=== PATIENT | male | born 1965 | race Caucasian/White ===

== ENCOUNTER 2016-10-11 21:07 | Inpatient (IN) | payer BC ==
[2016-10-11] MEDS ORDERED: NITROGLYCERIN OINT 1 INCH/GM PACKET TOPICAL STA (21:23)
[2016-10-11] MEDS ORDERED: ASPIRIN 81 MG CHEW PO STA (21:23)
[2016-10-11] MEDS ORDERED: LABETALOL 5 MG/ML VIAL MDV IVP STA (21:24)
--- NOTE | 2016-10-11 21:28 | ED ---
Chest Pain HPI - General Chief Complaint: Chest Pain Stated Complaint: chest & left arm pain Time Seen by Provider: 10/11/16 21:17 Source: patient Mode of arrival: wheelchair Limitations: no limitations - History of Present Illness Initial Comments: This 50-year-old white male presents with with a complaint of some left arm and left jaw pain. He states that this is been occurring daily for the last 2 weeks. It is intermittent in nature. It comes on sporadically at rest and does not seem to be associated with exertion. He denies any shortness of breath or palpitations. He had some diaphoresis a couple days ago. He denies any actual chest pain. He denies any leg pain or swelling. He denies any history of DVT or PE. He states that the pain is described more as a pressure or hurting type of sensation. No other complaints or modifying factors. His last stress test was approximately 10 years ago and was negative. He denies any known cardiac disease. All of his symptoms have resolved at this time. - Related Data Home Medications Medication Instructions Recorded Confirmed Ibuprofen [Motrin] 800 mg PO Q8H PRN 12/25/15 10/11/16 Allergies Allergy/AdvReac Type Severity Reaction Status Date / Time Penicillins Allergy Unknown Verified 10/11/16 21:40 Childhood Review of Systems ROS Statement: Those systems with pertinent positive or pertinent negative responses have been documented in the HPI. ROS Other: All systems not noted in ROS Statement are negative. Past Medical History Past Medical History: No Reported History History of Any Multi-Drug Resistant Organisms: None Reported Past Surgical History: Appendectomy Additional Past Surgical History / Comment(s): patient states he had his stomach flipped, because of acid reflux Past Psychological History: No Psychological Hx Reported Smoking Status: Current every day smoker Past Alcohol Use History: Occasional Past Drug Use History: None Reported General Exam - General Exam Comments Initial Comments: GENERAL: The patient is well nourished and well hydrated. VITAL SIGNS: Heart rate, blood pressure, respiratory rate reviewed as recorded in nurse's notes. EYES: Pupils are round and reactive. Extraocular movements are intact. No conjunctival / lid redness or swelling. ENT: No external evidence of injury, swelling, or ecchymosis. Airway is patent. Throat is clear. NECK: Nontender. No swelling or evidence of injury. No subcutaneous emphysema. Trachea is midline. No thyroid mass. HEART: Regular rate and rhythm. Good peripheral pulses. LUNGS/CHEST: Breath sounds clear and equal bilaterally. No rales, rhonchi, or wheezes. No ecchymosis, subcutaneous emphysema, or tenderness. ABDOMEN: Abdomen soft without tenderness. No palpable masses or organomegaly. No peritoneal signs. No abdominal wall swelling or ecchymosis. EXTREMITIES: No extremity tenderness. Normal muscle tone and function. No thoracolumbar tenderness. NEUROLOGIC: Sensation is grossly intact. Cranial nerve exam reveals face is symmetrical, tongue is midline, speech is clear. SKIN: No abrasions or ecchymosis is noted. No induration or masses noted. PSYCHIATRIC: Alert and oriented. Appropriate behavior and judgment. Limitations: no limitations Course Vital Signs 10/11/16 10/11/16 21:13 21:45 Temperature 98 F Pulse Rate 80 70 Respiratory 24 16 Rate Blood Pressure 172/102 127/71 O2 Sat by Pulse 97 100 Oximetry Chest Pain MDM - MDM The patient was seen and examined. All diagnostics were reviewed. The EKG shows a normal sinus rhythm at a rate of 80. There is some ST depression in V4- V6. There is no ST elevation. The [place] interval is 152, QRS duration is 108, and the QTc interval is 477. This ST depression appears to be a new changes compared to EKG done 12/25/2015. He is given an aspirin as well as some Nitropaste. The repeat EKG shows a normal sinus rhythm at a rate of 76. No acute ST-T wave changes are identified. It appears that the previous EKG changes have resolved at this time. The [place] interval is 150, QRS duration is 102 , and the QTC intervals 470. The patient has a chest x-ray completed which does not show any acute process. The laboratories essentially within normal limits with a slight decrease in the CO2. Some fluid hydration is given. He is asymptomatic on recheck. Due to his symptomatology and EKG changes, it is felt that he likely does have acute coronary syndrome and would require admission to the hospital. He is agreeable. Case is discussed with ETHAN Palumbo from internal medicine and she is agreeable to admission. Heparin will be started shortly and he will be admitted to telemetry for further treatment. Disposition Clinical Impression: Acute electrocardiogram changes, Left arm pain, Acute coronary syndrome Disposition: ADMITTED IP TO THIS HOSP Condition: Fair Time of Disposition: 22:55 Decision Date: 10/11/16 Decision Time: 22:55
[2016-10-11 21:57] LABS: Basophils # (A) 0.1 k/uL (0-0.2); Basophils % (A) 1 %; CH 33.3; CHCM 34.1; Eosinophils # (A) 0.2 k/uL (0-0.7); Eosinophils % (A) 2 %; HCT 45.6 % (39.0-53.0); HDW 2.35; HGB 14.7 gm/dL (13.0-17.5); Luc # (Auto) 0.28; Luc % (Auto) 3; Lymphocytes # (A) 2.8 k/uL (1.0-4.8); Lymphocytes % (A) 29 %; MCH 31.7 pg (25.0-35.0); MCHC 32.4 g/dL (31.0-37.0); MCV 98.1 fL (80.0-100.0); Mean Platelet Volume 7.4; Monocytes # (A) 0.7 k/uL (0-1.0); Monocytes % (A) 7 %; Neutrophils # (A) 5.5 k/uL (1.3-7.7); Neutrophils % (A) 58 %; RBC 4.64 m/uL (4.30-5.90); RDW 13.8 % (11.5-15.5); WBC 9.5 k/uL (3.8-10.6); WBC (Perox) 9.48
--- NOTE | 2016-10-11 22:07 | XR ---
EXAMINATION TYPE: XR chest 2V DATE OF EXAM: 10/11/2016 COMPARISON: 12/25/2015 HISTORY: Chest pain TECHNIQUE: Frontal and lateral views of the chest are obtained. FINDINGS: Heart and mediastinum are normal. There is a large hiatal hernia. Lungs are clear. There i s no pleural effusion. Bony thorax is intact. There is old minimal wedging of a midthoracic vertebra. IMPRESSION: No active cardiopulmonary disease. Hiatal hernia. No change.
[2016-10-11 22:09] LABS: ALT 27 U/L (21-72); AST 17 U/L (17-59); Alkaline Phosphatase 84 U/L (38-126); Anion Gap 11 mmol/L; Blood Urea Nitrogen 11 mg/dL (9-20); Calcium 8.8 mg/dL (8.4-10.2); Carbon Dioxide 20 mmol/L (22-30); Chloride 107 mmol/L (98-107); Glucose 99 mg/dL (74-99); Non-African American GFR(MDRD) >60 (>60 ml/min/1.73 sqM); Potassium 3.9 mmol/L (3.5-5.1); Sodium 138 mmol/L (137-145); Total Bilirubin 0.1 mg/dL (0.2-1.3); Total Protein 6.8 g/dL (6.3-8.2)
[2016-10-11 22:17] LABS: Partial Thromboplastin Time 22.7 sec (22.0-30.0); Prothrombin Time 10.2 sec (9.0-12.0)
[2016-10-11 22:22] LABS: Creatine Kinase 127 U/L (55-170)
[2016-10-11 22:35] LABS: Creatine Kinase MB 1.9 ng/mL (0.0-2.4); Troponin I <0.012 ng/mL (0.000-0.034)
[2016-10-11] MEDS ORDERED: SODIUM CHLORIDE 0.9% 1,000 ML IV STA (22:38)
[2016-10-11] MEDS ORDERED: NITROGLYCERIN SL TABS 0.4 MG TAB SUBLINGUAL PRN (22:56)
[2016-10-11] MEDS ORDERED: HEPARIN SODIUM,PORCINE 5,000 UNIT/ML 1 ML VIAL IV PRN (22:56)
[2016-10-11] MEDS ORDERED: HEPARIN SODIUM,PORCINE 5,000 UNIT/ML 1 ML VIAL IV ONE (22:56)
[2016-10-11] MEDS ORDERED: HEPARIN SODIUM,PORCINE/D5W PMX 25,000 UNIT in DEXTROSE/WATER 1 500ML.BAG IV SCH (23:00)
[2016-10-11] MEDS ORDERED: ACETAMINOPHEN TAB 325 MG TAB PO PRN (23:00)
[2016-10-12] MEDS: PANTOPRAZOLE 40 MG/10 ML VIAL IVP SCH ×2 (00:21→09:07)
[2016-10-12] MEDS: NITROGLYCERIN OINT 1 INCH/GM PACKET TOPICAL SCH ×4 (00:26→18:06)
[2016-10-12 04:41] LABS: Mean Platelet Volume 7.3
[2016-10-12 04:54] LABS: Cholesterol 167 mg/dL (<200); HDL Cholesterol 49 mg/dL (40-60)
[2016-10-12 05:23] LABS: Creatine Kinase MB 2.2 ng/mL (0.0-2.4)
[2016-10-12 05:26] LABS: Troponin I 0.126 ng/mL (0.000-0.034)
[2016-10-12] MEDS ORDERED: ALPRAZolam 0.25 MG TAB PO PRN (07:26)
[2016-10-12] MEDS ORDERED: ATORVASTATIN 80 MG TAB PO STA (07:26)
[2016-10-12] MEDS ORDERED: ALPRAZolam 0.5 MG TAB PO PRN (07:26)
[2016-10-12] MEDS ORDERED: SODIUM CHLORIDE 0.9% 1,000 ML in EMPTY BAG 1 BAG IV ONE (07:26)
[2016-10-12] MEDS ORDERED: NITROGLYCERIN SL TABS 0.4 MG TAB SUBLINGUAL PRN ×2 (07:26→13:35)
--- NOTE | 2016-10-12 07:50 | P.CRDCN ---
History of Present Illness Consult date: 10/12/16 History of present illness: This is a 50-year-old gentleman with history of smoking and family history of ischemic heart disease has been experiencing intermittent chest pain him a left arm pain and also Pain for the last one week. The pains were intermittent, not clearly related to exertion, lasting about 5-10 minutes at this time. This is associated with some nausea and mild sweating and shortness of breath. In view of the symptoms patient was admitted to the hospital through emergency room. His EKGs on admission showed ST-T changes in the lateral leads which are consistent with ischemia. His troponin values showed elevation of the second set consistent with acute coronary syndrome. Patient is advised to have a cardiac catheterization for definitive diagnosis. Further recommendations depend upon the findings on the cath. Patient doesn't have any history of previous myocardial infarction, stroke or hypercholesterolemia Review of Systems REVIEW OF SYSTEMS: CONSTITUTIONAL:. Patient is doing well. No complaints of fever or chills EYES: Denies diplopia, blurring of vision EARS, NOSE, MOUTH, THROAT: Denies headaches, denies sore throat. CARDIOVASCULAR: As per HPI RESPIRATORY: Denies shortness of breath, denies cough. GASTROINTESTINAL: Denies change in appetite, denies abdominal pain, denies diarrhea GENITOURINARY: Denies hematuria, denies infections. MUSKULOSKELETAL: Denies pain, denies swelling. Denies any cramps or claudication INTEGUMENTARY: Denies rash, denies eczema. NEUROLOGICAL: Denies focal weakness, or visual disturbance. Denies any dizziness or syncope PSYCHIATRIC: Denies anxiety, denies depression. HEMATOLOGIC/LYMPHATIC: Denies any bleeding, denies enlarged lymph nodes. Past Medical History Past Medical History: No Reported History History of Any Multi-Drug Resistant Organisms: None Reported Past Surgical History: Appendectomy Additional Past Surgical History / Comment(s): patient states he had his stomach flipped, because of acid reflux Past Anesthesia/Blood Transfusion Reactions: No Reported Reaction Past Psychological History: No Psychological Hx Reported Smoking Status: Current every day smoker Past Alcohol Use History: Occasional Past Drug Use History: None Reported - Past Family History Father Family Medical History: Cancer, COPD Additional Family Medical History / Comment(s): prostate cancer Mother Family Medical History: Chest Pain / Angina, Coronary Artery Disease (CAD), Myocardial Infarction ([place]) Additional Family Medical History / Comment(s): "Mother had multiple heart attacks and open heart surgery" Medications and Allergies Home Medications Medication Instructions Recorded Confirmed Type Ibuprofen [Motrin] 800 mg PO Q8H PRN 12/25/15 10/11/16 History Allergies Allergy/AdvReac Type Severity Reaction Status Date / Time Penicillins Allergy Unknown Verified 10/11/16 21:40 Childhood Physical Exam Vitals: Vital Signs Temp Pulse Pulse Resp BP BP Pulse Ox 10/12/16 04:00 59 L 16 10/12/16 03:53 98.1 F 59 L 16 119/69 95 10/12/16 00:00 61 16 10/11/16 23:52 97.9 F 61 16 126/77 96 10/11/16 23:32 73 20 130/74 96 10/11/16 21:45 70 16 127/71 100 10/11/16 21:13 98 F 80 24 172/102 97 Intake and Output 10/11/16 10/12/16 10/12/16 22:59 06:59 14:59 Intake Total 127.588 Balance 127.588 Intake: Intake, IV Titration 127.588 Amount Heparin Sodium,Porcine/ 127.588 D5w Pmx 25,000 unit In Dextrose/Water 1 500ml. bag @ 11.75 UNITS/KG/HR 20.02 mls/hr IV .Q24H [facility] Rx#:[id number] Other: Voiding Method Toilet # Voids 1 Weight 85.23 kg 88.8 kg GENERAL EXAM: Patient is alert and oriented and doesn't appear to be in any acute distress HEENT: Normocephalic. Normal reaction of pupils, equal size, normal range of extraocular motion. No erythema or exudates in the throat. NECK: No masses, no nuchal rigidity. CHEST: No chest wall deformity. LUNGS: Equal air entry with no crackles or wheeze. HEART: S1 and S2 normal with no audible mumurs or gallops. Regular rhythm, femorals equal on both sides.. ABDOMEN: No hepatosplenomegaly, normal bowel sounds, no guarding or rigidity. SKIN: No rashes CENTRAL NERVOUS SYSTEM: No focal deficits. EXTREMITIES: No cyanosis, clubbing or edema. Patient has diffuse vitiligo Results 10/12/16 04:14 10/11/16 21:40 Cardiac Enzymes 10/11/16 10/11/1610/12/17 Range/Units 21:40 21:40 04:14 AST 17 (17-59) U/L CK-MB (CK-2) 1.9 2.2 (0.0-2.4) ng/mL Troponin I <0.012 0.126 H* (0.000-0.034) ng/mL Coagulation 10/11/16 10/12/16 Range/Units 21:40 04:14 PT 10.2 (9.0-12.0) sec APTT 22.7 30.3 H (22.0-30.0) sec Lipids 10/12/16 Range/Units 04:14 Triglycerides 101 (<150) mg/dL Cholesterol 167 (<200) mg/dL HDL Cholesterol 49 (40-60) mg/dL CBC 10/11/16 10/12/16 Range/Units 21:40 04:14 WBC 9.5 (3.8-10.6) k/uL RBC 4.64 (4.30-5.90) m/uL Hgb 14.7 (13.0-17.5) gm/dL Hct 45.6 (39.0-53.0) % Plt Count 284 293 (150-450) k/uL Comprehensive Metabolic Panel 10/11/16 Range/Units 21:40 Sodium 138 (137-145) mmol/L Potassium 3.9 (3.5-5.1) mmol/L Chloride 107 (98-107) mmol/L Carbon Dioxide 20 L (22-30) mmol/L BUN 11 (9-20) mg/dL Creatinine 0.81 (0.66-1.25) mg/dL Glucose 99 (74-99) mg/dL Calcium 8.8 (8.4-10.2) mg/dL AST 17 (17-59) U/L ALT 27 (21-72) U/L Alkaline Phosphatase 84 (38-126) U/L Total Protein 6.8 (6.3-8.2) g/dL Albumin 3.9 (3.5-5.0) g/dL Current Medications Generic Name Dose Route Start Last Admin Trade Name Freq PRN Reason Stop Dose Admin Acetaminophen 650 mg 10/11/16 23:00 Tylenol Tab PO Q6H PRN Pain Alprazolam 0.25 mg 10/12/16 07:26 Xanax PO Q6HR PRN Mild Anxiety Alprazolam 0.5 mg 10/12/16 07:26 Xanax PO Q6HR PRN Moderate Anxiety Aspirin 325 mg 10/12/16 09:00 Aspirin PO DAILY [facility] Heparin Sodium (Porcine) 0 unit 10/11/16 22:56 10/12/16 05:48 Heparin IV 4,000 unit Q6HR PRN Administration Low PTT Protocol Sodium Chloride 1,000 mls @ 100 mls/hr 10/11/16 22:38 10/11/16 23:25 Saline 0.9% IV 10/12/16 08:37 100 mls/hr .Q10H [facility]A Administration Heparin Sodium/Dextrose 25,000 500 mls @ 20.02 mls/hr 10/11/16 23:00 05:50 unit/ IV Solution IV 15 units/kg/hr .Q24H [facility] 25.56 mls/hr Protocol Titration 11.75 UNITS/KG/HR Nitroglycerin 1 inch 10/12/16 00:00 10/12/16 05:44 Nitro-Bid Oint TOPICAL 1 inch Q6HR [facility] Administration Nitroglycerin 0.4 mg 10/11/16 22:56 Nitrostat SUBLINGUAL Q5M PRN Chest Pain Nitroglycerin 0.4 mg 10/12/16 07:26 Nitrostat SUBLINGUAL Q5M PRN Chest Pain Pantoprazole Sodium 40 mg 10/11/16 23:15 10/12/16 00:21 Protonix IVP 40 mg DAILY [facility]RO Administration Intake and Output 10/11/16 10/12/16 10/12/16 22:59 06:59 14:59 Intake Total 127.588 Balance 127.588 Intake: Intake, IV Titration 127.588 Amount Heparin Sodium,Porcine/ 127.588 D5w Pmx 25,000 unit In Dextrose/Water 1 500ml. bag @ 11.75 UNITS/KG/HR 20.02 mls/hr IV .Q24H [facility] Rx#:[id number] Other: Voiding Method Toilet # Voids 1 Weight 85.23 kg 88.8 kg 10/12/16 04:14 10/11/16 21:40 EKG Interpretations (text) Sinus rhythm with ST-T changes in the lateral leads size to of ischemia Assessment and Plan (1) Smoking Status: Acute (2) Acute coronary syndrome Status: Acute (3) Family history of ischemic heart disease Status: Acute Plan: Patient will continue with heparin, nitrates, beta blockers and aspirin. We will get an echocardiogram. Patient will have a cardiac catheterization for definitive diagnosis.
[2016-10-12] MEDS: ASPIRIN 325 MG TAB PO SCH (08:03)
[2016-10-12] MEDS ORDERED: METOPROLOL TARTRATE 12.5 MG TAB PO SCH (09:00)
--- NOTE | 2016-10-12 10:05 | ECHOF ---
Referral Reason:left arm pain MEASUREMENTS -------- HEIGHT: 180.3 cm WEIGHT: 88.5 kg BP: 119/69 IVSd: 0.7 cm (0.6 - 1.1) LVIDd: 5.2 cm (3.9 - 5.3) LVPWd: 0.9 cm (0.6 - 1.1) IVSs: 1.8 cm LVIDs: 2.8 cm LVPWs: 1.7 cm Ao Diam: 3.4 cm (2.0 - 3.7) AV Cusp: 2.1 cm (1.5 - 2.6) LA Diam: 3.0 cm (2.7 - 3.8) MV EXCURSION: 14.577 mm (> 18.000) MV EF SLOPE: 110 mm/s (70 - 150) EPSS: 0.4 cm MV E Bossman: 0.95 m/s MV DecT: 229 ms MV A Bossman: 0.70 m/s MV E/A Ratio: 1.35 RAP: 5.00 mmHg RVSP: 12.99 mmHg FINDINGS -------- Sinus rhythm. This was a technically good study. Left ventricular wall thickness is normal. Overall left ventricular systolic function is normal with, an EF between 55 - 60 %. The right ventricle is normal in size and function. The left atrium is normal in size. The right atrium is normal in size. The aortic valve is trileaflet, and appears structurally normal. No aortic stenosis or regurgitation. The mitral valve leaflets are mildly thickened. There is trace mitral regurgitation. Mild tricuspid regurgitation present. The right ventricular systolic pressure, as measured by Doppler, is 12.99mmHg. Pulmonic valve appears structurally normal. The aortic root size is normal. Normal inferior vena cava with normal inspiratory collapse consistent with estimated right atrial pressure of 5 mmHg. The pericardium is normal. CONCLUSIONS -------- 1. Sinus rhythm. 2. There is trace mitral regurgitation. 3. Mild tricuspid regurgitation present. 4. The right ventricular systolic pressure, as measured by Doppler, is 12.99mmHg. 5. Pulmonic valve appears structurally normal. 6. The aortic root size is normal. 7. Normal inferior vena cava with normal inspiratory collapse consistent with estimated right atrial pressure of 5 mmHg. 8. The pericardium is normal. 9. This was a technically good study. 10. Left ventricular wall thickness is normal. 11. Overall left ventricular systolic function is normal with, an EF between 55 - 60 %. 12. The right ventricle is normal in size and function. 13. The left atrium is normal in size. 14. The right atrium is normal in size. 15. The aortic valve is trileaflet, and appears structurally normal. No aortic stenosis or regurgitation. 16. The mitral valve leaflets are mildly thickened. TRANSMISSION TECHNICIAN: Erlinda Whalen RDCS
[2016-10-12] MEDS ORDERED: SODIUM CHLORIDE 0.9% 1,000 ML IV ONE ×2 (11:35→16:00)
[2016-10-12] MEDS ORDERED: diphenhydrAMINE 50 MG/ML 1 ML VIAL ONE (11:40)
[2016-10-12] MEDS ORDERED: LIDOCAINE 2% INJ 20 MG/ML (20 ML MDV) ONE ×2 (11:40→13:27)
[2016-10-12] MEDS ORDERED: MIDAZOLAM 2 MG/2 ML VIAL ONE (11:41)
[2016-10-12] MEDS ORDERED: fentaNYL (PF) 50 MCG/ML 2 ML AMP ONE (11:41)
[2016-10-12] MEDS ORDERED: fentaNYL (PF) 50 MCG/ML 2 ML AMP IV ONE (11:44)
[2016-10-12] MEDS ORDERED: diphenhydrAMINE 50 MG/ML 1 ML VIAL IVP ONE (11:44)
[2016-10-12] MEDS ORDERED: MIDAZOLAM 2 MG/2 ML VIAL IV ONE (11:44)
[2016-10-12] MEDS ORDERED: LIDOCAINE 2% INJ 20 MG/ML SQ ONE (11:45)
[2016-10-12 12:15] LABS: Creatine Kinase MB 1.4 ng/mL (0.0-2.4)
[2016-10-12 12:16] LABS: Troponin I 0.07 ng/mL (0.000-0.034)
[2016-10-12] MEDS ORDERED: BIVALIRUDIN BOLUS 250 MG/50 ML IV ONE (12:45)
[2016-10-12] MEDS ORDERED: HYDROmorphone 2 MG/ML 1 ML SYRINGE ONE (12:46)
[2016-10-12] MEDS ORDERED: CLOPIDOGREL 75 MG TAB ONE (12:46)
[2016-10-12] MEDS ORDERED: BIVALIRUDIN 250 MG in SODIUM CHLORIDE 0.9% 50 ML IV ONE (12:47)
[2016-10-12] MEDS ORDERED: HYDROmorphone 2 MG/ML 1 ML SYRINGE IV ONE (12:48)
[2016-10-12] MEDS: NITROGLYCERIN 1000MCG/10ML SYRINGE INTRACORON ONE ×3 (12:52→13:24)
[2016-10-12] MEDS ORDERED: CLOPIDOGREL 75 MG TAB PO ONE (12:57)
[2016-10-12] MEDS ORDERED: MAG HYDROX/AL HYDROX/SIMETH 30 ML CUP PO PRN (13:35)
[2016-10-12] MEDS ORDERED: ZOLPIDEM 5 MG TAB PO PRN (13:35)
[2016-10-12] MEDS ORDERED: RX INFO: IV CONTRAST WAS GIVEN 1 EACH MISC MISCELLANE PRN (13:35)
[2016-10-12] MEDS ORDERED: ATROPINE SULFATE 0.1 MG/ML 10ML SYRINGE IV PRN (13:35)
[2016-10-12] MEDS ORDERED: IOHEXOL 350 MG/ML 125ML BOTTLE INJ ONE (13:44)
[2016-10-12] MEDS ORDERED: SODIUM CHLORIDE 0.9% 1,000 ML IV SCH (13:45)
[2016-10-12] MEDS: METOPROLOL TARTRATE 25 MG TAB PO SCH (20:40)
--- NOTE | 2016-10-12 22:08 | P.HPIM ---
History of Present Illness H&P Date: 10/12/16 Chief Complaint: Left arm pain and numbness This is a 50-year-old gentleman with history of smoking and family history of ischemic heart disease came to ER with complaints of intermittent left arm pain for the last one week. The pains were intermittent, not clearly related to exertion, lasting about 5-10 minutes at this time. This is associated with some nausea and mild sweating and shortness of breath. His EKGs on admission showed ST-T changes in the lateral leads which are consistent with ischemia. His troponin values showed elevation of the second set consistent with acute coronary syndrome. Patient was seen by cardiology and patient underwent cardiac catheterization and stent placement today. Patient currently denied any, soft chest pain or trouble breath. No nausea vomiting abdominal pain. No recent illnesses. No sick contacts. No recent travel. Review of Systems CONSTITUTIONAL: No fever, no malaise, no fatigue. HEENT: No recent visual problems or hearing problems. Denied any sore throat. CARDIOVASCULAR: No chest pain, orthopnea, PND, no palpitations, no syncope. PULMONARY: , no hemoptysis. GASTROINTESTINAL: No diarrhea, no nausea, no vomiting, no abdominal pain. Normoactive bowel sounds. NEUROLOGICAL: No headaches, no weakness, no numbness. HEMATOLOGICAL: Denies any bleeding or petechiae. GENITOURINARY: Denies any burning micturition, frequency, or urgency. MUSCULOSKELETAL/RHEUMATOLOGICAL: Denies any joint pain, swelling, or any muscle pain. ENDOCRINE: Denies any polyuria or polydipsia. The rest of the 14-point review of systems is negative. Past Medical History Past Medical History: No Reported History History of Any Multi-Drug Resistant Organisms: None Reported Past Surgical History: Appendectomy Additional Past Surgical History / Comment(s): patient states he had his stomach flipped, because of acid reflux Past Anesthesia/Blood Transfusion Reactions: No Reported Reaction Past Psychological History: No Psychological Hx Reported Smoking Status: Current every day smoker Past Alcohol Use History: Occasional Past Drug Use History: None Reported - Past Family History Father Family Medical History: Cancer, COPD Additional Family Medical History / Comment(s): prostate cancer Mother Family Medical History: Chest Pain / Angina, Coronary Artery Disease (CAD), Myocardial Infarction ([place]) Additional Family Medical History / Comment(s): "Mother had multiple heart attacks and open heart surgery" Medications and Allergies Home Medications Medication Instructions Recorded Confirmed Type Ibuprofen [Motrin] 800 mg PO Q8H PRN 12/25/15 10/11/16 History Allergies Allergy/AdvReac Type Severity Reaction Status Date / Time Penicillins Allergy Unknown Verified 10/11/16 21:40 Childhood Physical Exam Vitals: Vital Signs Temp Pulse Pulse Pulse Resp BP BP 10/12/16 16:35 56 L 16 145/80 10/12/16 15:26 64 16 132/78 10/12/16 14:57 74 74 16 133/81 10/12/16 14:36 68 68 16 136/89 10/12/16 14:26 59 L 16 146/92 10/12/16 14:05 62 16 147/95 10/12/16 13:50 54 L 16 142/88 10/12/16 08:00 97.7 F 60 16 10/12/16 04:00 59 L 16 10/12/16 03:53 98.1 F 59 L 16 119/69 10/12/16 00:00 61 16 10/11/16 23:52 97.9 F 61 16 126/77 10/11/16 23:32 73 20 130/74 10/11/16 21:45 70 16 127/71 10/11/16 21:13 98 F 80 24 172/102 BP Pulse Ox 10/12/16 16:35 92 L 10/12/16 15:26 92 L 10/12/16 14:57 98 10/12/16 14:36 96 10/12/16 14:26 95 10/12/16 14:05 96 10/12/16 13:50 96 10/12/16 08:00 141/85 95 10/12/16 04:00 10/12/16 03:53 95 10/12/16 00:00 10/11/16 23:52 96 10/11/16 23:32 96 10/11/16 21:45 100 10/11/16 21:13 97 Intake and Output 10/12/16 10/12/16 10/12/16 06:59 14:59 22:59 Intake Total 127.588 245 Output Total 450 600 Balance 127.588 -205 -600 Intake: IV 245 Sodium Chloride 0.9% 1, 0 000 ml @ 100 mls/hr IV . Q10H [facility] Rx#:[id number] Intake, IV Titration 127.588 Amount Heparin Sodium,Porcine/ 127.588 D5w Pmx 25,000 unit In Dextrose/Water 1 500ml. bag @ 11.75 UNITS/KG/HR 20.02 mls/hr IV .Q24H [facility] Rx#:[id number] Output: Urine 450 600 Other: Voiding Method Toilet Toilet # Voids 1 Weight 88.8 kg PHYSICAL EXAMINATION: Patient is lying in the bed comfortably, no acute distress, awake alert and oriented.. HEENT: Normocephalic. Neck is supple. Pupils reactive. Nostrils clear. Oral cavity is moist. Ears reveal no drainage. Neck reveals no JVD, carotid bruits, or thyromegaly. CHEST EXAMINATION: Trachea is central. Symmetrical expansion. Lung valencia clear to auscultation and percussion. CARDIAC: Normal S1, S2 with no gallops. No murmurs ABDOMEN: Soft. Bowel sounds normal. No organomegaly. No abdominal bruits. Extremities reveal no edema. No clubbing or cyanosis Neurologically awake, alert, oriented x3 with well-coordinated movements. Skin: no rash or skin lesions Musculoskeletal: no joint swelling or deformity. Results CBC & Chem 7: 10/12/16 04:14 10/11/16 21:40 Labs: Abnormal Lab Results - Last 24 Hours (Table) 10/11/16 10/12/16 10/12/16 Range/Units 21:40 04:14 04:14 APTT 30.3 H (22.0-30.0) sec Carbon Dioxide 20 L (22-30) mmol/L Total Bilirubin 0.1 L (0.2-1.3) mg/dL Troponin I 0.126 H* (0.000-0.034) ng/mL 10/12/16 Range/Units 10:44 APTT (22.0-30.0) sec Carbon Dioxide (22-30) mmol/L Total Bilirubin (0.2-1.3) mg/dL Troponin I 0.070 H* (0.000-0.034) ng/mL Thrombosis Risk Factor Assmnt - DVT/VTE Prophylaxis DVT/VTE Prophylaxis: Pharmacologic Prophylaxis ordered - Choose All That Apply Any of the Below Risk Factors Present?: Yes Each Factor Represents 1 point: Age 41-60 years Thrombosis Risk Factor Assessment Total Risk Factor Score: 1 Thrombosis Risk Factor Assessment Level: Low Risk Assessment and Plan Plan: #1 acute non-ST elevated [place] status post cardiac catheterization and stent placement #2 left arm pain on admission #3 nicotine addiction #4 family history of coronary artery disease. #5 DVT prophylaxis Plan: Patient will be continued on aspirin, Plavix, statin and beta blockers. Cardiology is on the board. Continue with telemetry monitoring. 2-D echo showed normal ejection fraction. Further recommendations based on the clinical course. Time with Patient: Greater than 30
[2016-10-13] MEDS: NITROGLYCERIN OINT 1 INCH/GM PACKET TOPICAL SCH ×2 (01:20→06:17)
[2016-10-13 06:17] LABS: Basophils # (A) 0.1 k/uL (0-0.2); Basophils % (A) 1 %; CH 32.5; CHCM 34.1; Eosinophils # (A) 0.2 k/uL (0-0.7); Eosinophils % (A) 1 %; HCT 47.5 % (39.0-53.0); HDW 2.35; HGB 16.1 gm/dL (13.0-17.5); Luc % (Auto) 2; Lymphocytes # (A) 1.9 k/uL (1.0-4.8); Lymphocytes % (A) 14 %; MCH 32.4 pg (25.0-35.0); MCHC 33.8 g/dL (31.0-37.0); MCV 95.7 fL (80.0-100.0); Mean Platelet Volume 6.9; Monocytes % (A) 7 %; Neutrophils # (A) 10.3 k/uL (1.3-7.7); Neutrophils % (A) 75 %; RBC 4.96 m/uL (4.30-5.90); RDW 13.2 % (11.5-15.5); WBC 13.7 k/uL (3.8-10.6); WBC (Perox) 13.21
[2016-10-13 06:32] LABS: Anion Gap 9 mmol/L; Blood Urea Nitrogen 11 mg/dL (9-20); Calcium 9.1 mg/dL (8.4-10.2); Carbon Dioxide 25 mmol/L (22-30); Chloride 105 mmol/L (98-107); Glucose 104 mg/dL (74-99); Non-African American GFR(MDRD) >60 (>60 ml/min/1.73 sqM); Potassium 4.4 mmol/L (3.5-5.1); Sodium 139 mmol/L (137-145)
--- NOTE | 2016-10-13 08:16 | P.DS ---
Providers Date of admission: 10/12/16 15:29 Expected date of discharge: 10/13/16 Attending physician: Amanda Garcia Consults: 10/11/16 22:56 Consult Physician Urgent Consulting Provider: Zachary Meier Consult Reason/Comments: cp Do you want consulting provider notified?: Yes 10/12/16 13:35 Consult Physician Routine Consulting Provider: [facility] Consult Reason/Comments: Post Interventional patient Do you want consulting provider notified?: Already Contacted Primary care physician: Stated None - Discharge Diagnosis(es) (1) Smoking Current Visit: Yes Status: Acute (2) Acute coronary syndrome Current Visit: Yes Status: Acute (3) Family history of ischemic heart disease Current Visit: Yes Status: Acute Hospital Course: This 50-year-old gentleman is admitted to the hospital with a recurrence chest pain and left arm pain suggestive of unstable angina. Troponins were abnormal consistent with acute coronary syndrome. Patient had a cardiac catheterization and was found to have critical lesion involving the left circumflex and severe disease involving the right coronary artery. There is mild to moderate disease in the diagonal branch. Patient had stent placement of both circumflex and right coronary artery. Patient has been stable since the procedure. Hasn't had any chest pain, shortness of breath, dizziness or syncope. His groin is soft. His blood pressure has been running high. Patient is on metoprolol 12.5 mg by mouth twice a day and lisinopril 10 mg daily. I'm going to add Norvasc 5 mg today and if the blood pressure stable, patient will be discharged later today. He did his groin is soft without any hematoma. Patient will continue aspirin, Lasix 75 mg, metoprolol 12.5 mg by mouth twice a day, Norvasc 5 mg, and lisinopril 10 mg. Patient is advised not to do any heavy lifting, pushing or pulling. Follow-up in the office in one week time Patient Condition at Discharge: Fair Plan - Discharge Summary New Discharge Prescriptions: New amLODIPine [Norvasc] 5 mg PO DAILY #90 tab Aspirin 325 mg PO DAILY #90 tab Atorvastatin [Lipitor] 80 mg PO HS #90 tab Clopidogrel [Plavix] 75 mg PO DAILY #90 tab Lisinopril [Zestril] 10 mg PO DAILY #90 tab Metoprolol Tartrate [Lopressor] 25 mg PO BID #180 tab Nitroglycerin Sl Tabs [Nitrostat] 0.4 mg SUBLINGUAL Q5M PRN #25 tab PRN Reason: Chest Pain Discontinued Ibuprofen [Motrin] 800 mg PO Q8H PRN PRN Reason: Pain Discharge Medication List Aspirin 325 mg PO DAILY #90 tab 10/13/16 [Rx] Atorvastatin [Lipitor] 80 mg PO HS #90 tab 10/13/16 [Rx] Clopidogrel [Plavix] 75 mg PO DAILY #90 tab 10/13/16 [Rx] Lisinopril [Zestril] 10 mg PO DAILY #90 tab 10/13/16 [Rx] Metoprolol Tartrate [Lopressor] 25 mg PO BID #180 tab 10/13/16 [Rx] Nitroglycerin Sl Tabs [Nitrostat] 0.4 mg SUBLINGUAL Q5M PRN #25 tab 10/13/16 [Rx ] amLODIPine [Norvasc] 5 mg PO DAILY #90 tab 10/13/16 [Rx] Follow up Appointment(s)/Referral(s): Zachary Meier MD [STAFF PHYSICIAN] - 1 Week Discharge Disposition: HOME SELF-CARE
--- NOTE | 2016-10-13 08:20 | P.PCN ---
Date of Procedure: 10/13/16 Preoperative Diagnosis: Unstable angina Postoperative Diagnosis: Triple-vessel coronary artery disease Procedure(s) Performed: Left heart catheterization with left ventriculography Implants: Indications for Procedure: Operative Findings: Description of Procedure: HISTORY: This is a 50-year-old gentleman who was admitted to the hospital with complaints of recurrent left arm and jaw pain with positive troponin and EKG changes suggestive of unstable angina. Patient is advised to have cardiac catheterization for definitive diagnosis and further intervention as needed. CONSENT:I have discussed the risks, benefits and alternative therapies for the above-mentioned procedure and for both sedation/analgesia as well as necessary blood product administration, if indicated, as they pertain to this patient. The patient has indicated understanding and acceptance of the risks and procedures discussed. PROCEDURE: Patient was brought to the lab in a fasting state. Patient was given some IV sedation. The right groin is infiltrated with lidocaine and right femoral artery was entered using Seldinger technique. A 6-Georgian catheter was left in place and selective coronary arteriography and left ventriculography was performed. Patient tolerated the procedure well. Femoral angiogram was performed and Angio-Seal was applied for hemostasis. No immediate complications were noted and patient was transferred to [facility] in a stable condition Conscious Sedation: Versed : 1 mg Fentanyl [: 50] g Duration 18 minutes HEMODYNAMICS: The aortic pressure was about 160/90. Left ankle end-diastolic pressure was about 12. There was no gradient across the aortic valve SELECTIVE CORONARY ARTERIOGRAPHY: LEFT MAIN: Normal length and patent THE LEFT ANTERIOR DESCENDING CORONARY ARTERY: . This is a good caliber vessel giving rise to moderate caliber diagonal branch. Diagonal branch has about 40-50% stenosis in the proximal portion. The LAD itself is free of significant occlusive disease. THE LEFT CIRCUMFLEX AND IS CORONARY ARTERY: This is a good caliber vessel with about 95% stenosis in the proximal portion THE RIGHT CORONARY ARTERY: . This is a good caliber vessel with about 70% stenosis in the distal portion LEFT VENTRICULOGRAPHY: . This revealed normal-sized cardiac silhouette with good systolic function FINAL IMPRESSION: . Significant 2 vessel disease with intermediate disease in the first diagonal PLAN: And placement of the circumflex and the right coronary artery to be done by Dr. Hernandes PROGNOSIS: . Fair
[2016-10-13] MEDS: METOPROLOL TARTRATE 25 MG TAB PO SCH (08:57)
[2016-10-13] MEDS: ASPIRIN 325 MG TAB PO SCH (08:57)
[2016-10-13] MEDS: PANTOPRAZOLE 40 MG/10 ML VIAL IVP SCH (08:58)
[2016-10-13 09:00] VITALS: RESP 16
[2016-10-13] MEDS ORDERED: ASPIRIN 325 MG TAB PO SCH (09:00)
[2016-10-13] MEDS ORDERED: LISINOPRIL 10 MG TAB PO SCH (09:00)
[2016-10-13] MEDS ORDERED: amLODIPine 5 MG TAB PO SCH (09:00)
[2016-10-13 10:49] VITALS: BP 118/61; PULSE 63; TEMP 98.6
[2016-10-13] MEDS ORDERED: CLOPIDOGREL 75 MG TAB PO SCH (12:00)
--- NOTE | 2016-10-13 13:50 | PCN ---
PERFORMING PHYSICIAN: Yony Go MD, Community Service Officer PROCEDURE PERFORMED: 1. Successful stenting of the mid left circumflex using 3.25 x 26 mm Xience OUSMANE with good angiographic results. 2. Successful stenting of the mid-right coronary artery using 3.0 x 15 mm Promise Premier drug eluting stent with good angiographic result. INDICATIONS: This is a pleasant 50-year-old gentleman who was experiencing chest discomfort and underwent heart catheterization by Dr. Meier and was found to have severe two vessel CAD involving the mid left circumflex and mid right coronary artery. The decision was made towards percutaneous coronary intervention. APPROACH: Right common femoral artery. COMPLICATIONS: None. LEVEL OF SEDATION: Moderate with sedation length of 45 minutes. PROCEDURE DESCRIPTION: After diagnostic heart catheterization was performed by Dr. Meier and after reviving the angiogram, we decided to pursue with intervene on the RCA and anticoagulation was initiated using Angiomax. Subsequently, I took JL4 guiding catheter and the left main was engaged. Whisper wire was used to wire the left circumflex. I did PTCA ballooning initially using 2.5 x 12 mm and subsequently 3.0 x 15 mm balloon. I attempted advancing 3.25 x 26 mm stent to the left circumflex but the stent would not cross the lesion so I had to double wire the left circumflex using run through wire as a sandi wire. After that I was able to advance the stent to the mid left circumflex where the stent was positioned under fluoroscopy guidance and deployed under its nominal pressure. The following angiogram showed good angiographic results with no perforation or dissection and TIMI3 flow in the mid -left circumflex. Subsequently I took JR4 guiding catheter and left main was engaged. I sued the same Whisper wire and the same 2.5 x 12 mm balloon to balloon the mid-RCA. Subsequently, I deployed 3.0 x 15 mm Promise Premier drug-eluting stent where the stent was positioned under fluoroscopic guidance and deployed under its nominal pressure. I postdilated that stent using 3.0 NC balloon. The following angiogram showed excellent angiographic results. The procedure was completed without any complications. POSTPROCEDURE MANAGEMENT: 1. Dual antiplatelet therapy. 2. Risk factor modifications. 3. Follow up with the patient. GARCIA
[2016-10-13] MEDS ORDERED: ATORVASTATIN 80 MG TAB PO SCH (21:00)
[2016-10-14] MEDS ORDERED: PANTOPRAZOLE 40 MG TABLET PO SCH (07:30)
--- NOTE | 2016-10-16 01:14 | P.DS ---
Providers Date of admission: 10/12/16 15:29 Expected date of discharge: 10/13/16 Attending physician: Amanda Garcia Consults: 10/11/16 22:56 Consult Physician Urgent Consulting Provider: Zachary Meier Consult Reason/Comments: cp Do you want consulting provider notified?: Yes 10/12/16 13:35 Consult Physician Routine Consulting Provider: [facility] Consult Reason/Comments: Post Interventional patient Do you want consulting provider notified?: Already Contacted Primary care physician: Stated None Hospital Course: Discharge diagnosis #1 acute non-ST elevated MD status post cardiac catheterization and stent placement #2 left arm pain on admission #3 nicotine addiction #4 family history of coronary artery disease. #5 DVT prophylaxis Hospital course This is a 50-year-old gentleman with history of smoking and family history of ischemic heart disease came to ER with complaints of intermittent left arm pain for the last one week. The pains were intermittent, not clearly related to exertion, lasting about 5-10 minutes at this time. This is associated with some nausea and mild sweating and shortness of breath. His EKGs on admission showed ST-T changes in the lateral leads which are consistent with ischemia. His troponin values showed elevation of the second set consistent with acute coronary syndrome. Patient was seen by cardiology and patient underwent cardiac catheterization and stent placement today. Patient currently denied any, soft chest pain or trouble breath. No nausea vomiting abdominal pain. No recent illnesses. No sick contacts. No recent travel. On 10/13/2016 patient denied any new complaints. Patient underwent cardiac catheterization and stent placement to both circumflex and right coronary artery. No hematoma noted at the entry site. Continue with the telemetry monitoring. Patient will be continued on aspirin, Plavix, statin and beta blockers and lisinopril. Norvasc was added. 2-D echo showed normal ejection fraction. Advised to follow with primary care physician cardiology. Patient Condition at Discharge: Stable Plan - Discharge Summary New Discharge Prescriptions: New amLODIPine [Norvasc] 5 mg PO DAILY #90 tab Aspirin 325 mg PO DAILY #90 tab Atorvastatin [Lipitor] 80 mg PO HS #90 tab Clopidogrel [Plavix] 75 mg PO DAILY #90 tab Lisinopril [Zestril] 10 mg PO DAILY #90 tab Metoprolol Tartrate [Lopressor] 25 mg PO BID #180 tab Nitroglycerin Sl Tabs [Nitrostat] 0.4 mg SUBLINGUAL Q5M PRN #25 tab PRN Reason: Chest Pain Discontinued Ibuprofen [Motrin] 800 mg PO Q8H PRN PRN Reason: Pain Discharge Medication List Aspirin 325 mg PO DAILY #90 tab 10/13/16 [Rx] Atorvastatin [Lipitor] 80 mg PO HS #90 tab 10/13/16 [Rx] Clopidogrel [Plavix] 75 mg PO DAILY #90 tab 10/13/16 [Rx] Lisinopril [Zestril] 10 mg PO DAILY #90 tab 10/13/16 [Rx] Metoprolol Tartrate [Lopressor] 25 mg PO BID #180 tab 10/13/16 [Rx] Nitroglycerin Sl Tabs [Nitrostat] 0.4 mg SUBLINGUAL Q5M PRN #25 tab 10/13/16 [Rx ] amLODIPine [Norvasc] 5 mg PO DAILY #90 tab 10/13/16 [Rx] Follow up Appointment(s)/Referral(s): Zachary Meier MD [STAFF PHYSICIAN] - 1 Week (office will call with appointment date and time) Patient Instructions/Handouts: *Surgery [facility] - After Heart Catheterization - Log Marker Instructions, Chest Pain (DC), Left Heart Catheterization (DC) Activity/Diet/Wound Care/Special Instructions: Follow post cath instruction sheet Smoking Cessation Discharge Disposition: HOME SELF-CARE
== END 2016-10-13 12:43 | disposition home or self-care (01) | DRG 247 ==
LOC: EC 21:07 → 3OBS 22:55 → 6SEL 10-12 13:35 → OBSVTOIN 10-12 15:29 → 6SEL 10-12 16:07
PROVIDERS: ADMIT Internal Medicine; ATTEND Internal Medicine
PROC: 027135Z Dilation of Coronary Artery, Two Arteries with Two Drug-eluting Intraluminal Devices, Percutaneous Approach (ICD-10-PCS; principal; 2016-10-13)
PROC: 4A023N7 Measurement of Cardiac Sampling and Pressure, Left Heart, Percutaneous Approach (ICD-10-PCS; 2016-10-13)
PROC: B2151ZZ Fluoroscopy of Left Heart using Low Osmolar Contrast (ICD-10-PCS; 2016-10-13)
PROC: B2111ZZ Fluoroscopy of Multiple Coronary Arteries using Low Osmolar Contrast (ICD-10-PCS; 2016-10-13)
DX: I24.9 Acute ischemic heart disease, unspecified (principal); F17.200 Nicotine dependence, unspecified, uncomplicated; I25.110 Atherosclerotic heart disease of native coronary artery with unstable angina pectoris; K21.9 Gastro-esophageal reflux disease without esophagitis; Z88.0 Allergy status to penicillin; Z82.49 Family history of ischemic heart disease and other diseases of the circulatory system
CPT/HCPCS: 36415; 71020; 80048; 80053; 80061; 82550; 82553; 83735; 84484; 85025; 85049; 85610; 85730; 93005; 93306; 93458; 96374; 96375; 99285

== ENCOUNTER 2017-12-07 11:21 | Emergency (ER) | payer BC ==
[2017-12-07] MEDS ORDERED: ACETAMINOPHEN TAB 500 MG TAB PO STA (12:01)
[2017-12-07] MEDS ORDERED: SODIUM CHLORIDE 0.9% 1,000 ML IV STA (12:09)
--- NOTE | 2017-12-07 12:54 | ED ---
Fever HPI - General Chief Complaint: Fever Stated Complaint: facial swelling Time Seen by Provider: 12/07/17 11:34 Source: patient, RN notes reviewed, old records reviewed Mode of arrival: ambulatory Limitations: no limitations - History of Present Illness Initial Comments: 52-year-old male presents results from today with chief complaint of swelling over the right side of his jaw complains of fevers and chills. Also complains of blistering over the lip. Patient states that he has had no chest interest breath, nausea or vomiting. He states that he's been feeling very fatigued and had high fevers of 101 earlier today. He is taking Motrin Tylenol. Patient reports that he has been fatigued, and has had significant weight loss over the past few months. Reports poor appetitie. - Related Data Home Medications Medication Instructions Recorded Confirmed Aspirin EC [Ecotrin Low Dose] 81 mg PO DAILY 12/07/17 12/07/17 Cpm/PE/Dm/Acetaminophen/Guaifn 2 tab PO Q6H PRN 12/07/17 12/07/17 [Tylenol Cold-Flu Day-Nt Caplet] amLODIPine [Norvasc] 2.5 mg PO DAILY 12/07/17 12/07/17 Previous Rx's Medication Instructions Recorded Atorvastatin [Lipitor] 80 mg PO HS #90 tab 10/13/16 Clopidogrel [Plavix] 75 mg PO DAILY #90 tab 10/13/16 Lisinopril [Zestril] 10 mg PO DAILY #90 tab 10/13/16 Metoprolol Tartrate [Lopressor] 25 mg PO BID #180 tab 10/13/16 Nitroglycerin Sl Tabs [Nitrostat] 0.4 mg SUBLINGUAL Q5M PRN #25 tab 10/13/16 Cephalexin [Keflex] 500 mg PO Q8HR #21 cap 12/07/17 Allergies Allergy/AdvReac Type Severity Reaction Status Date / Time Penicillins Allergy Unknown Verified 12/07/17 12:09 Childhood Review of Systems ROS Statement: Those systems with pertinent positive or pertinent negative responses have been documented in the HPI. ROS Other: All systems not noted in ROS Statement are negative. Constitutional: Reports: fever, chills Eyes: Denies: eye pain ENT: Denies: ear pain, throat pain Respiratory: Denies: cough, dyspnea Cardiovascular: Denies: chest pain Endocrine: Reports: fatigue (d) Gastrointestinal: Denies: abdominal pain, nausea Genitourinary: Denies: urgency Musculoskeletal: Denies: back pain Skin: Denies: rash Past Medical History Past Medical History: No Reported History History of Any Multi-Drug Resistant Organisms: None Reported Past Surgical History: Appendectomy Additional Past Surgical History / Comment(s): patient states he had his stomach flipped, because of acid reflux Past Anesthesia/Blood Transfusion Reactions: No Reported Reaction Past Psychological History: No Psychological Hx Reported Smoking Status: Current every day smoker Past Alcohol Use History: Occasional Past Drug Use History: None Reported - Past Family History Father Family Medical History: Cancer, COPD Additional Family Medical History / Comment(s): prostate cancer Mother Family Medical History: Chest Pain / Angina, Coronary Artery Disease (CAD), Myocardial Infarction ([place]) Additional Family Medical History / Comment(s): "Mother had multiple heart attacks and open heart surgery" General Exam - General Exam Comments Initial Comments: Well appearing 52 year old male, no acute distress. Limitations: no limitations General appearance: alert, in no apparent distress Head exam: Present: atraumatic, normocephalic, normal inspection Eye exam: Present: normal appearance, PERRL, EOMI. Absent: scleral icterus, conjunctival injection, periorbital swelling ENT exam: Present: normal exam, mucous membranes moist, other (Bilatering over top lip. ) Neck exam: Present: normal inspection, other (Swelling and lymphadenopathy over R lower mandible. No abscess noted into oral cavity. ). Absent: tenderness, meningismus, lymphadenopathy Respiratory exam: Present: normal lung sounds bilaterally. Absent: respiratory distress, wheezes, rales, rhonchi, stridor Cardiovascular Exam: Present: regular rate, normal rhythm, normal heart sounds. Absent: systolic murmur, diastolic murmur, rubs, gallop, clicks GI/Abdominal exam: Present: soft, normal bowel sounds. Absent: distended, tenderness, guarding, rebound, rigid Neurological exam: Present: alert, oriented X3, CN II-XII intact Psychiatric exam: Present: normal affect, normal mood Skin exam: Present: warm, dry, intact, normal color. Absent: rash Course Vital Signs 12/07/17 12/07/17 11:25 14:42 Temperature 98.3 F 98.5 F Pulse Rate 82 81 Respiratory 20 16 Rate Blood Pressure 101/70 100/58 O2 Sat by Pulse 97 97 Oximetry Medical Decision Making - Medical Decision Making Patient is a 52 year old male with left facial swelling, fatigue for one week. Patient is a heavy smoker, and complains of unintentional weight loss. Patient has area of lymphadenopathy and swelling over left face and mandible. No evidence of dental abscess. Patient lab work shows normal WBC, BMP, and heterophile. Patient CT facial bones shows no focal abscess for drainage. Patient CXR shows evidence of single pulmonary nodule, recommended CT chest. Patient at this time cannot have another CT today due to receiving contrast earlier. Patient will be written for outpatient CT, and advised to follow up with PCP and pulmonology. Patient will be started on short course of antibiotics to cover for possible early dental abscess. he is allergic to Penicillin. Return parameters discussed. - Lab Data Result diagrams: 12/07/17 12:37 12/07/17 12:37 Lab Results 12/07/17 12/07/17 12/07/17 Range/Units 12:37 12:37 12:37 WBC 10.3 (3.8-10.6) k/uL RBC 4.32 (4.30-5.90) m/uL Hgb 12.7 L (13.0-17.5) gm/dL Hct 39.7 (39.0-53.0) % MCV 91.7 (80.0-100.0) fL MCH 29.4 (25.0-35.0) pg MCHC 32.1 (31.0-37.0) g/dL RDW 12.2 (11.5-15.5) % Plt Count 523 H (150-450) k/uL Neutrophils % 64 % Lymphocytes % 20 % Monocytes % 11 % Eosinophils % 1 % Basophils % 1 % Neutrophils # 6.6 (1.3-7.7) k/uL Lymphocytes # 2.1 (1.0-4.8) k/uL Monocytes # 1.2 H (0-1.0) k/uL Eosinophils # 0.1 (0-0.7) k/uL Basophils # 0.1 (0-0.2) k/uL Sodium 139 (137-145) mmol/L Potassium 4.9 (3.5-5.1) mmol/L Chloride 105 (98-107) mmol/L Carbon Dioxide 25 (22-30) mmol/L Anion Gap 9 mmol/L BUN 17 (9-20) mg/dL Creatinine 0.71 (0.66-1.25) mg/dL Est GFR (CKD-EPI)AfAm >90 (>60 ml/min/1.73 sqM) Est GFR (CKD-EPI)NonAf >90 (>60 ml/min/1.73 sqM) Glucose 119 H (74-99) mg/dL Calcium 9.0 (8.4-10.2) mg/dL Total Bilirubin 0.4 (0.2-1.3) mg/dL AST 19 (17-59) U/L ALT 16 L (21-72) U/L Alkaline Phosphatase 72 (38-126) U/L Total Protein 7.2 (6.3-8.2) g/dL Albumin 3.3 L (3.5-5.0) g/dL Heterophile Antibody Negative (Negative) - Radiology Data Radiology results: report reviewed Diffuse swelling over left facial structures, correlate for cellulitis. CXR shows evidence of solitary pulmonary nodule in right middle lung, reccomended CT chest. Stable emphysema and cardiomegaly changes. 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 Return to the emergency department if any alarming signs or symptoms occur. Take medication as prescribed. Prescriptions: Cephalexin [Keflex] 500 mg PO Q8HR #21 cap Is patient prescribed a controlled substance at d/c from ED?: No Referrals: None,Stated [Primary Care Provider] - 1-2 days Jess Barclay MD [STAFF PHYSICIAN] - 1-2 days Time of Disposition: 14:29
[2017-12-07 13:11] LABS: Basophils # (A) 0.1 k/uL (0-0.2); Basophils % (A) 1 %; Eosinophils # (A) 0.1 k/uL (0-0.7); Eosinophils % (A) 1 %; HCT 39.7 % (39.0-53.0); HGB 12.7 gm/dL (13.0-17.5); Lymphocytes # (A) 2.1 k/uL (1.0-4.8); Lymphocytes % (A) 20 %; MCH 29.4 pg (25.0-35.0); MCHC 32.1 g/dL (31.0-37.0); MCV 91.7 fL (80.0-100.0); Mean Platelet Volume 6.8; Monocytes # (A) 1.2 k/uL (0-1.0); Monocytes % (A) 11 %; Neutrophils # (A) 6.6 k/uL (1.3-7.7); Neutrophils % (A) 64 %; Platelet Count 523 k/uL (150-450); RBC 4.32 m/uL (4.30-5.90); RDW 12.2 % (11.5-15.5); WBC 10.3 k/uL (3.8-10.6)
[2017-12-07 13:26] LABS: ALT 16 U/L (21-72); AST 19 U/L (17-59); Albumin 3.3 g/dL (3.5-5.0); Alkaline Phosphatase 72 U/L (38-126); Anion Gap 9 mmol/L; Blood Urea Nitrogen 17 mg/dL (9-20); Carbon Dioxide 25 mmol/L (22-30); Chloride 105 mmol/L (98-107); Glucose 119 mg/dL (74-99); Potassium 4.9 mmol/L (3.5-5.1); Sodium 139 mmol/L (137-145); Total Bilirubin 0.4 mg/dL (0.2-1.3); Total Protein 7.2 g/dL (6.3-8.2)
--- NOTE | 2017-12-07 14:00 | XR ---
EXAMINATION TYPE: XR chest 2V DATE OF EXAM: 12/07/2017 COMPARISON: 10/11/2016 HISTORY: Fever TECHNIQUE: Frontal and lateral views of the chest are obtained. FINDINGS: Ill-defined rounded lesion is seen within the right midlung inferior to the seventh right p osterior rib. There is no focal air space opacity, pleural effusion, or pneumothorax seen. The cardi ac silhouette size is mildly enlarged as seen on the prior. The osseous structures are intact. Ther e is a small hiatal hernia with surgical clips in the retrocardiac airspace. Mild multilevel degenera tive changes of the thoracic spine are seen. Flattening of the diaphragms on the lateral image relate s underlying COPD. IMPRESSION: Nodular density within the right midlung suspicious for pulmonary nodule. CT thorax is r ecommended. Stable pulmonary emphysema, hiatal hernia, and borderline cardiomegaly prior. No focal co nsolidation to suggest pneumonia.
--- NOTE | 2017-12-07 14:02 | CT ---
EXAMINATION TYPE: CT facial bones w con DATE OF EXAM: 12/07/2017 COMPARISON: None HISTORY: Lt Mandible swelling CT DLP: 625 mGycm Automated exposure control for dose reduction was used. CONTRAST: CT scan of the facial bones is performed with IV Contrast, patient injected with 100 mL of Isovue 300 . TECHNIQUE: CT scan of the sinuses is performed without contrast, axial images are obtained, coronal r eformatted images are also reviewed. FINDINGS: There are changes of moderate chronic appearing sinusitis involving the ethmoid and maxilla ry sinuses and severe frontal sinusitis. Nasopharynx and oropharynx symmetric. Areas of shotty adenopathy are seen throughout the soft tissues of the neck. Parotid glands and submandibular glands have a normal appearance. Cavernous sinus and vasculature enhances normally. Atherosclerotic change involving the carotid bifur cation bilaterally. There is skin thickening and soft tissue edema overlying the left facial structures. No definite unde rlying abscess is seen. Dental artifact obscures portions of the soft tissues. Osseous structures intact. No acute fracture or destructive changes. Defect in the alveolar ridge of the left maxilla may be related to periodontal disease or previous tooth removal correlate clinically . IMPRESSION: 1. Diffuse soft tissue edema overlying the left facial structures correlate for cellulitis. No defini te abscess. 2. Defect in the alveolar ridge of the left maxilla may be related to periodontal disease or previous tooth removal correlate clinically. 3. Moderate to severe chronic sinusitis.
[2017-12-07 14:42] VITALS: BP 100/58; PULSE 81; RESP 16; TEMP 98.5
== END 2017-12-07 14:42 | disposition home or self-care (01) ==
LOC: EC 11:21
DX: R91.1 Solitary pulmonary nodule (principal); R50.9 Fever, unspecified; R22.0 Localized swelling, mass and lump, head; J43.9 Emphysema, unspecified; I51.7 Cardiomegaly; R23.8 Other skin changes; R59.0 Localized enlarged lymph nodes; R53.83 Other fatigue; R63.4 Abnormal weight loss; R63.8 Other symptoms and signs concerning food and fluid intake; F17.200 Nicotine dependence, unspecified, uncomplicated; Z79.82 Long term (current) use of aspirin; Z79.899 Other long term (current) drug therapy; Z88.0 Allergy status to penicillin; Z82.5 Family history of asthma and other chronic lower respiratory diseases; Z82.49 Family history of ischemic heart disease and other diseases of the circulatory system
CPT/HCPCS: 99284; 96360; 96361; 36415; 80053; 85025; 86308; 71046; 70487; Q9967

== ENCOUNTER 2017-12-08 09:53 | Inpatient (IN) | payer BC ==
--- NOTE | 2017-12-08 11:18 | ED ---
General Adult HPI - General Chief complaint: Recheck/Abnormal Lab/Rx Stated complaint: Fatigue Source: patient Mode of arrival: ambulatory Limitations: no limitations - History of Present Illness Initial comments: Dictation was produced using [employer] dictation software. please excuse any grammatical, word or spelling errors. Chief Complaint: An is a 52-year-old male who was seen in emergency department for left facial swelling, constitutional symptoms, lip rash and generalized weakness presents today for worsening weakness. History of Present Illness: Patient is 52-year-old male with no known medical history presents with worsening symptoms of weakness. Patient was seen in emergency department where she was evaluated for facial rash, B type symptoms. Patient expresses significant weight loss and worsening fatigue over the past few months. Patient is a heavy smoker. Patient has any changes since last night. History patient is reevaluated. CT face was obtained showing soft tissue swelling over the left mandibular area. X-ray showed pulmonary nodule of uncertain significance. Given recent symptoms there is strong clinical suspicion that patient's symptoms represent cancerous process versus infectious nodule. The ROS documented in this emergency department record has been reviewed and confirmed by me. Those systems with pertinent positive or negative responses have been documented in the HPI. All other systems are other negative and/or noncontributory. - Related Data Home Medications Medication Instructions Recorded Confirmed Aspirin EC [Ecotrin Low Dose] 81 mg PO DAILY 12/07/17 12/08/17 Cpm/PE/Dm/Acetaminophen/Guaifn 2 tab PO Q6H PRN 12/07/17 12/08/17 [Tylenol Cold-Flu Day-Nt Caplet] amLODIPine [Norvasc] 2.5 mg PO DAILY 12/07/17 12/08/17 Acetaminophen Tab [Tylenol Tab] 650 mg PO Q4H PRN 12/08/17 12/08/17 Previous Rx's Medication Instructions Recorded Atorvastatin [Lipitor] 80 mg PO HS #90 tab 10/13/16 Clopidogrel [Plavix] 75 mg PO DAILY #90 tab 10/13/16 Lisinopril [Zestril] 10 mg PO DAILY #90 tab 10/13/16 Metoprolol Tartrate [Lopressor] 25 mg PO BID #180 tab 10/13/16 Nitroglycerin Sl Tabs [Nitrostat] 0.4 mg SUBLINGUAL Q5M PRN #25 tab 10/13/16 Cephalexin [Keflex] 500 mg PO Q8HR #21 cap 12/07/17 Allergies Allergy/AdvReac Type Severity Reaction Status Date / Time Penicillins Allergy Unknown Verified 12/08/17 11:18 Childhood Review of Systems ROS Statement: Those systems with pertinent positive or pertinent negative responses have been documented in the HPI. ROS Other: All systems not noted in ROS Statement are negative. Past Medical History Past Medical History: No Reported History History of Any Multi-Drug Resistant Organisms: None Reported Past Surgical History: Appendectomy, Heart Catheterization With Stent Additional Past Surgical History / Comment(s): patient states he had his stomach flipped, because of acid reflux Past Anesthesia/Blood Transfusion Reactions: No Reported Reaction Past Psychological History: No Psychological Hx Reported Smoking Status: Former smoker Past Alcohol Use History: Occasional Past Drug Use History: None Reported - Past Family History Father Family Medical History: Cancer, COPD Additional Family Medical History / Comment(s): prostate cancer Mother Family Medical History: Chest Pain / Angina, Coronary Artery Disease (CAD), Myocardial Infarction ([place]) Additional Family Medical History / Comment(s): "Mother had multiple heart attacks and open heart surgery" General Exam - General Exam Comments Initial Comments: PHYSICAL EXAM: General Impression: Alert and oriented x3, not in acute distress HEENT: Normocephalic atraumatic, extra-ocular movements intact, pupils equal and reactive to light bilaterally, mucous membranes moist. Cardiovascular: Heart regular rate and rhythm, S1&S2 audible, no murmurs, rubs or gallops Chest: Lungs clear to auscultation bilaterally, no rhonchi, no wheeze, no rales Abdomen: Bowel sounds present, abdomen soft, non-tender, non-distended, no organomegaly Musculoskeletal: Pulses present and equal in all extremities, no peripheral edema Motor: Power 5/5 bilaterally, no focal deficits noted Neurological: CN II-XII grossly intact, no focal motor or sensory deficits noted Skin: Facial rash. There is a small punctate vesicular lesions to the left upper lip with erythematous base Psych: Normal affect and mood Limitations: no limitations Course Vital Signs 12/08/17 12/08/17 09:59 13:58 Temperature 98.1 F 97.8 F Pulse Rate 72 72 Respiratory 108 H 19 Rate Blood Pressure 99/64 129/79 O2 Sat by Pulse 97 98 Oximetry Medical Decision Making - Medical Decision Making ED course: Patient is a 52-year-old male presents with chief complaint of worsening weakness and fatigue. Patient was seen yesterday where he was found to have a pulmonary nodule on x-ray. Patient also has a rash. Labs are performed yesterday showing no leukocytosis. Patient of troponin of 0.070. Patient denied any chest pain at that time.. Vital signs upon arrival are within acceptable limits.Labs were obtained for this repeat imaging per request by CT. Computed tomography scan of the chest was obtained showing multifocal pulmonary and hepatic metastatic disease with mediastinal paraesophageal supraclavicular adenopathy. There is strong suspicion of GI source. There is left basilar peribronchial cuffing which is likely secondary to reactive airway disease. Discussed these findings with patient. Patient is not have PCP. Patient be admitted for further diagnostic testing and consultation specialist. EKG interpretation: Ventricular rate 67, normal sinus rhythm,. Interval 1:30, care is 90, QTc 450. No MT prolongation, no QTC prolongation, no ST or T-wave changes noted. Overall, this EKG is unremarkable - Lab Data Result diagrams: 12/08/17 12:20 Lab Results 12/08/17 12/08/17 Range/Units 12:20 12:20 Sodium 139 (137-145) mmol/L Potassium 4.6 (3.5-5.1) mmol/L Chloride 103 (98-107) mmol/L Carbon Dioxide 28 (22-30) mmol/L Anion Gap 8 mmol/L BUN 19 (9-20) mg/dL Creatinine 0.70 (0.66-1.25) mg/dL Est GFR (CKD-EPI)AfAm >90 (>60 ml/min/1.73 sqM) Est GFR (CKD-EPI)NonAf >90 (>60 ml/min/1.73 sqM) Glucose 84 (74-99) mg/dL Calcium 9.5 (8.4-10.2) mg/dL Troponin I <0.012 (0.000-0.034) ng/mL Disposition Clinical Impression: Metastatic carcinoma to lung Disposition: ADMITTED IP TO THIS HOSP Condition: Fair Is patient prescribed a controlled substance at d/c from ED?: No Referrals: None,Stated [Primary Care Provider] - 1-2 days Decision Time: 14:41
[2017-12-08 12:50] LABS: Anion Gap 8 mmol/L; Blood Urea Nitrogen 19 mg/dL (9-20); Calcium 9.5 mg/dL (8.4-10.2); Carbon Dioxide 28 mmol/L (22-30); Chloride 103 mmol/L (98-107); Glucose 84 mg/dL (74-99); Potassium 4.6 mmol/L (3.5-5.1); Sodium 139 mmol/L (137-145)
--- NOTE | 2017-12-08 14:32 | CT ---
EXAMINATION TYPE: CT chest w con DATE OF EXAM: 12/08/2017 COMPARISON: NONE HISTORY: Fatigue CT DLP: 338.6 mGycm. Automated Exposure Control for Dose Reduction was Utilized. TECHNIQUE: CT scan of the thorax is performed following with IV Contrast, patient injected with 100 mL of Isovue 300. FINDINGS: LUNGS: Paraseptal emphysematous changes are moderate. There are multiple bilateral pulmonary nodules highly suspicious for metastatic disease. There are at least 10 on the right, the largest measuring 1 .3 cm on series 4 image 28 and there are at least 7 on the left measuring up to 9 mm on series 4 imag e 30. Additionally there is left basilar compressive atelectasis from a partial intrathoracic stomach and left basilar peribronchial cuffing with groundglass opacity also likely related to atelectasis a lthough pneumonitis is a possibility. MEDIASTINUM: Mediastinal adenopathy is seen with the largest lymph nodes in the right hilum measuring 1.2 cm in short axis and inferior hilum on image 37 measuring 1.8 cm in short axis. Enlarged paraeso phageal lymph node on image 33 measures 1.6 cm in short axis with other enlarged paraesophageal lymph nodes about the posterior mediastinum. Left paratracheal lymph node at the level of the sternal manu brium and thoracic inlet measures 1 cm in short axis. Prominent left supraclavicular lymph node on im age 2 measures 8 mm in short axis. Other smaller left supraclavicular lymph nodes are seen as well as an additional 9 mm left supraclavicular lymph node on image 6. There is a trace pericardial effusion. OTHER: Surgical clips are seen at the gastroesophageal junction with partial intrathoracic stomach an d abnormal contour of the gastroesophageal junction with diffuse gastric and distal esophageal wall t hickening. Numerous hepatic lesions are seen (greater than 15 in number) with one of the largest ill-defined in segment 8 of the liver measuring at least 4.4 x 4.7 cm. Another large lesion in segment IVb measures up to 6.7 cm on image 69. These are heterogenous with central necrosis and peripheral hyperemia/arter ial enhancement. Confluent left hepatic lobe metastasis are seen. Cholelithiasis is present. Left renal cyst upper pole measures approximately 1.4 cm. Healed well-corticated right lateral mid ri b fractures are seen. Mild multilevel degenerative changes of the thoracic spine are noted. IMPRESSION: 1. Findings most compatible with multifocal pulmonary and hepatic metastatic disease with mediastinal , paraesophageal and supraclavicular adenopathy. Gastrointestinal source is suspected. 2. Moderate paraseptal emphysematous changes and trace pericardial effusion. 3. Left basilar peribronchial cuffing that could relate to reactive or infectious source such as bron chitis or reactive airway disease.
[2017-12-08] MEDS ORDERED: NALOXONE 0.4 MG/ML 1 ML VIAL IV PRN (14:35)
[2017-12-08] MEDS ORDERED: ACETAMINOPHEN TAB 325 MG TAB PO PRN (16:11)
[2017-12-08] MEDS ORDERED: NITROGLYCERIN SL TABS 0.4 MG TAB SUBLINGUAL PRN (16:11)
--- NOTE | 2017-12-08 16:18 | P.HPIM ---
History of Present Illness 60-year-old gentleman came in with complaints of generalized weakness and tiredness I am I'm obtaining TSH at this point of time patient yesterday came in with the swelling in the left cheek area prior appears to have left lower tooth abscess. Patient was sent home on Keflex and patient will need that 2 to be removed. Patient has multiple large use in the chest x-ray that was done yesterday patient was referred to nuclear medicine pet ct technologist and a CAT scan as an outpatient but since he came back again with generalized weakness patient is being admitted for further workup. CAT scan was opted which showed multiple nodules all over the chest including clavicle or supraclavicular lymphadenopathy. Patient is a smoker continues to smoke does have history of coronary artery disease. Patient does have significant unintentional weight loss Review of Systems REVIEW OF SYSTEMS: CONSTITUTIONAL: As mentioned in HPI HEENT: No recent visual problems or hearing problems. Denied any sore throat. CARDIOVASCULAR: No chest pain, orthopnea, PND, no palpitations, no syncope. PULMONARY: No shortness of breath, no cough, no hemoptysis. GASTROINTESTINAL: No diarrhea, no nausea, no vomiting, no abdominal pain. Normoactive bowel sounds. NEUROLOGICAL: No headaches, no weakness, no numbness. HEMATOLOGICAL: Denies any bleeding or petechiae. GENITOURINARY: Denies any burning micturition, frequency, or urgency. MUSCULOSKELETAL/RHEUMATOLOGICAL: Denies any joint pain, swelling, or any muscle pain. ENDOCRINE: Denies any polyuria or polydipsia. The rest of the 14-point review of systems is negative. Past Medical History Past Medical History: No Reported History History of Any Multi-Drug Resistant Organisms: None Reported Past Surgical History: Appendectomy, Heart Catheterization With Stent Additional Past Surgical History / Comment(s): patient states he had his stomach flipped, because of acid reflux Past Anesthesia/Blood Transfusion Reactions: No Reported Reaction Past Psychological History: No Psychological Hx Reported Smoking Status: Former smoker Past Alcohol Use History: Occasional Past Drug Use History: None Reported - Past Family History Father Family Medical History: Cancer, COPD Additional Family Medical History / Comment(s): prostate cancer Mother Family Medical History: Chest Pain / Angina, Coronary Artery Disease (CAD), Myocardial Infarction ([place]) Additional Family Medical History / Comment(s): "Mother had multiple heart attacks and open heart surgery" Medications and Allergies Home Medications Medication Instructions Recorded Confirmed Type Atorvastatin [Lipitor] 80 mg PO HS #90 tab 10/13/16 12/08/17 Rx Clopidogrel [Plavix] 75 mg PO DAILY #90 tab 10/13/16 12/08/17 Rx Lisinopril [Zestril] 10 mg PO DAILY #90 tab 10/13/16 12/08/17 Rx Metoprolol Tartrate [Lopressor] 25 mg PO BID #180 tab 10/13/16 12/08/17 Rx Nitroglycerin Sl Tabs [Nitrostat] 0.4 mg SUBLINGUAL Q5M PRN #25 tab 10/13/1601/15 Rx Aspirin EC [Ecotrin Low Dose] 81 mg PO DAILY 12/07/17 12/08/17 History Cephalexin [Keflex] 500 mg PO Q8HR #21 cap 12/07/17 12/08/17 Rx Cpm/PE/Dm/Acetaminophen/Guaifn 2 tab PO Q6H PRN 12/07/17 12/08/17 History [Tylenol Cold-Flu Day-Nt Caplet] amLODIPine [Norvasc] 2.5 mg PO DAILY 12/07/17 12/08/17 History Acetaminophen Tab [Tylenol Tab] 650 mg PO Q4H PRN 12/08/17 12/08/17 History Allergies Allergy/AdvReac Type Severity Reaction Status Date / Time Penicillins Allergy Unknown Verified 12/08/17 11:18 Childhood Physical Exam Vitals: Vital Signs Temp Pulse Resp BP Pulse Ox 12/08/17 15:25 72 16 129/76 97 12/08/17 13:58 97.8 F 72 19 129/79 98 12/08/17 09:59 98.1 F 72 18 99/64 97 Intake and Output 12/08/17 12/08/17 12/08/17 06:59 14:59 22:59 Other: Weight 83.915 kg PHYSICAL EXAMINATION: GENERAL: The patient is alert and oriented x3, not in any acute distress. Well developed, well nourished. HEENT: Pupils are round and equally reacting to light. EOMI. No scleral icterus. No conjunctival pallor. Normocephalic, atraumatic. No pharyngeal erythema. No thyromegaly. As have a tooth abscess in the left the lower tooth. CARDIOVASCULAR: S1 and S2 present. No murmurs, rubs, or gallops. PULMONARY: Chest is clear to auscultation, no wheezing or crackles. ABDOMEN: Soft, nontender, nondistended, normoactive bowel sounds. No palpable organomegaly. MUSCULOSKELETAL: No joint swelling or deformity. EXTREMITIES: No cyanosis, clubbing, or pedal edema. NEUROLOGICAL: Gross neurological examination did not reveal any focal deficits. SKIN: No rashes. Results CBC & Chem 7: 12/08/17 12:20 Labs: Abnormal Lab Results - Last 24 Hours (Table) 12/08/17 Range/Units 12:20 TSH 6.290 H (0.465-4.680) mIU/L Assessment and Plan Plan: -Pulmonary nodules patient appears to have malignancy unless otherwise proven primary unknown patient does have pulmonary nodules and nodules in the liver, pulmonology will be consulted. Patient does have supraclavicular lymphadenopathy, will obtain surgical consult for possible biopsy of the lymph node. -Tooth abscess: Keflex will be continued -Nicotine abuse: Counseling was provided -Coronary artery disease with a cardiac catheterization and stenting in the past.
[2017-12-08 17:23] LABS: T4, Free (Free Thyroxine) 1.05 ng/dL (0.78-2.19)
[2017-12-08] MEDS ORDERED: ATORVASTATIN 80 MG TAB PO SCH (21:00)
[2017-12-08] MEDS: METOPROLOL TARTRATE 25 MG TAB PO SCH (21:30)
[2017-12-09] MEDS: CEPHALEXIN 500 MG CAP PO SCH ×2 (00:18→11:32)
[2017-12-09] MEDS ORDERED: amLODIPine 2.5 MG TAB PO SCH (09:00)
[2017-12-09] MEDS ORDERED: ASPIRIN 81 MG PO SCH (09:00)
[2017-12-09] MEDS ORDERED: LISINOPRIL 10 MG TAB PO SCH (09:00)
[2017-12-09] MEDS ORDERED: LACTATED RINGERS 1,000 ML IV ONE (09:25)
[2017-12-09] MEDS ORDERED: DEXAMETHASONE SOD PHOS (MDV) 100 MG/10 ML VIAL IV ONE (09:58)
[2017-12-09] MEDS ORDERED: ONDANSETRON 4 MG/2 ML VIAL IVP ONE (09:58)
[2017-12-09] MEDS ORDERED: HEPARIN SODIUM,PORCINE 5,000 UNIT/ML 1 ML VIAL SQ ONE (10:09)
[2017-12-09] MEDS ORDERED: ceFAZolin 2,000 MG in DEXTROSE/WATER 1 50ML.BAG IVPB STA (10:10)
[2017-12-09] MEDS ORDERED: ceFAZolin IN SWFI 2 GM/20 ML SYRINGE IVP STA (10:30)
[2017-12-09] MEDS: METOPROLOL TARTRATE 25 MG TAB PO SCH (11:32)
[2017-12-09 12:31] VITALS: BP 100/64; PULSE 54; RESP 20; TEMP 98.6
--- NOTE | 2017-12-09 12:42 | P.GSCN ---
History of Present Illness Consult date: 12/08/17 Reason for Consult: Lymphadenopathy History of present illness: This a 52-year-old male who was admitted through the emergency room. Patient had some constitutional symptoms of weight loss and fatigue. He had a CAT scan performed which showed evidence of possible hepatic and pulmonary metastatic disease. Patient has multiple enlarged lymph nodes in the mediastinum. He also has a large left supra clavicular lymph nodes. The patient states she's had a recent tooth infection. Past Medical History Past Medical History: Coronary Artery Disease (CAD), Chest Pain / Angina, Hyperlipidemia, Hypertension Additional Past Medical History / Comment(s): vitiglio, arthritis mariella hips History of Any Multi-Drug Resistant Organisms: None Reported Past Surgical History: Appendectomy, Heart Catheterization With Stent Additional Past Surgical History / Comment(s): patient states he had his stomach flipped 180 degrees because of acid reflux", 2 cardiac stents Past Anesthesia/Blood Transfusion Reactions: No Reported Reaction Date of Last Stent Placement:: 2016 Smoking Status: Former smoker - Past Family History Father Family Medical History: Cancer, COPD Additional Family Medical History / Comment(s): prostate cancer Mother Family Medical History: Chest Pain / Angina, Coronary Artery Disease (CAD), Myocardial Infarction ([place]) Additional Family Medical History / Comment(s): "Mother had multiple heart attacks and open heart surgery" Medications and Allergies Home Medications Medication Instructions Recorded Confirmed Type Atorvastatin [Lipitor] 80 mg PO HS #90 tab 10/13/16 12/08/17 Rx Lisinopril [Zestril] 10 mg PO DAILY #90 tab 10/13/16 12/08/17 Rx Metoprolol Tartrate [Lopressor] 25 mg PO BID #180 tab 10/13/16 12/08/17 Rx Nitroglycerin Sl Tabs [Nitrostat] 0.4 mg SUBLINGUAL Q5M PRN #25 tab 10/13/1601/15 Rx Aspirin EC [Ecotrin Low Dose] 81 mg PO DAILY 12/07/17 12/08/17 History Cephalexin [Keflex] 500 mg PO Q8HR #21 cap 12/07/17 12/08/17 Rx Cpm/PE/Dm/Acetaminophen/Guaifn 2 tab PO Q6H PRN 12/07/17 12/08/17 History [Tylenol Cold-Flu Day-Nt Caplet] Acetaminophen Tab [Tylenol] 650 mg PO Q4H PRN 12/08/17 12/08/17 History Allergies Allergy/AdvReac Type Severity Reaction Status Date / Time Penicillins Allergy Unknown Verified 12/08/17 11:18 Childhood Surgical - Exam Vital Signs Temp Pulse Resp BP Pulse Ox 98.1 F 72 18 99/64 97 12/08/17 09:59 12/08/17 09:59 12/08/17 09:59 12/08/17 09:59 12/08/17 09:59 - General well developed, no distress - Eyes PERRL - ENT No significant left supraclavicular lymph nodes. There is a solitary posterior triangle lymph node on then left neck which is mildly inflamed. normal pinna - Neck no masses - Respiratory normal expansion - Cardiovascular Rhythm: regular - Abdomen Abdomen: soft, non tender Results - Labs 12/08/17 12:20 Abnormal Lab Results - Last 24 Hours (Table) 12/08/17 Range/Units 12:20 TSH 6.290 H (0.465-4.680) mIU/L Diabetes panel 12/08/17 Range/Units 12:20 Sodium 139 (137-145) mmol/L Potassium 4.6 (3.5-5.1) mmol/L Chloride 103 (98-107) mmol/L Carbon Dioxide 28 (22-30) mmol/L BUN 19 (9-20) mg/dL Creatinine 0.70 (0.66-1.25) mg/dL Glucose 84 (74-99) mg/dL Calcium 9.5 (8.4-10.2) mg/dL Thyroid panel 12/08/17 Range/Units 12:20 TSH 6.290 H (0.465-4.680) mIU/L Calcium panel 12/08/17 Range/Units 12:20 Calcium 9.5 (8.4-10.2) mg/dL Pituitary panel 12/08/17 12/08/17 Range/Units 12:20 12:20 Sodium 139 (137-145) mmol/L Potassium 4.6 (3.5-5.1) mmol/L Chloride 103 (98-107) mmol/L Carbon Dioxide 28 (22-30) mmol/L BUN 19 (9-20) mg/dL Creatinine 0.70 (0.66-1.25) mg/dL Glucose 84 (74-99) mg/dL Calcium 9.5 (8.4-10.2) mg/dL TSH 6.290 H (0.465-4.680) mIU/L Adrenal panel 12/08/17 Range/Units 12:20 Sodium 139 (137-145) mmol/L Potassium 4.6 (3.5-5.1) mmol/L Chloride 103 (98-107) mmol/L Carbon Dioxide 28 (22-30) mmol/L BUN 19 (9-20) mg/dL Creatinine 0.70 (0.66-1.25) mg/dL Glucose 84 (74-99) mg/dL Calcium 9.5 (8.4-10.2) mg/dL Assessment and Plan Assessment: Computed tomography scan of the chest which is highly suspicious for metastatic disease. The patient's supraclavicular and cervical lymph nodes are really not significantly enlarged. I reviewed the CAT scan and discussed this case with Dr. Price. Patient has a enlarged metastatic lesion on the right lobe liver which would be amenable to CT-guided biopsy. We will plan for CT abdomen biopsy liver lesion. Patient has been on Plavix. This will be done on Tuesday. He will need upper and lower endoscopy.
--- NOTE | 2017-12-09 13:14 | P.CONS ---
History of Present Illness - Reason for Consult Consult date: 12/09/17 Concern for malignancy Requesting physician: Regino Campbell - Chief Complaint Liver and pulmonary nodules - History of Present Illness 52-year-old gentleman who presented to [facility] Emergency department with complaints of persistent weakness and fatigue. Apon initial evaluation he expresses lesion on upper lip, night sweats, unintentional weight loss of 15lbs over past month, and overall "not feeling myself" He does not have an established relationship with a primary care provider. He has not seen an biological scientist in over 10 years after his retired, no annual preventative care has been completed since this time. 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 He admits to alcohol daily use 3-10 beers per night, especially in summer, in which he is active on many golfing leagues. He has a known history of coronary artery disease requiring cardiac catherization and percutaneous cardiac stenting in September of 2016, he has been on plavix and aspirin since this time. CT scan of the face on 12/07/17 - reveal diffuse soft tissue edema over left facial soft tissues. CT Chest on 12/08/17 - Revealed multifocal pulmonary and hepatic lesions concerning for metastatic malignant picture. Mediastinal, paraesophageal, and supraclavicular adenopathy was also noted. Review of Systems A 14 point review of systems assessed and completed and all negative except HPI Past Medical History Past Medical History: Coronary Artery Disease (CAD), Chest Pain / Angina, Hyperlipidemia, Hypertension Additional Past Medical History / Comment(s): vitiglio, arthritis mariella hips History of Any Multi-Drug Resistant Organisms: None Reported Past Surgical History: Appendectomy, Heart Catheterization With Stent Additional Past Surgical History / Comment(s): patient states he had his stomach flipped 180 degrees because of acid reflux", 2 cardiac stents Past Anesthesia/Blood Transfusion Reactions: No Reported Reaction Date of Last Stent Placement:: 2016 Smoking Status: Former smoker - Past Family History Father Family Medical History: Cancer, COPD Additional Family Medical History / Comment(s): prostate cancer Mother Family Medical History: Chest Pain / Angina, Coronary Artery Disease (CAD), Myocardial Infarction ([place]) Additional Family Medical History / Comment(s): "Mother had multiple heart attacks and open heart surgery" Medications and Allergies Home Medications Medication Instructions Recorded Confirmed Type Atorvastatin [Lipitor] 80 mg PO HS #90 tab 10/13/16 12/08/17 Rx Lisinopril [Zestril] 10 mg PO DAILY #90 tab 10/13/16 12/08/17 Rx Metoprolol Tartrate [Lopressor] 25 mg PO BID #180 tab 10/13/16 12/08/17 Rx Nitroglycerin Sl Tabs [Nitrostat] 0.4 mg SUBLINGUAL Q5M PRN #25 tab 10/13/1601/15 Rx Aspirin EC [Ecotrin Low Dose] 81 mg PO DAILY 12/07/17 12/08/17 History Cephalexin [Keflex] 500 mg PO Q8HR #21 cap 12/07/17 12/08/17 Rx Cpm/PE/Dm/Acetaminophen/Guaifn 2 tab PO Q6H PRN 12/07/17 12/08/17 History [Tylenol Cold-Flu Day-Nt Caplet] Acetaminophen Tab [Tylenol] 650 mg PO Q4H PRN 12/08/17 12/08/17 History Peg 3350-Na Sulf,Bicarb,Cl/KCl 4,000 ml PO DIRECTED #1 bottle 12/09/17 Rx [Golytely Lavage] Allergies Allergy/AdvReac Type Severity Reaction Status Date / Time Penicillins Allergy Unknown Verified 12/08/17 11:18 Childhood Physical Exam Vitals: Vital Signs Temp Pulse Pulse Resp BP BP Pulse Ox 12/09/17 12:30 98.6 F 54 L 20 100/64 93 L 12/09/17 09:20 99.8 F H 66 16 111/68 93 L 12/09/17 07:49 99.8 F H 66 16 111/68 93 L 12/09/17 05:36 99.4 F 69 16 102/66 92 L 12/09/17 00:15 16 12/08/17 21:00 99.1 F 86 16 123/79 93 L 12/08/17 15:25 72 16 129/76 97 12/08/17 13:58 97.8 F 72 19 129/79 98 Intake and Output 12/08/17 12/09/17 12/09/17 22:59 06:59 14:59 Intake Total 590 Balance 590 Intake: Oral 590 Other: # Voids 2 1 - Constitutional General appearance: average body habitus, cooperative, no acute distress - EENT Eyes: EOMI, PERRLA, poor dentition ENT: NA/AT, normal oropharynx - Neck Shotty lymph nodes pn palpation cervical and supraclavicular, left greater then right Neck: lymphadenopathy - Respiratory Respiratory: bilateral: CTA (no increased respiratory distress. ) - Cardiovascular Rhythm: regular Heart sounds: normal: S1, S2 - Gastrointestinal General gastrointestinal: normal bowel sounds, soft - Integumentary Herpetic lesion to upper lip. Integumentary: pale - Neurologic no focal defects Neurologic: CNII-XII intact - Musculoskeletal Musculoskeletal: gait normal, strength equal bilaterally - Psychiatric Psychiatric: A&O x's 3, appropriate affect, intact judgment & insight Results CBC & Chem 7: 12/08/17 12:20 Labs: Abnormal Lab Results - Last 24 Hours (Table) 12/08/17 Range/Units 12:20 TSH 6.290 H (0.465-4.680) mIU/L Assessment and Plan Plan: Assessment and Recommendations: 1. Pulmonary Nodules: - Differentials include metastatic malignant process versus infectious 2. Hepatic Nodules: - Concerning for underlying malignancy 3. Diffuse Adenopathy: - Secondary to number one and two 4. Tobacco Abuse: - Smoking cessation greater than 8 minutes 5. Daily Alcohol use: - Alcohol Cessation, he has been advised to abstain from alcohol use 6. 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 Coronary Artery Disease: - On Plavix and Aspirin - Currently on hold for further diagnostic work-up Plan: - Greater than 30 minutes spent face to face with patient, and daughter today discussing diagnstic imaging and further diagnostic work-up - Plan will include EGD and Colonscopy as outpatient on Tuesday12/13/79 - Interventional Radiology to perform liver biopsy on Tuesday12/16/17 - Full staging imaging best performed as outpatient with PET scan, will set up for patient as outpatient through medical oncology - Continue to hold plavix and asa until after invasive procedures - Follow-up after pathology is resulted in [address] Price Physician Attestation: I have completed the full history and physical of this patient and agree with above dictation by Nupur Rivera NP. Dictated as a scribe.
--- NOTE | 2017-12-09 15:12 | P.DS ---
Providers Date of admission: 12/08/17 14:39 Attending physician: Regino Campbell Consults: 12/08/17 14:46 Consult Physician Routine Consulting Provider: Harshal Price Consult Reason/Comments: cancer, new dx Do you want consulting provider notified?: Yes 12/08/17 16:09 Consult Physician Routine Consulting Provider: Jabari Gaona Consult Reason/Comments: Biopsy supraclavicular node Do you want consulting provider notified?: Already Contacted Primary care physician: Stated None Hospital Course: 60-year-old gentleman came in with complaints of generalized weakness and tiredness I am I'm obtaining TSH at this point of time patient yesterday came in with the swelling in the left cheek area prior appears to have left lower tooth abscess. Patient was sent home on Keflex and patient will need that 2 to be removed. Patient has multiple large use in the chest x-ray that was done yesterday patient was referred to [facility] and a CAT scan as an outpatient but since he came back again with generalized weakness patient is being admitted for further workup. CAT scan was opted which showed multiple nodules all over the chest including clavicle or supraclavicular lymphadenopathy. Patient is a smoker continues to smoke does have history of coronary artery disease. Patient does have significant unintentional weight loss 12/09/2017 Patient is unable to get the biopsy of the lymph node patient will undergo liver biopsy but patient is on aspirin and Plavix Plavix will be held patient had stents that were placed more than any year ago. Plavix will be discontinued and patient will be scheduled for outpatient biopsy patient also be schedule. For upper and lower GI endoscopy because looking for any GI malignancy contributing to the metastatic disease. PHYSICAL EXAMINATION: GENERAL: The patient is alert and oriented x3, not in any acute distress. Well developed, well nourished. HEENT: Pupils are round and equally reacting to light. EOMI. No scleral icterus. No conjunctival pallor. Normocephalic, atraumatic. No pharyngeal erythema. No thyromegaly. As have a tooth abscess in the left the lower tooth. CARDIOVASCULAR: S1 and S2 present. No murmurs, rubs, or gallops. PULMONARY: Chest is clear to auscultation, no wheezing or crackles. ABDOMEN: Soft, nontender, nondistended, normoactive bowel sounds. No palpable organomegaly. MUSCULOSKELETAL: No joint swelling or deformity. EXTREMITIES: No cyanosis, clubbing, or pedal edema. NEUROLOGICAL: Gross neurological examination did not reveal any focal deficits. SKIN: No rashes. Assessment and Plan Plan: -Pulmonary nodules patient appears to have malignancy unless otherwise proven primary unknown primary further workup as mentioned above patient will undergo biopsy as an outpatient. -Tooth abscess: Keflex will be continued -Nicotine abuse: Counseling was provided -Coronary artery disease with a cardiac catheterization and stenting in the past. Patient Condition at Discharge: Fair Plan - Discharge Summary Discharge Rx Participant: No New Discharge Prescriptions: New Peg 3350-Na Sulf,Bicarb,Cl/KCl [Golytely Lavage] 4,000 ml PO DIRECTED #1 bottle Continue Atorvastatin [Lipitor] 80 mg PO HS #90 tab Lisinopril [Zestril] 10 mg PO DAILY #90 tab Metoprolol Tartrate [Lopressor] 25 mg PO BID #180 tab Nitroglycerin Sl Tabs [Nitrostat] 0.4 mg SUBLINGUAL Q5M PRN #25 tab PRN Reason: Chest Pain Aspirin EC [Ecotrin Low Dose] 81 mg PO DAILY Cpm/PE/Dm/Acetaminophen/Guaifn [Tylenol Cold-Flu Day-Nt Caplet] 2 tab PO Q6H PRN PRN Reason: Cold Symptoms Cephalexin [Keflex] 500 mg PO Q8HR #21 cap Acetaminophen Tab [Tylenol] 650 mg PO Q4H PRN PRN Reason: Pain Or Fever > 100.5 Discontinued Clopidogrel [Plavix] 75 mg PO DAILY #90 tab amLODIPine [Norvasc] 2.5 mg PO DAILY Discharge Medication List Atorvastatin [Lipitor] 80 mg PO HS #90 tab 10/13/16 [Rx] Lisinopril [Zestril] 10 mg PO DAILY #90 tab 10/13/16 [Rx] Metoprolol Tartrate [Lopressor] 25 mg PO BID #180 tab 10/13/16 [Rx] Nitroglycerin Sl Tabs [Nitrostat] 0.4 mg SUBLINGUAL Q5M PRN #25 tab 10/13/16 [Rx ] Aspirin EC [Ecotrin Low Dose] 81 mg PO DAILY 12/07/17 [History] Cephalexin [Keflex] 500 mg PO Q8HR #21 cap 12/07/17 [Rx] Cpm/PE/Dm/Acetaminophen/Guaifn [Tylenol Cold-Flu Day-Nt Caplet] 2 tab PO Q6H PRN 12/07/17 [History] Acetaminophen Tab [Tylenol] 650 mg PO Q4H PRN 12/08/17 [History] Peg 3350-Na Sulf,Bicarb,Cl/KCl [Golytely Lavage] 4,000 ml PO DIRECTED #1 bottle 12/09/17 [Rx] Follow up Appointment(s)/Referral(s): Jess Barclay MD [STAFF PHYSICIAN] - 1 Week Harshal Price MD [STAFF PHYSICIAN] - 2 Weeks None,Stated [Primary Care Provider] - 3 Days Jabari Gaona MD [STAFF PHYSICIAN] - 1 Week Activity/Diet/Wound Care/Special Instructions: Clear liquids on Tuesday, drink bowel prep on Tuesday Nothing by mouth Tuesday Discharge Disposition: HOME SELF-CARE
== END 2017-12-09 16:45 | disposition home or self-care (01) | DRG 181 ==
LOC: EC 09:53 → 5ONC 14:39
PROVIDERS: ADMIT Internal Medicine; ATTEND Internal Medicine
DX: C78.00 Secondary malignant neoplasm of unspecified lung (principal); C78.7 Secondary malignant neoplasm of liver and intrahepatic bile duct; E78.5 Hyperlipidemia, unspecified; F17.210 Nicotine dependence, cigarettes, uncomplicated; I10 Essential (primary) hypertension; I25.10 Atherosclerotic heart disease of native coronary artery without angina pectoris; J45.909 Unspecified asthma, uncomplicated; K04.7 Periapical abscess without sinus; R59.9 Enlarged lymph nodes, unspecified; B00.1 Herpesviral vesicular dermatitis; Z79.02 Long term (current) use of antithrombotics/antiplatelets; Z79.82 Long term (current) use of aspirin; Z79.899 Other long term (current) drug therapy; Z95.5 Presence of coronary angioplasty implant and graft; Z88.0 Allergy status to penicillin; Z71.6 Tobacco abuse counseling; Z80.42 Family history of malignant neoplasm of prostate; Z82.49 Family history of ischemic heart disease and other diseases of the circulatory system; Z82.5 Family history of asthma and other chronic lower respiratory diseases
CPT/HCPCS: 36415; 71260; 80048; 84439; 84443; 84484; 93005; 99285

== ENCOUNTER → 2017-12-12 | Day surgery (SDC) | payer BC ==
[~2017-12-12] MED LIST: LACTATED RINGERS 1,000 ML IV ONE; LIDOCAINE 1% 20 ML VIAL (10MG/ML) FOR IV START INTRADERMA ONE; LIDOCAINE 1% INJ 10MG/ML (20 ML MDV) ONE; PROPOFOL 10 MG/ML 20 ML VIAL IV ONE; fentaNYL (PF) 50 MCG/ML 2 ML AMP ONE
[2017-12-12 11:58] VITALS: TEMP 98.2
--- NOTE | 2017-12-12 12:54 | P.GSHP ---
History of Present Illness H&P Date: 12/12/17 Chief Complaint: History of metastatic disease, liver mass, lymphadenopathy This is a 52-year-old male is receiving diagnosed with extensive thoracic lymphadenopathy and a right liver mass. Patient rents today for EGD colonoscopy for metastatic workup. Past Medical History Past Medical History: Coronary Artery Disease (CAD), Chest Pain / Angina, Hyperlipidemia, Hypertension Additional Past Medical History / Comment(s): vitiglio, arthritis mariella hips History of Any Multi-Drug Resistant Organisms: None Reported Past Surgical History: Appendectomy, Heart Catheterization With Stent Additional Past Surgical History / Comment(s): patient states he had his stomach flipped 180 degrees because of acid reflux", 2 cardiac stents Past Anesthesia/Blood Transfusion Reactions: No Reported Reaction Date of Last Stent Placement:: 2016 Smoking Status: Former smoker - Past Family History Father Family Medical History: Cancer, COPD Additional Family Medical History / Comment(s): prostate cancer Mother Family Medical History: Chest Pain / Angina, Coronary Artery Disease (CAD), Myocardial Infarction ([place]) Additional Family Medical History / Comment(s): "Mother had multiple heart attacks and open heart surgery" Medications and Allergies Home Medications Medication Instructions Recorded Confirmed Type Atorvastatin [Lipitor] 80 mg PO HS #90 tab 10/13/16 12/12/17 Rx Lisinopril [Zestril] 10 mg PO DAILY #90 tab 10/13/16 12/12/17 Rx Metoprolol Tartrate [Lopressor] 25 mg PO BID #180 tab 10/13/16 12/12/17 Rx Nitroglycerin Sl Tabs [Nitrostat] 0.4 mg SUBLINGUAL Q5M PRN #25 tab 10/13/16 Rx Aspirin EC [Ecotrin Low Dose] 81 mg PO DAILY 12/07/17 12/12/17 History Cephalexin [Keflex] 500 mg PO Q8HR #21 cap 12/07/17 12/12/17 Rx Cpm/PE/Dm/Acetaminophen/Guaifn 2 tab PO Q6H PRN 12/07/17 12/12/17 History [Tylenol Cold-Flu Day-Nt Caplet] Acetaminophen Tab [Tylenol] 650 mg PO Q4H PRN 12/08/17 12/12/17 History Peg 3350-Na Sulf,Bicarb,Cl/KCl 4,000 ml PO DIRECTED #1 bottle 12/09/17 Rx [Golytely Lavage] Allergies Allergy/AdvReac Type Severity Reaction Status Date / Time Penicillins Allergy Unknown Verified 12/08/17 11:18 Childhood Surgical - Exam Vital Signs Temp Pulse Resp BP Pulse Ox 98.2 F 78 16 142/63 96 12/12/17 11:48 12/12/17 11:48 12/12/17 11:48 12/12/17 11:48 12/12/17 11:48 - General well developed, no distress - Eyes PERRL - ENT normal pinna - Neck no masses - Respiratory normal expansion - Cardiovascular Rhythm: regular - Abdomen Abdomen: soft Assessment and Plan Assessment: History of metastatic disease. We'll perform EGD colonoscopy.
--- NOTE | 2017-12-12 13:15 | P.OP ---
Date of Procedure: 12/12/17 Preoperative Diagnosis: Liver mass, lymphadenopathy Postoperative Diagnosis: Esophageal tumor biopsy pending Hiatal hernia Normal colonoscopy Procedure(s) Performed: EGD Colonoscopy Anesthesia: MAC Surgeon: Jabari Gaona Pathology: other (Esophagus) Condition: stable Disposition: PACU Description of Procedure: PROCEDURE: The patient was placed on the endoscopy table in the lateral position. Digital rectal examination was performed which revealed no abnormalities. The prostate was symmetrical without nodules. Flexible colonoscope was then placed in the patient's anus and passed throughout the entire colon. The ileocecal valve was visualized. The cecum, ascending, transverse, descending and sigmoid colon were normal. The rectum was normal as well. There were no masses, polyps or diverticula noted in the entire colon. Next, the gastro-placed oropharynx passed in the esophagus. At the lower third of the esophagus there was a friable mass seen the scope was easily passed into the stomach into the pylorus into the first and second portion of duodenum. The first second portion duodenum appeared normal. The scope summer back the antrum this appeared normal. Scope was then retroflexed and there was a moderate size hiatal hernia. The GE junction was at 37 cm. The distal esophagus had a friable mass. This was biopsied. The proximal esophagus appeared normal. Scope was withdrawn for patient.
[2017-12-12 13:53] VITALS: BP 110/70; PULSE 63; RESP 16
== END ==
LOC: ORWHC2ENDO 11:27
PROVIDERS: ATTEND Surgery
DX: C15.9 Malignant neoplasm of esophagus, unspecified (principal); K29.50 Unspecified chronic gastritis without bleeding; K44.9 Diaphragmatic hernia without obstruction or gangrene; R16.0 Hepatomegaly, not elsewhere classified; R59.0 Localized enlarged lymph nodes; Z85.9 Personal history of malignant neoplasm, unspecified; I25.10 Atherosclerotic heart disease of native coronary artery without angina pectoris; E78.5 Hyperlipidemia, unspecified; I10 Essential (primary) hypertension; L80 Vitiligo; M16.0 Bilateral primary osteoarthritis of hip; Z87.891 Personal history of nicotine dependence; Z95.5 Presence of coronary angioplasty implant and graft; Z79.2 Long term (current) use of antibiotics; Z79.82 Long term (current) use of aspirin; Z79.899 Other long term (current) drug therapy; Z88.0 Allergy status to penicillin; K21.9 Gastro-esophageal reflux disease without esophagitis
CPT/HCPCS: 88305; 45378; 43239; J2001; J3010; J2704

== ENCOUNTER 2017-12-16 08:50 | Day surgery (SDC) | payer BC ==
[2017-12-16 09:13] VITALS: TEMP 98.1
[2017-12-16 09:29] LABS: Mean Platelet Volume 6.6; Platelet Count 547 k/uL (150-450)
[2017-12-16 09:36] LABS: INR 1.2 (<1.2); Prothrombin Time 11.8 sec (9.0-12.0)
[2017-12-16] MEDS ORDERED: HYDROmorphone 1 MG/ML 1 ML SYRINGE IVP STA (10:38)
--- NOTE | 2017-12-16 11:58 | US ---
EXAMINATION TYPE: US biopsy liver DATE OF EXAM: 12/16/2017 HISTORY: Liver masses. FINDINGS: Maximal barrier technique was utilized. The skin overlying a suitable path to the patient' s right lobe liver mass was localized with ultrasound and the overlying skin prepped and draped. Ult rasound was utilized with sterile technique. Lidocaine was used for local anesthesia. A skin saba w as made with a scalpel. An 18-gauge needle was advanced under direct ultrasound guidance and core sp ecimen obtained of the mass. Specimen submitted in formalin to Pathology. Following the procedure, hemostasis achieved and the patient is discharged in stable condition without complication. IMPRESSION:STATUS POST ULTRASOUND GUIDED CORE BIOPSY OF liver MASS, PATHOLOGY IS PENDING. THIS PROCE DURE IS PERFORMED BY THE UNDERSIGNED.
[2017-12-16 14:06] VITALS: BP 107/70; PULSE 75; RESP 16
== END 2017-12-16 14:30 | disposition home or self-care (01) ==
LOC: RADPROMAIN 08:50
PROVIDERS: ATTEND Surgery
DX: C78.7 Secondary malignant neoplasm of liver and intrahepatic bile duct (principal)
CPT/HCPCS: 85049; 85610; 88342; 88307; 88341; 36415; 47000; 76942; J1170

== ENCOUNTER 2017-12-21 08:51 | Day surgery (SDC) | payer BC ==
[2017-12-20 08:42] VITALS: BMI 24.4
[~2017-12-21 08:51] MED LIST changes: +DEXAMETHASONE SOD PHOSPHATE 10 MG/ML 1 ML VIAL IV ONE; +HEPARIN SODIUM,PORCINE 5,000 UNIT/ML 1 ML VIAL SQ ONE; +HYDROmorphone 0.5 MG/0.5 ML SYRINGE IVP PRN; -LACTATED RINGERS 1,000 ML IV ONE; +LACTATED RINGERS 1,000 ML IV SCH; -LIDOCAINE 1% 20 ML VIAL (10MG/ML) FOR IV START INTRADERMA ONE; +LIDOCAINE 1% 20 ML VIAL (10MG/ML) FOR IV START INTRADERMA PRN; -LIDOCAINE 1% INJ 10MG/ML (20 ML MDV) ONE; +MIDAZOLAM 2 MG/2 ML VIAL IV PRN; +ONDANSETRON 4 MG/2 ML VIAL IVP ONE; -PROPOFOL 10 MG/ML 20 ML VIAL IV ONE; +Pre Op ABX Message 1 EACH MISC MISCELLANE ONE; +SCOPOLAMINE 1.5MG/72HR PATCH TRANSDERM ONE; -fentaNYL (PF) 50 MCG/ML 2 ML AMP ONE
[2017-12-21 09:58] VITALS: RESP 16; TEMP 99
--- NOTE | 2017-12-21 09:59 | P.GSHP ---
History of Present Illness H&P Date: 12/21/17 Chief Complaint: metastatic esophageal cancer this a 52-year-old male who presents today for Port-A-Cath placement. Patient has history of metastatic esophageal cancer. Past Medical History Past Medical History: Coronary Artery Disease (CAD), Cancer, Chest Pain / Angina , Hyperlipidemia, Hypertension, Osteoarthritis ([place]) Additional Past Medical History / Comment(s): Esophageal CA; vitiglio, History of Any Multi-Drug Resistant Organisms: None Reported Past Surgical History: Appendectomy, Heart Catheterization With Stent Additional Past Surgical History / Comment(s): patient states he had his stomach flipped 180 degrees because of acid reflux", 2 cardiac stents Past Anesthesia/Blood Transfusion Reactions: No Reported Reaction Date of Last Stent Placement:: 2016 Smoking Status: Former smoker - Past Family History Father Family Medical History: Cancer, COPD Additional Family Medical History / Comment(s): prostate cancer Mother Family Medical History: Chest Pain / Angina, Coronary Artery Disease (CAD), Myocardial Infarction ([place]) Additional Family Medical History / Comment(s): "Mother had multiple heart attacks and open heart surgery" Medications and Allergies Home Medications Medication Instructions Recorded Confirmed Type Atorvastatin [Lipitor] 80 mg PO HS #90 tab 10/13/16 12/20/17 Rx Lisinopril [Zestril] 10 mg PO DAILY #90 tab 10/13/16 12/20/17 Rx Metoprolol Tartrate [Lopressor] 25 mg PO BID #180 tab 10/13/16 12/21/17 Rx Nitroglycerin Sl Tabs [Nitrostat] 0.4 mg SUBLINGUAL Q5M PRN #25 tab 10/13/16 Rx Aspirin EC [Ecotrin Low Dose] 81 mg PO DAILY 12/07/17 12/20/17 History Acetaminophen Tab [Tylenol] 650 mg PO Q4H PRN 12/08/17 12/20/17 History Clopidogrel [Plavix] 75 mg PO DAILY 12/20/17 12/20/17 History amLODIPine [Norvasc] 2.5 mg PO DAILY 12/20/17 12/20/17 History Allergies Allergy/AdvReac Type Severity Reaction Status Date / Time Penicillins Allergy Unknown Verified 12/21/17 09:33 Childhood Surgical - Exam Vital Signs Temp Pulse Resp BP Pulse Ox 99.0 F 68 16 92/62 100 12/21/17 09:56 12/21/17 09:56 12/21/17 09:56 12/21/17 09:56 12/21/17 09:56 - General well developed, no distress - Eyes PERRL - ENT normal pinna - Neck no masses - Respiratory normal expansion - Cardiovascular Rhythm: regular - Abdomen Abdomen: soft, non tender Assessment and Plan Assessment: metastatic esophageal cancer. We'll perform Port-A-Cath placement.
[2017-12-21] MEDS ORDERED: LIDOCAINE 1% INJ 10MG/ML (20 ML MDV) ONE (10:25)
[2017-12-21] MEDS ORDERED: PROPOFOL 10 MG/ML 20 ML VIAL IV ONE (10:25)
[2017-12-21] MEDS ORDERED: KETAMINE 10 MG/ML 20 ML VIAL ONE (10:25)
[2017-12-21] MEDS ORDERED: fentaNYL (PF) 50 MCG/ML 2 ML AMP ONE (10:25)
[2017-12-21] MEDS ORDERED: MIDAZOLAM 2 MG/2 ML VIAL ONE (10:25)
[2017-12-21] MEDS ORDERED: BUPIVACAIN-EPI 0.25%-1:200,000 30 ML VIAL SQ ONE (10:54)
[2017-12-21] MEDS ORDERED: HEPARIN SODIUM,PORCINE 100 UNIT/ML 5 ML VIAL IV ONE (10:55)
[2017-12-21] MEDS ORDERED: IOPAMIDOL-370 50ML BTL MISCELLANE ONE (10:55)
[2017-12-21 12:19] VITALS: BP 100/64; PULSE 63
--- NOTE | 2017-12-21 12:21 | XR ---
EXAMINATION TYPE: XR chest 1V DATE OF EXAM: 12/21/2017 COMPARISON: NONE HISTORY: Right-sided Port-A-Cath insertion. TECHNIQUE: Single frontal view of the chest is obtained. FINDINGS: There is no focal air space opacity, pleural effusion, or pneumothorax seen. Right-sided P ort-A-Cath terminates in the distal superior vena cava. No postprocedural pneumothorax is seen. Heale d rib deformity is seen of the posterior lateral right mid ribs. The cardiac silhouette size is withi n normal limits. Retrocardiac opacity likely relates to a small hiatal hernia. IMPRESSION: Right-sided Port-A-Cath insertion terminating appropriately in the distal superior vena cava with no postprocedural pneumothorax.
--- NOTE | 2017-12-21 14:38 | FL ---
Fluoroscopy HISTORY: Port-A-Cath placement 3 seconds fluoroscopy time supplied to the referring clinician. 1 intraoperative C-arm images docume nt the procedure. See dictated report from general surgery.
== END 2017-12-21 13:09 | disposition home or self-care (01) ==
LOC: OR 08:51
PROVIDERS: ATTEND Surgery
DX: C78.89 Secondary malignant neoplasm of other digestive organs (principal); I25.10 Atherosclerotic heart disease of native coronary artery without angina pectoris; E78.5 Hyperlipidemia, unspecified; I10 Essential (primary) hypertension; K21.9 Gastro-esophageal reflux disease without esophagitis; I25.2 Old myocardial infarction; M19.90 Unspecified osteoarthritis, unspecified site; Z79.82 Long term (current) use of aspirin; Z82.49 Family history of ischemic heart disease and other diseases of the circulatory system; Z87.891 Personal history of nicotine dependence; Z88.0 Allergy status to penicillin; Z85.01 Personal history of malignant neoplasm of esophagus; Z79.02 Long term (current) use of antithrombotics/antiplatelets; Z79.899 Other long term (current) drug therapy
CPT/HCPCS: 77001; 71045; 36561; C1788; J2250; J1644; J1642; J1100; J2405; J2001; J3010; J2704; Q9967

== ENCOUNTER → 2018-02-02 | Outpatient (CLI) | payer BC ==
[2018-02-02 08:43] LABS: Blood Urea Nitrogen 16 mg/dL (9-20)
--- NOTE | 2018-02-02 11:25 | CT ---
EXAMINATION TYPE: CT ChestAbdPelvis w con DATE OF EXAM: 02/02/2018 COMPARISON: 12/08/2017 CT chest HISTORY: Malignant neoplasm of lower third esophagus CT DLP: 757.6 mGycm. Automated Exposure Control for Dose Reduction was Utilized. CONTRAST: CT scan of the thorax, abdomen and pelvis is performed with IV Contrast, patient injected with 100 mL of Isovue 300. FINDINGS: LUNGS: Again there are moderate paraseptal emphysematous changes and very minimal biapical pleural pa renchymal scarring. The previously seen right upper lobe pulmonary nodules are no longer visualized. For reference an approximately 1.0 cm pulmonary nodule previously seen on series 4 image 18 now is no longer visualized on the same location in the chest also series 4 image 18 on today's examination. A punctate 2 mm nodule remains in the right upper lobe on series 4 image 22 at the location of the pre viously seen 8 mm pulmonary nodule. 7 mm opacity is seen on series 4 image 26 and the location of the previously seen 1.2 cm pulmonary no dule. Punctate density measuring 2 mm on image 29 remains in the previously seen 9 mm pulmonary nodul e location. There remains left basilar bronchiectasis and atelectasis secondary to a partial intratho racic stomach. Inspissated debris is noted along the left lower lobe segmental and subsegmental bronc hi such as on series 3 image 38. Chronic left basilar reticular opacity is present. MEDIASTINUM: Hilar lymph nodes are also smaller than on the prior measuring approximately 1.0 cm in t he right hilum and 9 mm in the right infrahilar region as previously measured up to 1.8 cm the previo usly seen paraesophageal lymph node that measured 1.6 cm in short axis now measures 2 mm in short axi s on image 33. Nonenlarged punctate left paratracheal lymph node on image 8 is again seen. Left supra clavicular lymph nodes are also nonenlarged such as on image 1. Heart is nonenlarged. Mild coronary calcifications are noted. Trace pericardial effusion is again noted. Right-sided Mediport terminates in the distal right superior vena cava LIVER/GB: The numerous hepatic lesions have improved in the interim, for instance the largest previou sly measured approximate 3.4 x 3.5 cm and now measures approximately 1.9 x 2.7 cm on series 3 image 5 0. Some of the smaller lesions aren't no longer visualized. Cholelithiasis is present. PANCREAS: No significant abnormality is seen. SPLEEN: No significant abnormality is seen. ADRENALS: No significant abnormality is seen. KIDNEYS: There is a 1.6 cm left upper pole simple renal cyst. The remainder the kidneys enhance symme trically.. No hydronephrosis BOWEL: Again there are surgical clips at the gastroesophageal junction and a partial intrathoracic st omach is seen.. GENITAL ORGANS: Prostate gland is heterogenous and enlarged containing central zone calcifications. LYMPH NODES: No greater than 1cm abdominal or pelvic lymph nodes are appreciated. OSSEOUS STRUCTURES: Mild multilevel degenerative changes of the spine are noted. IMPRESSION: Response to treatment. Some of the previously seen multiple pulmonary nodules are no longer visualize d and others only vaguely seen. There is marked improvement in the hepatic metastatic burden with non visualization of some of the previously seen smaller lesions. There is also interval improvement in m ediastinal and paraesophageal adenopathy.
== END | disposition home or self-care (01) ==
LOC: RADCTMAIN 07:57
PROVIDERS: ATTEND Internal Medicine Hematology & Oncology
DX: Z03.89 Encounter for observation for other suspected diseases and conditions ruled out (principal); C15.5 Malignant neoplasm of lower third of esophagus; Z88.0 Allergy status to penicillin
CPT/HCPCS: 82565; 84520; 71260; 74177; 36415; Q9967

== ENCOUNTER 2018-02-22 15:07 | Emergency (ER) | payer BC ==
[2018-02-22] MEDS ORDERED: SODIUM CHLORIDE 0.9% 1,000 ML IV STA (17:17)
[2018-02-22] MEDS ORDERED: ONDANSETRON 4 MG/2 ML VIAL IVP STA (17:17)
[2018-02-22] MEDS ORDERED: MORPHINE SULFATE 4 MG/ML SYRINGE IV STA (17:17)
--- NOTE | 2018-02-22 17:20 | ED ---
General Adult HPI - General Chief complaint: Nausea/Vomiting/Diarrhea Stated complaint: Diarrhea, Abd Pain-CA Pt Source: patient Mode of arrival: ambulatory Limitations: no limitations - History of Present Illness Initial comments: Dictation was produced using emaze dictation software. please excuse any grammatical, word or spelling errors. Chief Complaint: 52-year-old male presents with dizziness 4 days. History of Present Illness: Patient is undergoing active chemotherapy. Patient states he had his fourth treatment recently. Last treatment was couple days ago. Since the chemotherapy patient has been having persistent nausea and abdominal pain. Patient's symptoms usually go away couple days after treatment. Diarrhea. He does have some crampy abdominal pain to lower bilateral abdominal quadrants. Denies any constitutional symptoms. Her case was discussed with nurse practitioner at his oncologist office who requested that patient come to the emergency department for evaluation. Patient has any emesis. He does report using Zofran DT with movement of symptoms. The ROS documented in this emergency department record has been reviewed and confirmed by me. Those systems with pertinent positive or negative responses have been documented in the HPI. All other systems are other negative and/or noncontributory. - Related Data Home Medications Medication Instructions Recorded Confirmed Aspirin EC [Ecotrin Low Dose] 81 mg PO DAILY 12/07/17 02/22/18 Acetaminophen Tab [Tylenol] 650 mg PO Q4H PRN 12/08/17 02/22/18 Clopidogrel [Plavix] 75 mg PO DAILY 12/20/17 02/22/18 Previous Rx's Medication Instructions Recorded Atorvastatin [Lipitor] 80 mg PO HS #90 tab 10/13/16 Lisinopril [Zestril] 10 mg PO DAILY #90 tab 10/13/16 Metoprolol Tartrate [Lopressor] 25 mg PO BID #180 tab 10/13/16 Nitroglycerin Sl Tabs [Nitrostat] 0.4 mg SUBLINGUAL Q5M PRN #25 tab 10/13/16 Docusate [Colace] 100 mg PO BID #20 capsule 02/22/18 Hydrocodone/Acetaminophen [[place] 1 tab PO Q4HR PRN 3 Days #18 tab 02/22/18 5-325] Allergies Allergy/AdvReac Type Severity Reaction Status Date / Time Penicillins Allergy Unknown Verified 02/22/18 18:30 Childhood Review of Systems ROS Statement: Those systems with pertinent positive or pertinent negative responses have been documented in the HPI. ROS Other: All systems not noted in ROS Statement are negative. Past Medical History Past Medical History: Coronary Artery Disease (CAD), Cancer, Chest Pain / Angina , Hyperlipidemia, Hypertension, Osteoarthritis (OA) Additional Past Medical History / Comment(s): Esophageal CA; vitiglio, History of Any Multi-Drug Resistant Organisms: None Reported Past Surgical History: Appendectomy, Heart Catheterization With Stent Additional Past Surgical History / Comment(s): patient states he had his stomach flipped 180 degrees because of acid reflux", 2 cardiac stents Past Anesthesia/Blood Transfusion Reactions: No Reported Reaction Date of Last Stent Placement:: 2016 Past Psychological History: No Psychological Hx Reported Smoking Status: Current every day smoker Past Alcohol Use History: Rare Past Drug Use History: None Reported - Past Family History Father Family Medical History: Cancer, COPD Additional Family Medical History / Comment(s): prostate cancer Mother Family Medical History: Chest Pain / Angina, Coronary Artery Disease (CAD), Myocardial Infarction ([place]) Additional Family Medical History / Comment(s): "Mother had multiple heart attacks and open heart surgery" General Exam - General Exam Comments Initial Comments: PHYSICAL EXAM: General Impression: Alert and oriented x3, not in acute distress HEENT: Normocephalic atraumatic, extra-ocular movements intact, pupils equal and reactive to light bilaterally, mucous membranes moist. Cardiovascular: Heart regular rate and rhythm, S1&S2 audible, no murmurs, rubs or gallops Chest: Lungs clear to auscultation bilaterally, no rhonchi, no wheeze, no rales Abdomen: Mild tympany to the entire abdomen, mild tenderness to the suprapubic area Musculoskeletal: Pulses present and equal in all extremities, no peripheral edema Motor: Power 5/5 bilaterally, no focal deficits noted Neurological: CN II-XII grossly intact, no focal motor or sensory deficits noted Skin: Intact with no visualized rashes Psych: Normal affect and mood Limitations: no limitations Course Vital Signs 02/22/18 02/22/18 02/22/18 16:19 17:45 19:05 Temperature 98.1 F 98.7 F Pulse Rate 76 61 Respiratory 18 78 H 18 Rate Blood Pressure 95/71 106/59 103/66 O2 Sat by Pulse 95 96 98 Oximetry Medical Decision Making - Medical Decision Making ED course: 52-year-old male presents with abdominal cramping and nausea vital signs upon arrival are within acceptable limits.Laboratory evaluation obtained. CBC, metabolic panel, urinalysis unremarkable. X-ray obtained of the abdomen and chest. There is intestinal fluid levels consistent with diarrhea and ileus. No findings to suggest mechanical obstruction. Chest x-ray obtained showing no acute processes. Even IV analgesics with improvement of symptoms. Vision observed in emergency department for several hours. Patient feels well. Patient is clear for discharge. Ileus was discussed in detail with patient. Salter return with any worsening abdominal pain, worsening nausea vomiting or constitutional symptoms. Patient given prescription for Colace and by mouth analgesics. Patient told to follow-up with his oncologist sent him agreeable to disposition. - Lab Data Result diagrams: 02/22/18 17:49 02/22/18 17:49 Lab Results 02/22/18 02/22/18 02/22/18 Range/Units 17:49 17:49 19:36 WBC 8.1 (3.8-10.6) k/uL RBC 4.90 (4.30-5.90) m/uL Hgb 14.5 (13.0-17.5) gm/dL Hct 45.2 (39.0-53.0) % MCV 92.3 (80.0-100.0) fL MCH 29.5 (25.0-35.0) pg MCHC 32.0 (31.0-37.0) g/dL RDW 18.7 H (11.5-15.5) % Plt Count 293 (150-450) k/uL Neutrophils % 54 % Lymphocytes % 31 % Monocytes % 6 % Eosinophils % 4 % Basophils % 1 % Neutrophils # 4.4 (1.3-7.7) k/uL Lymphocytes # 2.5 (1.0-4.8) k/uL Monocytes # 0.5 (0-1.0) k/uL Eosinophils # 0.3 (0-0.7) k/uL Basophils # 0.1 (0-0.2) k/uL Anisocytosis Slight Sodium 141 (137-145) mmol/L Potassium 4.2 (3.5-5.1) mmol/L Chloride 105 (98-107) mmol/L Carbon Dioxide 26 (22-30) mmol/L Anion Gap 10 mmol/L BUN 18 (9-20) mg/dL Creatinine 0.76 (0.66-1.25) mg/dL Est GFR (CKD-EPI)AfAm >90 (>60 ml/min/1.73 sqM) Est GFR (CKD-EPI)NonAf >90 (>60 ml/min/1.73 sqM) Glucose 112 H (74-99) mg/dL Calcium 9.6 (8.4-10.2) mg/dL Total Bilirubin 0.4 (0.2-1.3) mg/dL AST 35 (17-59) U/L ALT 62 (21-72) U/L Alkaline Phosphatase 71 (38-126) U/L Total Protein 7.3 (6.3-8.2) g/dL Albumin 4.2 (3.5-5.0) g/dL Lipase 71 (23-300) U/L Urine Color Yellow Urine Appearance Cloudy (Clear) Urine pH 5.5 (5.0-8.0) Ur Specific [place] 1.032 (1.001-1.035) Urine Protein Trace H (Negative) Urine Glucose (UA) Trace H (Negative) Urine Ketones Negative (Negative) Urine Blood Negative (Negative) Urine Nitrite Negative (Negative) Urine Bilirubin Negative (Negative) Urine Urobilinogen <2.0 (<2.0) mg/dL Ur Leukocyte Esterase Negative (Negative) Urine RBC 1 (0-5) /hpf Urine WBC 6 H (0-5) /hpf Ur Squamous Epith Cells 2 (0-4) /hpf Urine Mucus Many H (None) /hpf Disposition Clinical Impression: Ileus Disposition: HOME SELF-CARE Condition: Good Instructions: Acute Nausea and Vomiting (ED) Prescriptions: Docusate [Colace] 100 mg PO BID #20 capsule Hydrocodone/Acetaminophen [[place] 5-325] 1 tab PO Q4HR PRN 3 Days #18 tab PRN Reason: Pain Is patient prescribed a controlled substance at d/c from ED?: Yes If prescribed controlled substance>3 days was MAPS reviewed?: Prescribed <3 Days Referrals: None,Stated [Primary Care Provider] - 1-2 days Harshal Price MD [STAFF PHYSICIAN] - 1-2 days Time of Disposition: 20:39
[2018-02-22 18:15] LABS: Anisocytosis Slight; Basophils # (A) 0.1 k/uL (0-0.2); Basophils % (A) 1 %; Eosinophils # (A) 0.3 k/uL (0-0.7); Eosinophils % (A) 4 %; HCT 45.2 % (39.0-53.0); HGB 14.5 gm/dL (13.0-17.5); Lymphocytes # (A) 2.5 k/uL (1.0-4.8); Lymphocytes % (A) 31 %; MCH 29.5 pg (25.0-35.0); MCV 92.3 fL (80.0-100.0); Mean Platelet Volume 6.9; Monocytes # (A) 0.5 k/uL (0-1.0); Monocytes % (A) 6 %; Neutrophils # (A) 4.4 k/uL (1.3-7.7); Neutrophils % (A) 54 %; Platelet Count 293 k/uL (150-450); RDW 18.7 % (11.5-15.5); WBC 8.1 k/uL (3.8-10.6)
--- NOTE | 2018-02-22 18:29 | XR ---
EXAMINATION TYPE: XR KUB DATE OF EXAM: 02/22/2018 COMPARISON: NONE HISTORY: Diarrhea and stomach cramps TECHNIQUE: 2 views upright FINDINGS: There are multiple intestinal fluid levels. There is also fluid level in the sigmoid colon consistent with diarrhea. I see no sign of free air. There is hiatal hernia. Lung bases are clear of consolidation. There are no pathologic ossification over the kidneys. IMPRESSION: Intestinal fluid levels consistent with diarrhea and ileus. No free air. I do not suspect a mechanical obstruction.
--- NOTE | 2018-02-22 18:33 | XR ---
EXAMINATION TYPE: XR chest 2V DATE OF EXAM: 02/22/2018 COMPARISON: 12/21/2017 HISTORY: Diarrhea and stomach cramps TECHNIQUE: Frontal and lateral views of the chest are obtained. FINDINGS: There is hiatal hernia. There is right central venous catheter with tip in the superior ve na cava. There is some coarsening of interstitial markings in the lower lung valencia. There is old rig ht-sided healed rib fracture. IMPRESSION: Hiatal hernia. Mild pulmonary interstitial density is new compared to last exam
[2018-02-22 18:38] LABS: ALT 62 U/L (21-72); AST 35 U/L (17-59); Albumin 4.2 g/dL (3.5-5.0); Alkaline Phosphatase 71 U/L (38-126); Anion Gap 10 mmol/L; Blood Urea Nitrogen 18 mg/dL (9-20); Calcium 9.6 mg/dL (8.4-10.2); Carbon Dioxide 26 mmol/L (22-30); Chloride 105 mmol/L (98-107); Glucose 112 mg/dL (74-99); Lipase 71 U/L (23-300); Potassium 4.2 mmol/L (3.5-5.1); Sodium 141 mmol/L (137-145); Total Bilirubin 0.4 mg/dL (0.2-1.3); Total Protein 7.3 g/dL (6.3-8.2)
[2018-02-22 19:33] VITALS: RESP 18; TEMP 98.7
[2018-02-22 19:57] LABS: Appearance,Urine Cloudy (Clear); Bilirubin,Urine Negative (Negative); Blood,Urine Negative (Negative); Color,Urine Yellow; Glucose,Urine (UA) Trace (Negative); Ketones,Urine Negative (Negative); Leukocyte Esterase,Urine Negative (Negative); Mucus,Urine Many /hpf; Nitrite,Urine Negative (Negative); PH, Urine 5.5 (5.0-8.0); Protein,Urine Trace (Negative); RBC,Urine 1 /hpf (0-5); Specific Gravity,Urine 1.032 (1.001-1.035); Squamous Epithelial Cell,Urine 2 /hpf (0-4); Urobilinogen,Urine <2.0 mg/dL (<2.0); WBC,Urine 6 /hpf (0-5)
[2018-02-22 21:22] VITALS: BP 107/86; PULSE 64
== END 2018-02-22 21:23 | disposition home or self-care (01) ==
LOC: EC 15:07
DX: K56.7 Ileus, unspecified (principal); I25.119 Atherosclerotic heart disease of native coronary artery with unspecified angina pectoris; I10 Essential (primary) hypertension; F17.200 Nicotine dependence, unspecified, uncomplicated; Z79.02 Long term (current) use of antithrombotics/antiplatelets; Z79.82 Long term (current) use of aspirin; Z88.0 Allergy status to penicillin; Z95.5 Presence of coronary angioplasty implant and graft; Z85.01 Personal history of malignant neoplasm of esophagus
CPT/HCPCS: 36415; 80053; 83690; 85025; 81001; 71046; 74018; 99284; 96374; 96375; 96361; J2270; J2405

== ENCOUNTER 2018-03-31 09:43 | Inpatient (IN) | payer BC ==
--- NOTE | 2018-03-31 10:11 | ED ---
Extremity Problem HPI - General Chief complaint: Extremity Problem,Nontraumatic Stated complaint: rt arm swelling Time Seen by Provider: 03/31/18 09:53 Source: patient, RN notes reviewed Limitations: no limitations - History of Present Illness Initial comments: 52-year-old male presents emergency Department chief complaint of right arm swelling. Patient states he woke up with this this morning. He is painful. He 's never had any like this in the past. Patient states that he just had his chemo pump removed yesterday. Patient is being treated for esophageal cancer. Patient's oncologist is Dr. Price. Patient denies any history of blood clot. Denies chest pain or shortness of breath. No fever no chills. - Related Data Home Medications Medication Instructions Recorded Confirmed Aspirin EC [Ecotrin Low Dose] 81 mg PO DAILY 12/07/17 03/31/18 Acetaminophen Tab [Tylenol] 650 mg PO Q4H PRN 12/08/17 03/31/18 Clopidogrel [Plavix] 75 mg PO DAILY 12/20/17 03/31/18 Docusate [Colace] 100 mg PO BID 03/31/18 03/31/18 Previous Rx's Medication Instructions Recorded Atorvastatin [Lipitor] 80 mg PO HS #90 tab 10/13/16 Lisinopril [Zestril] 10 mg PO DAILY #90 tab 10/13/16 Metoprolol Tartrate [Lopressor] 25 mg PO BID #180 tab 10/13/16 Nitroglycerin Sl Tabs [Nitrostat] 0.4 mg SUBLINGUAL Q5M PRN #25 tab 10/13/16 Hydrocodone/Acetaminophen [[place] 1 tab PO Q4HR PRN 3 Days #18 tab 02/22/18 5-325] Allergies Allergy/AdvReac Type Severity Reaction Status Date / Time Penicillins Allergy Unknown Verified 03/31/18 10:01 Childhood Review of Systems ROS Statement: Those systems with pertinent positive or pertinent negative responses have been documented in the HPI. ROS Other: All systems not noted in ROS Statement are negative. Past Medical History Past Medical History: Coronary Artery Disease (CAD), Cancer, Chest Pain / Angina , Hyperlipidemia, Hypertension, Osteoarthritis (OA) Additional Past Medical History / Comment(s): Esophageal CA; vitiglio, History of Any Multi-Drug Resistant Organisms: None Reported Past Surgical History: Appendectomy, Heart Catheterization With Stent Additional Past Surgical History / Comment(s): patient states he had his stomach flipped 180 degrees because of acid reflux", 2 cardiac stents Past Anesthesia/Blood Transfusion Reactions: No Reported Reaction Date of Last Stent Placement:: 2016 Past Psychological History: No Psychological Hx Reported Smoking Status: Current every day smoker Past Alcohol Use History: Occasional Past Drug Use History: None Reported - Past Family History Father Family Medical History: Cancer, COPD Additional Family Medical History / Comment(s): prostate cancer Mother Family Medical History: Chest Pain / Angina, Coronary Artery Disease (CAD), Myocardial Infarction ([place]) Additional Family Medical History / Comment(s): "Mother had multiple heart attacks and open heart surgery" General Exam Limitations: no limitations General appearance: alert, in no apparent distress Head exam: Present: atraumatic, normocephalic, normal inspection Neck exam: Present: normal inspection. Absent: tenderness, meningismus, lymphadenopathy Respiratory exam: Present: normal lung sounds bilaterally. Absent: respiratory distress, wheezes, rales, rhonchi, stridor Cardiovascular Exam: Present: regular rate, normal rhythm, normal heart sounds. Absent: systolic murmur, diastolic murmur, rubs, gallop, clicks Extremities exam: Present: other (Right arm there is notable diffuse swelling, bony color, pulses are equal bilaterally with cap refill less than 2 seconds tenderness diffusely to the axilla) Neurological exam: Present: alert, oriented X3, CN II-XII intact, reflexes normal. Absent: motor sensory deficit Skin exam: Present: warm, dry, intact, normal color. Absent: rash Course Vital Signs 03/31/18 09:47 Temperature 97.8 F Pulse Rate 59 L Respiratory 18 Rate Blood Pressure 136/89 O2 Sat by Pulse 100 Oximetry Medical Decision Making - Medical Decision Making 52-year-old male presented for right arm swelling. Patient did have lab work, ultrasound. Patient's positive for acute DVT in the right subclavian. Patient be heparinized with consult to Dr. Price. This concerned has he has a port on the right side. Patient is stable for admission - Lab Data Result diagrams: 03/31/18 10:05 03/31/18 10:05 Lab Results 03/31/18 03/31/18 03/31/18 Range/Units 10:05 10:05 10:05 WBC 5.6 (3.8-10.6) k/uL RBC 4.71 (4.30-5.90) m/uL Hgb 14.3 (13.0-17.5) gm/dL Hct 44.4 (39.0-53.0) % MCV 94.3 (80.0-100.0) fL MCH 30.3 (25.0-35.0) pg MCHC 32.1 (31.0-37.0) g/dL RDW 18.4 H (11.5-15.5) % Plt Count 177 (150-450) k/uL Neutrophils % 69 % Lymphocytes % 22 % Monocytes % 3 % Eosinophils % 3 % Basophils % 1 % Neutrophils # 3.9 (1.3-7.7) k/uL Lymphocytes # 1.2 (1.0-4.8) k/uL Monocytes # 0.2 (0-1.0) k/uL Eosinophils # 0.1 (0-0.7) k/uL Basophils # 0.1 (0-0.2) k/uL Anisocytosis Slight PT 10.4 (9.0-12.0) sec INR 1.0 (<1.2) APTT 21.6 L (22.0-30.0) sec Sodium 138 (137-145) mmol/L Potassium 4.1 (3.5-5.1) mmol/L Chloride 106 (98-107) mmol/L Carbon Dioxide 26 (22-30) mmol/L Anion Gap 6 mmol/L BUN 16 (9-20) mg/dL Creatinine 0.68 (0.66-1.25) mg/dL Est GFR (CKD-EPI)AfAm >90 (>60 ml/min/1.73 sqM) Est GFR (CKD-EPI)NonAf >90 (>60 ml/min/1.73 sqM) Glucose 176 H (74-99) mg/dL Calcium 9.2 (8.4-10.2) mg/dL Total Bilirubin 0.7 (0.2-1.3) mg/dL AST 26 (17-59) U/L ALT 61 (21-72) U/L Alkaline Phosphatase 90 (38-126) U/L Total Protein 7.4 (6.3-8.2) g/dL Albumin 4.3 (3.5-5.0) g/dL Disposition Clinical Impression: Right subclavian vein thrombosis Disposition: ADMITTED IP TO THIS HOSP Condition: Fair Referrals: None,Stated [Primary Care Provider] - 1-2 days
[2018-03-31 10:18] LABS: Anisocytosis Slight; Basophils # (A) 0.1 k/uL (0-0.2); Basophils % (A) 1 %; Eosinophils # (A) 0.1 k/uL (0-0.7); Eosinophils % (A) 3 %; HCT 44.4 % (39.0-53.0); HGB 14.3 gm/dL (13.0-17.5); Lymphocytes # (A) 1.2 k/uL (1.0-4.8); Lymphocytes % (A) 22 %; MCH 30.3 pg (25.0-35.0); MCHC 32.1 g/dL (31.0-37.0); MCV 94.3 fL (80.0-100.0); Mean Platelet Volume 6.8; Monocytes # (A) 0.2 k/uL (0-1.0); Monocytes % (A) 3 %; Neutrophils # (A) 3.9 k/uL (1.3-7.7); Neutrophils % (A) 69 %; Platelet Count 177 k/uL (150-450); RBC 4.71 m/uL (4.30-5.90); RDW 18.4 % (11.5-15.5); WBC 5.6 k/uL (3.8-10.6)
[2018-03-31 10:28] LABS: ALT 61 U/L (21-72); AST 26 U/L (17-59); Albumin 4.3 g/dL (3.5-5.0); Alkaline Phosphatase 90 U/L (38-126); Anion Gap 6 mmol/L; Blood Urea Nitrogen 16 mg/dL (9-20); Calcium 9.2 mg/dL (8.4-10.2); Carbon Dioxide 26 mmol/L (22-30); Chloride 106 mmol/L (98-107); Glucose 176 mg/dL (74-99); Potassium 4.1 mmol/L (3.5-5.1); Sodium 138 mmol/L (137-145); Total Bilirubin 0.7 mg/dL (0.2-1.3); Total Protein 7.4 g/dL (6.3-8.2)
[2018-03-31 10:36] LABS: Prothrombin Time 10.4 sec (9.0-12.0)
[2018-03-31 10:39] LABS: Partial Thromboplastin Time 21.6 sec (22.0-30.0)
--- NOTE | 2018-03-31 11:18 | US ---
EXAMINATION TYPE: US venous doppler duplex UE RT DATE OF EXAM: 03/31/2018 COMPARISON: NONE CLINICAL HISTORY: Pain. SIDE PERFORMED: Right Left Arm: Positive for DVT in right subclavian vein. IJV and brachial veins appear patient. Hx of esophageal cancer. IMPRESSION: Positive DVT right subclavian vein as discussed.
[2018-03-31] MEDS ORDERED: HEPARIN SODIUM,PORCINE 10,000 UNIT/ML 1 ML VIAL IV ONE (11:24)
[2018-03-31] MEDS ORDERED: NALOXONE 0.4 MG/ML 1 ML VIAL IV PRN (11:34)
[2018-03-31] MEDS ORDERED: HYDROcodone/APAP 5-325MG 1 EACH TAB PO PRN ×2 (11:34→18:29)
[2018-03-31] MEDS ORDERED: ACETAMINOPHEN TAB 325 MG TAB PO PRN (11:34)
[2018-03-31] MEDS: HEPARIN SOD,PORK IN 0.45% NACL 25,000 UNIT in 0.45% NACL 1 250ML.BAG IV SCH (11:46)
[2018-03-31 15:32] VITALS: RESP 16
--- NOTE | 2018-03-31 16:49 | P.CONS ---
History of Present Illness - Reason for Consult Consult date: 03/31/18 New Acute DVT Requesting physician: Sy Loredo - Chief Complaint Arm Swelling - History of Present Illness 52 year old pleasant patient well known to us for treatment of metastatic Esophageal cancer. Currently on chemotherapy. He has been admitted for new increased right upper extremity pain and swelling Review of Systems A 14 point review of systems assessed and completed and all negative except HPI Past Medical History Past Medical History: Coronary Artery Disease (CAD), Cancer, Chest Pain / Angina , GERD/Reflux, Hyperlipidemia, Hypertension, Osteoarthritis (OA) Additional Past Medical History / Comment(s): Esophageal CA undergoing chemotherapy, arthritis R hip, vitiglio, History of Any Multi-Drug Resistant Organisms: None Reported Past Surgical History: Appendectomy, Heart Catheterization With Stent Additional Past Surgical History / Comment(s): [place] fundaplasty, infusaport, PCI/stents, colonoscopy Past Anesthesia/Blood Transfusion Reactions: No Reported Reaction Date of Last Stent Placement:: 2016 Smoking Status: Current every day smoker - Past Family History Father Family Medical History: Cancer, COPD Additional Family Medical History / Comment(s): Prostate cancer. Father is . Mother Family Medical History: Chest Pain / Angina, Coronary Artery Disease (CAD), Myocardial Infarction ([place]) Additional Family Medical History / Comment(s): "Mother had multiple heart attacks and open heart surgery". She of a DE at the age of 59yrs. Medications and Allergies Home Medications Medication Instructions Recorded Confirmed Type Atorvastatin [Lipitor] 80 mg PO HS #90 tab 10/13/16 03/31/18 Rx Lisinopril [Zestril] 10 mg PO DAILY #90 tab 10/13/16 03/31/18 Rx Metoprolol Tartrate [Lopressor] 25 mg PO BID #180 tab 10/13/16 03/31/18 Rx Nitroglycerin Sl Tabs [Nitrostat] 0.4 mg SUBLINGUAL Q5M PRN #25 tab 10/13/1603/18 Rx Aspirin EC [Ecotrin Low Dose] 81 mg PO DAILY 12/07/17 03/31/18 History Acetaminophen Tab [Tylenol] 650 mg PO Q4H PRN 12/08/17 03/31/18 History Clopidogrel [Plavix] 75 mg PO DAILY 12/20/17 03/31/18 History Hydrocodone/Acetaminophen [[place] 1 tab PO Q4HR PRN 3 Days #18 tab 02/22/1803/31 Rx 5-325] Docusate [Colace] 100 mg PO BID 03/31/18 03/31/18 History Allergies Allergy/AdvReac Type Severity Reaction Status Date / Time Penicillins Allergy Unknown Verified 03/31/18 10:01 Childhood Physical Exam Vitals: Vital Signs Temp Pulse Pulse Resp BP BP Pulse Ox 03/31/18 15:31 97.6 F 62 16 143/66 94 L 03/31/18 15:08 63 17 106/74 94 L 03/31/18 09:47 97.8 F 59 L 18 136/89 100 Intake and Output 03/31/18 03/31/18 03/31/18 06:59 14:59 22:59 Other: Voiding Method Toilet Weight 83.915 kg Gen: No Acute Distress, Alert and Oriented Heac NC, NT Lungs CTA Bilateral, No increased effort Heart - Reg, Reg, no murmur Abd: Soft, Nondistended non tender Ext: RUE Edema Results CBC & Chem 7: 03/31/18 10:05 03/31/18 10:05 Labs: Abnormal Lab Results - Last 24 Hours (Table) 03/31/18 03/31/18 03/31/18 Range/Units 10:05 10:05 10:05 RDW 18.4 H (11.5-15.5) % APTT 21.6 L (22.0-30.0) sec Glucose 176 H (74-99) mg/dL Venous US: report reviewed Assessment and Plan Plan: Assessment and Recommendations: 1. New Acute DVT RUE - Same Side as Mediport - Heparin Drip to continue until evaluated by General Surgery regarding need for removal of Mediport and placement of new mediport for chemotherapy access - Plan to Discharge after recommendations from Surgery with DOAC (Eliquis 10mg po [id number], then 5mg PO Daily) - PREFER IF MEDIPORT CAN BE RETAINED. In that case will need anticoagulate as long as MP is inside. - Provoked clot with line placement, hypercoaguable with underlying malignancy will discuss length of therapy with Dr. Price, minimum 3 months of anticoagulation likely. 2. Metastatic Esophageal cancer - Currently on treatment with chemotherapy Thank you for allowing us to participate in the care of your patient will follow along with you. Nupur Rivera NP Physician Attestation: I have completed the full history and physical of this patient and agree with above dictation by Nupur Rivera NP. Dictated as a scribe.
--- NOTE | 2018-03-31 18:29 | P.HPIM ---
History of Present Illness H&P Date: 03/31/18 The patient is a 52-year-old male with a PMH of hyperlipidemia, hypertension, CAD, and recent diagnosis of esophageal cancer currently undergoing chemotherapy with Dr. Price (oncologist) with a right-sided Chemo-Port presented to the ED for sudden onset of right arm swelling and pain since waking up this morning. The patient received his last dose of the current cycle of chemo yesterday. The patient denies any trauma to the area and denied any prior history of blood clots. The patient also denied chest pain, short of breath, fever, chills, dizziness, headache, visual disturbances, abdominal pain, nausea , vomiting, diarrhea, or recent travel. In the ED, the patient had a comprehensive workup with WBC count 5.6, hemoglobin 14.3, creatinine 0.68, and an upper extremity duplex positive for a right subclavian DVT. The patient was started on a heparin infusion and admitted to the medicine service for further workup. Review of Systems Pertinent positives and negatives as discussed in HPI, a complete review of systems was performed and all other systems are negative. Past Medical History Past Medical History: Coronary Artery Disease (CAD), Cancer, Chest Pain / Angina , GERD/Reflux, Hyperlipidemia, Hypertension, Osteoarthritis (OA) Additional Past Medical History / Comment(s): Esophageal CA undergoing chemotherapy, arthritis R hip, vitiglio, History of Any Multi-Drug Resistant Organisms: None Reported Past Surgical History: Appendectomy, Heart Catheterization With Stent Additional Past Surgical History / Comment(s): Blair fundaplasty, infusaport, PCI/stents, colonoscopy Past Anesthesia/Blood Transfusion Reactions: No Reported Reaction Date of Last Stent Placement:: 2016 Smoking Status: Current every day smoker - Past Family History Father Family Medical History: Cancer, COPD Additional Family Medical History / Comment(s): Prostate cancer. Father is . Mother Family Medical History: Chest Pain / Angina, Coronary Artery Disease (CAD), Myocardial Infarction ([place]) Additional Family Medical History / Comment(s): "Mother had multiple heart attacks and open heart surgery". She of a NC at the age of 59yrs. Medications and Allergies Home Medications Medication Instructions Recorded Confirmed Type Atorvastatin [Lipitor] 80 mg PO HS #90 tab 10/13/16 03/31/18 Rx Lisinopril [Zestril] 10 mg PO DAILY #90 tab 10/13/16 03/31/18 Rx Metoprolol Tartrate [Lopressor] 25 mg PO BID #180 tab 10/13/16 03/31/18 Rx Nitroglycerin Sl Tabs [Nitrostat] 0.4 mg SUBLINGUAL Q5M PRN #25 tab 10/13/1603/18 Rx Aspirin EC [Ecotrin Low Dose] 81 mg PO DAILY 12/07/17 03/31/18 History Acetaminophen Tab [Tylenol] 650 mg PO Q4H PRN 12/08/17 03/31/18 History Clopidogrel [Plavix] 75 mg PO DAILY 12/20/17 03/31/18 History Hydrocodone/Acetaminophen [[place] 1 tab PO Q4HR PRN 3 Days #18 tab 02/22/1803/31 Rx 5-325] Docusate [Colace] 100 mg PO BID 03/31/18 03/31/18 History Allergies Allergy/AdvReac Type Severity Reaction Status Date / Time Penicillins Allergy Unknown Verified 03/31/18 10:01 Childhood Physical Exam Vitals: Vital Signs Temp Pulse Pulse Resp BP BP Pulse Ox 03/31/18 15:31 97.6 F 62 16 143/66 94 L 03/31/18 15:08 63 17 106/74 94 L 03/31/18 09:47 97.8 F 59 L 18 136/89 100 Intake and Output 03/31/18 03/31/18 03/31/18 06:59 14:59 22:59 Other: Voiding Method Toilet Weight 83.915 kg General: [non toxic], [no distress], [appears at stated age], [normal weight] Derm: [no unusual rashes/lesions] [no unusual ecchymoses], [warm], [dry] Head: [atraumatic], [normocephalic], [symmetric] Eyes: [EOMI], [no lid lag], [anicteric sclera], [pupils equal round reactive to light] ENT: [Nose and ears atraumatic], [no thrush], [no pharyngeal erythema] Neck: [No thyromegaly], [no cervical lymphadenopathy], [trachea midline], [ supple] Mouth: [no lip lesion], [mucus membranes moist] Cardiovascular: [S1S2 reg], [no murmur], [positive posterior tibial pulse bilateral], [no edema], [capillary refill less than 2 seconds], right upper chest Chemo-Port, nontender, no erythema noted Lungs: [CTA bilateral], [no rhonchi, no rales] , [no accessory muscle use] Abdominal: [soft], [ nontender to palpation], [no guarding], [no appreciable organomegaly], [normal bowel sounds] Ext: Right upper extremity mildly swollen, larger than the left upper extremity , mild erythema [no gross muscle atrophy], [muscle strength 5 out of 5 in all 4 extremities grossly], [no contractures] Neuro: [ CN II-XI grossly intact], [light touch intact all 4 extremities], [ finger to nose within normal limits], Psych: [Alert], [oriented], [appropriate affect] Results CBC & Chem 7: 03/31/18 10:05 03/31/18 10:05 Labs: Abnormal Lab Results - Last 24 Hours (Table) 03/31/18 03/31/18 03/31/18 Range/Units 10:05 10:05 10:05 RDW 18.4 H (11.5-15.5) % APTT 21.6 L (22.0-30.0) sec Glucose 176 H (74-99) mg/dL 03/31/18 Range/Units 17:27 RDW (11.5-15.5) % APTT 130.1 H* (22.0-30.0) sec Glucose (74-99) mg/dL Thrombosis Risk Factor Assmnt - Choose All That Apply Any of the Below Risk Factors Present?: Yes Each Factor Represents 1 point: Age 41-60 years Other Risk Factors: Yes Each Risk Factor Represents 3 Points: History of DVT/PE Other congenital or acquired thrombophilia - If yes, enter type in comment: No Thrombosis Risk Factor Assessment Total Risk Factor Score: 4 Thrombosis Risk Factor Assessment Level: Moderate Risk Assessment and Plan Plan: Acute right upper extremity subclavian DVT, provoked in the setting of right subclavian Chemo-Port -Hematology consulted -Continue with heparin infusion -Surgery consult for possible removal of Chemo-Port Hypertension -Continue with home meds: Lisinopril 10, Lopressor 25 Hyperlipidemia -Continue with home meds: Lipitor 80 Coronary artery disease -Continue with home meds: Aspirin, Lipitor DVT//GI prophylaxis -Heparin infusion -No indication for GI prophylaxis The patient is admitted with an anticipated greater than than 2 midnight stay for evaluation of right upper extremity DVT. CODE STATUS: Full code Discussed with: Patient, Anticipated discharge date: 04/02/[address]: Home A total of 60 minutes was spent on the care of this complex patient more than 50 % of the time was spent in counseling and care coordination.
[2018-03-31] MEDS: METOPROLOL TARTRATE 25 MG TAB PO SCH (20:33)
[2018-03-31] MEDS: DOCUSATE 100 MG CAP PO SCH (20:34)
[2018-03-31] MEDS ORDERED: ATORVASTATIN 80 MG TAB PO SCH (21:00)
[2018-04-01] MEDS: HEPARIN SODIUM,PORCINE 5,000 UNIT/ML 1 ML VIAL IV PRN ×2 (01:55→08:49)
[2018-04-01] MEDS: HEPARIN SOD,PORK IN 0.45% NACL 25,000 UNIT in 0.45% NACL 1 250ML.BAG IV SCH (06:52)
[2018-04-01] MEDS: DOCUSATE 100 MG CAP PO SCH (07:45)
[2018-04-01 07:46] LABS: Anisocytosis Slight; Basophils % (A) 1 %; Eosinophils # (A) 0.2 k/uL (0-0.7); Eosinophils % (A) 5 %; HCT 41.3 % (39.0-53.0); HGB 13.6 gm/dL (13.0-17.5); Lymphocytes # (A) 1.5 k/uL (1.0-4.8); Lymphocytes % (A) 36 %; MCH 31.6 pg (25.0-35.0); MCHC 32.9 g/dL (31.0-37.0); Macrocytosis Slight; Mean Platelet Volume 6.7; Monocytes # (A) 0.2 k/uL (0-1.0); Monocytes % (A) 4 %; Neutrophils # (A) 2.1 k/uL (1.3-7.7); Neutrophils % (A) 52 %; Platelet Count 158 k/uL (150-450); RDW 18.8 % (11.5-15.5); WBC 4.1 k/uL (3.8-10.6)
[2018-04-01] MEDS: METOPROLOL TARTRATE 25 MG TAB PO SCH (07:48)
[2018-04-01 07:55] LABS: Prothrombin Time 11.1 sec (9.0-12.0)
[2018-04-01] MEDS ORDERED: LISINOPRIL 10 MG TAB PO SCH (09:00)
[2018-04-01] MEDS ORDERED: ASPIRIN 81 MG PO SCH (09:00)
[2018-04-01 13:51] VITALS: BP 99/60; PULSE 61; TEMP 98.4
--- NOTE | 2018-04-01 13:58 | P.PN ---
Subjective Progress Note Date: 04/01/18 Patient was seen and examined at the bedside. Patient notes that his right arm swelling is improved since yesterday and now has minimal pain there. He otherwise denied fever, chills, chest pain, shortness of breath, nausea, vomiting, diaphoresis. Objective - Vital Signs Vital signs: Vital Signs Temp 98.4 F 04/01/18 12:50 Pulse 61 04/01/18 12:50 Resp 16 04/01/18 12:50 BP 99/60 04/01/18 12:50 Pulse Ox 93 L 04/01/18 12:50 Intake & Output 03/31/18 04/01/18 04/01/18 18:59 06:59 18:59 Intake Total 98.15 442.250 30.552 Balance 98.15 442.250 30.552 Weight 83.915 kg Intake: IV 290.4 Heparin Sod,Pork in 0.45% 50.4 NaCl 25,000 unit In 0.45 % NaCl 1 250ml.bag @ 18 UNITS/KG/HR 15.1 mls/hr IV .[id number] [facility] Rx#: [id number] ns@20 240 Intake, IV Titration 98.15 151.850 30.552 Amount Heparin Sod,Pork in 0.45% 98.15 151.850 30.552 NaCl 25,000 unit In 0.45 % NaCl 1 250ml.bag @ 18 UNITS/KG/HR 15.1 mls/hr IV .[id number] [facility] Rx#: [id number] Other: Voiding Method Toilet Toilet Toilet - Exam General: Non-toxic, in no acute distress, appears stated age, normal weight HEENT: [place]/AT, anicteric sclerae, moist conjunctiva, no lid-lag, PERRLA Cardiovascular: S1/S2 wnl, no murmurs, rubs, or gallops, right Chemo-Port nontender, no erythema Lungs: Clear to auscultation, normal respiratory effort, no accessory muscle use Abdominal: Soft, non-tender, non-distended, no guarding, rebound, or rigidity Skin: Warm, dry Extremities: Mild right arm edema and warmth, radial pulses intact Psychiatric: Alert and oriented to person, place and time, appropriate affect Neuro: CN II-XII grossly intact, Strength 5/5 in all 4 extremities, Speech intact, Sensation to light touch grossly intact throughout - Labs CBC & Chem 7: 04/01/18 07:06 03/31/18 10:05 Labs: Abnormal Lab Results - Last 24 Hours (Table) 03/31/18 04/01/18 04/01/18 Range/Units 17:27 01:10 07:06 RDW 18.8 H (11.5-15.5) % APTT 130.1 H* 36.6 H (22.0-30.0) sec 04/01/18 Range/Units 07:11 RDW (11.5-15.5) % APTT 36.0 H (22.0-30.0) sec Assessment and Plan Plan: Acute right upper extremity subclavian DVT, provoked in the setting of right subclavian Chemo-Port -Hematology recommendations appreciated -Continue with heparin infusion -Surgery consult pending Hypertension -Continue with home meds: Lisinopril 10, Lopressor 25 Hyperlipidemia -Continue with home meds: Lipitor 80 Coronary artery disease -Continue with home meds: Aspirin, Lipitor DVT//GI prophylaxis -Heparin infusion -No indication for GI prophylaxis The patient is admitted with an anticipated greater than than 2 midnight stay for evaluation of right upper extremity DVT. CODE STATUS: Full code Discussed with: Patient, Anticipated discharge date: 04/02/[address]: Home A total of 60 minutes was spent on the care of this complex patient more than 50 % of the time was spent in counseling and care coordination.
--- NOTE | 2018-04-01 16:30 | P.GSCN ---
History of Present Illness Consult date: 04/01/18 History of present illness: CHIEF COMPLAINT: DVT of the right arm. HISTORY OF PRESENT ILLNESS: The patient is a 52 year old male with history of esophageal cancer who has history of a mediport placement now with a DVT of the right arm. No report of pain. His nurse recently accessed his port with blood return and flush. His port is working. I spoke to Dr. Price regarding the plan where he may have anticoagulation with his maintained port. PAST MEDICAL HISTORY: See list. PAST SURGICAL HISTORY: See list. MEDICATIONS: See list. ALLERGIES: See list. SOCIAL HISTORY: No illicit drug use. Has tobacco use. FAMILY HISTORY: No reports of Crohn's disease or inflammatory bowel disease REVIEW OF ORGAN SYSTEMS: CONSTITUTIONAL: No fevers or chills HEENT: No troubles with vision or hearing. No reports of dysphagia. ENDOCRINE: No reports of thyroid disorders. No diabetes. CARDIOVASCULAR: No heart attack. No chest pain. RESPIRATORY: No shortness of breath or pneumonia. GASTROINTESTINAL: No reports of recent blood in stools. Has esophageal cancer. Has gastroesophageal reflux disease. NEURO: No reports of stroke or seizure disorders. PSYCH: No depression or suicidal ideation HEMATOLOGIC: No easy bruising or bleeding. Has new DVT of the right arm. LYMPHATIC: The patient denies any lumps and bumps around the neck. GENITOURINARY: Denies any blood in urine or increased urinary frequency. MUSCULOSKELETAL: Denies back pain, stiffness or joint arthritis. SKIN: No skin cancer or rash. PHYSICAL EXAM: VITAL SIGNS: Currently stable. GENERAL: Well-developed in no acute distress. HEENT: No sclera icterus. Extraocular movements grossly intact. Moist buccal mucosa. Head is atraumatic, normocephalic. Hears conversational speech. No nasal drainage. NECK: Supple without lymphadenopathy. CHEST: Non-labored respirations and equal bilateral excursions. No cellulitis of the port site. CARDIOVASCULAR: Regular rate with regular rhythm. Palpable 2+ radial pulses. ABDOMEN: Soft. Nondistended. No peritonitis. Minimal diffuse tenderness MUSCULOSKELETAL: No clubbing, cyanosis. Has edema of right arm NEUROLOGIC: No focal or lateralizing signs. Cranial nerves II through XII grossly intact. PSYCH: Appropriate affect. Alert and oriented to person, place and time. SKIN: Well perfused. Good skin turgor. LABS: Reviewed STUDIES: Reviewed ASSESSMENT: 1. Right arm DVT 2. Esophageal cancer PLAN: 1. No need for removal of the port as it still works. 2. No surgical intervention needed. 3. OK from a surgical standpoint for discharge when medically stable Thank you for this kind consultation. Past Medical History Past Medical History: Coronary Artery Disease (CAD), Cancer, Chest Pain / Angina , GERD/Reflux, Hyperlipidemia, Hypertension, Osteoarthritis (OA) Additional Past Medical History / Comment(s): Esophageal CA undergoing chemotherapy, arthritis R hip, vitiglio, History of Any Multi-Drug Resistant Organisms: None Reported Past Surgical History: Appendectomy, Heart Catheterization With Stent Additional Past Surgical History / Comment(s): Blair fundaplasty, infusaport, PCI/stents, colonoscopy Past Anesthesia/Blood Transfusion Reactions: No Reported Reaction Date of Last Stent Placement:: 2016 Smoking Status: Current every day smoker - Past Family History Father Family Medical History: Cancer, COPD Additional Family Medical History / Comment(s): Prostate cancer. Father is . Mother Family Medical History: Chest Pain / Angina, Coronary Artery Disease (CAD), Myocardial Infarction ([place]) Additional Family Medical History / Comment(s): "Mother had multiple heart attacks and open heart surgery". She of a [place] at the age of 59yrs. Medications and Allergies Home Medications Medication Instructions Recorded Confirmed Type Atorvastatin [Lipitor] 80 mg PO HS #90 tab 10/13/16 03/31/18 Rx Lisinopril [Zestril] 10 mg PO DAILY #90 tab 10/13/16 03/31/18 Rx Metoprolol Tartrate [Lopressor] 25 mg PO BID #180 tab 10/13/16 03/31/18 Rx Nitroglycerin Sl Tabs [Nitrostat] 0.4 mg SUBLINGUAL Q5M PRN #25 tab 10/13/1603/18 Rx Aspirin EC [Ecotrin Low Dose] 81 mg PO DAILY 12/07/17 03/31/18 History Acetaminophen Tab [Tylenol] 650 mg PO Q4H PRN 12/08/17 03/31/18 History Clopidogrel [Plavix] 75 mg PO DAILY 12/20/17 03/31/18 History Hydrocodone/Acetaminophen [[place] 1 tab PO Q4HR PRN 3 Days #18 tab 02/22/1803/31 Rx 5-325] Docusate [Colace] 100 mg PO BID 03/31/18 03/31/18 History Apixaban [Eliquis] 5 mg PO BID #60 tab 04/01/18 Rx Apixaban [Eliquis] 10 mg PO BID #14 tab 04/01/18 Rx Allergies Allergy/AdvReac Type Severity Reaction Status Date / Time Penicillins Allergy Unknown Verified 03/31/18 10:01 Childhood Surgical - Exam Vital Signs Temp Pulse Resp BP Pulse Ox 97.8 F 59 L 18 136/89 100 03/31/18 09:47 03/31/18 09:47 03/31/18 09:47 03/31/18 09:47 03/31/18 09:47 Results - Labs 04/01/18 07:06 03/31/18 10:05 Abnormal Lab Results - Last 24 Hours (Table) 03/31/18 04/01/18 04/01/18 Range/Units 17:27 01:10 07:06 RDW 18.8 H (11.5-15.5) % APTT 130.1 H* 36.6 H (22.0-30.0) sec 04/01/18 04/01/18 Range/Units 07:11 14:18 RDW (11.5-15.5) % APTT 36.0 H 117.4 H* (22.0-30.0) sec - Imaging Additional studies: Ultrasound of arm reviewed consistent with right subclavian DVT Assessment and Plan (1) Esophageal cancer Status: Acute Code(s): C15.9 - MALIGNANT NEOPLASM OF ESOPHAGUS, UNSPECIFIED SNOMED Code(s): 870315321 (2) Right subclavian vein thrombosis Status: Acute Code(s): I82.B11 - ACUTE EMBOLISM AND THROMBOSIS OF RIGHT SUBCLAVIAN VEIN SNOMED Code(s): 843814969 (3) Central venous catheter in place Status: Acute Code(s): Z78.9 - OTHER SPECIFIED HEALTH STATUS SNOMED Code(s) : 324054088
[2018-04-01] MEDS ORDERED: APIXABAN 5 MG TAB PO SCH (18:00)
--- NOTE | 2018-04-02 20:06 | P.DS ---
Providers Date of admission: 03/31/18 11:33 Expected date of discharge: 04/01/18 Attending physician: Anahi Platt MD Consults: 03/31/18 11:34 Consult Physician Stat Consulting Provider: Harshal Price Consult Reason/Comments: Esophageal cancer, right subclavian DVT Do you want consulting provider notified?: Yes 03/31/18 16:41 Consult Physician Routine Consulting Provider: Jabari Gaona Consult Reason/Comments: DVT associated Mediport? Do you want consulting provider notified?: Yes Primary care physician: Stated None Hospital Course: The patient with a PMH of esophageal CA, undergoing chemotherapy via right Chemo -Port was admitted for sudden onset of right arm pain and swelling. He was found to have acute right upper extremity DVT in the ED and was admitted under the medicine service for further management. Hematology was consulted and recommended a novel anticoagulant along with a surgery consult. Surgery recommended at the Chemo-Port may remain. The patient's right arm pain and swelling gradually improved and he was subsequently discharged home. Physical Examination General: Non-toxic, in no acute distress, appears stated age, normal weight HEENT: [place]/AT, anicteric sclerae, moist conjunctiva, no lid-lag, PERRLA Cardiovascular: S1/S2 wnl, no murmurs, rubs, or gallops, right Chemo-Port in place, nontender Lungs: Clear to auscultation, normal respiratory effort, no accessory muscle use Abdominal: Soft, non-tender, non-distended, no guarding, rebound, or rigidity Skin: Warm, dry Extremities: Right arm are mild erythema and swelling Psychiatric: Alert and oriented to person, place and time, appropriate affect Neuro: CN II-XII grossly intact, Strength 5/5 in all 4 extremities, Speech intact, Sensation to light touch grossly intact throughout Discharge diagnosis: Acute right upper extremity DVT; metastatic esophageal CA; hyperlipidemia; coronary artery disease; hypertension A total of 45 minutes of time were spent preparing this complex discharge summary. Patient Condition at Discharge: Stable Plan - Discharge Summary Discharge Rx Participant: No New Discharge Prescriptions: New Apixaban [Eliquis] 10 mg PO BID #14 tab Apixaban [Eliquis] 5 mg PO BID #60 tab Continue Atorvastatin [Lipitor] 80 mg PO HS #90 tab Lisinopril [Zestril] 10 mg PO DAILY #90 tab Metoprolol Tartrate [Lopressor] 25 mg PO BID #180 tab Nitroglycerin Sl Tabs [Nitrostat] 0.4 mg SUBLINGUAL Q5M PRN #25 tab PRN Reason: Chest Pain Aspirin EC [Ecotrin Low Dose] 81 mg PO DAILY Acetaminophen Tab [Tylenol] 650 mg PO Q4H PRN PRN Reason: Pain Or Fever > 100.5 Clopidogrel [Plavix] 75 mg PO DAILY Hydrocodone/Acetaminophen [[place] 5-325] 1 tab PO Q4HR PRN 3 Days #18 tab PRN Reason: Pain Docusate [Colace] 100 mg PO BID Discharge Medication List Atorvastatin [Lipitor] 80 mg PO HS #90 tab 10/13/16 [Rx] Lisinopril [Zestril] 10 mg PO DAILY #90 tab 10/13/16 [Rx] Metoprolol Tartrate [Lopressor] 25 mg PO BID #180 tab 10/13/16 [Rx] Nitroglycerin Sl Tabs [Nitrostat] 0.4 mg SUBLINGUAL Q5M PRN #25 tab 10/13/16 [Rx ] Aspirin EC [Ecotrin Low Dose] 81 mg PO DAILY 12/07/17 [History] Acetaminophen Tab [Tylenol] 650 mg PO Q4H PRN 12/08/17 [History] Clopidogrel [Plavix] 75 mg PO DAILY 12/20/17 [History] Hydrocodone/Acetaminophen [[place] 5-325] 1 tab PO Q4HR PRN 3 Days #18 tab [Rx] Docusate [Colace] 100 mg PO BID 03/31/18 [History] Apixaban [Eliquis] 5 mg PO BID #60 tab 04/01/18 [Rx] Apixaban [Eliquis] 10 mg PO BID #14 tab 04/01/18 [Rx] Follow up Appointment(s)/Referral(s): Nuupr Rivera ANPBC [Nurse Practitioner] - 04/04/18 (FOLLOW UP PREVIOUSLY SCHEDULED) None,Stated [Primary Care Provider] - 1-2 days (PLEASE MAKE AN APPOINTMENT TO FOLLOW UP WITH YOUR PRIMARY CARE DOCTOR) Patient Instructions/Handouts: Apixaban (By mouth), Heart Healthy Diet (DC), Deep Vein Thrombosis (DC) Activity/Diet/Wound Care/Special Instructions: Diet: Low salt HEART HEALTHY diet please follow-up with your primary care provider within 1-2 days of discharge. please follow-up with hematology with the appointment given to you. Please take all medications as advised. He will need to take Eliquis 10 mg by mouth twice a day for the first 7 days followed by Eliquis 5 mg by mouth twice a day thereafter. Do not miss any doses. Discharge Disposition: HOME SELF-CARE
== END 2018-04-01 17:30 | disposition home or self-care (01) | DRG 315 ==
LOC: EC 09:43 → 3NMEDONC 11:33
PROVIDERS: ADMIT Family Medicine; ATTEND Family Medicine
DX: T82.868A Thrombosis due to vascular prosthetic devices, implants and grafts, initial encounter (principal); C15.9 Malignant neoplasm of esophagus, unspecified; E78.5 Hyperlipidemia, unspecified; F17.210 Nicotine dependence, cigarettes, uncomplicated; I10 Essential (primary) hypertension; I25.10 Atherosclerotic heart disease of native coronary artery without angina pectoris; K21.9 Gastro-esophageal reflux disease without esophagitis; M16.11 Unilateral primary osteoarthritis, right hip; M19.90 Unspecified osteoarthritis, unspecified site; Z79.01 Long term (current) use of anticoagulants; Z79.02 Long term (current) use of antithrombotics/antiplatelets; Z79.82 Long term (current) use of aspirin; Z79.899 Other long term (current) drug therapy; Z95.5 Presence of coronary angioplasty implant and graft; Z88.0 Allergy status to penicillin; Z80.42 Family history of malignant neoplasm of prostate; Z82.49 Family history of ischemic heart disease and other diseases of the circulatory system; Z82.5 Family history of asthma and other chronic lower respiratory diseases; Y84.8 Other medical procedures as the cause of abnormal reaction of the patient, or of later complication, without mention of misadventure at the time of the procedure
CPT/HCPCS: 36415; 80053; 85025; 85610; 85730; 96365; 96366; 96376; 99284

== ENCOUNTER 2018-04-11 13:20 | Day surgery (SDC) | payer BC ==
[2018-04-11 12:52] VITALS: BP 108/62; PULSE 75; RESP 16; TEMP 97.8
[2018-04-11] MEDS ORDERED: IOPAMIDOL-250 50ML BTL IV ONE (14:26)
--- NOTE | 2018-04-12 07:30 | IR ---
Port-A-Cath check HISTORY: Malfunctioning Port-A-Cath Correlation to prior chest x-ray 02/22/2018 Initial fluoroscopic evaluation shows the catheter tip to be coursing cephalad, the catheter is coile d over the junction of the medial first rib and clavicle. The port was accessed by the radiology nurs e using sterile technique. Gentle hand injection of contrast material shows the contrast to course into the superior vena cava, distal right internal jugular vein. Suspect a small fibrin sheath at the tip of the catheter. There i s no extravasation, no leak from the catheter. IMPRESSION: Catheter tip as described, fibrin sheath, catheter tip is intravenous. Case discussed wit h referring clinician. 0.3 minutes fluoroscopy time. 223 intraoperative images document the procedure.
== END 2018-04-11 15:20 | disposition home or self-care (01) ==
LOC: CATHCVL 13:20
PROVIDERS: ATTEND Radiology Diagnostic Radiology
DX: T82.514A Breakdown (mechanical) of infusion catheter, initial encounter (principal); C15.5 Malignant neoplasm of lower third of esophagus; C78.7 Secondary malignant neoplasm of liver and intrahepatic bile duct; G89.3 Neoplasm related pain (acute) (chronic); R04.0 Epistaxis; K56.7 Ileus, unspecified; I10 Essential (primary) hypertension; Z95.5 Presence of coronary angioplasty implant and graft; Z79.82 Long term (current) use of aspirin; Z79.899 Other long term (current) drug therapy; Z88.0 Allergy status to penicillin; Z87.891 Personal history of nicotine dependence; Z80.42 Family history of malignant neoplasm of prostate
CPT/HCPCS: 36598; J1642; Q9966

== ENCOUNTER → 2018-04-18 | Outpatient (CLI) | payer BC ==
[2018-04-18 08:41] LABS: Blood Urea Nitrogen 19 mg/dL (9-20)
--- NOTE | 2018-04-18 10:13 | CT ---
EXAMINATION TYPE: CT ChestAbdPelvis w con DATE OF EXAM: 04/18/2018 COMPARISON: 02/02/2018 HISTORY: 52-year-old male follow-up Carcinoma of Esophagus TECHNIQUE: Contiguous axial scanning of the chest, abdomen, and pelvis performed with IV Contrast, pa tient injected with 100 ml mL of Isovue 300. Delayed images through the kidneys were obtained. Sherwood l/sagittal reconstructions performed. CT DLP: 948.80 mGycm Automated exposure control for dose reduction was used. FINDINGS: Chest: Heart normal size without pericardial effusion. Coronary vessel calcifications are present. Aorta normal caliber with conventional branching anatomy. Right hilar lymph node minimally larger at 1 cm versus 8 mm, previously, nonspecific, possibly reacti ve. Otherwise, no thoracic lymphadenopathy by CT size criteria. Mild centrilobular emphysema, more mild to moderate in the apices. 5 mm right lower lobe pulmonary no dule, axial image 42 unchanged. Some strandy atelectasis or scarring at the medial right middle lobe unchanged. Some minimal residual reticulonodular opacities in the basilar left lower lobe, improved from prior. Similar changes in the inferior lingula also show some improvement from prior. No new pulmonary nodule or consolidation. ABDOMEN: Post surgical changes of Franki fundoplication. There are approximately 5 liver lesions visualized. A couple that were seen previously, are no longer appreciable. These lesions have decreased in size, for example, dominant right hepatic dome lesion m easures 2.3 cm versus 2.9 cm, previously. Left dome lesion measures 1.2 cm versus 2.0 cm, previously. Peripheral right liver lobe lesion measures 1.1 cm versus 2.0 cm, previously. No new hepatic lesion seen. 1.2 cm gallstone. Portal venous system is patent. Adrenal glands, right kidney, spleen, and pancreas appear within normal limits. Redemonstrated 2.1 cm cyst upper pole left kidney. No dilated small bowel, free fluid, or free air. No mesenteric or retroperitoneal lymphadenopathy. Tiny fatty umbilical hernia. Redundant sigmoid colon. No pericolonic inflammatory change. Pelvis: Bladder partially distended. Prostate gland mildly enlarged at 4.9 cm. Some central prostatic calcifi cations are noted. No abnormal fluid collection in the pelvis or pelvic lymphadenopathy seen. Bones: Mild degenerative changes of the hips and SI joints. Degenerative disc disease and endplate spondylos is mid to lower thoracic spine and upper lumbar spine. No osseous destructive process seen. IMPRESSION: 1. IN THE CHEST, SOLITARY RIGHT HILAR LYMPH NODE IS MINIMALLY LARGER AT 1.0 CM VERSUS 0.8 CM, PREVIOU SLY. THIS IS NONSPECIFIC AND PROBABLY REACTIVE. FOLLOW-UP INDICATED. 2. ALSO, A 5 MM RIGHT LOWER LOBE PULMONARY NODULE REMAINS UNCHANGED . 3. STATUS POST FRANKI FUNDOPLICATION. 4. MULTIPLE HEPATIC LESIONS ARE SMALLER AND ALSO LESS NUMEROUS (FOR EXAMPLE, DOMINANT RIGHT DOME LESI ON MEASURES 2.3 CM VERSUS 2.9 CM, PREVIOUSLY). ADDITIONAL LESIONS OUTLINED ABOVE. FINDINGS COMPATIBLE WITH TREATMENT RESPONSE. 5. CHOLELITHIASIS, COPD WITH MILD EMPHYSEMA, TINY FATTY UMBILICAL HERNIA, AND MILD PROSTATOMEGALY (4. 9 CM WIDE).
== END | disposition home or self-care (01) ==
LOC: RADPROMAIN 07:50
PROVIDERS: ATTEND Internal Medicine Hematology & Oncology
DX: C15.5 Malignant neoplasm of lower third of esophagus (principal); R91.1 Solitary pulmonary nodule; K80.20 Calculus of gallbladder without cholecystitis without obstruction; J43.9 Emphysema, unspecified; N40.0 Benign prostatic hyperplasia without lower urinary tract symptoms; K76.9 Liver disease, unspecified; Z88.0 Allergy status to penicillin; Z98.890 Other specified postprocedural states
CPT/HCPCS: 82565; 84520; 71260; 74177; 36415; Q9967

== ENCOUNTER → 2018-07-06 | Outpatient (CLI) | payer BC ==
[2018-07-06 11:13] LABS: Blood Urea Nitrogen 14 mg/dL (9-20)
--- NOTE | 2018-07-06 13:46 | CT ---
EXAMINATION TYPE: CT ChestAbdPelvis w con DATE OF EXAM: 07/06/2018 COMPARISON: 04/18/2018 and 02/02/2018 HISTORY: 52-year-old male Malignant neoplasm of lower third of esophagus. TECHNIQUE: Contiguous axial scanning of the chest, abdomen, and pelvis performed with IV Contrast, pa tient injected with 100 mL of Isovue 300. Delayed images through the kidneys were obtained. Coronal/s agittal reconstructions performed. CT DLP: 932 mGycm Automated exposure control for dose reduction was used. FINDINGS: CHEST: Heart normal size without pericardial effusion. Aorta normal caliber with conventional branching anatomy. Stable prominent but nonenlarged mediastinal lymph nodes measuring up to 8 mm around the level of the jeanette. 9 mm right hilar lymph node is stable to smaller areas no new thoracic lymphadenopathy. Some mild upper lung bullous emphysema. Stable 5 mm peripheral right lower lobe pulmonary nodule axial image 45. No new pulmonary nodules are seen. No consolidation or pleural effusion. Stable volume loss and interstitial changes at the left base, possible sequela of chronic aspiration. No pleural effusion. ABDOMEN: Status post Franki fundoplication with recurrent hiatal hernia, unchanged from prior. 4 hepatic hypovascular lesions are redemonstrated. The one in the left hepatic dome measures 1.2 cm a nd is unchanged. The dominant right hepatic dome lesion measures 1.8 cm versus 2.3 cm, previously. An terior right hepatic dome lesion measures 7 mm versus 1.0 cm, previously. The anterior inferior righ t liver lobe lesion measures 9 mm versus 1.1 cm, previously. No new liver lesion identified. 1.2 cm gallstone. Adrenal glands, right kidney, spleen, pancreas appear within normal limits. 1.8 cm cyst upper pole left kidney redemonstrated. No dilated small bowel, free fluid, or free air. No mesenteric or retroperitoneal lymphadenopathy. No pericolonic inflammatory change. PELVIS: Bladder is urine distended. Prostate gland measures 5.0 cm wide. No abnormal fluid collection pelvis or pelvic adenopathy. BONES: Degenerative changes of the hips. Moderate degenerative disc disease throughout the thoracic spine. IMPRESSION: 1. STABLE 5 MM RIGHT LOWER LOBE PULMONARY NODULE. NO NEW PULMONARY NODULES SEEN. 2. MEDIASTINAL AND RIGHT HILAR LYMPH NODES ARE UNCHANGED, NONENLARGED OR BORDERLINE IN SIZE MEASURING UP TO 9 MM. THIS RIGHT HILAR LYMPH NODE MAY BE MINIMALLY SMALLER FROM 1 CM, PREVIOUSLY. 3. FOUR HYPOVASCULAR LIVER LESIONS. ONE IS STABLE AT 1.2 CM. THE OTHER LESIONS ARE SMALLER, FOR EXAMP LE, DOMINANT RIGHT HEPATIC DOME LESION NOW MEASURES 1.8 CM VERSUS 2.3 CM, PREVIOUSLY). 4. REDEMONSTRATED SLIPPED FRANKI FUNDOPLICATION WITH RECURRENT MODERATE-SIZED HERNIA. 5. CHOLELITHIASIS, COPD, AND PROSTATOMEGALY (5.0 CM WIDE).
== END | disposition home or self-care (01) ==
LOC: RADPROMAIN 10:29
PROVIDERS: ATTEND Internal Medicine Hematology & Oncology
DX: J44.9 Chronic obstructive pulmonary disease, unspecified (principal); K76.9 Liver disease, unspecified; K80.20 Calculus of gallbladder without cholecystitis without obstruction; N40.0 Benign prostatic hyperplasia without lower urinary tract symptoms; C15.5 Malignant neoplasm of lower third of esophagus
CPT/HCPCS: 82565; 84520; 71260; 74177; 36415; Q9967 ×2

== ENCOUNTER → 2018-10-20 | Outpatient (CLI) | payer BC ==
[2018-10-20 11:08] LABS: African American GFR (CKD) >90 (>60 ml/min/1.73 sqM); Blood Urea Nitrogen 12 mg/dL (9-20); Non-African American GFR(CKD) >90 (>60 ml/min/1.73 sqM)
--- NOTE | 2018-10-20 13:23 | CT ---
EXAMINATION TYPE: CT ChestAbdPelvis w con DATE OF EXAM: 10/20/2018 COMPARISON: 07/06/2018 HISTORY: Esophageal cancer, observation for mets CT DLP: 1184.50 mGycm CONTRAST: CT scan of the chest, abdomen and pelvis is performed with Oral Contrast and with IV Contrast, patien t injected with 100 ml mL of Isovue 300. CT Chest: LUNGS: Moderate upper lobe emphysematous changes. The lungs are clear and free of infiltrate or atele ctasis. Stable pulmonary nodularity with pulmonary nodule right middle lobe measuring 4.3 mm, right l ower lobe nodule measuring 5 mm versus 5 mm as well as left lower lobe pulmonary nodule measuring 7 m m versus 7 mm. No additional nodules are seen. No pleural effusion or CT evidence of interstitial anastacia g disease. MEDIASTINUM: Thoracic aorta is of normal caliber. The heart is not enlarged. No evidence for media stinal mass or adenopathy. Large fixed hiatal hernia. HILAR STRUCTURES: No evidence for mass. No hilar adenopathy is appreciated. OTHER: No significant abnormality. CONTRAST CT ABDOMEN AND PELVIS FINDINGS: LIVER/GB: There is evidence of cholelithiasis. Mild fatty liver. Stable hypoattenuating hepatic lesio ns totaling approximately 4 number. The largest within the dome of the liver is felt to measure nearl y 2 cm. No new lesions seen. Biliary tree is of normal caliber. PANCREAS: No inflammation. No distinct mass. SPLEEN: No splenic enlargement. No lesion seen. ADRENALS: No nodule. No thickening. KIDNEYS/BLADDER: No hydronephrosis. No nephrolithiasis. Simple cyst upper pole left kidney measurin g 2.2 cm. No solid renal lesions seen. BOWEL: Normal appendix. Normal bowel caliber. No inflammation. GENITAL ORGANS: No gross abnormality. LYMPH NODES: No greater than 1cm abdominal or pelvic lymph nodes are appreciated. AORTA: No significant abnormality. OSSEOUS STRUCTURES: No significant abnormality is seen. OTHER: No significant additional abnormality is seen. IMPRESSION: 1. Stable pulmonary nodules. No new nodules are seen. 2. Stable hepatic lesions. 3. COPD. 4. Recurrent hiatal hernia.
== END | disposition home or self-care (01) ==
LOC: RADPROMAIN 10:23
PROVIDERS: ATTEND Internal Medicine Hematology & Oncology
DX: J44.9 Chronic obstructive pulmonary disease, unspecified (principal); R91.8 Other nonspecific abnormal finding of lung field; K76.9 Liver disease, unspecified; K44.9 Diaphragmatic hernia without obstruction or gangrene; C15.5 Malignant neoplasm of lower third of esophagus; Z88.0 Allergy status to penicillin
CPT/HCPCS: 82565; 84520; 71260; 74177; 36415; Q9967

== ENCOUNTER → 2019-01-05 | Outpatient (CLI) | payer BC ==
[2019-01-05 13:18] LABS: African American GFR (CKD) >90 (>60 ml/min/1.73 sqM); Blood Urea Nitrogen 14 mg/dL (9-20)
--- NOTE | 2019-01-08 06:43 | CT ---
EXAMINATION TYPE: CT ChestAbdPelvis w con DATE OF EXAM: 01/05/2019 COMPARISON: 10/20/2018, 07/06/2018, 04/18/2018 HISTORY: 53-year-old male follow-up esophageal cancer TECHNIQUE: Contiguous axial scanning of the chest, abdomen, and pelvis performed with IV Contrast, pa tient injected with 100mL mL of Isovue 300. Delayed images through the kidneys were obtained. Coronal /sagittal reconstructions performed. CT DLP: 2002 mGycm Automated exposure control for dose reduction was used. FINDINGS: CHEST: Heart normal size without pericardial effusion. Three-vessel coronary artery calcifications are prese nt. Aorta normal caliber with mild atherosclerotic arch calcifications and conventional arch vessel branc portia anatomy. Right anterior chest wall injection port. Catheter tip appears malpositioned. It is not seen within t he SVC, similar from prior. Prominent but nonenlarged 8 mm right hilar lymph node is unchanged. No thoracic lymphadenopathy by CT size criteria. Moderate centrilobular and paraseptal emphysema with biapical pleural-parenchymal scarring. Mild diff use bronchial wall thickening. A 5 mm peripheral right lower lobe pulmonary nodule is stable. Stable 4 mm right middle lobe pulmonary nodule. Previously described 7 mm left lower lobe pulmonary nodule not well seen on the present exam possibly due to breathing motion artifact. Volume loss with strandy atelectasis at the left base. No consolidation or pleural effusion. ABDOMEN: Moderate to large hiatal hernia with what appears to be a slipped Blair fundoplication across a patu lous diaphragmatic hiatus. 1.5 cm right hepatic dome lesion, unchanged from 10/20/2018, possibly slightly smaller from 07/06/2018 w here it measured 1.8 cm. 8 mm anterior right hepatic dome hypodensity stable. 1.2 cm left hepatic dome lesion. Prominent diaph ragmatic slip is better seen now, but unchanged from 07/06/2018. No new liver lesions seen. 1.4 cm gallstone. No biliary ductal dilatation. Portal venous system is patent. Adrenal glands, right kidney, spleen, and pancreas appear within normal limits. 2.2 cm left upper pole renal cyst. A prominent gastrohepatic ligament lymph node at 1.3 cm remains unchanged dating back to at least 03/31. No new mesenteric or retroperitoneal lymphadenopathy. Small fatty umbilical hernia. Mild to moderate prostatic calcifications within the infrarenal abdominal aorta and common iliac eugene xuan. Stable ovoid density posterior right lower quadrant with central fat density measuring 1.1 cm, possib le sequela of prior epiploic appendagitis. Mild overall stool burden. No pericolonic inflammatory change. Redundant sigmoid colon. Pelvis: Bladder urine distended. Prostate gland is enlarged at 4.8 cm wide with central calcifications. No ab normal fluid collection in the pelvis or pelvic lymphadenopathy. Bones: Degenerative changes of the hips and SI joints. Mild multilevel degenerative disc disease mid to lowe r thoracic spine. No osseous destructive process. IMPRESSION: 1. 4 SUBTLE HYPODENSE HEPATIC LESIONS MEASURING UP TO 1.5 CM. 2 OF THE SMALLER LESIONS WERE NOT WE LL SEEN ON THE 10/20/2018 EXAM. HOWEVER, THEY ARE UNCHANGED FROM 07/06/2018. 2. A COUPLE PULMONARY NODULES MEASURING UP TO 5 MM ARE UNCHANGED BACK TO AT LEAST 04/18/2018. 3. REDEMONSTRATED SLIPPED BLAIR FUNDOPLICATION WITH RECURRENT MODERATE-SIZED HIATAL HERNIA. VERTEBRAE CHOLELITHIASIS AND SMALL FATTY UMBILICAL HERNIA.
== END | disposition home or self-care (01) ==
LOC: RADPROMAIN 12:42
PROVIDERS: ATTEND Internal Medicine Hematology & Oncology
DX: R91.1 Solitary pulmonary nodule (principal); K44.9 Diaphragmatic hernia without obstruction or gangrene; K42.9 Umbilical hernia without obstruction or gangrene; K80.20 Calculus of gallbladder without cholecystitis without obstruction; K76.9 Liver disease, unspecified; K91.89 Other postprocedural complications and disorders of digestive system; C15.5 Malignant neoplasm of lower third of esophagus; Z88.0 Allergy status to penicillin
CPT/HCPCS: 82565; 84520; 71260; 74177; 36415; Q9967

== ENCOUNTER → 2019-03-29 | Outpatient (CLI) | payer BC ==
--- NOTE | 2019-03-29 11:21 | CT ---
EXAMINATION TYPE: CT ChestAbdPelvis w con DATE OF EXAM: 03/29/2019 COMPARISON: CT January 05, 2019 and older CTs. HISTORY: Follow up to esophagus CA CT DLP: 1441.7 mGycm. Automated Exposure Control for Dose Reduction was Utilized. CONTRAST: CT scan of the thorax, abdomen and pelvis is performed with oral and with IV Contrast, patient inject ed with 100 mL of Isovue 300. FINDINGS: LUNGS: Mild to moderate underlying emphysematous changes redemonstrated with scattered peripheral bul la and blebs scattered mild to moderate parenchymal fibrotic changes. Stable 5 x 4 mm right lower lob e nodule image 40 from February 02, 2018 study. Some parenchymal scarring and atelectasis medially lef t lower lobe remains present adjacent to the area of peribronchial consolidation left infrahilar leve l. No new nodules or masses. No pleural effusion or pneumothorax. MEDIASTINUM: There are no new greater than 1 cm hilar or mediastinal lymph nodes. No cardiomegaly o r pericardial effusion is seen. Coronary artery calcification is present which is noted marker for u nderlying coronary artery disease. OTHER: Persistent right subclavian Mediport catheter. LIVER/GB: The pattern of 1.2 cm calcified gallstone in somewhat contracted gallbladder redemonstrated . Liver remains low dense consistent with diffuse fatty infiltration. No hepatic disease on original CT February 02, 2018 shows no significant interval change or progression from more recent CT with a fe w subcentimeter hypodense areas in the hepatic dome noted. Lesions are stable or less well-seen on cu rrent study versus most recent prior. PANCREAS: No significant abnormality is seen. SPLEEN: No significant abnormality is seen. ADRENALS: No significant abnormality is seen. KIDNEYS: Simple appearing thin-walled 2.1 cm cyst upper pole left kidney image 18 series 6 redemonstr ated. BOWEL: Oral contrast reaches level of terminal ileum coronal image 47. There is no suspicious smaller large bowel dilatation. Moderate wall thickening in the right colon is present near cecum on current study. Appendix not seen and presumed surgically absent. Small focus of nodular loss of fat below ce paige maximum at 100 not changed from prior study presumed benign. Surgical changes are noted in the lo wer thorax and prior surgery with persistent moderate-sized fixed hiatal hernia. GENITAL ORGANS: Prostate gland upper limits of normal in size. LYMPH NODES: No greater than 1cm abdominal or pelvic lymph nodes are appreciated. OSSEOUS STRUCTURES: Mild multilevel spurring in the spine. Mild areas spurring of both hip joints. OTHER: Mild calcified plaque of the aorta extends into branch vessels.. IMPRESSION: Overall stable findings. Subtle hepatic metastatic disease not progressed from most recen t CT. No new suspicious mass or adenopathy identified.
== END | disposition home or self-care (01) ==
LOC: RADCTMAIN 08:53
PROVIDERS: ATTEND Internal Medicine Hematology & Oncology
DX: C78.7 Secondary malignant neoplasm of liver and intrahepatic bile duct (principal); C15.5 Malignant neoplasm of lower third of esophagus; Z88.0 Allergy status to penicillin
CPT/HCPCS: 71260; 74177; Q9967

== ENCOUNTER → 2019-07-12 | Outpatient (CLI) | payer BC ==
[2019-07-12 11:31] LABS: African American GFR (CKD) >90 (>60 ml/min/1.73 sqM); Blood Urea Nitrogen 13 mg/dL (9-20); Non-African American GFR(CKD) >90 (>60 ml/min/1.73 sqM)
--- NOTE | 2019-07-12 12:50 | CT ---
EXAMINATION TYPE: CT ChestAbdPelvis w con DATE OF EXAM: 07/12/2019 COMPARISON: CT March 29, 2019 and older studies HISTORY: Malignant neoplasm of lower third of esophagus, follow up CT DLP: 1030.5 mGycm. Automated Exposure Control for Dose Reduction was Utilized. CONTRAST: CT scan of the thorax, abdomen and pelvis is performed with oral and with IV Contrast, patient inject ed with 100 mL of Isovue 300. FINDINGS: LUNGS: There are scattered peripheral bulla and blebs in the bilateral upper lobes redemonstrated. St able 5 x 4 mm peripheral right lower lobe nodule axial image 46. No new greater than 4 mm nodules or masses. Mild to moderate bibasilar linear scarring and/or atelectasis greatest near peribronchial con solidation left infrahilar level. No pleural effusion or pneumothorax seen. MEDIASTINUM: There are no new greater than 1 cm hilar or mediastinal lymph nodes. No cardiomegaly o r pericardial effusion is seen. Coronary artery calcification and/or stents again seen. OTHER: Stable right subclavian Mediport catheter. LIVER/GB: Depending 1.5 cm calcified gallstone in gallbladder redemonstrated. Liver remains low dense suggesting diffuse fatty infiltration. Subcentimeter hypodense lesions difficult to visualize for re ference right hepatic dome image 58 are presumed stable. PANCREAS: No significant abnormality is seen. SPLEEN: No significant abnormality is seen. ADRENALS: No significant abnormality is seen. KIDNEYS: Persistent simple-appearing thin-walled 2.4 cm cyst upper pole left kidney. Symmetric cortic al medullary uptake and excretion without hydronephrosis bilaterally. BOWEL: Oral contrast reaches level of the mid transverse colon. No suspicious small or large bowel di latation. Persistent moderate size fixed hiatal hernia with adjacent surgical clips. Stable tiny nodu larity inferior to the cecum axial image 104 for reference. GENITAL ORGANS: Upper limits of normal in size prostate redemonstrated. LYMPH NODES: No greater than 1cm abdominal or pelvic lymph nodes are appreciated. OSSEOUS STRUCTURES: Mild 2 moderate multilevel spurring in the visualized spine. Facet arthropathy lo wer lumbar levels. OTHER: Mild calcified plaque of aorta extends into branch vessels. IMPRESSION: Overall stable findings. Subtle hepatic metastatic disease not progressed from most rece nt prior CT. No new suspicious masses or adenopathy identified.
== END | disposition home or self-care (01) ==
LOC: RADPROMAIN 10:19
PROVIDERS: ATTEND Internal Medicine Hematology & Oncology
DX: C78.7 Secondary malignant neoplasm of liver and intrahepatic bile duct (principal); C15.5 Malignant neoplasm of lower third of esophagus; Z88.0 Allergy status to penicillin
CPT/HCPCS: 82565; 84520; 71260; 74177; 36415; Q9967

== ENCOUNTER → 2019-10-02 | Outpatient (CLI) | payer BC ==
[2019-10-02 10:19] LABS: African American GFR (CKD) >90 (>60 ml/min/1.73 sqM); Blood Urea Nitrogen 12 mg/dL (9-20); Non-African American GFR(CKD) >90 (>60 ml/min/1.73 sqM)
--- NOTE | 2019-10-02 15:51 | CT ---
EXAMINATION TYPE: CT ChestAbdPelvis w con DATE OF EXAM: 10/02/2019 INDICATION: Follow up esophageal cancer with liver metastasis COMPARISON: 07/12/2019 CT DLP: 1782 mGycm CONTRAST: Performed with Oral Contrast and with IV Contrast, patient injected with 100 mL of Isovue 300. TECHNIQUE: Axial images at 5 mm thick sections. Reconstructed images in the coronal plane. Delayed images through the kidneys. FINDINGS: CT CHEST: Portion of the thyroid visualized is normal. Emphysematous changes are present. Scattered blebs and bulla are in the upper lung valencia. There is a 0.6 cm density within the right middle lobe. Series 4 image 43. A peripheral nodules in the posterior lateral right lung measuring 0.5 cm. Series 4 image 45. This is stable from comparison. No enlarged mediastinal or hilar adenopathy is evident. The ascending aorta diameter at the level of the main pulmonary artery is 3.3 cm. The main pulmonary artery diameter at the bifurcation is 2.4 cm. There is a moderate size hiatal hernia. There is diffuse thickening of the distal esophagus. This can be related to the patient's reported esophageal cancer. This is thickened from the comparison study. There appears to be a Aramis plication present as well. CT ABDOMEN: Liver: Couple of tiny hypodensities at the dome of the liver could be small hepatic cysts. These are too small to classify as simple but were present previously and appears stable. Spleen: Normal Pancreas: Normal Adrenal glands: The adrenal glands are normal. Gallbladder: Cholelithiasis. Kidneys: No masses are evident. No hydronephrosis is present. There is a 2.6 cm cyst at superior po le left kidney measuring 5 Hounsfield units. Delayed images were obtained through the kidneys, which remain unremarkable. Aorta: Vascular calcification is within the aorta. Inferior vena cava: Normal. CT PELVIS: There may be incomplete distention of the proximal jejunum. Some diffuse wall thickening of the jejun um is not excluded. Consider jejunitis. Distal small bowel loops are unremarkable. The colon appears unremarkable without contrast. There are loops of bowel which are incompletely distended or lack oral contrast limiting their evaluation. Appendix: What appears to be a small appendix is unremarkable. No suspicious inflammatory changes or dilated tubular structures are evident. Urinary bladder: Normal. Genitourinary structures: Prostate is prominent. Calcifications within the prostate. Osseous structures: No suspicious lytic or sclerotic lesions. IMPRESSIONS: 1. Clinical correlation recommended for possible jejunitis. This may be related to incomplete distent ion. 2. Thickening of the distal esophagus. This is above the Aramis fundoplication. This can be compatibl e with the patient's reported esophageal cancer. 3. Cholelithiasis
== END | disposition home or self-care (01) ==
LOC: RADCTMAIN 09:35
PROVIDERS: ATTEND Internal Medicine Hematology & Oncology
DX: K22.8 Other specified diseases of esophagus (principal); K80.20 Calculus of gallbladder without cholecystitis without obstruction; C15.5 Malignant neoplasm of lower third of esophagus; C78.7 Secondary malignant neoplasm of liver and intrahepatic bile duct; Z88.0 Allergy status to penicillin
CPT/HCPCS: 82565; 84520; 71260; 74177; 36415; Q9967

== ENCOUNTER → 2019-10-19 | Outpatient (CLI) | payer BC ==
--- NOTE | 2019-10-21 11:31 | NM ---
EXAMINATION TYPE: NM bone scan whole body DATE OF EXAM: 10/19/2019 COMPARISON: CT October 02, 2023 body. HISTORY: Esophageal cancer. Delayed whole-body scanning was performed following the injection of 23.8 mCi Tc 99m MDP. Images acq uired 5 hours post injection. Whole body images in anterior and posterior projection along with addit ional oblique images of the thorax abdomen and upper pelvis are acquired. FINDINGS: No suspicious increased radiotracer uptake to suggest metastatic disease to the bone or other suspici ous abnormality. Normal excretion in the bladder is seen. IMPRESSION: As above.
== END | disposition home or self-care (01) ==
LOC: RADNMMAIN 10:26
PROVIDERS: ATTEND Internal Medicine Hematology & Oncology
DX: Z03.89 Encounter for observation for other suspected diseases and conditions ruled out (principal); C15.5 Malignant neoplasm of lower third of esophagus; Z88.0 Allergy status to penicillin
CPT/HCPCS: 78306; A9503

== ENCOUNTER 2019-10-25 09:01 | Day surgery (SDC) | payer BC ==
[~2019-10-25 09:01] MED LIST changes: -DEXAMETHASONE SOD PHOSPHATE 10 MG/ML 1 ML VIAL IV ONE; -HEPARIN SODIUM,PORCINE 5,000 UNIT/ML 1 ML VIAL SQ ONE; -HYDROmorphone 0.5 MG/0.5 ML SYRINGE IVP PRN; -LIDOCAINE 1% 20 ML VIAL (10MG/ML) FOR IV START INTRADERMA PRN; +LIDOCAINE 1% INJ 10MG/ML (20 ML MDV) ONE; -MIDAZOLAM 2 MG/2 ML VIAL IV PRN; -ONDANSETRON 4 MG/2 ML VIAL IVP ONE; +PROPOFOL 10 MG/ML 20 ML VIAL IV ONE; -Pre Op ABX Message 1 EACH MISC MISCELLANE ONE; -SCOPOLAMINE 1.5MG/72HR PATCH TRANSDERM ONE
[2019-10-25 09:37] VITALS: TEMP 97.5
--- NOTE | 2019-10-25 09:51 | P.GSHP ---
History of Present Illness H&P Date: 10/25/19 Chief Complaint: Esophageal cancer 53-year-old male presents today for EGD. He's had issues with soft cancer. Had some trouble with dysphagia. Past Medical History Past Medical History: Coronary Artery Disease (CAD), Cancer, Chest Pain / Angina, Hyperlipidemia, Hypertension, Osteoarthritis (OA) Additional Past Medical History / Comment(s): Esophageal CA; vitiglio, RT SUBCLAVIAN BLOOD CLOT -ADMITTED 2018 History of Any Multi-Drug Resistant Organisms: None Reported Past Surgical History: Appendectomy, Heart Catheterization With Stent Additional Past Surgical History / Comment(s): patient states he had his stomach flipped 180 degrees because of acid reflux", 2 cardiac stents Past Anesthesia/Blood Transfusion Reactions: No Reported Reaction Date of Last Stent Placement:: 2016 Past Psychological History: No Psychological Hx Reported Additional Psychological History / Comment(s): l Smoking Status: Former smoker Past Alcohol Use History: Occasional Additional Past Alcohol Use History / Comment(s): started smoking age 21(1986) and quit tuesday(12/05/17) was smoking 1ppd Past Drug Use History: None Reported - Past Family History Father Family Medical History: Cancer, COPD Additional Family Medical History / Comment(s): prostate cancer Mother Family Medical History: Chest Pain / Angina, Coronary Artery Disease (CAD), Myocardial Infarction ([place]) Additional Family Medical History / Comment(s): "Mother had multiple heart attacks and open heart surgery" Medications and Allergies Home Medications Medication Instructions Recorded Confirmed Type Atorvastatin [Lipitor] 80 mg PO HS #90 tab 10/13/16 10/25/19 Rx Metoprolol Tartrate [Lopressor] 25 mg PO BID #180 tab 10/13/16 10/23/19 Rx Nitroglycerin Sl Tabs [Nitrostat] 0.4 mg SUBLINGUAL Q5M PRN #25 tab 10/13/16 10/25/19 Rx Aspirin EC [Ecotrin Low Dose] 81 mg PO DAILY 12/07/17 10/25/19 History Acetaminophen Tab [Tylenol] 650 mg PO Q4H PRN 12/08/17 10/25/19 History Apixaban [Eliquis] 5 mg PO BID #60 tab 04/01/18 10/25/19 Rx Montelukast [Singulair] 10 mg PO DAILY 10/23/19 10/25/19 History diphenhydrAMINE [Benadryl] 25 mg PO DAILY PRN 10/23/19 10/25/19 History lisinopriL [Zestril] 10 mg PO HS 10/23/19 10/25/19 History Allergies Allergy/AdvReac Type Severity Reaction Status Date / Time Penicillins Allergy Unknown Verified 10/25/19 09:35 Childhood Surgical - Exam Vital Signs Temp Pulse Resp BP Pulse Ox 97.5 F L 55 L 16 108/68 97 10/25/19 09:36 10/25/19 09:36 10/25/19 09:36 10/25/19 09:36 10/25/19 09:36 - General well developed, well nourished, no distress - Eyes PERRL - ENT normal pinna - Neck no masses - Respiratory normal expansion - Cardiovascular Rhythm: regular - Abdomen Abdomen: soft, non tender Assessment and Plan Assessment: Softer cancer Dysphagia We'll perform EGD.
--- NOTE | 2019-10-25 09:59 | P.OP ---
Date of Procedure: 10/25/19 Preoperative Diagnosis: Esophageal cancer Postoperative Diagnosis: Esophageal cancer Procedure(s) Performed: EGD Anesthesia: MAC Surgeon: Jabari Gaona Pathology: other (Esophagus) Condition: stable Disposition: PACU Description of Procedure: The patient's placed on the endoscopy table in the lateral position. He received IV sedation. The gastroscope placed oropharynx passed in the esophagus into the stomach. Scope was placed through the pylorus. The first second portion duodenum appeared normal. The scope was unretroflexed and remainder stomach appeared normal. GE junction was at 40 cm. At the distal esophagus just above the GE junction there was evidence of a mass. This was biopsied. The scope was then brought back and the esophageal mass extended to approximately the 36 cm trini.. The necrotic tumor at this point. The tumor was quite bulky. A biopsies performed. The scope was then withdrawn and the remainder of the proximal esophagus appeared normal. Scope was withdrawn for patient.
[2019-10-25 10:23] VITALS: BP 110/69; PULSE 68; RESP 20
== END 2019-10-25 10:37 | disposition home or self-care (01) ==
LOC: ORWHC2ENDO 09:01
PROVIDERS: ATTEND Surgery
DX: C15.9 Malignant neoplasm of esophagus, unspecified (principal); I25.10 Atherosclerotic heart disease of native coronary artery without angina pectoris; E78.5 Hyperlipidemia, unspecified; I10 Essential (primary) hypertension; M19.90 Unspecified osteoarthritis, unspecified site; Z90.49 Acquired absence of other specified parts of digestive tract; Z95.5 Presence of coronary angioplasty implant and graft; Z87.891 Personal history of nicotine dependence; Z80.42 Family history of malignant neoplasm of prostate; Z82.49 Family history of ischemic heart disease and other diseases of the circulatory system; Z82.3 Family history of stroke; Z79.899 Other long term (current) drug therapy; Z79.82 Long term (current) use of aspirin; Z79.01 Long term (current) use of anticoagulants; Z88.0 Allergy status to penicillin
CPT/HCPCS: 88305; 88342; 88341; 43239; J2001; J2704

== ENCOUNTER 2019-11-13 06:25 | Day surgery (SDC) | payer BC ==
[2019-11-08 15:45] VITALS: BMI 26.4
[~2019-11-13 06:25] MED LIST changes: +ACETAMINOPHEN TAB 500 MG TAB PO ONE; +DEXAMETHASONE SOD PHOSPHATE 10 MG/ML 1 ML VIAL IV ONE; +HEPARIN SODIUM,PORCINE 5,000 UNIT/ML 1 ML VIAL SQ ONE; +HYDROmorphone 0.5 MG/0.5 ML SYRINGE IVP PRN; -LIDOCAINE 1% INJ 10MG/ML (20 ML MDV) ONE; +MIDAZOLAM 2 MG/2 ML VIAL IV PRN; +ONDANSETRON 4 MG/2 ML VIAL IVP ONE; -PROPOFOL 10 MG/ML 20 ML VIAL IV ONE; +Pre Op ABX Message 1 EACH MISC MISCELLANE ONE; +SCOPOLAMINE 1.5MG/72HR PATCH TRANSDERM ONE
[2019-11-13] MEDS ORDERED: LIDOCAINE 1% (10MG/ML) FOR IV START INTRADERMA ONE (07:08)
[2019-11-13 07:15] VITALS: TEMP 97.8
[2019-11-13] MEDS ORDERED: LIDOCAINE 1%-EPI 1:100,000 20 ML VIAL SQ ONE ×3 (07:27→08:05)
[2019-11-13] MEDS ORDERED: KETOROLAC 15 MG/ML 1 ML VIAL ONE (07:55)
[2019-11-13] MEDS ORDERED: PROPOFOL 10 MG/ML 20 ML VIAL IV ONE (07:55)
[2019-11-13] MEDS ORDERED: MIDAZOLAM 2 MG/2 ML VIAL ONE (07:55)
[2019-11-13] MEDS ORDERED: fentaNYL (PF) 50 MCG/ML 2 ML AMP ONE (07:55)
[2019-11-13] MEDS ORDERED: HEPARIN SODIUM,PORCINE 100 UNIT/ML 5 ML VIAL IV ONE (08:16)
--- NOTE | 2019-11-13 08:37 | P.GSHP ---
History of Present Illness H&P Date: 11/13/19 Chief Complaint: Esophageal cancer Is a 54-year-old male who presents today for removal and replacement of Port-A-Cath. Patient history of esophageal cancer. His previous Port-A-Cath is occluded. He presents for removal of right subclavian Port-A-Cath insertion of left subclavian Port-A-Cath Past Medical History Past Medical History: Coronary Artery Disease (CAD), Cancer, Chest Pain / Angina, Hyperlipidemia, Hypertension, Osteoarthritis (OA) Additional Past Medical History / Comment(s): Esophageal CA; vitiglio, RT SUBCLAVIAN BLOOD CLOT -. pt states current port not functioning History of Any Multi-Drug Resistant Organisms: None Reported Past Surgical History: Appendectomy, Heart Catheterization With Stent Additional Past Surgical History / Comment(s): patient states he had his stomach flipped 180 degrees because of acid reflux", 2 cardiac stents Past Anesthesia/Blood Transfusion Reactions: No Reported Reaction Date of Last Stent Placement:: 2016 Smoking Status: Former smoker - Past Family History Father Family Medical History: Cancer, COPD Additional Family Medical History / Comment(s): prostate cancer Mother Family Medical History: Chest Pain / Angina, Coronary Artery Disease (CAD), Myocardial Infarction ([place]) Additional Family Medical History / Comment(s): "Mother had multiple heart attacks and open heart surgery" Medications and Allergies Home Medications Medication Instructions Recorded Confirmed Type Atorvastatin [Lipitor] 80 mg PO HS #90 tab 10/13/16 11/13/19 Rx Metoprolol Tartrate [Lopressor] 25 mg PO BID #180 tab 10/13/16 11/13/19 Rx Nitroglycerin Sl Tabs [Nitrostat] 0.4 mg SUBLINGUAL Q5M PRN #25 tab 10/13/16 11/13/19 Rx Aspirin EC [Ecotrin Low Dose] 81 mg PO DAILY 12/07/17 11/13/19 History Acetaminophen Tab [Tylenol] 650 mg PO Q4H PRN 12/08/17 11/13/19 History Apixaban [Eliquis] 5 mg PO BID #60 tab 04/01/18 11/13/19 Rx Montelukast [Singulair] 10 mg PO DAILY 10/23/19 11/13/19 History diphenhydrAMINE [Benadryl] 25 mg PO DAILY PRN 10/23/19 11/13/19 History lisinopriL [Zestril] 10 mg PO HS 10/23/19 11/13/19 History Albuterol Inhaler [Ventolin Hfa 2 puff IH DIRECTED PRN 11/13/19 11/13/19 History Inhaler] Allergies Allergy/AdvReac Type Severity Reaction Status Date / Time Penicillins Allergy Unknown Verified 11/13/19 06:47 Childhood Surgical - Exam Vital Signs Temp Pulse Resp BP Pulse Ox 97.8 F 83 18 118/76 96 11/13/19 07:08 11/13/19 07:08 11/13/19 07:08 11/13/19 07:08 11/13/19 07:08 - General well developed, well nourished, no distress - Eyes PERRL - ENT normal pinna - Neck no masses - Respiratory normal expansion - Cardiovascular Rhythm: regular - Abdomen Abdomen: soft, non tender Assessment and Plan Assessment: History of esophageal cancer. We'll perform Port-A-Cath removal and replacement
--- NOTE | 2019-11-13 08:39 | P.OP ---
Date of Procedure: 11/13/19 Preoperative Diagnosis: Esophageal cancer Postoperative Diagnosis: Esophageal cancer Procedure(s) Performed: Removal of right subclavian Port-A-Cath Insertion of left subclavian Port-A-Cath Anesthesia: MAC Surgeon: Jabari Gaona Estimated Blood Loss (ml): 10 Pathology: none sent Condition: stable Disposition: PACU Description of Procedure: MThe patient was placed on the operating table in the supine position. The patient received IV sedation. The patient's chest was prepped and draped in the usual sterile fashion. A roll had been placed between the shoulder blades in a longitudinal fashion. After prepping and draping the skin was anesthetized 1% local Xylocaine. And then using the Seldinger technique the left subclavian vein was cannulated. A wire was placed into the vein and fluoroscopy position the wire at the atrial caval junction. Next the dilator sheath was placed over top the wire and the wire was withdrawn. The catheter was positioned at the atriocaval position. The catheter was placed through the sheath after the dilator was withdrawn. The sheath was then withdrawn. Position of the catheter was confirmed with fluoroscopy. The Port-A-Cath was connected to the catheter. The Port-A-Cath was flushed with saline and then heparinized saline. The right subclavian Port-A-Cath was anesthetized 1% local Xylocaine. The skin was incised with a 15 blade. Then using electrocautery dissection the Port-A-Cath was removed from the chest wall. The skin was closed interrupted 3-0 Monocryl suture. Dermabond was applied. Patient tolerated procedure well and was sent to recovery room stable condition.
[2019-11-13 08:40] VITALS: RESP 16
[2019-11-13 08:58] VITALS: BP 113/74; PULSE 68
--- NOTE | 2019-11-13 09:14 | XR ---
EXAMINATION TYPE: XR chest 1V portable DATE OF EXAM: 11/13/2019 Comparison: 02/22/2018 Clinical History: 54-year-old male Mediport insertion Findings: Heart upper limits of normal in size. Retrocardiac opacity and lucency compatible with underlying her patrick. Mild interstitial prominence is unchanged. Left anterior chest wall injection port with subclavi an access and catheter tip at the mid SVC level. The previous right-sided injection port has been rem rad. Chronic fracture deformity lateral lower right-sided ribs. No consolidation or pleural effusion . Impression: Removal of right-sided chest port. Placement of a left-sided chest port with subclavian access and ca theter tip in the mid SVC level. Known moderate-sized hiatal hernia/slipped Blair fundoplication.
--- NOTE | 2019-11-13 10:03 | FL ---
EXAMINATION TYPE: FL guided central line placement DATE OF EXAM: 11/13/2019 FLUOROSCOPY Fluoroscopy time of 4 seconds was used during port insertion. 1 image/s document/s the procedure.
== END 2019-11-13 09:47 | disposition home or self-care (01) ==
LOC: OR 06:25
PROVIDERS: ATTEND Surgery
DX: Z45.2 Encounter for adjustment and management of vascular access device (principal); T82.868A Thrombosis due to vascular prosthetic devices, implants and grafts, initial encounter; C15.9 Malignant neoplasm of esophagus, unspecified; I25.10 Atherosclerotic heart disease of native coronary artery without angina pectoris; E78.5 Hyperlipidemia, unspecified; I10 Essential (primary) hypertension; M19.90 Unspecified osteoarthritis, unspecified site; L80 Vitiligo; F17.210 Nicotine dependence, cigarettes, uncomplicated; Z90.49 Acquired absence of other specified parts of digestive tract; Z95.5 Presence of coronary angioplasty implant and graft; Z98.890 Other specified postprocedural states; Z87.19 Personal history of other diseases of the digestive system; Z79.899 Other long term (current) drug therapy; Z79.82 Long term (current) use of aspirin; Z79.01 Long term (current) use of anticoagulants; Z88.0 Allergy status to penicillin; Z80.42 Family history of malignant neoplasm of prostate; Z82.5 Family history of asthma and other chronic lower respiratory diseases; Z82.49 Family history of ischemic heart disease and other diseases of the circulatory system
CPT/HCPCS: 77001; 71045; 36561; 36590; C1788; J2250; J1644; J1642; J1100; J2405; J3010; J1885; J2704

== ENCOUNTER → 2020-01-04 | Outpatient (CLI) | payer BC ==
[2020-01-04 15:14] LABS: African American GFR (CKD) >90 (>60 ml/min/1.73 sqM); Blood Urea Nitrogen 16 mg/dL (9-20); Non-African American GFR(CKD) >90 (>60 ml/min/1.73 sqM)
--- NOTE | 2020-01-07 01:16 | CT ---
EXAMINATION TYPE: CT ChestAbdPelvis w con DATE OF EXAM: 01/04/2020 COMPARISON: CT chest abdomen pelvis 10/02/2019. HISTORY: F/U for esophageal CA CT DLP: 1908 mGycm Automated exposure control for dose reduction was used. CONTRAST: CT scan of the chest, abdomen and pelvis is performed with Oral Contrast and with IV Contrast, patien t injected with 100 mL of Isovue 300. FINDINGS: LUNGS: Lungs are grossly clear. Emphysematous changes with bulla formation. 3 mm pulmonary nodule rig ht lower lobe (4:38) and is unchanged. No concerning parenchymal mass or nodule identified. No pleura l effusion. No pneumothorax. The tracheobronchial tree is patent. MEDIASTINUM/SOFT TISSUES: No axillary, hilar, or mediastinal lymphadenopathy greater than 1 cm. Cardi ac size is normal. Calcified coronary artery disease. No pericardial effusion. No thoracic aortic ane urysm. Moderate hiatal hernia with thickening of the distal esophagus redemonstrated. LIVER: Too small to characterize hypodense lesions redemonstrated. BILIARY SYSTEM: Cholelithiasis. No intrahepatic or extrahepatic biliary ductal dilatation. PANCREAS: Normal. SPLEEN: Normal. ADRENALS: Normal. KIDNEYS: Redemonstrated left renal cyst. Hydronephrosis bilaterally. BOWEL: Moderate hiatal hernia with Blair fundoplication. Thickening of the distal esophagus redemon strated. No evidence of bowel obstruction. PERITONEUM: No pneumoperitoneum. No free fluid. Small fat-containing umbilical hernia. LYMPH NODES: No lymphadenopathy. PELVIS: Normal urinary bladder. Prominent prostate with coarse calcification redemonstrated. VASCULATURE: No abdominal aortic aneurysm. MUSCULOSKELETAL: No aggressive osseous destructive lesions. IMPRESSION: 1. Redemonstrated thickening of the distal esophagus, and moderate hiatal hernia with fundoplication. 2. No evidence of metastatic esophageal cancer within the abdomen or pelvis. 3. Cholelithiasis.
== END | disposition home or self-care (01) ==
LOC: RADPROMAIN 14:36
PROVIDERS: ATTEND Internal Medicine Hematology & Oncology
DX: K44.9 Diaphragmatic hernia without obstruction or gangrene (principal); K80.20 Calculus of gallbladder without cholecystitis without obstruction; C78.7 Secondary malignant neoplasm of liver and intrahepatic bile duct
CPT/HCPCS: 82565; 84520; 71260; 74177; 36415; Q9967

== ENCOUNTER 2020-02-14 07:19 | Day surgery (SDC) | payer BC ==
[2020-02-13 08:36] VITALS: BMI 26.4
[~2020-02-14 07:19] MED LIST changes: -ACETAMINOPHEN TAB 500 MG TAB PO ONE; -DEXAMETHASONE SOD PHOSPHATE 10 MG/ML 1 ML VIAL IV ONE; -HEPARIN SODIUM,PORCINE 5,000 UNIT/ML 1 ML VIAL SQ ONE; -HYDROmorphone 0.5 MG/0.5 ML SYRINGE IVP PRN; +LIDOCAINE 1% (10MG/ML) FOR IV START INTRADERMA PRN; -MIDAZOLAM 2 MG/2 ML VIAL IV PRN; -ONDANSETRON 4 MG/2 ML VIAL IVP ONE; -Pre Op ABX Message 1 EACH MISC MISCELLANE ONE; -SCOPOLAMINE 1.5MG/72HR PATCH TRANSDERM ONE
[2020-02-14 07:33] VITALS: TEMP 98.8
[2020-02-14] MEDS ORDERED: PROPOFOL 10 MG/ML 20 ML VIAL IV ONE (08:30)
[2020-02-14] MEDS ORDERED: LIDOCAINE 1% INJ 10MG/ML (20 ML MDV) ONE (08:30)
--- NOTE | 2020-02-14 08:38 | P.GSHP ---
History of Present Illness H&P Date: 02/14/20 Chief Complaint: History of esophageal cancer Is a 54-year-old male with history of rectal cancer. Patient underwent dysphagia and trouble swallowing presents today for EGD. Past Medical History Past Medical History: Coronary Artery Disease (CAD), Cancer, Chest Pain / Angina, COPD, Hyperlipidemia, Hypertension, Osteoarthritis (OA) Additional Past Medical History / Comment(s): Esophageal CA-currently between chemo regimen, dysphagia recently to solids, vitiglio, hx. RT SUBCLAVIAN BLOOD CLOT History of Any Multi-Drug Resistant Organisms: None Reported Past Surgical History: Appendectomy, Heart Catheterization With Stent Additional Past Surgical History / Comment(s): patient states he had his stomach flipped 180 degrees because of acid reflux", 2 cardiac stents, mediport left chest Past Anesthesia/Blood Transfusion Reactions: No Reported Reaction Date of Last Stent Placement:: 2016 Smoking Status: Former smoker - Past Family History Father Family Medical History: Cancer, COPD Additional Family Medical History / Comment(s): prostate cancer Mother Family Medical History: Chest Pain / Angina, Coronary Artery Disease (CAD), Myocardial Infarction ([place]) Additional Family Medical History / Comment(s): "Mother had multiple heart attacks and open heart surgery" Medications and Allergies Home Medications Medication Instructions Recorded Confirmed Type Atorvastatin [Lipitor] 80 mg PO HS #90 tab 10/13/16 02/13/20 Rx Metoprolol Tartrate [Lopressor] 25 mg PO BID #180 tab 10/13/16 02/13/20 Rx Nitroglycerin Sl Tabs [Nitrostat] 0.4 mg SUBLINGUAL Q5M PRN #25 tab 10/13/16 02/13/20 Rx Aspirin EC [Ecotrin Low Dose] 81 mg PO DAILY 12/07/17 02/13/20 History Apixaban [Eliquis] 5 mg PO BID #60 tab 04/01/18 02/13/20 Rx Montelukast [Singulair] 10 mg PO DAILY 10/23/19 02/13/20 History diphenhydrAMINE [Benadryl] 25 mg PO DAILY PRN 10/23/19 02/13/20 History lisinopriL [Zestril] 10 mg PO HS 10/23/19 02/13/20 History Albuterol Inhaler [Ventolin Hfa 2 puff IH DIRECTED PRN 11/13/19 02/13/20 History Inhaler] Allergies Allergy/AdvReac Type Severity Reaction Status Date / Time Penicillins Allergy Unknown Verified 02/14/20 07:29 Childhood Surgical - Exam Vital Signs Temp Pulse Resp BP Pulse Ox 98.8 F 77 16 119/77 95 02/14/20 07:32 02/14/20 07:32 02/14/20 07:32 02/14/20 07:32 02/14/20 07:32 - General well developed, well nourished, no distress - Eyes PERRL - ENT normal pinna - Neck no masses - Respiratory normal expansion - Cardiovascular Rhythm: regular - Abdomen Abdomen: soft, non tender Assessment and Plan Assessment: History of esophageal cancer. We'll perform EGD.
--- NOTE | 2020-02-14 08:45 | P.OP ---
Date of Procedure: 02/14/20 Preoperative Diagnosis: Esophageal cancer Postoperative Diagnosis: Esophageal cancer Procedure(s) Performed: EGD Anesthesia: MAC Surgeon: Jabari Gaona Pathology: other (Esophageal cancer) Condition: stable Disposition: PACU Description of Procedure: Patient's placed on the endoscopy table in the lateral position. He received IV sedation. The gastroscope placed oropharynx and passed in the esophagus. At the 30 cm trini there was a large tumors seen. There is evidence of tumor necrosis. Tumor was irrigated and bleeding slightly. A biopsies performed. With the cold forcep. The scope could not be passed beyond the tumor. It was occluding esophagus. At this point the gastric scope was withdrawn. Patient top procedure well.
[2020-02-14 08:57] VITALS: RESP 16
[2020-02-14 09:07] VITALS: BP 124/85; PULSE 71
== END 2020-02-14 09:17 | disposition home or self-care (01) ==
LOC: ORWHC2ENDO 07:19
PROVIDERS: ATTEND Surgery
DX: C15.9 Malignant neoplasm of esophagus, unspecified (principal); I10 Essential (primary) hypertension; E78.5 Hyperlipidemia, unspecified; I25.10 Atherosclerotic heart disease of native coronary artery without angina pectoris; J44.9 Chronic obstructive pulmonary disease, unspecified; M19.90 Unspecified osteoarthritis, unspecified site; Z88.0 Allergy status to penicillin; Z95.5 Presence of coronary angioplasty implant and graft; Z87.891 Personal history of nicotine dependence; Z79.01 Long term (current) use of anticoagulants; Z79.899 Other long term (current) drug therapy; Z90.49 Acquired absence of other specified parts of digestive tract; Z80.42 Family history of malignant neoplasm of prostate; Z82.49 Family history of ischemic heart disease and other diseases of the circulatory system; Z82.5 Family history of asthma and other chronic lower respiratory diseases; Z79.82 Long term (current) use of aspirin
CPT/HCPCS: 43202; 88305; J2001; J2704; 43239

== ENCOUNTER 2020-04-05 12:53 | Inpatient (IN) | payer BC ==
[2020-04-05 13:20] LABS: Glucose,Whole Blood 326 mg/dL (75-99)
[2020-04-05] MEDS ORDERED: SODIUM CHLORIDE 0.9% 500 ML 500 ML IV ONE (13:28)
[2020-04-05 13:37] LABS: HCT 47.3 % (39.0-53.0); HGB 16.5 gm/dL (13.0-17.5); MCH 34.3 pg (25.0-35.0); MCHC 34.9 g/dL (31.0-37.0); MCV 98.4 fL (80.0-100.0); Mean Platelet Volume 7.5; Platelet Count 263 k/uL (150-450); RBC 4.81 m/uL (4.30-5.90); RDW 13.3 % (11.5-15.5); WBC 5.2 k/uL (3.8-10.6)
[2020-04-05 13:49] LABS: ALT 22 U/L (4-49); AST 17 U/L (17-59); African American GFR (CKD) >90 (>60 ml/min/1.73 sqM); Albumin 3.9 g/dL (3.5-5.0); Alkaline Phosphatase 101 U/L (38-126); Anion Gap 17 mmol/L; Blood Urea Nitrogen 32 mg/dL (9-20); Calcium 9.2 mg/dL (8.4-10.2); Carbon Dioxide 19 mmol/L (22-30); Chloride 92 mmol/L (98-107); Glucose 332 mg/dL (74-99); Magnesium 2.5 mg/dL (1.6-2.3); Non-African American GFR(CKD) >90 (>60 ml/min/1.73 sqM); Potassium 4.6 mmol/L (3.5-5.1); Sodium 128 mmol/L (137-145); Total Bilirubin 1.1 mg/dL (0.2-1.3); Total Protein 6.7 g/dL (6.3-8.2)
[2020-04-05 13:55] LABS: Appearance,Urine Clear (Clear); Bilirubin,Urine Negative (Negative); Blood,Urine Negative (Negative); Color,Urine Light Yellow; Glucose,Urine (UA) 4+ (Negative); Leukocyte Esterase,Urine Negative (Negative); Nitrite,Urine Negative (Negative); Protein,Urine Trace (Negative); Specific Gravity,Urine 1.044 (1.001-1.035); Urobilinogen,Urine <2.0 mg/dL (<2.0)
[2020-04-05 13:57] LABS: Ketones,Urine 3+ (Negative)
[2020-04-05 14:03] LABS: Band Neutrophils % 11 %; Lymphocytes # (M) 0.47 k/uL (1.0-4.8); Monocytes # (M) 0.47 k/uL (0-1.0); Neutrophils % (M) 71 %; Nucleated Red Blood Cells 0 /100 WBC (0-0); Total Cells Counted 100
[2020-04-05] MEDS ORDERED: INSULIN REGULAR 100 UNIT/ML VIAL IV ONE (14:05)
[2020-04-05] MEDS ORDERED: NALOXONE 0.4 MG/ML 1 ML VIAL IV PRN (14:07)
[2020-04-05] MEDS ORDERED: ACETAMINOPHEN TAB 325 MG TAB PO PRN (14:07)
[2020-04-05] MEDS ORDERED: ONDANSETRON 4 MG/2 ML VIAL IVP PRN (14:07)
--- NOTE | 2020-04-05 14:14 | ED ---
General Adult HPI - General Chief complaint: Recheck/Abnormal Lab/Rx Stated complaint: abd labs/sent by Dr Price Time Seen by Provider: 04/05/20 13:11 Source: patient, RN notes reviewed, old records reviewed Mode of arrival: ambulatory Limitations: no limitations - History of Present Illness Initial comments: 54-year-old male recently treated for esophageal cancer presents with abnormal outpatient lab. Patient was noted to have a blood glucose of greater than 600 on outpatient lab testing. He was instructed to present to the emergency department. He states he felt unwell for the past several weeks, fatigue. He's had increased thirst, increased urinary frequency. Patient denies vomiting or diarrhea. Denies abdominal pain or chest pain. Denies fever. - Related Data Home Medications Medication Instructions Recorded Confirmed Aspirin EC [Ecotrin Low Dose] 81 mg PO DAILY 12/07/17 04/05/20 Montelukast [Singulair] 10 mg PO HS 10/23/19 04/05/20 diphenhydrAMINE [Benadryl] 50 mg PO DAILY PRN 10/23/19 04/05/20 lisinopriL [Zestril] 5 mg PO DAILY 10/23/19 04/05/20 Albuterol Inhaler [Ventolin Hfa 2 puff INHALATION RT-Q4H PRN 11/13/19 04/05/20 Inhaler] [id number] 1 - 2 tab PO Q4H PRN 04/05/20 04/05/20 [Excedrin] Beclomethasone Dip 80 Mcg/Puff 2 puff INHALATION RT-BID 04/05/20 04/05/20 [Qvar 80 mcg] Calcium Carbonate [Tums] 500 mg PO TID PRN 04/05/20 04/05/20 Dexamethasone [Decadron] 8 mg PO BID 04/05/20 04/05/20 Gabapentin 300 mg PO BID 04/05/20 04/05/20 Magic Mouth Wash 5 ml PO QID 04/05/20 04/05/20 Omeprazole 40 mg PO DAILY 04/05/20 04/05/20 Prochlorperazine [Compazine] 10 mg PO Q6H PRN 04/05/20 04/05/20 Previous Rx's Medication Instructions Recorded Atorvastatin [Lipitor] 80 mg PO HS #90 tab 10/13/16 Metoprolol Tartrate [Lopressor] 25 mg PO BID #180 tab 10/13/16 Nitroglycerin Sl Tabs [Nitrostat] 0.4 mg SUBLINGUAL Q5M PRN #25 tab 10/13/16 Apixaban [Eliquis] 5 mg PO BID #60 tab 04/01/18 Allergies Allergy/AdvReac Type Severity Reaction Status Date / Time Penicillins Allergy Unknown Verified 04/05/20 13:41 Childhood Review of Systems ROS Statement: Those systems with pertinent positive or pertinent negative responses have been documented in the HPI. ROS Other: All systems not noted in ROS Statement are negative. Past Medical History Past Medical History: Coronary Artery Disease (CAD), Cancer, Chest Pain / Angina, COPD, Hyperlipidemia, Hypertension, Osteoarthritis (OA) Additional Past Medical History / Comment(s): Esophageal CA-currently between chemo regimen, dysphagia recently to solids, vitiglio, hx. RT SUBCLAVIAN BLOOD CLOT History of Any Multi-Drug Resistant Organisms: None Reported Past Surgical History: Appendectomy, Heart Catheterization With Stent Additional Past Surgical History / Comment(s): patient states he had his stomach flipped 180 degrees because of acid reflux", 2 cardiac stents, mediport left chest Past Anesthesia/Blood Transfusion Reactions: No Reported Reaction Date of Last Stent Placement:: 2016 Past Psychological History: No Psychological Hx Reported Smoking Status: Former smoker Past Alcohol Use History: None Reported Past Drug Use History: None Reported - Past Family History Father Family Medical History: Cancer, COPD Additional Family Medical History / Comment(s): prostate cancer Mother Family Medical History: Chest Pain / Angina, Coronary Artery Disease (CAD), Myocardial Infarction ([place]) Additional Family Medical History / Comment(s): "Mother had multiple heart attacks and open heart surgery" General Exam Limitations: no limitations General appearance: alert, in no apparent distress Head exam: Present: atraumatic, normocephalic Eye exam: Present: normal appearance ENT exam: Present: mucous membranes dry Respiratory exam: Present: rhonchi. Absent: respiratory distress, wheezes Cardiovascular Exam: Present: regular rate, normal rhythm GI/Abdominal exam: Present: soft. Absent: distended, tenderness, guarding, rebound Extremities exam: Present: normal inspection, normal capillary refill. Absent: pedal edema Neurological exam: Present: alert, oriented X3, CN II-XII intact. Absent: motor sensory deficit Psychiatric exam: Present: normal affect, normal mood Skin exam: Present: warm, dry, intact. Absent: cyanosis, diaphoretic Course Vital Signs 04/05/20 12:55 Temperature 97.9 F Pulse Rate 91 Respiratory 18 Rate Blood Pressure 115/79 O2 Sat by Pulse 98 Oximetry EKG Findings - EKG Comments: EKG Findings:: EKG: Normal sinus rhythm, prolonged QT, rate of 84, PA interval 132, QRS duration 96, QTC 545. No ST segment elevation. Medical Decision Making - Medical Decision Making 54-year-old male presenting with elevated blood sugar, fatigue, polydipsia and polyuria. Patient is 330. Patient has normal CBC. He has pseudohyponatremia 128. He has an anion gap metabolic acidosis with a CO2 of 19. He is acetone positive. Urinalysis positive for both glucose and ketones. He is given IV insulin, and IV fluids. He will be admitted with new onset diabetes, mild diabetic ketoacidosis and dehydration. Case discussed with Dr. Salazar who will admit. - Lab Data Result diagrams: 04/05/20 13:25 04/05/20 13:25 Lab Results 04/05/20 04/05/20 04/05/20 Range/Units 13:19 13:25 13:25 WBC 5.2 (3.8-10.6) k/uL RBC 4.81 (4.30-5.90) m/uL Hgb 16.5 (13.0-17.5) gm/dL Hct 47.3 (39.0-53.0) % MCV 98.4 (80.0-100.0) fL MCH 34.3 (25.0-35.0) pg MCHC 34.9 (31.0-37.0) g/dL RDW 13.3 (11.5-15.5) % Plt Count 263 (150-450) k/uL MPV 7.5 Neutrophils % (Manual) 71 % Band Neuts % (Manual) 11 % Lymphocytes % (Manual) 9 % Monocytes % (Manual) 9 % Neutrophils # (Manual) 4.20 (1.3-7.7) k/uL Lymphocytes # (Manual) 0.47 L (1.0-4.8) k/uL Monocytes # (Manual) 0.47 (0-1.0) k/uL Nucleated RBCs 0 (0-0) /100 WBC Manual Slide Review Performed Sodium 128 L (137-145) mmol/L Potassium 4.6 (3.5-5.1) mmol/L Chloride 92 L (98-107) mmol/L Carbon Dioxide 19 L (22-30) mmol/L Anion Gap 17 mmol/L BUN 32 H (9-20) mg/dL Creatinine 0.63 L (0.66-1.25) mg/dL Est GFR (CKD-EPI)AfAm >90 (>60 ml/min/1.73 sqM) Est GFR (CKD-EPI)NonAf >90 (>60 ml/min/1.73 sqM) Glucose 332 H (74-99) mg/dL POC Glucose (mg/dL) 326 H (75-99) mg/dL POC Glu [employer] Operator ID Alli Saldana Calcium 9.2 (8.4-10.2) mg/dL Magnesium 2.5 H (1.6-2.3) mg/dL Total Bilirubin 1.1 (0.2-1.3) mg/dL AST 17 (17-59) U/L ALT 22 (4-49) U/L Alkaline Phosphatase 101 (38-126) U/L Total Protein 6.7 (6.3-8.2) g/dL Albumin 3.9 (3.5-5.0) g/dL Urine Color Urine Appearance (Clear) Urine pH (5.0-8.0) Ur Specific Pione[place] (1.001-1.035) Urine Protein (Negative) Urine Glucose (UA) (Negative) Urine Ketones (Negative) Urine Blood (Negative) Urine Nitrite (Negative) Urine Bilirubin (Negative) Urine Urobilinogen (<2.0) mg/dL Ur Leukocyte Esterase (Negative) Acetone, Qual Positive (Negative) 04/05/20 Range/Units 13:25 WBC (3.8-10.6) k/uL RBC (4.30-5.90) m/uL Hgb (13.0-17.5) gm/dL Hct (39.0-53.0) % MCV (80.0-100.0) fL MCH (25.0-35.0) pg MCHC (31.0-37.0) g/dL RDW (11.5-15.5) % Plt Count (150-450) k/uL MPV Neutrophils % (Manual) % Band Neuts % (Manual) % Lymphocytes % (Manual) % Monocytes % (Manual) % Neutrophils # (Manual) (1.3-7.7) k/uL Lymphocytes # (Manual) (1.0-4.8) k/uL Monocytes # (Manual) (0-1.0) k/uL Nucleated RBCs (0-0) /100 WBC Manual Slide Review Sodium (137-145) mmol/L Potassium (3.5-5.1) mmol/L Chloride (98-107) mmol/L Carbon Dioxide (22-30) mmol/L Anion Gap mmol/L BUN (9-20) mg/dL Creatinine (0.66-1.25) mg/dL Est GFR (CKD-EPI)AfAm (>60 ml/min/1.73 sqM) Est GFR (CKD-EPI)NonAf (>60 ml/min/1.73 sqM) Glucose (74-99) mg/dL POC Glucose (mg/dL) (75-99) mg/dL POC Glu [employer] Operator ID Calcium (8.4-10.2) mg/dL Magnesium (1.6-2.3) mg/dL Total Bilirubin (0.2-1.3) mg/dL AST (17-59) U/L ALT (4-49) U/L Alkaline Phosphatase (38-126) U/L Total Protein (6.3-8.2) g/dL Albumin (3.5-5.0) g/dL Urine Color Light Yellow Urine Appearance Clear (Clear) Urine pH 6.0 (5.0-8.0) Ur Specific [place] 1.044 H (1.001-1.035) Urine Protein Trace H (Negative) Urine Glucose (UA) 4+ H (Negative) Urine Ketones 3+ H (Negative) Urine Blood Negative (Negative) Urine Nitrite Negative (Negative) Urine Bilirubin Negative (Negative) Urine Urobilinogen <2.0 (<2.0) mg/dL Ur Leukocyte Esterase Negative (Negative) Acetone, Qual (Negative) Disposition Clinical Impression: Newly diagnosed diabetes, Dehydration Disposition: ADMITTED IP TO THIS HOSP Condition: Stable Is patient prescribed a controlled substance at d/c from ED?: No Referrals: None,Stated [Primary Care Provider] - 1-2 days Decision to Admit Reason: Admit from EC Decision Date: 04/05/20 Decision Time: 14:14
[2020-04-05] MEDS ORDERED: SODIUM CHLORIDE 0.9% 1,000 ML IV SCH (14:15)
--- NOTE | 2020-04-05 14:52 | XR ---
EXAMINATION TYPE: XR chest 2V DATE OF EXAM: 04/05/2020 COMPARISON: 11/13/2019 HISTORY: Cough TECHNIQUE: 2 views FINDINGS: There is left-sided subclavian catheter with tip in the superior vena cava. There is some m ixed density behind the heart consistent with a hiatal hernia. There are no hilar masses. Heart size is normal. There is no pleural effusion. There is evidence of old right-sided healed rib fracture wit h minimal pleural thickening. Thoracic spine is intact. IMPRESSION: Hiatal hernia. No active cardiopulmonary disease. No change.
[2020-04-05 15:16] LABS: Glucose,Whole Blood 286 mg/dL (75-99)
[2020-04-05] MEDS ORDERED: Magnesium Replacement Protocol 1 EACH MISC MISCELLANE PRN (17:29)
[2020-04-05] MEDS ORDERED: Potassium Replacement Protocol 1 EACH MISC MISCELLANE PRN (17:29)
[2020-04-05] MEDS ORDERED: NITROGLYCERIN SL TABS 0.4 MG TAB SUBLINGUAL PRN (17:47)
[2020-04-05] MEDS ORDERED: ALBUTEROL NEBULIZED 2.5 MG/3 ML INHALATION PRN (17:47)
[2020-04-05] MEDS ORDERED: diphenhydrAMINE 50 MG CAP PO PRN (17:47)
[2020-04-05] MEDS ORDERED: PROCHLORPERAZINE 10 MG TAB PO PRN (17:47)
[2020-04-05] MEDS ORDERED: ASPIRIN-ACET-CAFF 250-250-65MG 1 EACH TAB PO PRN (17:47)
[2020-04-05] MEDS ORDERED: TEMAZEPAM 15 MG CAP PO PRN (17:51)
[2020-04-05] MEDS ORDERED: ALPRAZolam 0.25 MG TAB PO PRN (17:51)
[2020-04-05] MEDS ORDERED: NON FORMULARY DRUG (Magic Mouth Wash 5 ML) PO SCH (18:00)
[2020-04-05 18:11] LABS: Glucose,Whole Blood 284 mg/dL (75-99)
[2020-04-05] MEDS: INSULIN REGULAR 100 UNIT in SODIUM CHLORIDE 0.9% 100 ML IV SCH (18:28)
[2020-04-05 19:12] LABS: Prothrombin Time 10.3 sec (9.0-12.0)
[2020-04-05 19:15] LABS: Glucose,Whole Blood 311 mg/dL (75-99)
[2020-04-05] MEDS: PANTOPRAZOLE 40 MG TABLET PO SCH (19:30)
[2020-04-05] MEDS: MAG HYDROX/AL HYDROX/SIMETH 30 ML, diphenhydrAMINE ELIXIR 75 MG, LIDOCAINE VISCOUS 30 ML PO SCH ×6 (19:52→22:11)
[2020-04-05] MEDS: METOPROLOL TARTRATE 25 MG TAB PO SCH (19:53)
[2020-04-05] MEDS: APIXABAN 5 MG TAB PO SCH (19:53)
[2020-04-05] MEDS: MONTELUKAST 10 MG TAB PO SCH (19:53)
[2020-04-05] MEDS: GABAPENTIN 300 MG CAP PO SCH (19:53)
[2020-04-05] MEDS: dexAMETHasone 4 MG TAB PO SCH (19:53)
[2020-04-05] MEDS: ATORVASTATIN 80 MG TAB PO SCH (19:53)
[2020-04-05 19:58] LABS: Glucose,Whole Blood 291 mg/dL (75-99)
[2020-04-05] MEDS: FLUTICASONE 110 MCG INHALER INHALATION SCH (20:16)
[2020-04-05] MEDS: D5-0.45% NACL WITH KCL 20MEQ/L 1,000 ML IV SCH (20:20)
--- NOTE | 2020-04-05 20:21 | HP ---
HISTORY AND PHYSICAL DATE OF SERVICE: 04/05/2020 CHIEF COMPLAINT: Abnormal labs, weakness and tiredness. HISTORY OF PRESENT ILLNESS: This is a 54-year-old gentleman being with a past history of coronary artery disease, history of COPD, hypertension, hyperlipidemia, DJD, history of esophageal carcinoma, currently on chemo regimen and dysphagia recently to solid with right subclavian blood clot being followed by Dr. Price in the outpatient setting. He was noted to have abnormal labs. Glucose found to be over 600 and the patient was directed to [facility] at this time. The patient had episode of diabetic ketoacidosis. The patient admitted for further evaluation and DKA protocol is being followed. There is no history of fever, rigors, chills. No history of headache, loss of consciousness, seizures. COVID-19 is negative. PAST MEDICAL HISTORY: Esophageal carcinoma on chemotherapy, history of CAD, history of COPD, hypertension, hyperlipidemia, history of DJD, history of appendectomy, history of CAD with stent. MEDICATIONS: Prior to admission include Zestril, Benadryl, Compazine, omeprazole, Nitrostat, Singulair, lopressor, Magic mouthwash, gabapentin, Decadron, Tums, Qvar. Doses reviewed. ALLERGIES: PENICILLIN. FAMILY HISTORY: History of COPD, cancer, prostate cancer. SOCIAL HISTORY: History of smoking, THC, alcohol occasional. REVIEW OF SYSTEMS: ENT: No diminished vision or hearing. CARDIOVASCULAR: No angina or palpitations. RESPIRATORY: No cough or hemoptysis. GI: As mentioned earlier. : No dysuria or retention. NERVOUS SYSTEM: No numbness or weakness. ALLERGY/IMMUNOLOGY: No asthma or hayfever. MUSCULOSKELETAL: As mentioned earlier. HEMATOLOGY: As mentioned earlier. ENDOCRINE: As mentioned earlier. JOINTS: As mentioned earlier. CONSTITUTIONAL: As mentioned earlier. DERMATOLOGY: Negative. PSYCHIATRY: As mentioned earlier. PHYSICAL EXAMINATION: GENERAL: Patient is alert and oriented times three. VITAL SIGNS: Pulse 91, blood pressure 115/70, respirations 18, temperature 97.9, pulse ox 98% on room air. HEENT: Conjunctivae normal. Oral thrush present. Dehydration. NECK: No jugular venous distention. No carotid bruits. No lymph node enlargement. RESPIRATORY: Breath sounds diminished at the bases. No rhonchi, no crackles. HEART: S1 and S2, muffled. No S3 or S4. ABDOMEN: Soft, no tenderness. No masses palpable. EXTREMITIES: No edema, no swelling. NERVOUS: Higher functions as mentioned earlier. Moves all four limbs. No focal motor or sensory deficits. LYMPHATICS: No lymph nodes palpable in the neck or axillae. SKIN: No rashes. JOINTS: No active deforming arthropathy. LABS: CBC within normal limits. Sodium 132, potassium 4.6, glucose 326 and 286. CO2 is 19. ASSESSMENT: 1. New onset diabetes mellitus type 2, uncontrolled with acute diabetic ketoacidosis. 2. Hyponatremia. 3. Oral thrush and candidiasis. 4. Esophageal carcinoma on chemotherapy. 5. History of coronary artery disease. 6. History of chest pain angina. 7. Chronic obstructive pulmonary disease. 8. Hypertension. 9. Hyperlipidemia. 10.History of degenerative joint disease. 11.History of vitiligo. 12.Right subclavian blood clot. 13.History of coronary artery disease, stent. 14.History of nicotine dependence. 15.FULL CODE. RECOMMENDATIONS AND DISCUSSION: This 54-year-old gentleman who presented with multiple complex medical issues, at this time I recommend to continue current management and continue symptomatic treatment. I would recommend continue with DKA protocol. Would recommend monitor closely and resume the home medications. Guarded prognosis. Dr. Price will be consulted. Prognosis guarded. Further recommendations to follow. The patient is not following up with any primary physician. Continue to monitor. Further recommendations to follow. Recommend the patient follow up with primary physician as well. MMODL / IJN: [id number] /
[2020-04-05 20:59] LABS: Potassium 4.2 mmol/L (3.5-5.1)
[2020-04-05 21:00] LABS: African American GFR (CKD) >90 (>60 ml/min/1.73 sqM); Anion Gap 9 mmol/L; Blood Urea Nitrogen 31 mg/dL (9-20); Carbon Dioxide 20 mmol/L (22-30); Chloride 97 mmol/L (98-107); Glucose 284 mg/dL (74-99); Non-African American GFR(CKD) >90 (>60 ml/min/1.73 sqM); Phosphorus 3.2 mg/dL (2.5-4.5); Sodium 126 mmol/L (137-145)
[2020-04-05 21:16] LABS: Glucose,Whole Blood 274 mg/dL (75-99)
[2020-04-05 22:14] LABS: Glucose,Whole Blood 273 mg/dL (75-99)
[2020-04-05 23:06] LABS: Glucose,Whole Blood 227 mg/dL (75-99)
[2020-04-06 00:03] LABS: African American GFR (CKD) >90 (>60 ml/min/1.73 sqM); Anion Gap 6 mmol/L; Blood Urea Nitrogen 27 mg/dL (9-20); Carbon Dioxide 23 mmol/L (22-30); Chloride 99 mmol/L (98-107); Glucose 208 mg/dL (74-99); Non-African American GFR(CKD) >90 (>60 ml/min/1.73 sqM); Phosphorus 2.7 mg/dL (2.5-4.5); Potassium 4.4 mmol/L (3.5-5.1); Sodium 128 mmol/L (137-145)
[2020-04-06 00:11] LABS: Glucose,Whole Blood 184 mg/dL (75-99)
[2020-04-06] MEDS: D5-0.45% NACL WITH KCL 20MEQ/L 1,000 ML IV SCH ×2 (00:26→06:36)
[2020-04-06 01:05] LABS: Glucose,Whole Blood 181 mg/dL (75-99)
[2020-04-06 02:02] LABS: Glucose,Whole Blood 138 mg/dL (75-99)
[2020-04-06] MEDS: INSULIN REGULAR 100 UNIT in SODIUM CHLORIDE 0.9% 100 ML IV SCH (02:43)
[2020-04-06 03:06] LABS: Glucose,Whole Blood 120 mg/dL (75-99)
[2020-04-06 04:05] LABS: Glucose,Whole Blood 199 mg/dL (75-99)
[2020-04-06 05:04] LABS: Glucose,Whole Blood 182 mg/dL (75-99)
[2020-04-06 06:01] LABS: Glucose,Whole Blood 179 mg/dL (75-99)
[2020-04-06] MEDS: PANTOPRAZOLE 40 MG TABLET PO SCH (06:36)
[2020-04-06 06:58] LABS: Glucose,Whole Blood 183 mg/dL (75-99)
[2020-04-06 07:48] LABS: ALT 15 U/L (4-49); AST 13 U/L (17-59); African American GFR (CKD) >90 (>60 ml/min/1.73 sqM); Albumin 2.8 g/dL (3.5-5.0); Alkaline Phosphatase 58 U/L (38-126); Anion Gap 5 mmol/L; Blood Urea Nitrogen 24 mg/dL (9-20); Calcium 7.9 mg/dL (8.4-10.2); Carbon Dioxide 24 mmol/L (22-30); Chloride 97 mmol/L (98-107); Glucose 189 mg/dL (74-99); Magnesium 2.4 mg/dL (1.6-2.3); Non-African American GFR(CKD) >90 (>60 ml/min/1.73 sqM); Sodium 126 mmol/L (137-145); Total Bilirubin 0.7 mg/dL (0.2-1.3)
[2020-04-06 07:49] LABS: Potassium 4.4 mmol/L (3.5-5.1)
[2020-04-06 07:55] LABS: Basophils % (A) 1 %; Eosinophils % (A) 0 %; HCT 40.4 % (39.0-53.0); HGB 14.1 gm/dL (13.0-17.5); Lymphocytes # (A) 0.1 k/uL (1.0-4.8); Lymphocytes % (A) 3 %; MCH 34.1 pg (25.0-35.0); MCHC 34.8 g/dL (31.0-37.0); MCV 98.1 fL (80.0-100.0); Mean Platelet Volume 7.7; Monocytes # (A) 0.6 k/uL (0-1.0); Monocytes % (A) 15 %; Neutrophils # (A) 3.3 k/uL (1.3-7.7); Neutrophils % (A) 79 %; Platelet Count 242 k/uL (150-450); RBC 4.12 m/uL (4.30-5.90); RDW 13.4 % (11.5-15.5); WBC 4.2 k/uL (3.8-10.6)
[2020-04-06 07:57] LABS: Glucose,Whole Blood 208 mg/dL (75-99)
[2020-04-06] MEDS ORDERED: INSULIN DETEMIR (LEVEMIR) 100 UNIT/ML SYR SQ SCH ×2 (08:14→21:00)
[2020-04-06] MEDS: FLUTICASONE 110 MCG INHALER INHALATION SCH ×2 (08:27→20:29)
[2020-04-06] MEDS ORDERED: NON FORMULARY DRUG (Omeprazole [Omeprazole] 40 MG Capsule.Dr) PO SCH (09:00)
[2020-04-06] MEDS: GABAPENTIN 300 MG CAP PO SCH ×2 (09:06→20:50)
[2020-04-06] MEDS: ASPIRIN 81 MG PO SCH (09:06)
[2020-04-06] MEDS: lisinopriL 5 MG TAB PO SCH (09:06)
[2020-04-06] MEDS: METOPROLOL TARTRATE 25 MG TAB PO SCH ×2 (09:06→20:49)
[2020-04-06] MEDS: APIXABAN 5 MG TAB PO SCH ×2 (09:06→20:50)
[2020-04-06] MEDS: dexAMETHasone 4 MG TAB PO SCH ×2 (09:07→22:09)
[2020-04-06] MEDS: MAG HYDROX/AL HYDROX/SIMETH 30 ML, diphenhydrAMINE ELIXIR 75 MG, LIDOCAINE VISCOUS 30 ML PO SCH ×12 (09:07→22:09)
[2020-04-06 09:13] LABS: Glucose,Whole Blood 262 mg/dL (75-99)
--- NOTE | 2020-04-06 11:08 | P.CONS ---
History of Present Illness - Reason for Consult Consult date: 04/06/20 New Onset DM ,DKA, Met esoph ca - History of Present Illness The patient is a 51-year-old white male well known to our service diagnosed with metastatic adenocarcinoma of the esophagus in 12/15. The patient had metastatic disease at the time of diagnosis including liver involvement. He was treated with modified FOLFOX for 12 cycles with excellent response. He was then placed on oral Xeloda for maintenance. This ultimately had to be discontinued because of increasing skin toxicity. Around the time of stoppage of the Xeloda the patient started having some issues with difficulty in swallowing with subsequently became progressive. Repeat EGD in 10/17 showed progression at the primary site. He did not have any evidence of progression at other sites. The patient was then treated with carboplatin and Taxol but did not respond. Due to progressive difficulty in swallowing, he had repeat EGD in 02/16 which showed near complete obstruction. The patient then had PEG tube placement by interventional radiology at [facility] on 02/18/20. He was also started on concurrent chemoradiation with infusional 5-FU. His last addition treatment and chemotherapy were last week. The patient had called the office on 04/04/20, complaining of progressive weakness since completion of radiation. He received hydration in the office and felt better. Routine labs were ordered. I was called by the lab in the early a.m. of 04/05/20 with critical glucose results of greater than 600. The patient was called at home and asked going to the emergency room. He states that he checked his glucose again at home and as this was still high, came to the ER. In the ER his glucose was in the 300-400 range but labs showed evidence of DKA. He was therefore admitted for further management, and consult placed. He denied any prior history of diabetes. He has received steroids but only for 1-2 days, with chemotherapy. Review of Systems Constitutional: Reports fatigue, Reports lethargy, Reports weight gain Eyes: denies blurred vision, denies pain Ears: deny: decreased hearing, ear discharge, earache, tinnitus Ears, nose, mouth and throat: Denies headache, Denies sore throat Cardiovascular: Reports decreased exercise tolerance Respiratory: Denies cough Gastrointestinal: Reports as per HPI Genitourinary: Reports as per HPI Musculoskeletal: Reports muscle weakness Integumentary: Denies pruritus, Denies rash Neurological: Reports weakness Psychiatric: Denies anxiety, Denies depression Endocrine: Reports high blood sugars Hematologic/Lymphatic: Reports as per HPI, Reports thrombophilia Past Medical History Past Medical History: Coronary Artery Disease (CAD), Cancer, Chest Pain / Angina, COPD, Hyperlipidemia, Hypertension, Osteoarthritis (OA) Additional Past Medical History / Comment(s): Esophageal CA-currently between chemo regimen, dysphagia recently to solids, vitiglio, hx. RT SUBCLAVIAN BLOOD CLOT History of Any Multi-Drug Resistant Organisms: None Reported Past Surgical History: Appendectomy, Heart Catheterization With Stent Additional Past Surgical History / Comment(s): patient states he had his stomach flipped 180 degrees because of acid reflux", 2 cardiac stents, mediport left chest Past Anesthesia/Blood Transfusion Reactions: No Reported Reaction Date of Last Stent Placement:: 2016 Past Psychological History: No Psychological Hx Reported Additional Psychological History / Comment(s): l Smoking Status: Current every day smoker, Former smoker Past Alcohol Use History: None Reported Additional Past Alcohol Use History / Comment(s): started smoking age 21(1986) and quit (12/05/17) was smoking 1ppd Past Drug Use History: None Reported Additional Drug Use History / Comment(s): occasional use - Past Family History Father Family Medical History: Cancer, COPD Additional Family Medical History / Comment(s): prostate cancer Mother Family Medical History: Chest Pain / Angina, Coronary Artery Disease (CAD), Myocardial Infarction (MA) Additional Family Medical History / Comment(s): "Mother had multiple heart attacks and open heart surgery" Medications and Allergies Home Medications Medication Instructions Recorded Confirmed Type Atorvastatin [Lipitor] 80 mg PO HS #90 tab 10/13/16 04/05/20 Rx Metoprolol Tartrate [Lopressor] 25 mg PO BID #180 tab 10/13/16 04/05/20 Rx Nitroglycerin Sl Tabs [Nitrostat] 0.4 mg SUBLINGUAL Q5M PRN #25 tab 10/13/16 04/05/20 Rx Aspirin EC [Ecotrin Low Dose] 81 mg PO DAILY 12/07/17 04/05/20 History Apixaban [Eliquis] 5 mg PO BID #60 tab 04/01/18 04/05/20 Rx Montelukast [Singulair] 10 mg PO HS 10/23/19 04/05/20 History diphenhydrAMINE [Benadryl] 50 mg PO DAILY PRN 10/23/19 04/05/20 History lisinopriL [Zestril] 5 mg PO DAILY 10/23/19 04/05/20 History Albuterol Inhaler [Ventolin Hfa 2 puff INHALATION RT-Q4H PRN 11/13/19 04/05/20 History Inhaler] [id number] 1 - 2 tab PO Q4H PRN 04/05/20 04/05/20 History [Excedrin] Beclomethasone Dip 80 Mcg/Puff 2 puff INHALATION RT-BID 04/05/20 04/05/20 History [Qvar 80 mcg] Calcium Carbonate [Tums] 500 mg PO TID PRN 04/05/20 04/05/20 History Dexamethasone [Decadron] 8 mg PO BID 04/05/20 04/05/20 History Gabapentin 300 mg PO BID 04/05/20 04/05/20 History Magic Mouth Wash 5 ml PO QID 04/05/20 04/05/20 History Omeprazole 40 mg PO DAILY 04/05/20 04/05/20 History Prochlorperazine [Compazine] 10 mg PO Q6H PRN 04/05/20 04/05/20 History Allergies Allergy/AdvReac Type Severity Reaction Status Date / Time Penicillins Allergy Unknown Verified 04/05/20 13:41 Childhood Physical Exam Vitals: Vital Signs Temp Pulse Pulse Resp BP BP Pulse Ox 04/06/20 08:00 98.1 F 62 16 111/62 92 L 04/06/20 03:44 98.2 F 65 16 100/61 95 04/06/20 01:41 55 L 18 04/05/20 23:37 97.5 F L 55 L 18 92/58 93 L 04/05/20 20:00 97.8 F 79 16 105/70 94 L 04/05/20 17:29 98.3 F 81 16 105/73 94 L 04/05/20 12:55 97.9 F 91 18 115/79 98 Intake and Output 04/05/20 04/06/20 04/06/20 22:59 06:59 14:59 Intake Total 35.805 1116.436 249.092 Output Total 150 Balance -203.006 5949.436 249.092 Intake: Intake, IV Titration 35.805 1066.436 9.092 Amount D5-0.45% NaCl with KCl 1000 20Meq/l 1,000 ml @ 150 mls/hr IV .[id number] [facility] Rx# :[id number] Insulin Regular 100 unit 35.805 66.436 9.092 In Sodium Chloride 0.9% 100 ml @ 0.1 UNITS/KG/HR 7.926 mls/hr IV .[id number] [facility] Rx#:[id number] Oral 50 240 Output: Urine 150 Other: Voiding Method Toilet Toilet Urinal Urinal # Voids 1 2 Weight 78.471 kg 80.7 kg 80.7 kg - Constitutional General appearance: no acute distress - EENT Eyes: EOMI, PERRLA ENT: hearing grossly normal, normal oropharynx - Neck Neck: no lymphadenopathy Thyroid: bilateral: normal size - Respiratory Respiratory: bilateral: CTA - Cardiovascular Rhythm: regular Heart sounds: normal: S1, S2 - Gastrointestinal General gastrointestinal: normal bowel sounds, soft - Integumentary Integumentary: normal - Musculoskeletal Musculoskeletal: generalized weakness, strength equal bilaterally - Psychiatric Psychiatric: A&O x's 3, appropriate affect Results CBC & Chem 7: 04/06/20 06:49 04/06/20 06:49 Labs: Abnormal Lab Results - Last 24 Hours (Table) 04/05/20 04/05/20 04/05/20 Range/Units 13:19 13:25 13:25 RBC (4.30-5.90) m/uL Lymphocytes # (1.0-4.8) k/uL Lymphocytes # (Manual) 0.47 L (1.0-4.8) k/uL Sodium 128 L (137-145) mmol/L Chloride 92 L (98-107) mmol/L Carbon Dioxide 19 L (22-30) mmol/L BUN 32 H (9-20) mg/dL Creatinine 0.63 L (0.66-1.25) mg/dL Glucose 332 H (74-99) mg/dL POC Glucose (mg/dL) 326 H (75-99) mg/dL Calcium (8.4-10.2) mg/dL Magnesium 2.5 H (1.6-2.3) mg/dL AST (17-59) U/L Total Protein (6.3-8.2) g/dL Albumin (3.5-5.0) g/dL Ur Specific [place] (1.001-1.035) Urine Protein (Negative) Urine Glucose (UA) (Negative) Urine Ketones (Negative) 04/05/20 04/05/20 04/05/20 Range/Units 13:25 15:13 18:10 RBC (4.30-5.90) m/uL Lymphocytes # (1.0-4.8) k/uL Lymphocytes # (Manual) (1.0-4.8) k/uL Sodium (137-145) mmol/L Chloride (98-107) mmol/L Carbon Dioxide (22-30) mmol/L BUN (9-20) mg/dL Creatinine (0.66-1.25) mg/dL Glucose (74-99) mg/dL POC Glucose (mg/dL) 286 H 284 H (75-99) mg/dL Calcium (8.4-10.2) mg/dL Magnesium (1.6-2.3) mg/dL AST (17-59) U/L Total Protein (6.3-8.2) g/dL Albumin (3.5-5.0) g/dL Ur Specific [place] 1.044 H (1.001-1.035) Urine Protein Trace H (Negative) Urine Glucose (UA) 4+ H (Negative) Urine Ketones 3+ H (Negative) 04/05/20 04/05/20 04/05/20 Range/Units 19:12 19:56 20:30 RBC (4.30-5.90) m/uL Lymphocytes # (1.0-4.8) k/uL Lymphocytes # (Manual) (1.0-4.8) k/uL Sodium 126 L (137-145) mmol/L Chloride 97 L (98-107) mmol/L Carbon Dioxide 20 L (22-30) mmol/L BUN 31 H (9-20) mg/dL Creatinine 0.50 L (0.66-1.25) mg/dL Glucose 284 H (74-99) mg/dL POC Glucose (mg/dL) 311 H 291 H (75-99) mg/dL Calcium (8.4-10.2) mg/dL Magnesium (1.6-2.3) mg/dL AST (17-59) U/L Total Protein (6.3-8.2) g/dL Albumin (3.5-5.0) g/dL Ur Specific [place] (1.001-1.035) Urine Protein (Negative) Urine Glucose (UA) (Negative) Urine Ketones (Negative) 04/05/20 04/05/20 04/05/20 Range/Units 21:15 22:12 23:05 RBC (4.30-5.90) m/uL Lymphocytes # (1.0-4.8) k/uL Lymphocytes # (Manual) (1.0-4.8) k/uL Sodium (137-145) mmol/L Chloride (98-107) mmol/L Carbon Dioxide (22-30) mmol/L BUN (9-20) mg/dL Creatinine (0.66-1.25) mg/dL Glucose (74-99) mg/dL POC Glucose (mg/dL) 274 H 273 H 227 H (75-99) mg/dL Calcium (8.4-10.2) mg/dL Magnesium (1.6-2.3) mg/dL AST (17-59) U/L Total Protein (6.3-8.2) g/dL Albumin (3.5-5.0) g/dL Ur Specific [place] (1.001-1.035) Urine Protein (Negative) Urine Glucose (UA) (Negative) Urine Ketones (Negative) 04/05/20 04/06/20 04/06/20 Range/Units 23:43 00:09 01:03 RBC (4.30-5.90) m/uL Lymphocytes # (1.0-4.8) k/uL Lymphocytes # (Manual) (1.0-4.8) k/uL Sodium 128 L (137-145) mmol/L Chloride (98-107) mmol/L Carbon Dioxide (22-30) mmol/L BUN 27 H (9-20) mg/dL Creatinine 0.56 L (0.66-1.25) mg/dL Glucose 208 H (74-99) mg/dL POC Glucose (mg/dL) 184 H 181 H (75-99) mg/dL Calcium (8.4-10.2) mg/dL Magnesium (1.6-2.3) mg/dL AST (17-59) U/L Total Protein (6.3-8.2) g/dL Albumin (3.5-5.0) g/dL Ur Specific [place] (1.001-1.035) Urine Protein (Negative) Urine Glucose (UA) (Negative) Urine Ketones (Negative) 04/06/20 04/06/20 04/06/20 Range/Units 02:00 03:03 04:03 RBC (4.30-5.90) m/uL Lymphocytes # (1.0-4.8) k/uL Lymphocytes # (Manual) (1.0-4.8) k/uL Sodium (137-145) mmol/L Chloride (98-107) mmol/L Carbon Dioxide (22-30) mmol/L BUN (9-20) mg/dL Creatinine (0.66-1.25) mg/dL Glucose (74-99) mg/dL POC Glucose (mg/dL) 138 H 120 H 199 H (75-99) mg/dL Calcium (8.4-10.2) mg/dL Magnesium (1.6-2.3) mg/dL AST (17-59) U/L Total Protein (6.3-8.2) g/dL Albumin (3.5-5.0) g/dL Ur Specific [place] (1.001-1.035) Urine Protein (Negative) Urine Glucose (UA) (Negative) Urine Ketones (Negative) 04/06/20 04/06/20 04/06/20 Range/Units 05:03 05:59 06:49 RBC (4.30-5.90) m/uL Lymphocytes # (1.0-4.8) k/uL Lymphocytes # (Manual) (1.0-4.8) k/uL Sodium 126 L (137-145) mmol/L Chloride 97 L (98-107) mmol/L Carbon Dioxide (22-30) mmol/L BUN 24 H (9-20) mg/dL Creatinine 0.54 L (0.66-1.25) mg/dL Glucose 189 H (74-99) mg/dL POC Glucose (mg/dL) 182 H 179 H (75-99) mg/dL Calcium 7.9 L (8.4-10.2) mg/dL Magnesium 2.4 H (1.6-2.3) mg/dL AST 13 L (17-59) U/L Total Protein 5.0 L (6.3-8.2) g/dL Albumin 2.8 L (3.5-5.0) g/dL Ur Specific [place] (1.001-1.035) Urine Protein (Negative) Urine Glucose (UA) (Negative) Urine Ketones (Negative) 04/06/20 04/06/20 04/06/20 Range/Units 06:49 06:57 07:56 RBC 4.12 L (4.30-5.90) m/uL Lymphocytes # 0.1 L (1.0-4.8) k/uL Lymphocytes # (Manual) (1.0-4.8) k/uL Sodium (137-145) mmol/L Chloride (98-107) mmol/L Carbon Dioxide (22-30) mmol/L BUN (9-20) mg/dL Creatinine (0.66-1.25) mg/dL Glucose (74-99) mg/dL POC Glucose (mg/dL) 183 H 208 H (75-99) mg/dL Calcium (8.4-10.2) mg/dL Magnesium (1.6-2.3) mg/dL AST (17-59) U/L Total Protein (6.3-8.2) g/dL Albumin (3.5-5.0) g/dL Ur Specific [place] (1.001-1.035) Urine Protein (Negative) Urine Glucose (UA) (Negative) Urine Ketones (Negative) 04/06/20 Range/Units 09:11 RBC (4.30-5.90) m/uL Lymphocytes # (1.0-4.8) k/uL Lymphocytes # (Manual) (1.0-4.8) k/uL Sodium (137-145) mmol/L Chloride (98-107) mmol/L Carbon Dioxide (22-30) mmol/L BUN (9-20) mg/dL Creatinine (0.66-1.25) mg/dL Glucose (74-99) mg/dL POC Glucose (mg/dL) 262 H (75-99) mg/dL Calcium (8.4-10.2) mg/dL Magnesium (1.6-2.3) mg/dL AST (17-59) U/L Total Protein (6.3-8.2) g/dL Albumin (3.5-5.0) g/dL Ur Specific [place] (1.001-1.035) Urine Protein (Negative) Urine Glucose (UA) (Negative) Urine Ketones (Negative) Chest x-ray: report reviewed Assessment and Plan (1) Newly diagnosed diabetes Narrative/Plan: The patient was sent in to the hospital emergently, because of routine labs showing high blood sugars in the 600+ range. The patient has no prior history of diabetes. He does have steroid exposure but this is only very intermittent, at the time of chemotherapy. He has a family history of diabetes in his mother. - On dilatation the patient was actually in diabetic ketoacidosis. He is improved with treatment for the same, with hydration and insulin. Case was discussed with the internal medicine service. In addition consult has been placed for appropriate recommendations regarding his tube feeds. The patient is currently mostly dependent on tube feeds for nutrition. Defer to the admitting service for medication management for his diabetes as well as recommendations for outpatient follow-up. Current Visit: Yes Status: Acute Code(s): E11.9 - TYPE 2 DIABETES MELLITUS WITHOUT COMPLICATIONS SNOMED Code(s): 732498466 (2) Dehydration Narrative/Plan: Due to above. Patient's hydration status is improved with hydration inpatient, as well as hydration in the office. Current Visit: Yes Status: Acute Code(s): E86.0 - DEHYDRATION SNOMED Code(s): 28971516 (3) Esophageal cancer Narrative/Plan: Diagnostic and therapeutic circumstances as described. As noted, the patient most recently has had only local progression, with no evidence of progression of his metastatic disease which is continuing in good remission. He was therefore treated aggressively with concurrent chemoradiation. He reports some improvement in his swallowing but will need another few weeks to gauge response more accurately. We will also repeat imaging studies for restaging for the whole body in the next few weeks. Follow-up in the office as previously scheduled. Current Visit: No Status: Acute Code(s): C15.9 - MALIGNANT NEOPLASM OF ESOPHAGUS, UNSPECIFIED SNOMED Code(s): 693183615 Plan: Continue anticoagulation for his history of DVT. He is tolerating that well.
[2020-04-06 11:33] LABS: Glucose,Whole Blood 227 mg/dL (75-99)
[2020-04-06] MEDS: INSULIN ASPART (NovoLOG) 100 UNIT/ML VIAL SQ SCH ×4 (12:13→18:08)
[2020-04-06] MEDS ORDERED: INSULIN DETEMIR (LEVEMIR) 100 UNIT/ML SYR SQ ONE (12:25)
--- NOTE | 2020-04-06 15:03 | PN ---
PROGRESS NOTE DATE OF SERVICE: 04/06/2020 This 54-year-old gentleman admitted with uncontrolled diabetes and early diabetic ketosis is being closely monitored. Patient was given IV heparin. The patient is also getting chemotherapy for esophageal carcinoma and radiation from Dr. Price's office. The blood sugar has been controlled with insulin drip at this time. The anion gap is closed. The patient is not acidotic anymore and the patient has been receiving 2 units insulin per hour prior to stoppage. Past medical history reviewed. REVIEW OF SYSTEMS: CARDIOVASCULAR: No angina. RESPIRATORY: As mentioned earlier. GI mentioned earlier. : No dysuria. NERVOUS SYSTEM: No numbness, weakness. CURRENT MEDICATIONS: Reviewed and include: Tylenol, Excedrin, Xanax, Eliquis, aspirin, Lipitor, Tums, Hexadrol, Neurontin. Levemir. Zestril. PHYSICAL EXAMINATION: Alert and oriented times three. Pulse 52, blood pressure 95/60, respiration 18, temperature 98.4, pulse ox 98% on room air. HEENT: Conjunctivae normal. NECK: No JVD. CARDIOVASCULAR: S1, S2 muffled. RESPIRATORY SYSTEM: Breath sounds diminished at the bases. No rhonchi. No crackles. ABDOMEN: Soft. Nontender. LEGS are no edema. No swelling. NERVOUS SYSTEM: No focal deficits. LABS: Accu-Cheks 208, 262, 227. The labs are reviewed. Albumin is 2.8. ASSESSMENT: 1. New onset diabetes mellitus type 2, uncontrolled with acute diabetic ketoacidosis. 2. Hyponatremia. 3. Oral thrush and candidiasis. 4. Esophageal carcinoma, on chemotherapy. 5. History of coronary artery disease. 6. History of chest pain/angina. 7. History of chronic obstructive pulmonary disease. 8. Hypertension. 9. Hyperlipidemia. 10.History of degenerative joint disease. 11.History of vitiligo. 12.Right subclavian blood clot history. 13.History of coronary artery disease/stent. 14.History of nicotine dependence. 15.FULL CODE. RECOMMENDATIONS AND DISCUSSION: Recommend to continue current medications, symptomatic treatment. As mentioned earlier, at this time, I recommend to stop the insulin drip and then initiate Lantus at 30 units and 20 units. Continue to monitor. Insulin to scale. Prognosis guarded because of multiple complex medical issues. Teach the patient about Lantus and obtain diabetic education. Continue the rest of the recommendations per Hematology/Oncology per Dr. Price. Prognosis guarded because of multiple complex medical issues. Further recommendations to follow. MMODL / IJN: [id number] /
[2020-04-06 17:22] LABS: Glucose,Whole Blood 214 mg/dL (75-99)
[2020-04-06 20:01] LABS: Glucose,Whole Blood 362 mg/dL (75-99)
[2020-04-06] MEDS: ATORVASTATIN 80 MG TAB PO SCH (20:50)
[2020-04-06] MEDS: MONTELUKAST 10 MG TAB PO SCH (20:50)
[2020-04-06] MEDS: CALCIUM CARBONATE 500 MG CHEWABLE PO PRN (20:54)
[2020-04-07 04:00] LABS: Glucose,Whole Blood 250 mg/dL (75-99)
[2020-04-07] MEDS ORDERED: INSULIN DETEMIR (LEVEMIR) 100 UNIT/ML SYR SQ SCH ×2 (07:00)
[2020-04-07 07:05] LABS: Glucose,Whole Blood 307 mg/dL (75-99)
[2020-04-07] MEDS: APIXABAN 5 MG TAB PO SCH ×2 (08:50→20:50)
[2020-04-07] MEDS: ASPIRIN 81 MG PO SCH (08:50)
[2020-04-07] MEDS: METOPROLOL TARTRATE 25 MG TAB PO SCH ×2 (08:50→20:50)
[2020-04-07] MEDS: dexAMETHasone 4 MG TAB PO SCH ×2 (08:50→21:35)
[2020-04-07] MEDS: GABAPENTIN 300 MG CAP PO SCH ×2 (08:50→20:50)
[2020-04-07] MEDS: PANTOPRAZOLE 40 MG TABLET PO SCH (08:50)
[2020-04-07] MEDS: INSULIN ASPART (NovoLOG) 100 UNIT/ML VIAL SQ SCH ×6 (08:51→17:57)
[2020-04-07] MEDS: MAG HYDROX/AL HYDROX/SIMETH 30 ML, diphenhydrAMINE ELIXIR 75 MG, LIDOCAINE VISCOUS 30 ML PO SCH ×12 (08:51→20:51)
[2020-04-07] MEDS: FLUTICASONE 110 MCG INHALER INHALATION SCH ×2 (08:54→19:40)
[2020-04-07 09:02] LABS: Basophils # (A) 0.05 X 10*3/uL (0.00-0.10); Basophils % (A) 0.8 %; Eosinophils # (A) 0.02 X 10*3/uL (0.04-0.35); Eosinophils % (A) 0.3 %; Lymphocytes # (A) 0.17 X 10*3/uL (0.90-5.00); Lymphocytes % (A) 2.9 %; MCH 33.9 pg (27.0-32.0); MCHC 34.9 g/dL (32.0-37.0); MCV 97.1 fL (80.0-97.0); Mean Platelet Volume 10.5 fL (9.5-12.2); Monocytes # (A) 0.83 X 10*3/uL (0.20-1.00); Neutrophils # (A) 4.59 X 10*3/uL (1.80-7.70); Neutrophils % (A) 77.3 %; Platelet Count 250 X 10*3/uL (140-440); RBC 4.43 X 10*6/uL (4.40-5.60); WBC 5.94 X 10*3/uL (4.50-10.00)
[2020-04-07 09:53] LABS: Anion Gap 6.4 mmol/L (4.00-12.00); BUN/Creat Ratio 36.67 Ratio (12.00-20.00); Calcium 8.2 mg/dL (8.7-10.3); Carbon Dioxide 23.6 mmol/L (21.6-31.8); Non-African American GFR(CKD) 114.8 (60.0-200.0); Potassium 4.7 mmol/L (3.5-5.5)
[2020-04-07] MEDS: CALCIUM CARBONATE 500 MG CHEWABLE PO PRN (10:10)
[2020-04-07] MEDS ORDERED: INSULIN DETEMIR (LEVEMIR) 100 UNIT/ML SYR SQ STA (10:16)
[2020-04-07] MEDS: lisinopriL 5 MG TAB PO SCH (11:03)
[2020-04-07 11:33] LABS: Glucose,Whole Blood 324 mg/dL (75-99)
[2020-04-07 12:47] VITALS: BMI 23.0
--- NOTE | 2020-04-07 15:25 | P.PN ---
Subjective Progress Note Date: 04/07/20 Principal diagnosis: New type II DM, completed Tx for eso adenocarcinoma In f/u pt is starting to tolerate some oral intake, very small amounts. He tolerates his tube feed well, no N,V, abd pain, severe diarrhea. He is due to see special educator today. Objective - Vital Signs Vital signs: Vital Signs Temp 97.8 F 04/07/20 11:50 Pulse 71 04/07/20 11:50 Resp 16 04/07/20 11:50 BP 93/59 04/07/20 11:50 Pulse Ox 93 L 04/07/20 11:50 Intake & Output 04/06/20 04/07/20 04/07/20 18:59 06:59 18:59 Intake Total 729.092 320 Output Total 150 Balance 579.092 320 Weight 80.7 kg 79.2 kg 79.2 kg Intake: Intake, IV Titration 9.092 Amount Insulin Regular 100 unit 9.092 In Sodium Chloride 0.9% 100 ml @ 0.1 UNITS/KG/HR 7.926 mls/hr IV .[id number] [facility] Rx#:[id number] Oral 720 320 Output: Urine 150 Other: Voiding Method Toilet Urinal # Voids 2 2 - Constitutional General appearance: Present: average body habitus, cooperative, no acute distres s - EENT Eyes: Present: anicteric sclerae, EOMI ENT: Present: hearing grossly normal, thrush - Neck Details: Radiation changes to the skin, no blisters or open areas of skin Neck: Absent: lymphadenopathy - Respiratory Respiratory: bilateral: CTA - Cardiovascular Rhythm: regular Heart sounds: normal: S1, S2 Abnormal Heart Sounds: Absent: systolic murmur, diastolic murmur, rub, S3 Gallop, S4 Gallop, click, other - Peripheral edema leg Peripheral Edema: bilateral: None - Gastrointestinal Gastrointestinal Comment(s): PEG site is clean, well healed General gastrointestinal: Present: soft - Neurologic Neurologic: Present: CNII-XII intact - Musculoskeletal Musculoskeletal: Present: strength equal bilaterally - Psychiatric Psychiatric: Present: A&O x's 3, appropriate affect, intact judgment & insight - Labs CBC & Chem 7: 04/07/20 04:16 04/07/20 04:16 Labs: Abnormal Lab Results - Last 24 Hours (Table) 04/06/20 04/06/20 04/07/20 Range/Units 17:14 20:00 03:59 MCV (80.0-97.0) fL MCH (27.0-32.0) pg Immature Gran # (0.00-0.04) X 10*3/uL Lymphocytes # (0.90-5.00) X 10*3/uL Eosinophils # (0.04-0.35) X 10*3/uL Sodium (135-145) mmol/L BUN/Creatinine Ratio (12.00-20.00) Ratio Glucose (70-110) mg/dL POC Glucose (mg/dL) 214 H 362 H 250 H (75-99) mg/dL Calcium (8.7-10.3) mg/dL 04/07/20 04/07/20 04/07/20 Range/Units 04:16 04:16 07:04 MCV 97.1 H (80.0-97.0) fL MCH 33.9 H (27.0-32.0) pg Immature Gran # 0.28 H (0.00-0.04) X 10*3/uL Lymphocytes # 0.17 L (0.90-5.00) X 10*3/uL Eosinophils # 0.02 L (0.04-0.35) X 10*3/uL Sodium 129 L (135-145) mmol/L BUN/Creatinine Ratio 36.67 H (12.00-20.00) Ratio Glucose 239 H (70-110) mg/dL POC Glucose (mg/dL) 307 H (75-99) mg/dL Calcium 8.2 L (8.7-10.3) mg/dL 04/07/20 Range/Units 11:32 MCV (80.0-97.0) fL MCH (27.0-32.0) pg Immature Gran # (0.00-0.04) X 10*3/uL Lymphocytes # (0.90-5.00) X 10*3/uL Eosinophils # (0.04-0.35) X 10*3/uL Sodium (135-145) mmol/L BUN/Creatinine Ratio (12.00-20.00) Ratio Glucose (70-110) mg/dL POC Glucose (mg/dL) 324 H (75-99) mg/dL Calcium (8.7-10.3) mg/dL Assessment and Plan (1) DKA (diabetic ketoacidoses) Narrative/Plan: Newly diagnosed diabetic, admitted with blood sugar >600 asthma educator today Referral to Endocrinology outpatient Discussed case with [place] and Dietitian. Signed orders for glucometer and to change tube feed to a diabetic solution Current Visit: Yes Status: Acute Priority: High Code(s): E11.10 - TYPE 2 DIABETES MELLITUS WITH KETOACIDOSIS WITHOUT COMA SNOMED Code(s): 558218450 (2) Esophageal cancer Narrative/Plan: Pt just completed treatment for the same last week. Tx f/u scans due in about 2-3 weeks. Plan for those and outpt f/u. Current Visit: No Status: Chronic Priority: Medium Code(s): C15.9 - MALIGNANT NEOPLASM OF ESOPHAGUS, UNSPECIFIED SNOMED Code(s): 541834577 Time with Patient: Greater than 30
--- NOTE | 2020-04-07 15:47 | PN ---
PROGRESS NOTE DATE OF SERVICE: 04/07/2020 This 54-year-old gentleman who was admitted with new onset diabetes mellitus, type 2 and diabetic ketoacidosis is being closely monitored. Blood sugar is still elevated. Levemir dose has been adjusted. No chest pain. No palpitations. No fever. PHYSICAL EXAMINATION: On exam, alert and oriented x3. Pulse 71, blood pressure 98/59, respirations 16, temperature 97.8, pulse ox 93% on room air. HEENT: Conjunctivae normal. NECK: No jugular venous distention. CARDIOVASCULAR: S1, S2 muffled. RESPIRATORY SYSTEM: Breath sounds diminished at the bases. No rhonchi. ABDOMEN: Soft. PEG tube in situ. LEGS: No edema. No swelling. NERVOUS SYSTEM: No focal deficits. LABS: WBC 5.9, hemoglobin 15, sodium 129. ASSESSMENT: 1. New onset diabetes mellitus type 2, uncontrolled with acute diabetic ketoacidosis. 2. Hyponatremia. 3. Oral thrush and oral candidiasis. 4. Esophageal carcinoma, on chemotherapy. 5. Status post PEG tube. 6. History of coronary artery disease. 7. History of chest pain, angina. 8. History of chronic obstructive pulmonary disease. 9. Hypertension. 10.Hyperlipidemia. 11.History of degenerative joint disease. 12.History of vitiligo. 13.Right subclavian blood clot history. 14.History of coronary artery disease, stent. 15.History of nicotine dependence. 16.FULL CODE. RECOMMENDATIONS AND DISCUSSION: Recommend to continue current medications, continue symptomatic treatment. Otherwise at this time I recommend to increase the dose of Levemir to 40 units the daily and 30 units at night and NovoLog 5 units t.i.d. plus scale. I would also recommend dietary consultation to change the tube feeds to possibly Glucerna. Prognosis guarded. Further recommendations to follow. MMODL / IJN: [id number] /
[2020-04-07 17:07] LABS: Glucose,Whole Blood 295 mg/dL (75-99)
[2020-04-07 20:04] LABS: Glucose,Whole Blood 341 mg/dL (75-99)
[2020-04-07] MEDS: ATORVASTATIN 80 MG TAB PO SCH (20:50)
[2020-04-07] MEDS: MONTELUKAST 10 MG TAB PO SCH (20:50)
[2020-04-07] MEDS: INSULIN DETEMIR (LEVEMIR) 100 UNIT/ML SYR SQ SCH (20:50)
[2020-04-08 07:17] LABS: Glucose,Whole Blood 306 mg/dL (75-99)
[2020-04-08] MEDS: INSULIN DETEMIR (LEVEMIR) 100 UNIT/ML SYR SQ SCH ×2 (07:38→21:55)
[2020-04-08] MEDS: INSULIN ASPART (NovoLOG) 100 UNIT/ML VIAL SQ SCH ×6 (07:38→17:47)
[2020-04-08] MEDS: ASPIRIN 81 MG PO SCH (07:48)
[2020-04-08] MEDS: GABAPENTIN 300 MG CAP PO SCH ×2 (07:48→21:54)
[2020-04-08] MEDS: dexAMETHasone 4 MG TAB PO SCH ×2 (07:48→21:54)
[2020-04-08] MEDS: APIXABAN 5 MG TAB PO SCH ×2 (07:49→21:54)
[2020-04-08] MEDS: PANTOPRAZOLE 40 MG TABLET PO SCH (07:49)
[2020-04-08] MEDS: METOPROLOL TARTRATE 25 MG TAB PO SCH ×2 (07:49→21:55)
[2020-04-08] MEDS: MAG HYDROX/AL HYDROX/SIMETH 30 ML, diphenhydrAMINE ELIXIR 75 MG, LIDOCAINE VISCOUS 30 ML PO SCH ×12 (07:52→21:56)
[2020-04-08] MEDS: FLUTICASONE 110 MCG INHALER INHALATION SCH ×2 (08:09→21:14)
[2020-04-08 10:24] LABS: African American GFR (CKD) 118.2 (60.0-200.0); Anion Gap 8.3 mmol/L (4.00-12.00); Calcium 8.9 mg/dL (8.7-10.3); Carbon Dioxide 26.7 mmol/L (21.6-31.8); Potassium 4.3 mmol/L (3.5-5.5)
[2020-04-08 10:40] LABS: HCT 45.4 % (39.6-50.0); HGB 15.3 g/dL (13.0-17.0); MCH 33.1 pg (27.0-32.0); MCHC 33.7 g/dL (32.0-37.0); MCV 98.3 fL (80.0-97.0); Mean Platelet Volume 10.6 fL (9.5-12.2); Platelet Count 271 X 10*3/uL (140-440); RBC 4.62 X 10*6/uL (4.40-5.60); RDW 13.2 % (11.5-14.5); WBC 6.51 X 10*3/uL (4.50-10.00)
[2020-04-08 10:41] LABS: Basophils # (M) 0 X 10*3/uL (0.00-0.10); Eosinophils # (M) 0 X 10*3/uL (0.04-0.35); Lymphocytes # (M) 0.33 X 10*3/uL (0.90-5.00); Monocytes # (M) 0.72 X 10*3/uL (0.20-1.00); Neutrophils # (M) 5.47 X 10*3/uL (2.00-8.90); Neutrophils % (M) 84 %
[2020-04-08 11:12] LABS: Glucose,Whole Blood 315 mg/dL (75-99)
[2020-04-08 13:59] LABS: Hemoglobin A1C 9.8 % (4.0-6.0)
--- NOTE | 2020-04-08 14:28 | P.PN ---
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 He is very anxious to go home but, his blood glucose is still been in the 300s. Objective - Vital Signs Vital signs: Vital Signs Temp 98.0 F 04/08/20 13:00 Pulse 74 04/08/20 13:00 Resp 14 04/08/20 13:00 BP 101/66 04/08/20 13:00 Pulse Ox 94 L 04/08/20 13:00 Intake & Output 04/07/20 04/08/20 04/08/20 18:59 06:59 18:59 Weight 79.2 kg 78.7 kg Other: Voiding Method Toilet Toilet Urinal Urinal # Voids 5 - Constitutional General appearance: Present: average body habitus, cooperative, no acute distress - EENT Eyes: Present: anicteric sclerae, EOMI ENT: Present: hearing grossly normal - Respiratory Respiratory: bilateral: CTA - Cardiovascular Heart sounds: normal: S1, S2 - Peripheral edema leg Peripheral Edema: bilateral: None - Gastrointestinal General gastrointestinal: Present: normal bowel sounds, soft - Integumentary Integumentary: Present: normal - Neurologic Neurologic: Present: CNII-XII intact - Musculoskeletal Musculoskeletal: Present: strength equal bilaterally - Psychiatric Psychiatric: Present: A&O x's 3, appropriate affect, intact judgment & insight - Labs CBC & Chem 7: 04/08/20 04:31 04/08/20 04:31 Labs: Abnormal Lab Results - Last 24 Hours (Table) 04/07/20 04/07/20 04/08/20 Range/Units 17:05 20:02 04:31 MCV 98.3 H (80.0-97.0) fL MCH 33.1 H (27.0-32.0) pg Lymphocytes # (Manual) 0.33 L (0.90-5.00) X 10*3/uL Eosinophils # (Manual) 0 L (0.04-0.35) X 10*3/uL Sodium (135-145) mmol/L BUN/Creatinine Ratio (12.00-20.00) Ratio Glucose (70-110) mg/dL POC Glucose (mg/dL) 295 H 341 H (75-99) mg/dL Hemoglobin A1c (4.0-6.0) % 04/08/20 04/08/20 04/08/20 Range/Units 04:31 04:31 07:10 MCV (80.0-97.0) fL MCH (27.0-32.0) pg Lymphocytes # (Manual) (0.90-5.00) X 10*3/uL Eosinophils # (Manual) (0.04-0.35) X 10*3/uL Sodium 131 L (135-145) mmol/L BUN/Creatinine Ratio 30.00 H (12.00-20.00) Ratio Glucose 257 H (70-110) mg/dL POC Glucose (mg/dL) 306 H (75-99) mg/dL Hemoglobin A1c 9.8 H (4.0-6.0) % 04/08/20 Range/Units 11:10 MCV (80.0-97.0) fL MCH (27.0-32.0) pg Lymphocytes # (Manual) (0.90-5.00) X 10*3/uL Eosinophils # (Manual) (0.04-0.35) X 10*3/uL Sodium (135-145) mmol/L BUN/Creatinine Ratio (12.00-20.00) Ratio Glucose (70-110) mg/dL POC Glucose (mg/dL) 315 H (75-99) mg/dL Hemoglobin A1c (4.0-6.0) % Assessment and Plan (1) DKA (diabetic ketoacidoses) Narrative/Plan: Newly diagnosed diabetic, admitted with blood sugar >600 Diabetes education Referral to Endocrinology outpatient Discussed case with RN-pt still needs insulin Rx, sliding scale and timing of CBG checks. Current Visit: Yes Status: Acute Priority: High Code(s): E11.10 - TYPE 2 DIABETES MELLITUS WITH KETOACIDOSIS WITHOUT COMA SNOMED Code(s): 218859668 (2) Esophageal cancer Narrative/Plan: Pt just completed treatment for the same last week. Tx f/u scans due in about 2-3 weeks. Plan for those and outpt f/u. Orders were sent Current Visit: No Status: Chronic Priority: Medium Code(s): C15.9 - MALIGNANT NEOPLASM OF ESOPHAGUS, UNSPECIFIED SNOMED Code(s): 148474120
[2020-04-08 17:03] LABS: Glucose,Whole Blood 218 mg/dL (75-99)
[2020-04-08 20:36] LABS: Glucose,Whole Blood 314 mg/dL (75-99)
[2020-04-08] MEDS: MONTELUKAST 10 MG TAB PO SCH (21:54)
[2020-04-08] MEDS: ATORVASTATIN 80 MG TAB PO SCH (21:54)
[2020-04-08] MEDS ORDERED: INSULIN DETEMIR (LEVEMIR) 100 UNIT/ML SYR SQ ONE (23:20)
--- NOTE | 2020-04-08 23:27 | P.PN ---
Subjective This is a pleasant 54 years old male with past medical history of hypertension, hyperlipidemia, osteoarthritis, esophageal cancer status post PEG tube placement but he is able to eat a little bit, is also undergoing chemotherapy. And he was placed recently on dexamethasone less than week ago after he developed generalized weakness and side effects from his radiotherapy and chemotherapy as per patient. Presents with abnormal lab referred from outpatient with a glucose more than 600 with new onset diabetes mellitus and elevated hemoglobin A1c 9.8% Patient already started on Levemir 40 units in the morning and 30 units at night and 5 units of short acting insulin with meals On the top of that today patient need about 13 x-ray units of insulin and his glucose more than 300, therefore we increased his Levemir 40 units twice a day and short-acting insulin to 10 units with meals Patient has been asymptomatic today, no chest pain or dyspnea, no change in urine or bowel habits. No fever Oncology team on the case Vitals and labs are stable Objective - Vital Signs Vital signs: Vital Signs Temp 98.0 F 04/08/20 13:00 Pulse 74 04/08/20 13:00 Resp 14 04/08/20 13:00 BP 101/66 04/08/20 13:00 Pulse Ox 94 L 04/08/20 13:00 Intake & Output 04/07/20 04/08/20 04/08/20 18:59 06:59 18:59 Weight 79.2 kg 78.7 kg Other: Voiding Method Toilet Toilet Urinal Urinal # Voids 5 - Exam GENERAL: The patient is alert and oriented x3, not in any acute distress. Well developed, well nourished. HEENT: Pupils are round and equally reacting to light. EOMI. No scleral icterus. No conjunctival pallor. Normocephalic, atraumatic. No pharyngeal erythema. No thyromegaly. CARDIOVASCULAR: S1 and S2 present. No murmurs, rubs, or gallops. PULMONARY: Chest is clear to auscultation, no wheezing or crackles. ABDOMEN: Soft, nontender, nondistended, normoactive bowel sounds. No palpable organomegaly. MUSCULOSKELETAL: No joint swelling or deformity. EXTREMITIES: No cyanosis, clubbing, or pedal edema. NEUROLOGICAL: Gross neurological examination did not reveal any focal deficits. SKIN: No rashes. no petechiae. - Labs CBC & Chem 7: 04/08/20 04:31 04/08/20 04:31 Labs: Abnormal Lab Results - Last 24 Hours (Table) 04/07/20 04/07/20 04/08/20 Range/Units 17:05 20:02 04:31 MCV 98.3 H (80.0-97.0) fL MCH 33.1 H (27.0-32.0) pg Lymphocytes # (Manual) 0.33 L (0.90-5.00) X 10*3/uL Eosinophils # (Manual) 0 L (0.04-0.35) X 10*3/uL Sodium (135-145) mmol/L BUN/Creatinine Ratio (12.00-20.00) Ratio Glucose (70-110) mg/dL POC Glucose (mg/dL) 295 H 341 H (75-99) mg/dL Hemoglobin A1c (4.0-6.0) % 04/08/20 04/08/20 04/08/20 Range/Units 04:31 04:31 07:10 MCV (80.0-97.0) fL MCH (27.0-32.0) pg Lymphocytes # (Manual) (0.90-5.00) X 10*3/uL Eosinophils # (Manual) (0.04-0.35) X 10*3/uL Sodium 131 L (135-145) mmol/L BUN/Creatinine Ratio 30.00 H (12.00-20.00) Ratio Glucose 257 H (70-110) mg/dL POC Glucose (mg/dL) 306 H (75-99) mg/dL Hemoglobin A1c 9.8 H (4.0-6.0) % 04/08/20 Range/Units 11:10 MCV (80.0-97.0) fL MCH (27.0-32.0) pg Lymphocytes # (Manual) (0.90-5.00) X 10*3/uL Eosinophils # (Manual) (0.04-0.35) X 10*3/uL Sodium (135-145) mmol/L BUN/Creatinine Ratio (12.00-20.00) Ratio Glucose (70-110) mg/dL POC Glucose (mg/dL) 315 H (75-99) mg/dL Hemoglobin A1c (4.0-6.0) % Assessment and Plan Assessment: new onset diabetes mellitus with hemoglobin A1c of 9.8%, steroid induced Esophageal cancer undergoing chemo and radiotherapy History of Dysphagia status post PEG tube History of coronary artery disease COPD, no acute exacerbation History of right subclavian thrombosis Hypertension Hyperlipidemia History of degenerative joint disease History of vitiligo History of nicotine dependence Plan: this is a pleasant 54 years old male presents with new diabetes. Continue with insulin and decrease the dose to 40 units of Levemir twice a day and 10 units of short acting insulin with meals. Monitor glucose. Oncology team on the case Labs and medication were reviewed.. Continue same treatment. Continue with symptomatic treatment. Resume home medication. Monitor lytes and vitals. DVT and GI prophylaxis. Further recommendationsas per clinical course of the patient DVT prophylaxis: Eliquis GI Prophylaxis: Ppi Possible discharge in 24-48 hours if he keeps improving
[2020-04-09 00:22] LABS: Glucose,Whole Blood 285 mg/dL (75-99)
[2020-04-09 07:08] LABS: Glucose,Whole Blood 217 mg/dL (75-99)
[2020-04-09] MEDS: FLUTICASONE 110 MCG INHALER INHALATION SCH ×2 (07:51→20:33)
[2020-04-09] MEDS: INSULIN DETEMIR (LEVEMIR) 100 UNIT/ML SYR SQ SCH (09:25)
[2020-04-09] MEDS: INSULIN ASPART (NovoLOG) 100 UNIT/ML VIAL SQ SCH ×6 (09:26→17:49)
[2020-04-09] MEDS: METOPROLOL TARTRATE 25 MG TAB PO SCH ×2 (09:28→21:06)
[2020-04-09] MEDS: PANTOPRAZOLE 40 MG TABLET PO SCH (09:28)
[2020-04-09] MEDS: MAG HYDROX/AL HYDROX/SIMETH 30 ML, diphenhydrAMINE ELIXIR 75 MG, LIDOCAINE VISCOUS 30 ML PO SCH ×12 (09:28→21:09)
[2020-04-09] MEDS: GABAPENTIN 300 MG CAP PO SCH ×2 (09:29→21:06)
[2020-04-09] MEDS: ASPIRIN 81 MG PO SCH (09:31)
[2020-04-09] MEDS: dexAMETHasone 4 MG TAB PO SCH ×2 (09:31→21:06)
[2020-04-09] MEDS: APIXABAN 5 MG TAB PO SCH ×2 (09:31→21:06)
[2020-04-09 11:20] LABS: Glucose,Whole Blood 408 mg/dL (75-99)
[2020-04-09 12:58] LABS: Glucose,Whole Blood 343 mg/dL (75-99)
[2020-04-09 13:20] LABS: Albumin 3.9 g/dL (3.80-4.90); Albumin/Globulin Ratio 2.44 (1.60-3.17); Anion Gap 9.1 mmol/L (4.00-12.00); BUN/Creat Ratio 41.67 Ratio (12.00-20.00); Calcium 9.1 mg/dL (8.7-10.3); Carbon Dioxide 25.9 mmol/L (21.6-31.8); Globulin 1.6 g/dL (1.6-3.3); Magnesium 2.1 mg/dL (1.5-2.4); Non-African American GFR(CKD) 114.8 (60.0-200.0); Potassium 4.4 mmol/L (3.5-5.5); Total Bilirubin 0.4 mg/dL (0.3-1.2); Total Protein 5.5 g/dL (6.2-8.2)
--- NOTE | 2020-04-09 15:46 | P.PN ---
Subjective Progress Note Date: 04/09/20 Principal diagnosis: New type II DM, completed Tx for eso adenocarcinoma Patient is feeling well and anxious to go home but, he is continuing to need insulin adjustments. Swallowing is fair, has to choose certain foods, tolerates most fluids, PEG feeding is fine, no stomach ache, indigestion, bloating, N,V. Objective - Vital Signs Vital signs: Vital Signs Temp 97.6 F 04/09/20 13:00 Pulse 63 04/09/20 13:00 Resp 16 04/09/20 13:00 BP 113/69 04/09/20 13:00 Pulse Ox 92 L 04/09/20 13:00 Intake & Output 04/08/20 04/09/20 04/09/20 18:59 06:59 18:59 Intake Total 590 Balance 590 Intake: IV 10 Invasive Line 1 10 Oral 580 Other: Voiding Method Toilet Toilet Toilet Urinal # Voids 1 - Constitutional General appearance: Present: average body habitus, cooperative, no acute distress - EENT Eyes: Present: anicteric sclerae, EOMI ENT: Present: hearing grossly normal - Respiratory Details: resp even and unlabored - Peripheral edema leg Peripheral Edema: bilateral: None - Integumentary Integumentary: Present: normal - Neurologic Neurologic: Present: CNII-XII intact - Musculoskeletal Musculoskeletal: Present: strength equal bilaterally - Psychiatric Psychiatric: Present: A&O x's 3, appropriate affect, intact judgment & insight - Labs CBC & Chem 7: 04/08/20 04:31 04/09/20 07:33 Labs: Abnormal Lab Results - Last 24 Hours (Table) 04/08/20 04/08/20 04/09/20 Range/Units 17:01 20:35 00:20 Sodium (135-145) mmol/L BUN/Creatinine Ratio (12.00-20.00) Ratio Glucose (70-110) mg/dL POC Glucose (mg/dL) 218 H 314 H 285 H (75-99) mg/dL AST (14-35) U/L Total Protein (6.2-8.2) g/dL 04/09/20 04/09/20 04/09/20 Range/Units 07:07 07:33 11:19 Sodium 133 L (135-145) mmol/L BUN/Creatinine Ratio 41.67 H (12.00-20.00) Ratio Glucose 212 H (70-110) mg/dL POC Glucose (mg/dL) 217 H 408 H (75-99) mg/dL AST 12 L (14-35) U/L Total Protein 5.5 L (6.2-8.2) g/dL 04/09/20 Range/Units 12:56 Sodium (135-145) mmol/L BUN/Creatinine Ratio (12.00-20.00) Ratio Glucose (70-110) mg/dL POC Glucose (mg/dL) 343 H (75-99) mg/dL AST (14-35) U/L Total Protein (6.2-8.2) g/dL Assessment and Plan (1) DKA (diabetic ketoacidoses) Narrative/Plan: Newly diagnosed diabetic, admitted with blood sugar >600 Diabetes education done Referral to Endocrinology outpatient-requested in [place] summary SSI and long acting insulin being titrated Current Visit: Yes Status: Acute Priority: High Code(s): E11.10 - TYPE 2 DIABETES MELLITUS WITH KETOACIDOSIS WITHOUT COMA SNOMED Code(s): 434681440 (2) Esophageal cancer Narrative/Plan: Pt just completed treatment for the same last week. Tx f/u scans due-I was incorrect about the timing. Sched for Tuesday, appt date and time in [place]. F/U Dr. Price next week already sched. Pt aware. Current Visit: No Status: Chronic Priority: Medium Code(s): C15.9 - MALIGNANT NEOPLASM OF ESOPHAGUS, UNSPECIFIED SNOMED Code(s): 365897211
[2020-04-09 17:18] LABS: Glucose,Whole Blood 234 mg/dL (75-99)
--- NOTE | 2020-04-09 18:33 | P.PN ---
Subjective This is a pleasant 54 years old male with past medical history of hypertension, hyperlipidemia, osteoarthritis, esophageal cancer status post PEG tube placement but he is able to eat a little bit, is also undergoing chemotherapy. And he was placed recently on dexamethasone less than week ago after he developed generalized weakness and side effects from his radiotherapy and chemotherapy as per patient. Presents with abnormal lab referred from outpatient with a glucose more than 600 with new onset diabetes mellitus and elevated hemoglobin A1c 9.8% Patient already started on Levemir 40 units in the morning and 30 units at night and 5 units of short acting insulin with meals On the top of that today patient need about 13 x-ray units of insulin and his glucose more than 300, therefore we increased his Levemir 40 units twice a day and short-acting insulin to 10 units with meals Patient has been asymptomatic today, no chest pain or dyspnea, no change in urine or bowel habits. No fever Oncology team on the case Vitals and labs are stable 04/09/2020 Physician with no significant symptoms, physical glucose still uncontrolled underwent to 408 this afternoon. Patient is already on Levemir 40 units twice a day and NovoLog 10 units with meals. Regular diet and metformin 500 mg twice daily Patient still have nutrition via tube feeding. Patient states that he puts and hangs his tube food for himself at home Objective - Vital Signs Vital signs: Vital Signs Temp 97.6 F 04/09/20 13:00 Pulse 63 04/09/20 13:00 Resp 16 04/09/20 13:00 BP 113/69 04/09/20 13:00 Pulse Ox 92 L 04/09/20 13:00 Intake & Output 04/08/20 04/09/20 04/09/20 18:59 06:59 18:59 Intake Total 590 Balance 590 Intake: IV 10 Invasive Line 1 10 Oral 580 Other: Voiding Method Toilet Toilet Toilet Urinal # Voids 1 - Exam GENERAL: The patient is alert and oriented x3, not in any acute distress. Well developed, well nourished. HEENT: Pupils are round and equally reacting to light. EOMI. No scleral icterus. No conjunctival pallor. Normocephalic, atraumatic. No pharyngeal erythema. No thyromegaly. CARDIOVASCULAR: S1 and S2 present. No murmurs, rubs, or gallops. PULMONARY: Chest is clear to auscultation, no wheezing or crackles. ABDOMEN: Soft, nontender, nondistended, normoactive bowel sounds. No palpable organomegaly. MUSCULOSKELETAL: No joint swelling or deformity. EXTREMITIES: No cyanosis, clubbing, or pedal edema. NEUROLOGICAL: Gross neurological examination did not reveal any focal deficits. SKIN: No rashes. no petechiae. - Labs CBC & Chem 7: 04/08/20 04:31 04/09/20 07:33 Labs: Abnormal Lab Results - Last 24 Hours (Table) 04/08/20 04/08/20 04/08/20 Range/Units 04:31 17:01 20:35 Sodium (135-145) mmol/L BUN/Creatinine Ratio (12.00-20.00) Ratio Glucose (70-110) mg/dL POC Glucose (mg/dL) 218 H 314 H (75-99) mg/dL Hemoglobin A1c 9.8 H (4.0-6.0) % AST (14-35) U/L Total Protein (6.2-8.2) g/dL 04/09/20 04/09/20 04/09/20 Range/Units 00:20 07:07 07:33 Sodium 133 L (135-145) mmol/L BUN/Creatinine Ratio 41.67 H (12.00-20.00) Ratio Glucose 212 H (70-110) mg/dL POC Glucose (mg/dL) 285 H 217 H (75-99) mg/dL Hemoglobin A1c (4.0-6.0) % AST 12 L (14-35) U/L Total Protein 5.5 L (6.2-8.2) g/dL 04/09/20 04/09/20 Range/Units 11:19 12:56 Sodium (135-145) mmol/L BUN/Creatinine Ratio (12.00-20.00) Ratio Glucose (70-110) mg/dL POC Glucose (mg/dL) 408 H 343 H (75-99) mg/dL Hemoglobin A1c (4.0-6.0) % AST (14-35) U/L Total Protein (6.2-8.2) g/dL Assessment and Plan Assessment: new onset diabetes mellitus with hemoglobin A1c of 9.8%, steroid induced Esophageal cancer undergoing chemo and radiotherapy History of Dysphagia status post PEG tube History of coronary artery disease COPD, no acute exacerbation History of right subclavian thrombosis Hypertension Hyperlipidemia History of degenerative joint disease History of vitiligo History of nicotine dependence Plan: this is a pleasant 54 years old male presents with new diabetes. Continue with insulin and decrease the dose to 40 units of Levemir twice a day and 10 units of short acting insulin with meals. Also we will admit metformin 500 mg twice a day. Monitor glucose. Oncology team on the case Labs and medication were reviewed.. Continue same treatment. Continue with symptomatic treatment. Resume home medication. Monitor lytes and vitals. DVT and GI prophylaxis. Further recommendationsas per clinical course of the patient DVT prophylaxis: Eliquis GI Prophylaxis: Ppi Possible discharge in 24-48 hours if he keeps improving
[2020-04-09] MEDS: metFORMIN 500 MG TAB PO SCH (19:51)
[2020-04-09 20:12] LABS: Glucose,Whole Blood 324 mg/dL (75-99)
[2020-04-09] MEDS ORDERED: INSULIN DETEMIR (LEVEMIR) 100 UNIT/ML SYR SQ SCH (21:00)
[2020-04-09] MEDS: ATORVASTATIN 80 MG TAB PO SCH (21:06)
[2020-04-09] MEDS: MONTELUKAST 10 MG TAB PO SCH (21:06)
[2020-04-10 07:16] LABS: Glucose,Whole Blood 217 mg/dL (75-99)
[2020-04-10 07:35] VITALS: BP 102/72; PULSE 69; RESP 14; TEMP 97.7
[2020-04-10] MEDS: FLUTICASONE 110 MCG INHALER INHALATION SCH (07:55)
[2020-04-10] MEDS: INSULIN DETEMIR (LEVEMIR) 100 UNIT/ML SYR SQ SCH (08:42)
[2020-04-10] MEDS: INSULIN ASPART (NovoLOG) 100 UNIT/ML VIAL SQ SCH ×4 (08:43→12:38)
[2020-04-10] MEDS: PANTOPRAZOLE 40 MG TABLET PO SCH (08:45)
[2020-04-10] MEDS: metFORMIN 500 MG TAB PO SCH (08:45)
[2020-04-10] MEDS: MAG HYDROX/AL HYDROX/SIMETH 30 ML, diphenhydrAMINE ELIXIR 75 MG, LIDOCAINE VISCOUS 30 ML PO SCH ×6 (08:54→12:36)
[2020-04-10] MEDS: ASPIRIN 81 MG PO SCH (08:54)
[2020-04-10] MEDS: APIXABAN 5 MG TAB PO SCH (08:54)
[2020-04-10] MEDS: GABAPENTIN 300 MG CAP PO SCH (08:55)
[2020-04-10] MEDS: METOPROLOL TARTRATE 25 MG TAB PO SCH (08:55)
[2020-04-10] MEDS: dexAMETHasone 4 MG TAB PO SCH (08:58)
[2020-04-10 10:52] LABS: Glucose,Whole Blood 236 mg/dL (75-99)
[2020-04-10 12:23] LABS: Glucose,Whole Blood 271 mg/dL (75-99)
--- NOTE | 2020-04-10 13:03 | CDI ---
Documentation Clarification Form Date: 04/10/2020 12:48:40 PM From: Korina MinaSERGEI comer, CCDS Admit Date: 04/05/2020 02:07:00 PM Patient Name: Matt Henriquez Visit Number: [id number] Discharge Date: ATTENTION: The Clinical Documentation Specialists (CDI) and [facility] Coding Staff appreciate your assistance in clarifying documentation. Please respond to the clarification below the line at the bottom and electronically sign. The CDI & [facility] Coding staff will review the response and follow-up if needed. Please note: Queries are made part of the Legal Health Record. If you have any questions, please contact the author of this message via ITS. Dr. Edward Reid Sheet: Conflicting documentation has been found in the medical record: Per the 04/05 History & Physical: "New onset Diabetes Mellitus Type 2, uncontrolled with Acute Diabetic Ketoacidosis." Per the 04/09 Attending Progress Note: "New onset Diabetes Mellitus with Hemoglobin A1c of 9.8%, steroid induced." History/Risk Factors Per the 04/05 History & Physical Patient's Past History: Esophageal Cancer status post chemo/radiation, Dysphagia, PEG Tube placed 02/18/2020. Prostate Cancer, COPD, CAD, Hypertension, Hyperlipidemia, DJD, Vitiligo, Nicotine Dependence. Clinical Indicators: Presented to the ED on 04/05 with abnormal outpatient lab: Blood Glucose >600. Has felt unwell with fatigue, increased thirst and increased urinary frequency for several weeks. ED Clinical Impression: Newly diagnosed DM, Dehydration VS 04/05: T 97.9, P 91, R 18, BP 115/79, PO 98 - 94 RA BMI: 23.2 LAB 04/05: Lymph 0.47, Na 128, Cl 92, CO2 19, BUN 43, Creatinine 0.63, Glucose 332, GFR >90, Mag 2.5. UA: Clear, Sp [place] 1.044, Trace Protein, 4+ Glucose, 3+ Ketones. Acetone Positive Treatment 04/05: IV fluid 500 mls @ 999 mls/hr q31M, IV Insulin 5 unit x1, IV fluid 1,000 mls @ 100 mls/hr q10H, IV Insulin 101 mls @ 7.926 mls/hr q12H, IV Kcl/Dextrose/Na Cl 1,000 mls @ 150 mls/hr q6H. PEG Tube feeds. Consults: Diabetes Education, Dietitian, Hematology/Oncology. In your opinion, what is the most clinically appropriate diagnosis for this patient? New Diagnosis Diabetes Mellitus with Diabetic Ketoacidosis New Diagnosis Diabetes Mellitus without Diabetic Ketoacidosis Other explanation of clinical findings, please specify: Unable to determine (Last Revision: May 2017) New Diagnosis Diabetes Mellitus without Diabetic Ketoacidosis MTDD
--- NOTE | 2020-04-10 15:05 | P.PN ---
Subjective Progress Note Date: 04/10/20 Principal diagnosis: New type II DM, completed Tx for eso adenocarcinoma Patient is feeling well and anxious to go home but, he is continuing to need insulin adjustments. Swallowing is fair, has to choose certain foods, tolerates most fluids, PEG feeding is fine, no stomach ache, indigestion, bloating, N,V. Objective - Vital Signs Vital signs: Vital Signs Temp 97.7 F 04/10/20 07:33 Pulse 69 04/10/20 07:33 Resp 14 04/10/20 07:33 BP 102/72 04/10/20 07:33 Pulse Ox 94 L 04/10/20 07:33 Intake & Output 04/09/20 04/10/20 04/10/20 18:59 06:59 18:59 Intake Total 360 Balance 360 Weight 79.7 kg Intake: Oral 360 Other: Voiding Method Toilet Toilet # Voids 2 3 - Constitutional General appearance: Present: average body habitus, cooperative, no acute distress - EENT Eyes: Present: anicteric sclerae, EOMI ENT: Present: hearing grossly normal - Respiratory Details: resp even and unlabored - Integumentary Integumentary: Present: normal - Neurologic Neurologic: Present: CNII-XII intact - Musculoskeletal Musculoskeletal: Present: strength equal bilaterally - Psychiatric Psychiatric: Present: A&O x's 3, appropriate affect, intact judgment & insight - Labs CBC & Chem 7: 04/08/20 04:31 04/09/20 07:33 Labs: Abnormal Lab Results - Last 24 Hours (Table) 04/09/20 04/09/20 04/09/20 Range/Units 07:33 11:19 12:56 Sodium 133 L (135-145) mmol/L BUN/Creatinine Ratio 41.67 H (12.00-20.00) Ratio Glucose 212 H (70-110) mg/dL POC Glucose (mg/dL) 408 H 343 H (75-99) mg/dL AST 12 L (14-35) U/L Total Protein 5.5 L (6.2-8.2) g/dL 04/09/20 04/09/20 04/10/20 Range/Units 17:18 20:11 07:13 Sodium (135-145) mmol/L BUN/Creatinine Ratio (12.00-20.00) Ratio Glucose (70-110) mg/dL POC Glucose (mg/dL) 234 H 324 H 217 H (75-99) mg/dL AST (14-35) U/L Total Protein (6.2-8.2) g/dL Assessment and Plan (1) DKA (diabetic ketoacidoses) Narrative/Plan: Newly diagnosed diabetic, admitted with blood sugar >600 Diabetes education done Referral to Endocrinology outpatient-requested in [place] summary Status: Acute Priority: High Code(s): E11.10 - TYPE 2 DIABETES MELLITUS WITH KETOACIDOSIS WITHOUT COMA SNOMED Code(s): 812745641 (2) Esophageal cancer Narrative/Plan: Pt just completed treatment for the same last week. Tx f/u scans due-I was incorrect about the timing. Sched for Tuesday, appt date and time in [place]. F/U Dr. Price next week already sched. Pt aware. Status: Chronic Priority: Medium Code(s): C15.9 - MALIGNANT NEOPLASM OF ESOPHAGUS, UNSPECIFIED SNOMED Code(s): 609533185 Plan: Discussed case with Attending. Pt needs to have steroids tapered. Plan for taper documented. Attending adjusted diabetic meds/parameters as he tapers off steroids.
[2020-04-10] MEDS ORDERED: dexAMETHasone 4 MG TAB PO SCH (21:00)
--- NOTE | 2020-04-10 22:04 | P.DS ---
Providers Date of admission: 04/05/20 14:07 Attending physician: Jeromy Salazar Consults: 04/05/20 17:50 Consult Physician Routine Consulting Provider: Harshal Price Consult Reason/Comments: malignancy Do you want consulting provider notified?: Yes Primary care physician: Stated None Hospital Course: Diagnoses: new onset diabetes mellitus with hemoglobin A1c of 9.8%, mostly exacerbated by steroid use Esophageal cancer undergoing chemo and radiotherapy History of Dysphagia status post PEG tube, he uses tube feeding by himself at home History of coronary artery disease COPD, no acute exacerbation History of right subclavian thrombosis, on Eliquis. Patient states that he has prescription at home Hypertension Hyperlipidemia History of degenerative joint disease History of vitiligo History of nicotine dependence Hospital course: This is a pleasant 54 years old male with past medical history of hypertension, hyperlipidemia, osteoarthritis, esophageal cancer status post PEG tube placement but he is able to eat a little bit, is also undergoing chemotherapy. And he was placed recently on dexamethasone less than week ago after he developed generalized weakness and side effects from his radiotherapy and chemotherapy as per patient. Presents with abnormal lab referred from outpatient with a glucose more than 600 with new onset diabetes mellitus and elevated hemoglobin A1c 9.8% Patient already started on Levemir 40 units twice a day and NovoLog insulin 5-10 units of insulin with meals. Other than that patient has been asymptomatic for the last 2 days and he kept in the hospital for glucose monitoring. His glucose is controlled around 200 today. She is also on dexamethasone 8 mg twice daily, however today hematology/oncology team decided to discharge the patient on tapered dexamethasone, see discharge instruction. Case was discussed with hematology team. Because of this we decreased his dose of insulin upon discharge to 30 units twice a day of Levemir plus NovoLog sliding scale only as he is expected to have lower glucose reading and to decrease the risk of hypoglycemia. I have an extensive discussion of the patient more than once about the treatment regimens of insulin and the need for close glucose monitoring. Patient is aware that his sugar will be going down as he's getting off dexamethasone. Explained to him the need to check his glucose 4 times a day before each meal and at bedtime and explained the symptoms of hypoglycemia extensively with resources provided for him as well with a recommendation to call 911 on come to emergency room if his glucose this than 70 or more than 400 and he verbalized understanding and acceptance and send it back to me. Also I discussed the case with case consultant and she confirmed to me glucometer has been provided for the patient and his already picked it up. On the day of discharge he was asymptomatic and he was eager to go home today Patient was cleared for discharge by oncology service with a recommendation for CAT scan study tomorrow as an outpatient, to which patient is aware and agrees to follow up Problems and management plan were discussed with the patient and he verbalized understanding and acceptance Patient was found stable and can be discharged home however he needs follow-up as an outpatient. Patient was instructed to follow up with PCP within one week and patient agrees, however patient states that he does not have PCP and he does not want to follow up with one. Patient also was instructed to follow up with Dr. Price his oncologist and he agrees with the appointments made for him on , and to follow up with her salesperson jewelry Dr. Zee on 04/16 and he agrees as well to go to these appointments Note: Insulin Sliding scale is a provided for the patient and his prescription and as separate paper and it was read to him clearly and he verbalized understanding Physical exam Gen: patient is a AAOx3, no distress CVS: S1-S2, RRR, no murmur Lungs: B/L CTA, no wheezing Abdomen: soft, no distention, no tenderness, positive bowel sounds Extremity: no leg edema or induration Time spent more than 35 minutes Patient Condition at Discharge: Stable Plan - Discharge Summary Discharge Rx Participant: No New Discharge Prescriptions: New Dexamethasone [Decadron] 4 mg PO DIRECTED #18 tablet Insulin Detemir (Levemir) [Levemir] 30 unit SQ BID #1 vial Insulin Aspart [NovoLOG] 0 units SQ ACHS #1 vial Continue Atorvastatin [Lipitor] 80 mg PO HS #90 tab Metoprolol Tartrate [Lopressor] 25 mg PO BID #180 tab Nitroglycerin Sl Tabs [Nitrostat] 0.4 mg SUBLINGUAL Q5M PRN #25 tab PRN Reason: Chest Pain Aspirin EC [Ecotrin Low Dose] 81 mg PO DAILY Apixaban [Eliquis] 5 mg PO BID #60 tab diphenhydrAMINE [Benadryl] 50 mg PO DAILY PRN PRN Reason: GENERALIZED RASH Montelukast [Singulair] 10 mg PO HS Albuterol Inhaler [Ventolin Hfa Inhaler] 2 puff INHALATION RT-Q4H PRN PRN Reason: Shortness Of Breath Or Wheezing Magic Mouth Wash 5 ml PO QID Romaxkn-Fyyp-Oduy [phone] [Excedrin] 1 - 2 tab PO Q4H PRN PRN Reason: Migraine Headache Beclomethasone Dip 80 Mcg/Puff [Qvar 80 mcg] 2 puff INHALATION RT-BID Calcium Carbonate [Tums] 500 mg PO TID PRN PRN Reason: Heartburn Gabapentin 300 mg PO BID Omeprazole 40 mg PO DAILY Prochlorperazine [Compazine] 10 mg PO Q6H PRN PRN Reason: Nausea Discontinued lisinopriL [Zestril] 5 mg PO DAILY Dexamethasone [Decadron] 8 mg PO BID Discharge Medication List Atorvastatin [Lipitor] 80 mg PO HS #90 tab 10/13/16 [Rx] Metoprolol Tartrate [Lopressor] 25 mg PO BID #180 tab 10/13/16 [Rx] Nitroglycerin Sl Tabs [Nitrostat] 0.4 mg SUBLINGUAL Q5M PRN #25 tab 10/13/16 [Rx] Aspirin EC [Ecotrin Low Dose] 81 mg PO DAILY 12/07/17 [History] Apixaban [Eliquis] 5 mg PO BID #60 tab 04/01/18 [Rx] Montelukast [Singulair] 10 mg PO HS 10/23/19 [History] diphenhydrAMINE [Benadryl] 50 mg PO DAILY PRN 10/23/19 [History] Albuterol Inhaler [Ventolin Hfa Inhaler] 2 puff INHALATION RT-Q4H PRN 11/13/19 [History] Wzrmioz-Uwrn-Lalv [phone] [Excedrin] 1 - 2 tab PO Q4H PRN 04/05/20 [History] Beclomethasone Dip 80 Mcg/Puff [Qvar 80 mcg] 2 puff INHALATION RT-BID 04/05/20 [History] Calcium Carbonate [Tums] 500 mg PO TID PRN 04/05/20 [History] Gabapentin 300 mg PO BID 04/05/20 [History] Magic Mouth Wash 5 ml PO QID 04/05/20 [History] Omeprazole 40 mg PO DAILY 04/05/20 [History] Prochlorperazine [Compazine] 10 mg PO Q6H PRN 04/05/20 [History] Dexamethasone [Decadron] 4 mg PO DIRECTED #18 tablet 04/10/20 [Rx] Insulin Aspart [NovoLOG] 0 units SQ ACHS #1 vial 04/10/20 [Rx] Insulin Detemir (Levemir) [Levemir] 30 unit SQ BID #1 vial 04/10/20 [Rx] Follow up Appointment(s)/Referral(s): Harshal Price MD [STAFF PHYSICIAN] - 04/15/20 2:30 pm None,Stated [Primary Care Provider] - 1-2 days [facility], [REFERRING] - 1 Week Annie Mercado MD [STAFF PHYSICIAN] - 04/16/20 11:15 am (Please make referral-pt is new diabetic) Ambulatory/Diagnostic Orders: Miscellaneous Radiology Order [RAD.AMB] Location: None Selected Patient Instructions/Handouts: Insulin Scale A (MPH), Hypoglycemia in a Person with Diabetes (DC), Hypoglycemia in a Person with Diabetes (GEN), Hypoglycemia in a Person with Diabetes (IP) Activity/Diet/Wound Care/Special Instructions: For Oncology-CT scan appt is Tuesday04/11/20 at 2:40 pm at [facility] low carbohydrate diet Activity is restricted until you see your doctor Please be advised if your steroids [dexamethasone] is a stopped then he will need less dose of insulin, otherwise your blood glucose will drop We recommend to recheck his glucose 4 times a day, before each meal and at bedtime, keep the results in a log book and bring it to your doctor on your appointment date if Glucose less than 70 or more than 400 then call 911 and come to emergency room Steroid taper. 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
== END 2020-04-10 14:00 | disposition home health service (06) | DRG 638 ==
LOC: EC 12:53 → 3SCARD 14:07 → 5NMEDONC 04-06 16:51
PROVIDERS: ADMIT Hospitalist; ATTEND Hospitalist
PROC: 3E0G76Z Introduction of Nutritional Substance into Upper GI, Via Natural or Artificial Opening (ICD-10-PCS; principal; 2020-04-06)
DX: E11.9 Type 2 diabetes mellitus without complications (principal); C15.9 Malignant neoplasm of esophagus, unspecified; B37.0 Candidal stomatitis; E87.1 Hypo-osmolality and hyponatremia; C78.7 Secondary malignant neoplasm of liver and intrahepatic bile duct; T38.0X5A Adverse effect of glucocorticoids and synthetic analogues, initial encounter; J44.9 Chronic obstructive pulmonary disease, unspecified; Z93.1 Gastrostomy status; E86.0 Dehydration; R13.10 Dysphagia, unspecified; Z20.822 Contact with and (suspected) exposure to COVID-19; I25.10 Atherosclerotic heart disease of native coronary artery without angina pectoris; I10 Essential (primary) hypertension; E78.5 Hyperlipidemia, unspecified; K21.9 Gastro-esophageal reflux disease without esophagitis; M19.90 Unspecified osteoarthritis, unspecified site; Z71.3 Dietary counseling and surveillance; Z95.5 Presence of coronary angioplasty implant and graft; Z98.890 Other specified postprocedural states; Z88.0 Allergy status to penicillin; Z79.82 Long term (current) use of aspirin; Z79.899 Other long term (current) drug therapy; Z79.01 Long term (current) use of anticoagulants; Z86.718 Personal history of other venous thrombosis and embolism; Z92.21 Personal history of antineoplastic chemotherapy; Z87.891 Personal history of nicotine dependence; Z82.5 Family history of asthma and other chronic lower respiratory diseases; Z80.42 Family history of malignant neoplasm of prostate; Z82.49 Family history of ischemic heart disease and other diseases of the circulatory system; Z90.49 Acquired absence of other specified parts of digestive tract; Z83.3 Family history of diabetes mellitus
CPT/HCPCS: 36415; 71046; 80048; 80051; 80053; 81003; 82009; 82565; 82947; 83036; 83735; 84100; 84520; 85025; 85610; 87635; 93005; 94640; 96360; 99285

== ENCOUNTER → 2020-04-11 | Outpatient (CLI) | payer BC ==
[2020-04-11 15:33] LABS: African American GFR (CKD) >90 (>60 ml/min/1.73 sqM); Blood Urea Nitrogen 29 mg/dL (9-20); Non-African American GFR(CKD) >90 (>60 ml/min/1.73 sqM)
--- NOTE | 2020-04-12 11:02 | CT ---
EXAMINATION TYPE: CT ChestAbdPelvis w con DATE OF EXAM: 04/11/2020 COMPARISON: 01/04/2020 HISTORY: Metastatic liver, esophageal cancer. CT DLP: 955.3 mGycm Automated exposure control for dose reduction was used. CONTRAST: CT scan of the chest, abdomen and pelvis is performed with Oral Contrast and with IV Contrast, patien t injected with 100 mL of Isovue 300. FINDINGS: Chest CT: As noted previously there are multiple blebs in the upper lobes. There is a stable small 4 to 5 mm no dule in the right lower lobe. There has been interval development of a 4.3 mm nodule in the left upper lobe. There are new scattered groundglass opacities in the left upper and l eft lower lobes. There is no pleural effusion, pleural thickening or pneumothorax. The great vessels of the chest are normal and there is no mediastinal, hilar or axillary adenopathy. There is a large hiatal hernia and fundoplication surgery. Compared to the prior study, there is grea ter soft tissue density in the region of the distal esophagus and stomach fundus which could be relat ed to increasing neoplasm or secondary to poor distention of the stomach. There has been interval mack cement of a gastrostomy tube. The osseous structures of the thorax are intact. CT abdomen and pelvis: There are a few small scattered low-density lesions within the liver which are stable compared to the prior study however these were much larger on multiple prior studies and are consistent with metasta tic deposits which are stable compared to the most recent prior study but significantly smaller when compared to remote studies. There is a large gallstone but there is no gallbladder distention, wall thickening or pericholecystic fluid. There is no biliary ductal dilatation. The pancreas spleen and adrenal glands are normal. The kidneys excrete contrast promptly and symmetrically and there is no solid renal mass or hydroneph rosis. There is a moderate simple cyst of the upper pole of the left kidney which was seen previously and is stable. The caliber of the abdominal aorta is normal and there is no retroperitoneal adenopathy or hemorrhage . The bowel loops are normal in caliber and there is no mesenteric inflammation. There is no free intra peritoneal air or fluid. There is no pelvic mass or adenopathy. The osseous structures of the pelvis and spine are intact. IMPRESSION: 1. No change in the small metastatic lesions in the liver. 2. Questionable increased neoplasm of the distal esophagus and stomach fundus as described above. 3. Possible new metastatic disease to the left lung as described above. 4. Stable cholelithiasis.
== END | disposition home or self-care (01) ==
LOC: RADCTMAIN 14:44
PROVIDERS: ATTEND Internal Medicine Hematology & Oncology
DX: K80.20 Calculus of gallbladder without cholecystitis without obstruction (principal); C78.7 Secondary malignant neoplasm of liver and intrahepatic bile duct; C15.5 Malignant neoplasm of lower third of esophagus; Z88.0 Allergy status to penicillin
CPT/HCPCS: 82565; 84520; 71260; 74177; 36415; Q9967 ×2

== ENCOUNTER → 2020-04-16 | Outpatient (CLI) | payer BC ==
[2020-04-16 20:38] LABS: African American GFR (CKD) 124.9 (60.0-200.0); Albumin/Globulin Ratio 2.5 (1.60-3.17); Anion Gap 7.1 mmol/L (4.00-12.00); Calcium 8.7 mg/dL (8.7-10.3); Carbon Dioxide 27.9 mmol/L (21.6-31.8); Globulin 1.6 g/dL (1.6-3.3); Non-African American GFR(CKD) 107.7 (60.0-200.0); Potassium 4.2 mmol/L (3.5-5.5); Total Bilirubin 0.4 mg/dL (0.3-1.2); Total Protein 5.6 g/dL (6.2-8.2)
[2020-04-17 02:00] LABS: C-Peptide 0.71 ng/mL (0.81-3.85)
== END | disposition home or self-care (01) ==
LOC: LABWHC1 12:42
PROVIDERS: ATTEND Internal Medicine Endocrinology, Diabetes & Metabolism
DX: E11.65 Type 2 diabetes mellitus with hyperglycemia (principal)
CPT/HCPCS: 36415; 80053; 84681

== ENCOUNTER 2020-05-30 07:19 | Day surgery (SDC) | payer BC ==
[2020-05-28 08:56] VITALS: BMI 23.7
[~2020-05-30 07:19] MED LIST changes: -LIDOCAINE 1% (10MG/ML) FOR IV START INTRADERMA PRN
[2020-05-30 07:41] VITALS: TEMP 96.9
[2020-05-30 07:41] LABS: Glucose,Whole Blood 152 mg/dL (75-99)
[2020-05-30] MEDS ORDERED: LIDOCAINE 1% INJ 10MG/ML (20 ML MDV) ONE (08:10)
[2020-05-30] MEDS ORDERED: PROPOFOL 10 MG/ML 20 ML VIAL IV ONE (08:10)
--- NOTE | 2020-05-30 08:16 | P.GSHP ---
History of Present Illness H&P Date: 05/30/20 Chief Complaint: History of esophageal cancer Is a 54-year-old male with known esophageal cancer. Patient presents today for EGD. He's had some trouble with heartburn and indigestion. Past Medical History Past Medical History: Coronary Artery Disease (CAD), Cancer, Chest Pain / Angina, COPD, Hyperlipidemia, Hypertension, Osteoarthritis (OA), Skin Disorder Additional Past Medical History / Comment(s): fell down stairs in Mar 2020 has 2 rt rib fx's, Esophageal CA-currently between chemo regimen-last dose chemo,15 radiation tx's-last tx Feb 2020, vitiglio, hx. RT SUBCLAVIAN BLOOD CLOT History of Any Multi-Drug Resistant Organisms: None Reported Past Surgical History: Appendectomy, Heart Catheterization With Stent Additional Past Surgical History / Comment(s): patient states he had his stomach flipped 180 degrees because of acid reflux", 2 cardiac stents, mediport left chest Past Anesthesia/Blood Transfusion Reactions: No Reported Reaction Date of Last Stent Placement:: 2016 Smoking Status: Former smoker - Past Family History Father Family Medical History: Cancer, COPD Additional Family Medical History / Comment(s): prostate cancer Mother Family Medical History: Chest Pain / Angina, Coronary Artery Disease (CAD), Myocardial Infarction ([place]) Additional Family Medical History / Comment(s): "Mother had multiple heart attacks and open heart surgery" Medications and Allergies Home Medications Medication Instructions Recorded Confirmed Type Atorvastatin [Lipitor] 80 mg PO HS #90 tab 10/13/16 05/28/20 Rx Metoprolol Tartrate [Lopressor] 25 mg PO BID #180 tab 10/13/16 05/30/20 Rx Nitroglycerin Sl Tabs [Nitrostat] 0.4 mg SUBLINGUAL Q5M PRN #25 tab 10/13/16 05/30/20 Rx Aspirin EC [Ecotrin Low Dose] 81 mg PO DAILY 12/07/17 05/28/20 History Apixaban [Eliquis] 5 mg PO BID #60 tab 04/01/18 05/28/20 Rx Montelukast [Singulair] 10 mg PO HS 10/23/19 05/28/20 History diphenhydrAMINE [Benadryl] 50 mg PO DAILY PRN 10/23/19 05/30/20 History Albuterol Inhaler [Ventolin Hfa 2 puff INHALATION RT-Q4H PRN 11/13/19 05/30/20 History Inhaler] Ytkwsrb-Rlal-Dlqm [phone] 1 - 2 tab PO Q4H PRN 04/05/20 05/28/20 History [Excedrin] Beclomethasone Dip 80 Mcg/Puff 2 puff INHALATION RT-BID 04/05/20 05/28/20 History [Qvar 80 mcg] Calcium Carbonate [Tums] 500 mg PO TID PRN 04/05/20 05/28/20 History Gabapentin 300 mg PO BID 04/05/20 05/28/20 History Magic Mouth Wash 5 ml PO QID 04/05/20 05/30/20 History Omeprazole 40 mg PO DAILY 04/05/20 05/28/20 History Prochlorperazine [Compazine] 10 mg PO Q6H PRN 04/05/20 05/28/20 History Hydrocortisone 10 mg PO BID 05/28/20 05/28/20 History Insulin Aspart [NovoLOG] 0 units SQ ACHS PRN 05/28/20 05/28/20 History Insulin Detemir (Levemir) [Levemir] 18 unit SQ BID 05/28/20 05/28/20 History Allergies Allergy/AdvReac Type Severity Reaction Status Date / Time Penicillins Allergy Unknown Verified 05/30/20 07:31 Childhood Surgical - Exam Vital Signs Temp Pulse Resp BP Pulse Ox 96.9 F L 88 17 111/71 98 05/30/20 07:35 05/30/20 07:35 05/30/20 07:35 05/30/20 07:35 05/30/20 07:35 - General well developed, well nourished, no distress - Eyes PERRL - ENT normal pinna - Neck no masses - Respiratory normal expansion - Cardiovascular Rhythm: regular - Abdomen Abdomen: soft, non tender Results - Labs Abnormal Lab Results - Last 24 Hours (Table) 05/30/20 Range/Units 07:38 POC Glucose (mg/dL) 152 H (75-99) mg/dL Assessment and Plan Assessment: History of esophageal cancer. We'll perform EGD.
--- NOTE | 2020-05-30 08:24 | P.OP ---
Date of Procedure: 05/30/20 Preoperative Diagnosis: Esophageal cancer Postoperative Diagnosis: Esophageal cancer PEG tube including pylorus. Hiatal hernia Procedure(s) Performed: EGD Anesthesia: MAC Surgeon: Jabari Gaona Pathology: other (Esophageal) Condition: stable Disposition: PACU Description of Procedure: The patient's placed on the endoscopy table in the lateral position. He received IV sedation. The gastroscope placed oropharynx passed in the esophagus into the stomach. Scope was advanced the patient had a PEG tube the balloon was in the first portion of the duodenum just beyond the pylorus.. The obstructing the outlet of stomach. The PEG tube was withdrawn and secured at 3 cm trini. This point there is no evidence of any gastric outlet obstruction. The gastroscope was then retroflexed the patient a moderate size hiatal hernia. The GE junction was at 37 cm. The esophagus was examined. There appeared to be evidence of scarring the esophagus. Patient's previous esophageal tumor had markedly decreased in size. Several biopsies of the esophagus performed. The scarring esophagus extended the lower third esophagus. The proximal esophagus appeared normal. Scope was withdrawn for patient.
[2020-05-30 08:34] VITALS: RESP 16
[2020-05-30 08:51] VITALS: BP 127/84; PULSE 81
== END 2020-05-30 08:59 | disposition home or self-care (01) ==
LOC: ORWHC2ENDO 07:19
PROVIDERS: ATTEND Surgery
DX: C15.9 Malignant neoplasm of esophagus, unspecified (principal); C78.00 Secondary malignant neoplasm of unspecified lung; C78.7 Secondary malignant neoplasm of liver and intrahepatic bile duct; K20.90 Esophagitis, unspecified without bleeding; K44.9 Diaphragmatic hernia without obstruction or gangrene; I25.10 Atherosclerotic heart disease of native coronary artery without angina pectoris; J44.9 Chronic obstructive pulmonary disease, unspecified; E78.5 Hyperlipidemia, unspecified; I10 Essential (primary) hypertension; M19.90 Unspecified osteoarthritis, unspecified site; Z79.01 Long term (current) use of anticoagulants; Z79.82 Long term (current) use of aspirin; Z79.899 Other long term (current) drug therapy; Z88.0 Allergy status to penicillin; Z80.42 Family history of malignant neoplasm of prostate; Z82.49 Family history of ischemic heart disease and other diseases of the circulatory system; Z83.6 Family history of other diseases of the respiratory system; Z87.891 Personal history of nicotine dependence; Z93.1 Gastrostomy status; Z95.5 Presence of coronary angioplasty implant and graft
CPT/HCPCS: 88305; 88312; 43239; J2001; J2704

== ENCOUNTER 2020-06-08 19:08 | Emergency (ER) | payer BC ==
[2020-06-08 19:52] VITALS: TEMP 98.3
[2020-06-08] MEDS ORDERED: SODIUM CHLORIDE 0.9% 1,000 ML IV STA (20:27)
--- NOTE | 2020-06-08 20:44 | ED ---
SOB HPI - General Chief Complaint: Shortness of Breath Stated Complaint: Covid +, low 02 & Fever Time Seen by Provider: 06/08/20 20:07 Source: patient, RN notes reviewed Mode of arrival: ambulatory Limitations: no limitations - History of Present Illness Initial Comments: Patient is a 54-year-old male that presents to the emergency department complaining of nausea, shortness of breath. He notes that he did test positive for Covid on 06/03/2020. He noted that the first few days his symptoms were that bad but that progressively gotten slightly worse so he decided to come to the emergency room to get a further evaluation and workup. He was well- appearing, in no apparent distress or pain while sitting up in bed in exam and interview. He did report that he has had a hard time keeping fluids and food down as he has had decreased appetite with nausea. He denied any other pain aches or complaints. He denied any chest pain headache vomiting diarrhea constipation fever fatigue chills. - Related Data Home Medications Medication Instructions Recorded Confirmed Aspirin EC [Ecotrin Low Dose] 81 mg PO DAILY 12/07/17 05/28/20 Montelukast [Singulair] 10 mg PO HS 10/23/19 05/28/20 diphenhydrAMINE [Benadryl] 50 mg PO DAILY PRN 10/23/19 05/30/20 Albuterol Inhaler [Ventolin Hfa 2 puff INHALATION RT-Q4H PRN 11/13/19 05/30/20 Inhaler] Jaohdbx-Rmbd-Lzux [id number] 1 - 2 tab PO Q4H PRN 04/05/20 05/28/20 [Excedrin] Beclomethasone Dip 80 Mcg/Puff 2 puff INHALATION RT-BID 04/05/20 05/28/20 [Qvar 80 mcg] Calcium Carbonate [Tums] 500 mg PO TID PRN 04/05/20 05/28/20 Gabapentin 300 mg PO BID 04/05/20 05/28/20 Magic Mouth Wash 5 ml PO QID 04/05/20 05/30/20 Omeprazole 40 mg PO DAILY 04/05/20 05/28/20 Prochlorperazine [Compazine] 10 mg PO Q6H PRN 04/05/20 05/28/20 Hydrocortisone 10 mg PO BID 05/28/20 05/28/20 Insulin Aspart [NovoLOG] 0 units SQ ACHS PRN 05/28/20 05/28/20 Insulin Detemir (Levemir) [Levemir] 18 unit SQ BID 05/28/20 05/28/20 Previous Rx's Medication Instructions Recorded Atorvastatin [Lipitor] 80 mg PO HS #90 tab 10/13/16 Metoprolol Tartrate [Lopressor] 25 mg PO BID #180 tab 10/13/16 Nitroglycerin Sl Tabs [Nitrostat] 0.4 mg SUBLINGUAL Q5M PRN #25 tab 10/13/16 Apixaban [Eliquis] 5 mg PO BID #60 tab 04/01/18 Allergies Allergy/AdvReac Type Severity Reaction Status Date / Time Penicillins Allergy Unknown Verified 06/08/20 19:53 Childhood Review of Systems ROS Statement: Those systems with pertinent positive or pertinent negative responses have been documented in the HPI. ROS Other: All systems not noted in ROS Statement are negative. Past Medical History Past Medical History: Coronary Artery Disease (CAD), Cancer, Chest Pain / Angina, COPD, Hyperlipidemia, Hypertension, Osteoarthritis (OA) Additional Past Medical History / Comment(s): Esophageal CA-currently between chemo regimen, dysphagia recently to solids, vitiglio, hx. RT SUBCLAVIAN BLOOD CLOT History of Any Multi-Drug Resistant Organisms: None Reported Past Surgical History: Appendectomy, Heart Catheterization With Stent Additional Past Surgical History / Comment(s): patient states he had his stomach flipped 180 degrees because of acid reflux", 2 cardiac stents, mediport left chest Past Anesthesia/Blood Transfusion Reactions: No Reported Reaction Date of Last Stent Placement:: 2016 Past Psychological History: No Psychological Hx Reported Smoking Status: Current every day smoker, Former smoker - Past Family History Father Family Medical History: Cancer, COPD Additional Family Medical History / Comment(s): prostate cancer Mother Family Medical History: Chest Pain / Angina, Coronary Artery Disease (CAD), Myocardial Infarction ([place]) Additional Family Medical History / Comment(s): "Mother had multiple heart attacks and open heart surgery" General Exam Limitations: no limitations General appearance: alert, in no apparent distress Head exam: Present: atraumatic, normocephalic, normal inspection Eye exam: Present: normal appearance, PERRL, EOMI. Absent: scleral icterus, conjunctival injection, periorbital swelling Neck exam: Present: normal inspection. Absent: tenderness, meningismus, lymphadenopathy Respiratory exam: Present: normal lung sounds bilaterally. Absent: respiratory distress, wheezes, rales, rhonchi, stridor Cardiovascular Exam: Present: regular rate, normal rhythm, normal heart sounds. Absent: systolic murmur, diastolic murmur, rubs, gallop, clicks GI/Abdominal exam: Present: soft, normal bowel sounds, other (PEG tube in place). Absent: distended, tenderness, guarding, rebound, rigid Extremities exam: Present: normal inspection, full ROM, normal capillary refill. Absent: tenderness, pedal edema, joint swelling, calf tenderness Neurological exam: Present: alert, oriented X3, CN II-XII intact Psychiatric exam: Present: normal affect, normal mood Skin exam: Present: warm, dry, intact, normal color. Absent: rash Course Vital Signs 06/08/20 06/08/20 19:47 20:44 Temperature 98.3 F Pulse Rate 101 H 80 Respiratory 24 18 Rate Blood Pressure 100/79 99/71 O2 Sat by Pulse 96 93 L Oximetry Medical Decision Making - Medical Decision Making 54-year-old male that tested positive for Covid on 06/03/2020 feeling worse. Chest x-ray, Covid test, 1 L normal saline ordered. Covid test was ordered due to patient not bringing his results with him. Patient's Covid test in-house was positive. Patient does qualify for monoclonal antibiotic therapy and she is to undergo IV infusion therapy. Case discussed with Dr. Talbot patient can discharge home after IV infusion. - Lab Data Lab Results 06/08/20 Range/Units 20:28 Coronavirus (PCR) Detected A (Not Detectd) - Radiology Data Radiology results: report reviewed, image reviewed Chest x-ray: There is interval mild to moderate bibasilar patchy opacities. No pleural effusion or pneumothorax seen. The cardiac silhouette size is within normal limits. Osseous structures are intact. A left IJ port catheter remains in place. Disposition Clinical Impression: COVID-19 Disposition: HOME SELF-CARE Condition: Stable Instructions (If sedation given, give patient instructions): Coronavirus Disease 2019 (COVID-19) Additional Instructions: Please return to the Emergency Department if symptoms worsen or any other concerns. Follow-up with primary care after the 10-14 day quarantine from symptom onset. Continue take at home medications as prescribed. Can take xcix-zmg-rwkugju anti-inflammatories for fever and muscle aches pains control. Is patient prescribed a controlled substance at d/c from ED?: No Referrals: None,Stated [Primary Care Provider] - 1-2 days Time of Disposition: 21:38
[2020-06-08 20:45] VITALS: RESP 18
--- NOTE | 2020-06-08 21:07 | XR ---
EXAMINATION TYPE: XR chest 2V DATE OF EXAM: 06/08/2020 COMPARISON: 04/05/2020. HISTORY: Difficulty breathing. TECHNIQUE: Frontal and lateral views of the chest are obtained. FINDINGS: There is interval mild to moderate bibasilar patchy opacities. No pleural effusion, or pne umothorax seen. The cardiac silhouette size is within normal limits. The osseous structures are in tact. A left IJ port catheter remains in place. IMPRESSION: Interval bibasilar infiltrates..
[2020-06-08] MEDS ORDERED: SODIUM CHLORIDE 0.9% 50 ML IVPB ONE (21:15)
[2020-06-08] MEDS ORDERED: BAMLANIVIMAB (EUA) 700 MG, ETESEVIMAB (EUA) 1,400 MG in SODIUM CHLORIDE 0.9% 50 ML IVPB ONE (21:15)
[2020-06-08 23:02] VITALS: BP 124/83; PULSE 69
== END 2020-06-08 23:02 | disposition home or self-care (01) ==
LOC: EC 19:08
DX: U07.1 COVID-19 (principal); E78.5 Hyperlipidemia, unspecified; F17.200 Nicotine dependence, unspecified, uncomplicated; I10 Essential (primary) hypertension; I25.10 Atherosclerotic heart disease of native coronary artery without angina pectoris; J44.9 Chronic obstructive pulmonary disease, unspecified; K21.9 Gastro-esophageal reflux disease without esophagitis; M19.90 Unspecified osteoarthritis, unspecified site; Z79.01 Long term (current) use of anticoagulants; Z79.4 Long term (current) use of insulin; Z79.51 Long term (current) use of inhaled steroids; Z79.82 Long term (current) use of aspirin; Z88.0 Allergy status to penicillin; Z85.01 Personal history of malignant neoplasm of esophagus
CPT/HCPCS: 87635; 71046; 99285; 96365; 96361; Q0245

== ENCOUNTER → 2020-07-08 | Outpatient (CLI) | payer BC ==
[2020-07-08 08:16] LABS: African American GFR (CKD) >90 (>60 ml/min/1.73 sqM); Blood Urea Nitrogen 9 mg/dL (9-20); Non-African American GFR(CKD) >90 (>60 ml/min/1.73 sqM)
--- NOTE | 2020-07-08 11:22 | CT ---
EXAMINATION TYPE: CT ChestAbdPelvis w con DATE OF EXAM: 07/08/2020 INDICATION: esophageal CA COMPARISON: 04/11/2020, 07/06/2018 CT DLP: 1622 mGycm CONTRAST: Performed with Oral Contrast and with IV Contrast, patient injected with 100 mL of Isovue 300. TECHNIQUE: Axial images at 5 mm thick sections. Reconstructed images in the coronal plane. Delayed images through the kidneys. FINDINGS: CT CHEST: Portion of the thyroid visualized is normal. Some compressive atelectasis may be in the posterior right apex. There is consolidation at the left b ase atelectasis pneumonia metastasis could be considered. Small amount of pneumonitis changes within the lateral right middle lobe. Series 3 image 43. Mild lingular infiltrate appears to be present in t he periphery of the lung bases. Emphysematous bulla are present. No enlarged mediastinal or hilar adenopathy is evident. The ascending aorta diameter at the level of the main pulmonary artery is 3.4 cm. The main pulmonary artery diameter at the bifurcation is 2.4 cm. There is stable appearance of the distal esophagus. Gastric pull-through or hiatal hernia is present. CT ABDOMEN: Liver: No discrete masses are identified. Metastatic disease is not clearly evident. Previous ill-def ined masses are not clearly visualized. Spleen: Normal Pancreas: Normal Adrenal glands: The adrenal glands are normal. Gallbladder: Gallstones present. Kidneys: No masses are evident. No hydronephrosis is present. There is a 3.2 cm superior pole left renal cyst measuring 0 Hounsfield units Delayed images were obtained through the kidneys, which aranza in unremarkable. Aorta: Vascular calcification is within the aorta. Inferior vena cava: Normal. CT PELVIS: PEG tube is within the stomach. Contrast within proximal small bowel loops. Colon appears unremarkabl e. Scattered diverticuli are within the sigmoid colon. There are loops of bowel which are incompletel y distended or lack oral contrast limiting their evaluation. Appendix: Not identified Urinary bladder: Normal. Genitourinary structures: Prostate is prominent and contains calcification. Osseous structures: No suspicious lytic or sclerotic lesions. There is a posterior lateral left rib f racture at T10 and T11. An old T8 lateral rib fractures evident. IMPRESSIONS: 1. Patient's known hepatic metastasis are poorly delineated on the current examination. These are bet ter visualized comparison studies. 2. Superior pole left renal cyst. 3. PEG tube. 4. Emphysematous bulla within the lungs. 5. Scattered areas of pneumonitis within the lung valencia
== END | disposition home or self-care (01) ==
LOC: RADCTMAIN 07:22
PROVIDERS: ATTEND Internal Medicine Hematology & Oncology
DX: C15.5 Malignant neoplasm of lower third of esophagus (principal); C78.7 Secondary malignant neoplasm of liver and intrahepatic bile duct; N28.1 Cyst of kidney, acquired; J18.9 Pneumonia, unspecified organism
CPT/HCPCS: 82565; 84520; 71260; 74177; 36415; Q9967

== ENCOUNTER 2020-08-29 07:24 | Day surgery (SDC) | payer BC ==
[2020-08-27 09:03] VITALS: BMI 24.0
[2020-08-29 08:03] VITALS: TEMP 97
[2020-08-29 08:50] VITALS: RESP 16
[2020-08-29 09:03] VITALS: BP 115/79; PULSE 69
== END 2020-08-29 09:15 | disposition home or self-care (01) ==
LOC: ORWHC2ENDO 07:24
PROVIDERS: ATTEND Surgery
DX: C15.9 Malignant neoplasm of esophagus, unspecified (principal); I25.10 Atherosclerotic heart disease of native coronary artery without angina pectoris; I10 Essential (primary) hypertension; J44.9 Chronic obstructive pulmonary disease, unspecified; E78.5 Hyperlipidemia, unspecified; E11.9 Type 2 diabetes mellitus without complications; M19.90 Unspecified osteoarthritis, unspecified site; Z92.21 Personal history of antineoplastic chemotherapy; Z86.718 Personal history of other venous thrombosis and embolism; Z90.89 Acquired absence of other organs; Z95.5 Presence of coronary angioplasty implant and graft; Z95.828 Presence of other vascular implants and grafts; Z87.891 Personal history of nicotine dependence; Z80.42 Family history of malignant neoplasm of prostate; Z82.49 Family history of ischemic heart disease and other diseases of the circulatory system; Z79.01 Long term (current) use of anticoagulants; Z79.4 Long term (current) use of insulin; Z79.51 Long term (current) use of inhaled steroids; Z79.899 Other long term (current) drug therapy; Z88.0 Allergy status to penicillin
CPT/HCPCS: 43235; J2704

== ENCOUNTER → 2020-09-12 | Outpatient (CLI) | payer BC ==
--- NOTE | 2020-09-15 08:27 | PE ---
EXAMINATION TYPE: PET CT fusion skull to thigh DATE OF EXAM: 09/12/2020 COMPARISON: CT chest abdomen pelvis 07/08/2020 Prior PET/CT: None HISTORY: Esophageal carcinoma TECHNIQUE: Following the intravenous administration of 11.33 mCi of F-18 FDG, whole body images are performed from the skull base to the midthigh. Images are reviewed on the computer in the coronal, a xial, and sagittal planes. Reconstructed rotating images are created on independent workstation and reviewed on the computer. A localization and attenuation correction CT is performed in conjunction with the PET scan. DLP: 498.08 mGycm SCAN: Subsequent Blood glucose: 123 mg/dL Average Mediastinum SUV: 1.24 Average Liver SUV: 1.55 FINDINGS: NECK: No abnormal uptake THORAX: There is an enlarged lymph node in the superior mediastinum at the thoracic inlet with an SUV value of 2.46 which is slightly elevated. Inflammatory change and metastatic disease should be consi dered. There is intense uptake within the distal esophagus with a maximum SUV of 8.43 compatible with the pa tient's known esophageal cancer. ABDOMEN: No abnormal uptake PELVIS: No abnormal uptake OSSEOUS STRUCTURES: No abnormal uptake LOCALIZATION CT: Minimal pericardial effusion is evident. There is a large hiatal hernia. Coronary ar margret calcification is present. Note is made of a superior pole left renal cyst. The ascending thoraci c aorta at the level of main pulmonary arteries 3.7 cm. The main pulmonary artery bifurcation is 2.9 cm. Cholelithiasis is present. PEG tube is present. Prostate is prominent. COMPARISON: Left paraesophageal lymph node has increased in size over the interval. There are a few s hotty lymph nodes within the mediastinum. IMPRESSION: 1. Intense uptake within the distal esophagus extending towards the hiatal hernia portion of the stom ach compatible with the patient's esophageal cancer. 2. There is an enlarging mildly increased intensity within the paraesophageal lymph node at the thora cic inlet suspicious for metastatic lesion. 3. Minimal pericardial effusion.
== END | disposition home or self-care (01) ==
LOC: RADPETMAIN 13:28
PROVIDERS: ATTEND Internal Medicine Hematology & Oncology
DX: K44.9 Diaphragmatic hernia without obstruction or gangrene (principal); C15.9 Malignant neoplasm of esophagus, unspecified; I31.3 Pericardial effusion (noninflammatory)
CPT/HCPCS: 78815; A9552

== ENCOUNTER → 2020-12-05 | Outpatient (CLI) | payer BC ==
[2020-12-05 11:09] LABS: African American GFR (CKD) >90 (>60 ml/min/1.73 sqM); Blood Urea Nitrogen 9 mg/dL (9-20); Non-African American GFR(CKD) >90 (>60 ml/min/1.73 sqM)
--- NOTE | 2020-12-05 16:26 | CT ---
EXAMINATION TYPE: CT ChestAbdPelvis w con DATE OF EXAM: 12/05/2020 COMPARISON: 09/12/2020, 07/08/2020, 04/11/2020 HISTORY: 55-year-old male C1 5.5, Esophagus cancer-lower one third TECHNIQUE: Contiguous axial scanning of the chest, abdomen, and pelvis performed with IV Contrast, pa tient injected with 100 ml mL of Isovue 300. Delayed images through the kidneys were obtained. Sherwood l/sagittal reconstructions performed. CT DLP: 729.20 mGycm Automated exposure control for dose reduction was used. FINDINGS: CHEST: Heart is normal size with increasing small to moderate anterior pericardial effusion measuring 1.2 cm thick. Scattered three-vessel coronary artery calcifications are present. Borderline ectasia proximal arch of 3.5 cm. Mild atherosclerotic arch calcifications. Conventional ar ch vessel branching anatomy. Left anterior chest wall injection port with catheter tip in the mid SVC. Some retained contrast ingested debris within the mid thoracic esophagus. There is a moderate size hiatal hernia containing the Blair fundoplication wrap. There is masslike w all thickening of the distal esophagus measuring up to 5.0 cm and with narrowed lumen. This is in com parison to 4.3 cm, previously. There is poor delineation along the left lateral posterior mediastinal fat, axial image 40. No progressive thoracic lymphadenopathy. Patchy interstitial lower lung changes may reflect aspiration and scarring. New numerous bilateral pulmonary nodules are present largest measuring 2.0 cm on the left and 1.3 cm on the right. ABDOMEN: Subtle 1.0 cm hypodense lesion right hepatic dome. This appears similar compared to 07/08/2020. No def inite new hepatic lesions are identified. Portal venous system is patent. No biliary ductal rotation. There is a 1.3 cm gallstone. No abnormal gallbladder distention. Adrenal glands, right kidney, spleen, and pancreas within normal limits. Tiny 9 mm medial lower pole right renal cyst. Larger 3.6 cm lateral upper pole left renal cyst. No dilated small bowel, free fluid, or free air. Moderate arthroscopic calcifications infrarenal abdominal aorta and mild within the iliac arteries. No dilated small bowel, free fluid, or free air. No mesenteric or retroperitoneal lymphadenopathy. PEG tube is in place. Moderate stool burden. No pericolonic inflammatory change. Redundant sigmoid colon. PELVIS: Bladder urine distended. Prostate gland measures 5.2 cm wide. Correlate for BPH. No abnormal fluid collection in the pelvis or pelvic lymphadenopathy. BONES: Moderate degenerative change right hip and mild at the left hip. Mild degenerative changes left. Mode rate degenerative disc disease mid to lower thoracic spine. Facet arthropathy lower lumbar spine. No osseous destructive process seen. IMPRESSION: 1. DISTAL ESOPHAGEAL CARCINOMA. THE MASSLIKE THICKENING IS SLIGHTLY LARGER NOW MEASURING 5.0 CM VERSU S 4.3 CM, PREVIOUSLY. THERE IS POOR DELINEATION OF THE LEFT LATERAL POSTERIOR MEDIASTINAL FAT THAT CO ULD REPRESENT DIRECT INVASION. (NOTE THE PRESENCE OF A MODERATE SIZED HIATAL HERNIA CONTAINING THE NI SSEN FUNDOPLICATION WRAP). 2. NUMEROUS BILATERAL METASTATIC PULMONARY NODULES WHICH ARE NEW MEASURING UP TO 2.0 CM. 3. STABLE 1.0 CM HYPODENSE LESION RIGHT HEPATIC DOME, POSSIBLE OLD TREATED METASTATIC LESION. 4. SMALL TO MODERATE ANTERIOR PERICARDIAL EFFUSION IS INCREASED MEASURING 1.3 CM THICK. 5. PATCHY LOWER LUNG INFILTRATES ARE UNCHANGED AND COULD REPRESENT CHRONIC ASPIRATION.
== END | disposition home or self-care (01) ==
LOC: RADCTMAIN 10:25
PROVIDERS: ATTEND Internal Medicine Hematology & Oncology
DX: C15.5 Malignant neoplasm of lower third of esophagus (principal); C78.01 Secondary malignant neoplasm of right lung; C78.02 Secondary malignant neoplasm of left lung; I31.3 Pericardial effusion (noninflammatory)
CPT/HCPCS: 82565; 84520; 71260; 74177; 36415; Q9967

== ENCOUNTER 2020-12-08 08:18 | Day surgery (SDC) | payer BC ==
[2020-12-08 08:40] VITALS: TEMP 97.5
[2020-12-08 08:50] LABS: Glucose,Whole Blood 150 mg/dL (75-99)
[2020-12-08] MEDS ORDERED: LACTATED RINGERS 1,000 ML IV ONE ×2 (08:53)
[2020-12-08] MEDS ORDERED: LIDOCAINE 1% (10MG/ML) FOR IV START INTRADERMA ONE (08:54)
[2020-12-08] MEDS ORDERED: PROPOFOL 10 MG/ML 20 ML VIAL IV ONE (09:20)
--- NOTE | 2020-12-08 09:25 | P.GSHP ---
History of Present Illness H&P Date: 12/08/20 Chief Complaint: History of esophageal cancer This a 55-year-old male who's developed increasing progressive dysphagia. History of esophageal cancer. Presents today for EGD. Past Medical History Past Medical History: Coronary Artery Disease (CAD), Cancer, Chest Pain / Angina, COPD, Hyperlipidemia, Hypertension, Osteoarthritis (OA) Additional Past Medical History / Comment(s): Esophageal CA-NO SURGERY, RAD IATION AND CHEMO (CHEMO NOT COMPLETE OF TODAY 12/04/20). Dysphagia recently to solids, vitiglio, hx. RT SUBCLAVIAN BLOOD CLOT. HAD COVID IN MAY 2020. History of Any Multi-Drug Resistant Organisms: None Reported Past Surgical History: Appendectomy, Heart Catheterization With Stent Additional Past Surgical History / Comment(s): patient states he had his stomach flipped 180 degrees because of acid reflux", 2 cardiac stents, mediport left chest, EGD Past Anesthesia/Blood Transfusion Reactions: No Reported Reaction Date of Last Stent Placement:: 2016 Past Psychological History: No Psychological Hx Reported Additional Psychological History / Comment(s): l Smoking Status: Former smoker Past Alcohol Use History: Occasional Additional Past Alcohol Use History / Comment(s): started smoking age 21(1986) and quit (12/05/17) was smoking 1ppd Past Drug Use History: None Reported Additional Drug Use History / Comment(s): occasional use - Past Family History Father Family Medical History: Cancer, COPD Additional Family Medical History / Comment(s): prostate cancer Mother Family Medical History: Chest Pain / Angina, Coronary Artery Disease (CAD), Myocardial Infarction ([place]) Additional Family Medical History / Comment(s): "Mother had multiple heart attacks and open heart surgery" Medications and Allergies Home Medications Medication Instructions Recorded Confirmed Type Atorvastatin [Lipitor] 80 mg PO HS #90 tab 10/13/16 12/08/20 Rx Nitroglycerin Sl Tabs [Nitrostat] 0.4 mg SUBLINGUAL Q5M PRN #25 tab 10/13/16 12/08/20 Rx Apixaban [Eliquis] 5 mg PO BID #60 tab 04/01/18 12/08/20 Rx Montelukast [Singulair] 10 mg PO HS 10/23/19 12/08/20 History Albuterol Inhaler [Ventolin Hfa 2 puff INHALATION RT-Q4H PRN 11/13/19 12/08/20 History Inhaler] Beclomethasone Dip 80 Mcg/Puff 2 puff INHALATION RT-BID 04/05/20 12/08/20 History [Qvar 80 mcg] Calcium Carbonate [Tums] 500 mg PO TID PRN 04/05/20 12/08/20 History Prochlorperazine [Compazine] 10 mg PO Q6H PRN 04/05/20 12/08/20 History Insulin Aspart [NovoLOG] 4 units SQ ACHS PRN 05/28/20 12/08/20 History Allergies Allergy/AdvReac Type Severity Reaction Status Date / Time Penicillins Allergy Unknown Verified 12/08/20 08:30 Childhood Surgical - Exam Vital Signs Temp Pulse Resp BP Pulse Ox 97.5 F L 93 18 112/67 98 12/08/20 08:37 12/08/20 08:37 12/08/20 08:37 12/08/20 08:37 12/08/20 08:37 - General well developed, well nourished, no distress - Eyes PERRL - ENT normal pinna - Neck no masses - Respiratory normal expansion - Cardiovascular Rhythm: regular - Abdomen Abdomen: soft, non tender Results - Labs Abnormal Lab Results - Last 24 Hours (Table) 12/08/20 Range/Units 08:48 POC Glucose (mg/dL) 150 H (75-99) mg/dL Assessment and Plan Assessment: Esophageal cancer Dysphagia We'll perform EGD.
--- NOTE | 2020-12-08 09:32 | P.OP ---
Date of Procedure: 12/08/20 Preoperative Diagnosis: Dysphagia Esophageal cancer Postoperative Diagnosis: Large esophageal tumor nearly obstructing esophagus at 30 cm Procedure(s) Performed: EGD Anesthesia: MAC Surgeon: Jabari Gaona Pathology: none sent Condition: stable Disposition: PACU Description of Procedure: The patient's placed on the endoscopy table in the lateral position. He received IV sedation. The gastroscope was placed oropharynx passed in the esophagus at 30 cm trini esophagus there was a large obstructing friable tumor. The scope could not be passed beyond this due to the large size of the tumor. The tumor was quite friable. This point scope withdrawn. The proximal esophagus appeared normal. Scope was withdrawn for patient.
[2020-12-08 09:38] LABS: Glucose,Whole Blood 177 mg/dL (75-99)
[2020-12-08 09:43] VITALS: RESP 16
[2020-12-08 09:55] VITALS: BP 117/81; PULSE 91
== END 2020-12-08 10:05 | disposition home or self-care (01) ==
LOC: ORWHC2ENDO 08:18
PROVIDERS: ATTEND Surgery
DX: D49.0 Neoplasm of unspecified behavior of digestive system (principal); Z85.01 Personal history of malignant neoplasm of esophagus; J44.9 Chronic obstructive pulmonary disease, unspecified; E78.5 Hyperlipidemia, unspecified; I10 Essential (primary) hypertension; M19.90 Unspecified osteoarthritis, unspecified site; I25.10 Atherosclerotic heart disease of native coronary artery without angina pectoris; Z95.5 Presence of coronary angioplasty implant and graft; Z98.890 Other specified postprocedural states; Z95.828 Presence of other vascular implants and grafts; Z92.21 Personal history of antineoplastic chemotherapy; Z86.19 Personal history of other infectious and parasitic diseases; Z87.891 Personal history of nicotine dependence; Z85.05 Personal history of malignant neoplasm of liver; Z86.16 Personal history of COVID-19; Z92.3 Personal history of irradiation; Z80.42 Family history of malignant neoplasm of prostate; Z82.49 Family history of ischemic heart disease and other diseases of the circulatory system; Z82.5 Family history of asthma and other chronic lower respiratory diseases; Z79.01 Long term (current) use of anticoagulants; Z79.4 Long term (current) use of insulin; Z79.52 Long term (current) use of systemic steroids; Z79.51 Long term (current) use of inhaled steroids; Z79.899 Other long term (current) drug therapy; Z88.0 Allergy status to penicillin
CPT/HCPCS: 43200; J2704

== ENCOUNTER 2020-12-09 16:54 | Emergency (ER) | payer BC ==
[2020-12-09] MEDS ORDERED: SODIUM CHLORIDE 0.9% 500 ML 500 ML IV STA (17:30)
[2020-12-09] MEDS ORDERED: SODIUM CHLORIDE 0.9% 1,000 ML IV STA (17:30)
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
[2020-12-09 17:50] LABS: HCT 38.1 % (39.0-53.0); MCH 32.4 pg (25.0-35.0); MCHC 34.1 g/dL (31.0-37.0); MCV 94.8 fL (80.0-100.0); Platelet Count 439 k/uL (150-450); RBC 4.02 m/uL (4.30-5.90); RDW 15.9 % (11.5-15.5); WBC 5.6 k/uL (3.8-10.6)
[2020-12-09 18:00] LABS: ALT 9 U/L (4-49); AST 15 U/L (17-59); African American GFR (CKD) >90 (>60 ml/min/1.73 sqM); Albumin 3.7 g/dL (3.5-5.0); Alkaline Phosphatase 85 U/L (38-126); Anion Gap 9 mmol/L; Blood Urea Nitrogen 15 mg/dL (9-20); Calcium 9.2 mg/dL (8.4-10.2); Carbon Dioxide 26 mmol/L (22-30); Chloride 97 mmol/L (98-107); Glucose 144 mg/dL (74-99); Magnesium 2.6 mg/dL (1.6-2.3); Non-African American GFR(CKD) >90 (>60 ml/min/1.73 sqM); Potassium 4.2 mmol/L (3.5-5.1); Sodium 132 mmol/L (137-145); Total Bilirubin 0.4 mg/dL (0.2-1.3); Total Protein 6.8 g/dL (6.3-8.2)
[2020-12-09 18:03] LABS: Appearance,Urine Clear (Clear); Bilirubin,Urine Negative (Negative); Blood,Urine Negative (Negative); Color,Urine Yellow; Glucose,Urine (UA) 4+ (Negative); Ketones,Urine Trace (Negative); Leukocyte Esterase,Urine Negative (Negative); Nitrite,Urine Negative (Negative); PH, Urine 6.5 (5.0-8.0); Protein,Urine Trace (Negative)
[2020-12-09 18:05] LABS: Prothrombin Time 10.7 sec (9.0-12.0)
--- NOTE | 2020-12-09 18:19 | XR ---
EXAMINATION TYPE: XR chest 2V DATE OF EXAM: 12/09/2020 COMPARISON: 06/08/2020 HISTORY: Syncope TECHNIQUE: 2 views FINDINGS: There is large hiatal hernia. Heart size is normal. Lungs are clear of consolidation. There is some mild linear density at the lung bases. There are no hilar masses. Thoracic aorta is atheroma tous. There is no pleural effusion. There are chest leads. Bony thorax is intact. There is old fractu re right eighth rib. There is left-sided central venous catheter with tip in the superior vena cava. IMPRESSION: There is some minimal scarring and subsegmental atelectasis at the lung bases that is imp roved compared to last exam.
[2020-12-09 18:21] LABS: Band Neutrophils % 5 %; Eosinophils # (M) 0.11 k/uL (0-0.7); Lymphocytes # (M) 1.23 k/uL (1.0-4.8); Metamyelocytes # (M) 0.11 k/uL (0); Metamyelocytes % 2 %; Monocytes # (M) 0.22 k/uL (0-1.0); Myelocytes # (M) 0.06 k/uL (0); Myelocytes % 1 %; Neutrophils % (M) 64 %; Nucleated Red Blood Cells 0 /100 WBC (0-0); Polychromasia Present; Total Cells Counted 100
[2020-12-09 19:01] VITALS: BP 115/72; PULSE 78; RESP 16; TEMP 99.3
== END 2020-12-09 19:01 | disposition home or self-care (01) ==
LOC: EC 16:54
DX: I95.1 Orthostatic hypotension (principal); I25.10 Atherosclerotic heart disease of native coronary artery without angina pectoris; E78.5 Hyperlipidemia, unspecified; I10 Essential (primary) hypertension; J44.9 Chronic obstructive pulmonary disease, unspecified; M19.90 Unspecified osteoarthritis, unspecified site; Z87.891 Personal history of nicotine dependence; Z79.82 Long term (current) use of aspirin; Z79.51 Long term (current) use of inhaled steroids; Z79.01 Long term (current) use of anticoagulants; Z79.899 Other long term (current) drug therapy
CPT/HCPCS: 36415; 71046; 80053; 81003; 83735; 84484; 85025; 85610; 85730; 93005; 96360; 99284

== ENCOUNTER 2020-12-15 14:55 | Emergency (ER) | payer BC ==
[2020-12-15 16:02] VITALS: BP 103/66; PULSE 114; RESP 22; TEMP 98.7
[2020-12-15] MEDS ORDERED: SODIUM CHLORIDE 0.9% 1,000 ML IV STA (16:39)
[2020-12-15] MEDS ORDERED: ONDANSETRON 4 MG/2 ML VIAL IM STA (16:39)
[2020-12-15] MEDS ORDERED: SODIUM CHLORIDE 0.9% 500 ML 500 ML IV STA (16:39)
[2020-12-15] MEDS ORDERED: MORPHINE SULFATE 4 MG/ML SYRINGE IV STA (16:39)
--- NOTE | 2020-12-15 16:50 | ED ---
General Adult HPI - General Chief complaint: ENT Stated complaint: Has mass in throat W/HX of ca trouble breathing Time Seen by Provider: 12/15/20 16:30 Source: patient Mode of arrival: ambulatory Limitations: no limitations - History of Present Illness Initial comments: This 55-year-old male presents with a complaint of difficulty in swallowing. He states that he has been having hard time swallowing for the past one week. He states that it is been worse over the past several days. He is now unable to eat any food. He is unable to handle his secretions. If he tries to drink water then he will vomit. He does have a history of esophageal cancer for which she has been dealing with for 3 years. He just went through a course of chemotherapy which did not seem to help. He had an EGD one week ago and was told not to eat after this is the tumor is reaccumulating in his esophagus. He does have a gastric tube present. He has been giving himself extra water hydration through the gastric tube but still feels dehydrated. He has occasional pains into his right chest and back region when he drinks something or if his secretions increased. He has occasional nausea and vomiting. He has occasional abdominal pain. He denies any fevers or chills. His oncologist is Dr. Price and his surgeon is Dr. Gaona. The EGD was completed by Dr. Gaona this past week. - Related Data Home Medications Medication Instructions Recorded Confirmed Montelukast [Singulair] 10 mg PO HS 10/23/19 12/15/20 Beclomethasone Dip 80 Mcg/Puff 2 puff INHALATION RT-BID 04/05/20 12/15/20 [Qvar 80 mcg] Prochlorperazine [Compazine] 10 mg PO Q6H PRN 04/05/20 12/15/20 Amitriptyline HCl [Elavil] 50 mg PO HS 12/09/20 12/15/20 Aspirin EC [Ecotrin Low Dose] 81 mg PO DAILY 12/09/20 12/15/20 DULoxetine HCL [Cymbalta] 30 mg PO BID 12/09/20 12/15/20 Docusate [Colace] 100 mg PO DAILY 12/09/20 12/15/20 HYDROcodone/APAP 10-325MG [[place] 1 tab PO Q8H PRN 12/09/20 12/15/20 10-325] Previous Rx's Medication Instructions Recorded Atorvastatin [Lipitor] 80 mg PO HS #90 tab 10/13/16 Nitroglycerin Sl Tabs [Nitrostat] 0.4 mg SUBLINGUAL Q5M PRN #25 tab 10/13/16 Apixaban [Eliquis] 5 mg PO BID #60 tab 04/01/18 Allergies Allergy/AdvReac Type Severity Reaction Status Date / Time Penicillins Allergy Unknown Verified 12/15/20 17:41 Childhood Review of Systems ROS Statement: Those systems with pertinent positive or pertinent negative responses have been documented in the HPI. ROS Other: All systems not noted in ROS Statement are negative. Past Medical History Past Medical History: Coronary Artery Disease (CAD), Cancer, Chest Pain / Angina, COPD, Hyperlipidemia, Hypertension, Osteoarthritis (OA) Additional Past Medical History / Comment(s): Esophageal CA-NO SURGERY, RADIATION AND CHEMO (CHEMO NOT COMPLETE OF TODAY 12/04/20). Dysphagia recently to solids, vitiglio, hx. RT SUBCLAVIAN BLOOD CLOT. HAD COVID IN MAY 2020. History of Any Multi-Drug Resistant Organisms: None Reported Past Surgical History: Appendectomy, Heart Catheterization With Stent Additional Past Surgical History / Comment(s): patient states he had his stomach flipped 180 degrees because of acid reflux", 2 cardiac stents, mediport left chest, EGD Past Anesthesia/Blood Transfusion Reactions: No Reported Reaction Date of Last Stent Placement:: 2016 Past Psychological History: No Psychological Hx Reported Smoking Status: Former smoker Past Alcohol Use History: Occasional Past Drug Use History: None Reported - Past Family History Father Family Medical History: Cancer, COPD Additional Family Medical History / Comment(s): prostate cancer Mother Family Medical History: Chest Pain / Angina, Coronary Artery Disease (CAD), Myocardial Infarction ([place]) Additional Family Medical History / Comment(s): "Mother had multiple heart attacks and open heart surgery" General Exam - General Exam Comments Initial Comments: GENERAL: The patient is well nourished and well hydrated. VITAL SIGNS: Heart rate, blood pressure, respiratory rate reviewed as recorded in nurse's notes. EYES: Pupils are round and reactive. Extraocular movements are intact. No conjunctival / lid redness or swelling. ENT: No external evidence of injury, swelling, or ecchymosis. Airway is patent. Throat is clear. NECK: Nontender. No swelling or evidence of injury. No subcutaneous emphysema. Trachea is midline. No thyroid mass. HEART: Regular rate and rhythm. Good peripheral pulses. LUNGS/CHEST: Breath sounds clear and equal bilaterally. No rales, rhonchi, or wheezes. No ecchymosis, subcutaneous emphysema, or tenderness. ABDOMEN: Abdomen soft without tenderness. No palpable masses or organomegaly. No peritoneal signs. No abdominal wall swelling or ecchymosis. Feeding tube is present left upper abdomen. EXTREMITIES: No extremity tenderness. Normal muscle tone and function. No thoracolumbar tenderness. NEUROLOGIC: Sensation is grossly intact. Cranial nerve exam reveals face is symmetrical, tongue is midline, speech is clear. SKIN: No abrasions or ecchymosis is noted. No induration or masses noted. PSYCHIATRIC: Alert and oriented. Appropriate behavior and judgment. Limitations: no limitations Course Vital Signs 12/15/20 16:00 Temperature 98.7 F Pulse Rate 114 H Respiratory 22 Rate Blood Pressure 103/66 O2 Sat by Pulse 98 Oximetry Medical Decision Making - Medical Decision Making The patient was seen and examined. All diagnostics were reviewed. Old records were reviewed. Patient does receive morphine and Zofran as well as ample fluid hydration. He is feeling much improved on recheck. His EKG shows a normal sinus rhythm at a rate of 81. No acute ST-T wave changes are identified. The [place] intervals 146, QRS duration is 98, and the QTC intervals 460. The laboratory shows a mild leukocytosis but no signs of severe dehydration. He had a abdomi nal series x-ray which does show evidence of some pulmonary metastases. Radiologist notes that these are better differentiated on recent computed tomography scan. Patient is aware of this as well. He is feeling much improved on recheck. Case is discussed with Dr. Gaona and there does not appear to be much to do in regards to his symptomatology. The performed an EGD on him one week ago which showed evidence of a large esophageal mass obstructing the esophagus. The scope could not be passed by this mass. The only option would be to admit him to the hospital for further symptom control and hydration. The patient is offered this option but states that he would forward to be discharged home. He is feeling much improved currently. He is instructed not to take any fluids or food by mouth. He is instructed to increase his fluid hydration through his gastric tube. He has Marshall at home for pain which seems to help. He does understand the diaper situation he is in with his esophageal cancer with metastases. is present and understands as well. Return parameters are discussed. Close follow-up recommended. - Lab Data Result diagrams: 12/15/20 16:46 12/15/20 16:46 Lab Results 12/15/20 12/15/20 12/15/20 Range/Units 16:46 16:46 16:46 WBC 13.0 H (3.8-10.6) k/uL RBC 4.51 (4.30-5.90) m/uL Hgb 14.1 (13.0-17.5) gm/dL Hct 43.8 (39.0-53.0) % MCV 97.1 (80.0-100.0) fL MCH 31.3 (25.0-35.0) pg MCHC 32.3 (31.0-37.0) g/dL RDW 14.9 (11.5-15.5) % Plt Count 510 H (150-450) k/uL MPV 7.0 Neutrophils % 81 % Lymphocytes % 7 % Monocytes % 8 % Eosinophils % 1 % Basophils % 1 % Neutrophils # 10.6 H (1.3-7.7) k/uL Lymphocytes # 0.9 L (1.0-4.8) k/uL Monocytes # 1.0 (0-1.0) k/uL Eosinophils # 0.1 (0-0.7) k/uL Basophils # 0.1 (0-0.2) k/uL PT 10.5 (9.0-12.0) sec INR 1.0 (<1.2) APTT 22.4 (22.0-30.0) sec Sodium 136 L (137-145) mmol/L Potassium 4.9 (3.5-5.1) mmol/L Chloride 101 (98-107) mmol/L Carbon Dioxide 23 (22-30) mmol/L Anion Gap 12 mmol/L BUN 15 (9-20) mg/dL Creatinine 0.53 L (0.66-1.25) mg/dL Est GFR (CKD-EPI)AfAm >90 (>60 ml/min/1.73 sqM) Est GFR (CKD-EPI)NonAf >90 (>60 ml/min/1.73 sqM) Glucose 196 H (74-99) mg/dL Calcium 9.7 (8.4-10.2) mg/dL Phosphorus 4.1 (2.5-4.5) mg/dL Magnesium 2.3 (1.6-2.3) mg/dL Total Bilirubin 0.4 (0.2-1.3) mg/dL AST 18 (17-59) U/L ALT 10 (4-49) U/L Alkaline Phosphatase 94 (38-126) U/L Total Protein 7.5 (6.3-8.2) g/dL Albumin 4.0 (3.5-5.0) g/dL Lipase 37 (23-300) U/L Disposition Clinical Impression: Dysphagia, Esophageal cancer, Dehydration, Tachycardia, Chest pain, Abdominal pain, Esophageal obstruction, Pulmonary metastases Disposition: HOME SELF-CARE Condition: Fair Instructions (If sedation given, give patient instructions): Esophageal Cancer (DC) Additional Instructions: Please avoid taking any food or fluid by mouth. Please increase your water intake via your gastric tube. Is patient prescribed a controlled substance at d/c from ED?: No Referrals: None,Stated [Primary Care Provider] - 1-2 days Time of Disposition: 19:59
[2020-12-15 17:02] LABS: Basophils # (A) 0.1 k/uL (0-0.2); Basophils % (A) 1 %; Eosinophils # (A) 0.1 k/uL (0-0.7); Eosinophils % (A) 1 %; HCT 43.8 % (39.0-53.0); HGB 14.1 gm/dL (13.0-17.5); Lymphocytes # (A) 0.9 k/uL (1.0-4.8); Lymphocytes % (A) 7 %; MCH 31.3 pg (25.0-35.0); MCHC 32.3 g/dL (31.0-37.0); MCV 97.1 fL (80.0-100.0); Monocytes % (A) 8 %; Neutrophils # (A) 10.6 k/uL (1.3-7.7); Neutrophils % (A) 81 %; Platelet Count 510 k/uL (150-450); RBC 4.51 m/uL (4.30-5.90); RDW 14.9 % (11.5-15.5)
[2020-12-15] MEDS ORDERED: ONDANSETRON 4 MG/2 ML VIAL IVP STA (17:08)
[2020-12-15 17:13] LABS: Partial Thromboplastin Time 22.4 sec (22.0-30.0); Prothrombin Time 10.5 sec (9.0-12.0)
[2020-12-15 17:16] LABS: ALT 10 U/L (4-49); AST 18 U/L (17-59); African American GFR (CKD) >90 (>60 ml/min/1.73 sqM); Alkaline Phosphatase 94 U/L (38-126); Anion Gap 12 mmol/L; Blood Urea Nitrogen 15 mg/dL (9-20); Calcium 9.7 mg/dL (8.4-10.2); Carbon Dioxide 23 mmol/L (22-30); Chloride 101 mmol/L (98-107); Glucose 196 mg/dL (74-99); Lipase 37 U/L (23-300); Magnesium 2.3 mg/dL (1.6-2.3); Non-African American GFR(CKD) >90 (>60 ml/min/1.73 sqM); Phosphorus 4.1 mg/dL (2.5-4.5); Potassium 4.9 mmol/L (3.5-5.1); Sodium 136 mmol/L (137-145); Total Bilirubin 0.4 mg/dL (0.2-1.3); Total Protein 7.5 g/dL (6.3-8.2)
--- NOTE | 2020-12-15 18:17 | XR ---
EXAMINATION TYPE: XR abdomen acute w cxr DATE OF EXAM: 12/15/2020 COMPARISON: Radiographs 12/09/2020. CT 12/05/2020. HISTORY: Abdominal pain. TECHNIQUE: Supine, upright, and left side down lateral decubitus views of the abdomen are obtained. FINDINGS: There is no evidence for pneumoperitoneum. Bilateral scattered pulmonary nodules, better depicted on prior CT again noted. There is mild bibasilar streaky opacities, may represent atelectasis. No pleur al effusion or pneumothorax. Normal cardiomediastinal silhouette. There is a left IJ port catheter wi th tip overlying the caudal SVC. The bowel gas pattern is unremarkable as there is air throughout nondilated small and large bowel. No sizeable air fluid levels. No mass effects are seen. No unusual calcifications. Chronic right lower rib fractures seen. Gastric tube noted. IMPRESSION: No definite acute process. Redemonstrated metastatic pulmonary nodules. Chronic mild bibasilar opacities.
== END 2020-12-15 20:28 | disposition home or self-care (01) ==
LOC: EC 14:55
DX: K22.2 Esophageal obstruction (principal); C15.9 Malignant neoplasm of esophagus, unspecified; C78.00 Secondary malignant neoplasm of unspecified lung; E86.0 Dehydration; R00.0 Tachycardia, unspecified; R10.9 Unspecified abdominal pain; I10 Essential (primary) hypertension; I25.10 Atherosclerotic heart disease of native coronary artery without angina pectoris; J44.9 Chronic obstructive pulmonary disease, unspecified; E78.5 Hyperlipidemia, unspecified; K21.9 Gastro-esophageal reflux disease without esophagitis; M19.90 Unspecified osteoarthritis, unspecified site; Z79.01 Long term (current) use of anticoagulants; Z79.51 Long term (current) use of inhaled steroids; Z79.82 Long term (current) use of aspirin; Z79.899 Other long term (current) drug therapy; Z88.0 Allergy status to penicillin; Z87.891 Personal history of nicotine dependence; Z90.49 Acquired absence of other specified parts of digestive tract; Z95.5 Presence of coronary angioplasty implant and graft; Z82.49 Family history of ischemic heart disease and other diseases of the circulatory system
CPT/HCPCS: 36415; 93005; 80053; 83690; 83735; 84100; 85025; 85610; 85730; 74022; 96374; 96375; 96361; 99285; J2270; J2405

== ENCOUNTER 2020-12-17 10:52 | Observation (INO) | payer BC ==
[2020-12-17] MEDS ORDERED: SODIUM CHLORIDE 0.9% 1,000 ML IV STA (11:18)
--- NOTE | 2020-12-17 11:41 | ED ---
General Adult HPI - General Chief complaint: Recheck/Abnormal Lab/Rx Stated complaint: esophageal cancer, weakness Time Seen by Provider: 12/17/20 11:01 Source: patient Mode of arrival: ambulatory Limitations: no limitations - History of Present Illness Initial comments: Dictation was produced using [employer] dictation software. please excuse any gram matical, word or spelling errors. Chief Complaint: 55-year-old male presents emergency department for worsening weakness History of Present Illness: 55-year-old male who presents emergency department for worsening weakness. He was sent to the emergency department by Nupur Rivera who is an oncology PA. Patient has history of esophageal cancer. He is gone through multiple rounds of chemotherapy, radiation therapy over the last several months. He was initially diagnosed in 2018. Patient has a obstructing esophageal cancer. He receives his nutrition via a gastric feeding tube. Patient was allegedly sent here for inpatient chemotherapy. He is been having increase cancer symptoms. Recently had EGD however there was a large obstructing esophageal mass that could only be visualized from the top. Patient last received chemotherapy 2 weeks ago. Patient had some sharp upper back pain. He's had this for several days. Denies any shortness of breath. The ROS documented in this emergency department record has been reviewed and confirmed by me. Those systems with pertinent positive or negative responses have been documented in the HPI. All other systems are other negative and/or noncontributory. PHYSICAL EXAM: General Impression: Alert and oriented x3, not in acute distress HEENT: Normocephalic atraumatic, extra-ocular movements intact, pupils equal and reactive to light bilaterally, mucous membranes moist. Cardiovascular: Heart regular rate and rhythm Chest: Able to complete full sentences, no retractions, no tachypnea Abdomen: abdomen soft, non-tender, non-distended, no organomegaly Musculoskeletal: Pulses present and equal in all extremities, no peripheral edema Motor: no focal deficits noted Neurological: CN II-XII grossly intact, no focal motor or sensory deficits noted Skin: Intact with no visualized rashes Psych: Normal affect and mood ED course: 55-year-old male presents emergency department via instruction from oncology staff for admission to receive inpatient chemotherapy. Vital signs upon arrival are within acceptable limits. EKG interpretation: Ventricular rate 110, sinus tachycardia,. Interval 132, QRS 96, QTC 500. No [place] prolongation, no QTC prolongation, no ST or T-wave changes noted. EKG compared to 12/15/2020 showing no changes. Overall, this EKG is unremarkable Laboratory evaluation obtained. Mild leukocytosis of 12.0. Coag panel is negative. D-dimer was obtained showing elevated level of 1.24. Metabolic panel is unremarkable. Given the patient had some upper back pain is concern for pulmonary embolism. CT is negative for PE. Patient reevaluated found to be stable medical condition. with consultation to oncology for inpatient chemotherapy. - Related Data Home Medications Medication Instructions Recorded Confirmed Montelukast [Singulair] 10 mg PO HS 10/23/19 12/17/20 Beclomethasone Dip 80 Mcg/Puff 2 puff INHALATION RT-BID 04/05/20 12/17/20 [Qvar 80 mcg] Prochlorperazine [Compazine] 10 mg PO Q6H PRN 04/05/20 12/17/20 Amitriptyline HCl [Elavil] 50 mg PO HS 12/09/20 12/17/20 Aspirin EC [Ecotrin Low Dose] 81 mg PO DAILY 12/09/20 12/17/20 DULoxetine HCL [Cymbalta] 30 mg PO BID 12/09/20 12/17/20 Docusate [Colace] 100 mg PO DAILY 12/09/20 12/17/20 HYDROcodone/APAP 10-325MG [[place] 1 tab PO Q8H PRN 12/09/20 12/17/20 10-325] Previous Rx's Medication Instructions Recorded Atorvastatin [Lipitor] 80 mg PO HS #90 tab 10/13/16 Nitroglycerin Sl Tabs [Nitrostat] 0.4 mg SUBLINGUAL Q5M PRN #25 tab 10/13/16 Apixaban [Eliquis] 5 mg PO BID #60 tab 04/01/18 Allergies Allergy/AdvReac Type Severity Reaction Status Date / Time Penicillins Allergy Unknown Verified 12/17/20 12:00 Childhood Review of Systems ROS Statement: Those systems with pertinent positive or pertinent negative responses have been documented in the HPI. ROS Other: All systems not noted in ROS Statement are negative. Past Medical History Past Medical History: Coronary Artery Disease (CAD), Cancer, Chest Pain / Angina, COPD, Hyperlipidemia, Hypertension, Osteoarthritis (OA) Additional Past Medical History / Comment(s): Esophageal CA-NO SURGERY, RAD IATION AND CHEMO (CHEMO NOT COMPLETE OF TODAY 12/04/20). Dysphagia recently to solids, vitiglio, hx. RT SUBCLAVIAN BLOOD CLOT. HAD COVID IN MAY 2020. History of Any Multi-Drug Resistant Organisms: None Reported Past Surgical History: Appendectomy, Heart Catheterization With Stent Additional Past Surgical History / Comment(s): patient states he had his stomach flipped 180 degrees because of acid reflux", 2 cardiac stents, mediport left chest, EGD Past Anesthesia/Blood Transfusion Reactions: No Reported Reaction Date of Last Stent Placement:: 2016 Past Psychological History: No Psychological Hx Reported Smoking Status: Former smoker Past Alcohol Use History: Occasional Past Drug Use History: None Reported - Past Family History Father Family Medical History: Cancer, COPD Additional Family Medical History / Comment(s): prostate cancer Mother Family Medical History: Chest Pain / Angina, Coronary Artery Disease (CAD), Myocardial Infarction ([place]) Additional Family Medical History / Comment(s): "Mother had multiple heart heraclio cks and open heart surgery" General Exam Limitations: no limitations Course Vital Signs 12/17/20 12/17/20 10:57 11:57 Temperature 98 F Pulse Rate 92 98 Respiratory 18 18 Rate Blood Pressure 107/78 109/73 O2 Sat by Pulse 97 98 Oximetry Medical Decision Making - Lab Data Result diagrams: 12/17/20 11:44 12/17/20 11:44 Lab Results 12/17/20 12/17/20 12/17/20 Range/Units 11:44 11:44 11:44 WBC 12.0 H (3.8-10.6) k/uL RBC 4.18 L (4.30-5.90) m/uL Hgb 13.2 (13.0-17.5) gm/dL Hct 40.5 (39.0-53.0) % MCV 97.0 (80.0-100.0) fL MCH 31.6 (25.0-35.0) pg MCHC 32.6 (31.0-37.0) g/dL RDW 14.9 (11.5-15.5) % Plt Count 477 H (150-450) k/uL MPV 6.8 Neutrophils % 82 % Lymphocytes % 7 % Monocytes % 7 % Eosinophils % 1 % Basophils % 1 % Neutrophils # 9.8 H (1.3-7.7) k/uL Lymphocytes # 0.9 L (1.0-4.8) k/uL Monocytes # 0.8 (0-1.0) k/uL Eosinophils # 0.1 (0-0.7) k/uL Basophils # 0.1 (0-0.2) k/uL PT 11.0 (9.0-12.0) sec INR 1.0 (<1.2) APTT 22.9 (22.0-30.0) sec D-Dimer 1.24 H (<0.60) mg/L FEU Sodium 135 L (137-145) mmol/L Potassium 4.3 (3.5-5.1) mmol/L Chloride 101 (98-107) mmol/L Carbon Dioxide 23 (22-30) mmol/L Anion Gap 11 mmol/L BUN 12 (9-20) mg/dL Creatinine 0.54 L (0.66-1.25) mg/dL Est GFR (CKD-EPI)AfAm >90 (>60 ml/min/1.73 sqM) Est GFR (CKD-EPI)NonAf >90 (>60 ml/min/1.73 sqM) Glucose 174 H (74-99) mg/dL Plasma Lactic Acid Raza (0.7-2.0) mmol/L Calcium 9.2 (8.4-10.2) mg/dL Magnesium 2.1 (1.6-2.3) mg/dL Total Bilirubin 0.5 (0.2-1.3) mg/dL AST 16 L (17-59) U/L ALT 9 (4-49) U/L Alkaline Phosphatase 83 (38-126) U/L Total Protein 6.9 (6.3-8.2) g/dL Albumin 3.7 (3.5-5.0) g/dL 12/17/20 Range/Units 11:44 WBC (3.8-10.6) k/uL RBC (4.30-5.90) m/uL Hgb (13.0-17.5) gm/dL Hct (39.0-53.0) % MCV (80.0-100.0) fL MCH (25.0-35.0) pg MCHC (31.0-37.0) g/dL RDW (11.5-15.5) % Plt Count (150-450) k/uL MPV Neutrophils % % Lymphocytes % % Monocytes % % Eosinophils % % Basophils % % Neutrophils # (1.3-7.7) k/uL Lymphocytes # (1.0-4.8) k/uL Monocytes # (0-1.0) k/uL Eosinophils # (0-0.7) k/uL Basophils # (0-0.2) k/uL PT (9.0-12.0) sec INR (<1.2) APTT (22.0-30.0) sec D-Dimer (<0.60) mg/L FEU Sodium (137-145) mmol/L Potassium (3.5-5.1) mmol/L Chloride (98-107) mmol/L Carbon Dioxide (22-30) mmol/L Anion Gap mmol/L BUN (9-20) mg/dL Creatinine (0.66-1.25) mg/dL Est GFR (CKD-EPI)AfAm (>60 ml/min/1.73 sqM) Est GFR (CKD-EPI)NonAf (>60 ml/min/1.73 sqM) Glucose (74-99) mg/dL Plasma Lactic Acid Raza 1.0 (0.7-2.0) mmol/L Calcium (8.4-10.2) mg/dL Magnesium (1.6-2.3) mg/dL Total Bilirubin (0.2-1.3) mg/dL AST (17-59) U/L ALT (4-49) U/L Alkaline Phosphatase (38-126) U/L Total Protein (6.3-8.2) g/dL Albumin (3.5-5.0) g/dL Disposition Clinical Impression: Weakness Disposition: ADMITTED IP TO THIS [facility] Condition: Fair Referrals: None,Stated [Primary Care Provider] - 1-2 days
[2020-12-17 11:53] LABS: Basophils # (A) 0.1 k/uL (0-0.2); Basophils % (A) 1 %; Eosinophils # (A) 0.1 k/uL (0-0.7); Eosinophils % (A) 1 %; HCT 40.5 % (39.0-53.0); HGB 13.2 gm/dL (13.0-17.5); Lymphocytes # (A) 0.9 k/uL (1.0-4.8); Lymphocytes % (A) 7 %; MCH 31.6 pg (25.0-35.0); MCHC 32.6 g/dL (31.0-37.0); Mean Platelet Volume 6.8; Monocytes # (A) 0.8 k/uL (0-1.0); Monocytes % (A) 7 %; Neutrophils # (A) 9.8 k/uL (1.3-7.7); Neutrophils % (A) 82 %; Platelet Count 477 k/uL (150-450); RBC 4.18 m/uL (4.30-5.90); RDW 14.9 % (11.5-15.5)
[2020-12-17] MEDS ORDERED: MORPHINE SULFATE 4 MG/ML SYRINGE IVP STA (11:53)
[2020-12-17 12:09] LABS: ALT 9 U/L (4-49); AST 16 U/L (17-59); African American GFR (CKD) >90 (>60 ml/min/1.73 sqM); Albumin 3.7 g/dL (3.5-5.0); Alkaline Phosphatase 83 U/L (38-126); Anion Gap 11 mmol/L; Blood Urea Nitrogen 12 mg/dL (9-20); Calcium 9.2 mg/dL (8.4-10.2); Carbon Dioxide 23 mmol/L (22-30); Chloride 101 mmol/L (98-107); Glucose 174 mg/dL (74-99); Magnesium 2.1 mg/dL (1.6-2.3); Non-African American GFR(CKD) >90 (>60 ml/min/1.73 sqM); Potassium 4.3 mmol/L (3.5-5.1); Sodium 135 mmol/L (137-145); Total Bilirubin 0.5 mg/dL (0.2-1.3); Total Protein 6.9 g/dL (6.3-8.2)
[2020-12-17 12:16] LABS: Partial Thromboplastin Time 22.9 sec (22.0-30.0)
--- NOTE | 2020-12-17 13:31 | CT ---
EXAMINATION TYPE: CT angio chest DATE OF EXAM: 12/17/2020 COMPARISON: 12/05/2020 HISTORY: Elevated d-dimer, history of esophageal cancer. CT DLP: 366 mGycm CONTRAST: CT chest with contrast and 3D reconstruction with MIP imaging is performed with IV Contrast, patient injected with 100 mL of Isovue 370. Contrast-enhanced CT of the chest was performed through the course of the pulmonary arteries with anastacia g and mediastinal window settings submitted. 3D reconstruction with MIP imaging was also performed. PULMONARY ARTERIES: The pulmonary arteries and their major tributaries are patent. I do not see elinor dence for sizable filling defect to suggest pulmonary embolic process. LUNGS: Again noted are bilateral scattered pulmonary nodules without significant change in the interv al. Emphysematous changes present. Masslike infiltrate left lower lobe persists. MEDIASTINUM: Thoracic aorta is of normal caliber. Masslike thickening distal esophagus with the hiata l hernia and esophageal dilatation and intraluminal debris. Neoplasm not excluded. The heart is not e nlarged. No evidence for mediastinal mass. No mediastinal lymph nodes greater than 1cm. HILAR STRUCTURES: No evidence for mass. No hilar lymph nodes greater than 1 cm. UPPER ABDOMEN: Cholelithiasis. IMPRESSION: 1. No evidence for Pulmonary embolism at this time. 2. The remainder of the examination is stable as noted above.
[2020-12-17] MEDS ORDERED: ONDANSETRON 4 MG/2 ML VIAL IVP PRN (13:41)
[2020-12-17] MEDS ORDERED: ACETAMINOPHEN TAB 325 MG TAB PO PRN (13:41)
[2020-12-17] MEDS ORDERED: NALOXONE 0.4 MG/ML 1 ML VIAL IV PRN (13:41)
--- NOTE | 2020-12-17 14:58 | ED ---
Medical Decision Making - Medical Decision Making There is concerns are for some miscommunication between patient's plan. Allegedly inpatient chemotherapy is not a service that would provide in the hospital. Clarification was discussed for patient's care with Subha serrano, mid-level working with Dr. Price. She came down and evaluated the patient. It appears that patient is having issues with dealing with mass effect from esophag eal cancer. He did have an EGD performed a week ago showed obstructing esophageal mass. Patient's having increased secretions that can be quite uncomfortable. Discussed him to experience some discomfort. Patient needs some better instruction for her dealing with his issues. Subha also requests the patient be admitted with consultation to Dr. Esposito for possible intervention of obstructing mass. - Lab Data Result diagrams: 12/17/20 11:44 12/17/20 11:44 Lab Results 12/17/20 12/17/20 12/17/20 Range/Units 11:44 11:44 11:44 WBC 12.0 H (3.8-10.6) k/uL RBC 4.18 L (4.30-5.90) m/uL Hgb 13.2 (13.0-17.5) gm/dL Hct 40.5 (39.0-53.0) % MCV 97.0 (80.0-100.0) fL MCH 31.6 (25.0-35.0) pg MCHC 32.6 (31.0-37.0) g/dL RDW 14.9 (11.5-15.5) % Plt Count 477 H (150-450) k/uL MPV 6.8 Neutrophils % 82 % Lymphocytes % 7 % Monocytes % 7 % Eosinophils % 1 % Basophils % 1 % Neutrophils # 9.8 H (1.3-7.7) k/uL Lymphocytes # 0.9 L (1.0-4.8) k/uL Monocytes # 0.8 (0-1.0) k/uL Eosinophils # 0.1 (0-0.7) k/uL Basophils # 0.1 (0-0.2) k/uL PT 11.0 (9.0-12.0) sec INR 1.0 (<1.2) APTT 22.9 (22.0-30.0) sec D-Dimer 1.24 H (<0.60) mg/L FEU Sodium 135 L (137-145) mmol/L Potassium 4.3 (3.5-5.1) mmol/L Chloride 101 (98-107) mmol/L Carbon Dioxide 23 (22-30) mmol/L Anion Gap 11 mmol/L BUN 12 (9-20) mg/dL Creatinine 0.54 L (0.66-1.25) mg/dL Est GFR (CKD-EPI)AfAm >90 (>60 ml/min/1.73 sqM) Est GFR (CKD-EPI)NonAf >90 (>60 ml/min/1.73 sqM) Glucose 174 H (74-99) mg/dL Plasma Lactic Acid Raza (0.7-2.0) mmol/L Calcium 9.2 (8.4-10.2) mg/dL Magnesium 2.1 (1.6-2.3) mg/dL Total Bilirubin 0.5 (0.2-1.3) mg/dL AST 16 L (17-59) U/L ALT 9 (4-49) U/L Alkaline Phosphatase 83 (38-126) U/L Total Protein 6.9 (6.3-8.2) g/dL Albumin 3.7 (3.5-5.0) g/dL Coronavirus (PCR) (Not Detectd) 12/17/20 12/17/20 Range/Units 11:44 13:00 WBC (3.8-10.6) k/uL RBC (4.30-5.90) m/uL Hgb (13.0-17.5) gm/dL Hct (39.0-53.0) % MCV (80.0-100.0) fL MCH (25.0-35.0) pg MCHC (31.0-37.0) g/dL RDW (11.5-15.5) % Plt Count (150-450) k/uL MPV Neutrophils % % Lymphocytes % % Monocytes % % Eosinophils % % Basophils % % Neutrophils # (1.3-7.7) k/uL Lymphocytes # (1.0-4.8) k/uL Monocytes # (0-1.0) k/uL Eosinophils # (0-0.7) k/uL Basophils # (0-0.2) k/uL PT (9.0-12.0) sec INR (<1.2) APTT (22.0-30.0) sec D-Dimer (<0.60) mg/L FEU Sodium (137-145) mmol/L Potassium (3.5-5.1) mmol/L Chloride (98-107) mmol/L Carbon Dioxide (22-30) mmol/L Anion Gap mmol/L BUN (9-20) mg/dL Creatinine (0.66-1.25) mg/dL Est GFR (CKD-EPI)AfAm (>60 ml/min/1.73 sqM) Est GFR (CKD-EPI)NonAf (>60 ml/min/1.73 sqM) Glucose (74-99) mg/dL Plasma Lactic Acid Raza 1.0 (0.7-2.0) mmol/L Calcium (8.4-10.2) mg/dL Magnesium (1.6-2.3) mg/dL Total Bilirubin (0.2-1.3) mg/dL AST (17-59) U/L ALT (4-49) U/L Alkaline Phosphatase (38-126) U/L Total Protein (6.3-8.2) g/dL Albumin (3.5-5.0) g/dL Coronavirus (PCR) Not Detected (Not Detectd) Disposition Clinical Impression: Weakness Disposition: ADMITTED IP TO THIS HOSP Condition: Fair
[2020-12-17] MEDS ORDERED: SCOPOLAMINE 1.5MG/72HR PATCH TRANSDERM SCH (15:30)
[2020-12-17] MEDS: MORPHINE SULFATE 4 MG/ML SYRINGE IVP PRN ×2 (15:36→20:10)
[2020-12-17] MEDS: SODIUM CHLORIDE 0.9% 1,000 ML IV SCH (15:42)
--- NOTE | 2020-12-17 15:44 | P.CONS ---
History of Present Illness - Reason for Consult Consult date: 12/17/20 metastatic esophageal adenocarcinoma, inability manage secretions Requesting physician: Roberto Pressley - Chief Complaint inability manage secretions, no oral intake - History of Present Illness The patient is a 51-year-old white male well known to our service diagnosed with metastatic adenocarcinoma of the esophagus in 12/15. The patient had metastatic disease at the time of diagnosis including liver involvement. He was treated with modified FOLFOX for 12 cycles with excellent response. He was then placed on oral Xeloda for maintenance. This ultimately had to be discontinued because of increasing skin toxicity. Around the time of stoppage of the Xeloda the patient started having some issues with difficulty in swallowing, subsequently became progressive. Repeat EGD in 10/17 showed progression at the primary site. He did not have any evidence of progression at other sites. The patient was then treated with carboplatin and Taxol but did not respond. Due to progressive difficulty in swallowing, he had repeat EGD in 02/16 which showed near complete obstruction. The patient then had PEG tube placement by Interventional Radiology at [facility] on 02/18/20. He was also started on concurrent chemoradiation with infusional 5-FU. His last radiation treatment and 5FU was in Feb 2020. He was then on FOLFIRI, Sep-Oct, unfortunate disease progression on f/u scans, EGD 12/08 showing near obstructing esophageal mass. Currently pending FOLFOX approval from insurance. Pt came to ER as he had not been able to manage his secretions for the last 1-2 days. He is getting weaker, sometimes too weak/tired to give himself tube feedings. He cannot swallow anything, thankfully he is not having nausea or vomiting, no BRYN, chest pain, abd pain, acute changes in bowel or bladder. Review of Systems 10 point ROS is as stated in HPI Past Medical History Past Medical History: Coronary Artery Disease (CAD), Cancer, Chest Pain / Angina, COPD, Hyperlipidemia, Hypertension, Osteoarthritis (OA) Additional Past Medical History / Comment(s): Esophageal CA-NO SURGERY, RADIATION AND CHEMO (CHEMO NOT COMPLETE OF TODAY 12/04/20). Dysphagia recently to solids, vitiglio, hx. RT SUBCLAVIAN BLOOD CLOT. HAD COVID IN MAY 2020. History of Any Multi-Drug Resistant Organisms: None Reported Past Surgical History: Appendectomy, Heart Catheterization With Stent Additional Past Surgical History / Comment(s): patient states he had his stomach flipped 180 degrees because of acid reflux", 2 cardiac stents, mediport left chest, EGD Past Anesthesia/Blood Transfusion Reactions: No Reported Reaction Date of Last Stent Placement:: 2016 Past Psychological History: No Psychological Hx Reported Smoking Status: Former smoker Past Alcohol Use History: Occasional Past Drug Use History: None Reported - Past Family History Father Family Medical History: Cancer, COPD Additional Family Medical History / Comment(s): prostate cancer Mother Family Medical History: Chest Pain / Angina, Coronary Artery Disease (CAD), Myocardial Infarction ([place]) Additional Family Medical History / Comment(s): "Mother had multiple heart attacks and open heart surgery" Medications and Allergies Home Medications Medication Instructions Recorded Confirmed Type Atorvastatin [Lipitor] 80 mg PO HS #90 tab 10/13/16 12/17/20 Rx Nitroglycerin Sl Tabs [Nitrostat] 0.4 mg SUBLINGUAL Q5M PRN #25 tab 10/13/16 12/17/20 Rx Apixaban [Eliquis] 5 mg PO BID #60 tab 04/01/18 12/17/20 Rx Montelukast [Singulair] 10 mg PO HS 10/23/19 12/17/20 History Beclomethasone Dip 80 Mcg/Puff 2 puff INHALATION RT-BID 04/05/20 12/17/20 History [Qvar 80 mcg] Prochlorperazine [Compazine] 10 mg PO Q6H PRN 04/05/20 12/17/20 History Amitriptyline HCl [Elavil] 50 mg PO HS 12/09/20 12/17/20 History Aspirin EC [Ecotrin Low Dose] 81 mg PO DAILY 12/09/20 12/17/20 History DULoxetine HCL [Cymbalta] 30 mg PO BID 12/09/20 12/17/20 History Docusate [Colace] 100 mg PO DAILY 12/09/20 12/17/20 History HYDROcodone/APAP 10-325MG [[place] 1 tab PO Q8H PRN 12/09/20 12/17/20 History 10-325] Allergies Allergy/AdvReac Type Severity Reaction Status Date / Time Penicillins Allergy Unknown Verified 12/17/20 12:00 Childhood Physical Exam Vitals: Vital Signs Temp Pulse Resp BP Pulse Ox 12/17/20 11:57 98 18 109/73 98 12/17/20 10:57 98 F 92 18 107/78 97 Intake and Output 12/17/20 12/17/20 12/17/20 06:59 14:59 22:59 Other: Weight 70.307 kg - Constitutional General appearance: cooperative, no acute distress, thin - EENT Eyes: anicteric sclerae, EOMI ENT: hearing grossly normal - Respiratory resp even and unlabored - Cardiovascular Rhythm: regular leg Peripheral Edema: bilateral: None - Gastrointestinal PEG tube - Neurologic Neurologic: CNII-XII intact - Musculoskeletal Musculoskeletal: strength equal bilaterally - Psychiatric Psychiatric: A&O x's 3, appropriate affect, intact judgment & insight Results CBC & Chem 7: 12/17/20 11:44 12/17/20 11:44 Labs: Abnormal Lab Results - Last 24 Hours (Table) 12/17/20 12/17/20 12/17/20 Range/Units 11:44 11:44 11:44 WBC 12.0 H (3.8-10.6) k/uL RBC 4.18 L (4.30-5.90) m/uL Plt Count 477 H (150-450) k/uL Neutrophils # 9.8 H (1.3-7.7) k/uL Lymphocytes # 0.9 L (1.0-4.8) k/uL D-Dimer 1.24 H (<0.60) mg/L FEU Sodium 135 L (137-145) mmol/L Creatinine 0.54 L (0.66-1.25) mg/dL Glucose 174 H (74-99) mg/dL AST 16 L (17-59) U/L Assessment and Plan (1) Esophageal obstruction Narrative/Plan: Pt unable to manage his secretions. Case discussed at length with ER DO, Rad Onc, RN, Surgical PA, pt and family. recent EGD, have asked Surgical PA to review case with Surgeon who performed EGD for an opinion as to if pt is a candidate for stent. Radiation Oncologist is reviewing recent images to evaluate previous radiation treatment to see if any palliative radiation could be given for symptoms. Will try scopolamine and levsin drops PRN to see if that reduces the secretions at all for the pt. Have consulted Case Mgmt for palliative care at home, edu on mgmt of Kangaroo pump at home, medication administration of meds via PEG All medications will have to be converted to suspension or be checked with Pharmacy that they can be crushed. Dietitian for nutrition and hydration recs-pt should not need parenteral hydration with a PEG tube Unfortunately pt recently has had disease progression, enlarging esophageal mass, progressive lung mets. Pending insurance verification to begin palliative chemotherapy. Pt will be scheduled to start treatment as soon as possible. Pt stated that he knows his cancer is not curable and that the treatments left may not be effective. Current Visit: Yes Status: Acute Priority: High Code(s): K22.2 - E SOPHAGEAL OBSTRUCTION SNOMED Code(s): 124546258 (2) Esophageal cancer Current Visit: No Status: Chronic Priority: Medium Code(s): C15.9 - MALIGNANT NEOPLASM OF ESOPHAGUS, UNSPECIFIED SNOMED Code(s): 709117228 Time with Patient: Greater than 30
--- NOTE | 2020-12-17 18:15 | P.HPIM ---
History of Present Illness H&P Date: 12/17/20 Chief Complaint: Difficulty swallowing History of presenting complaint This is a pleasant 55-year-old patient who follows with oncologist Dr. Price. Per oncology notes: The patient is a 51-year-old white male well known to our service diagnosed with metastatic adenocarcinoma of the esophagus in 12/15. The patient had metastatic disease at the time of diagnosis including liver involvement. He was treated with modified FOLFOX for 12 cycles with excellent response. He was then placed on oral Xeloda for maintenance. This ultimately had to be discontinued because of increasing skin toxicity. Around the time of stoppage of the Xeloda the patient started having some issues with difficulty in swallowing, subsequently became progressive. Repeat EGD in 10/17 showed progression at the primary site. He did not have any evidence of progression at other sites. The patient was then treated with carboplatin and Taxol but did not respond. Due to progressive difficulty in swallowing, he had repeat EGD in 02/16 which showed near complete obstruction. The patient then had PEG tube placement by Interventional Radiology at [facility] on 02/18/20. He was also started on concurrent chemoradiation with infusional 5-FU. His last radiation treatment and 5FU was in Feb 2020. He was then on FOLFIRI, Sep-Oct, unfortunate disease progression on f/u scans, EGD 12/08 showing near obstructing esophageal mass. Currently pending FOLFOX approval from insurance. Patient has a PEG tube that was placed in February of this year. Received feeding through it to about September. Started eating since then. Now for 2 weeks patient has not been able to swallow at all. He was doing/thickened liquids prior to that. Denies any pain. Appetite is fair. No obvious weight loss. We do not have GI services in the hospital for 2 weeks. He has been brought in to see if surgery can do an esophageal stent. Otherwise patient's comfortable. He is not able to swallow his saliva and has to Q spitting it out. EGD by Dr. Gaona on December 08 showed had 30 cm rock is a large obstructing friable tumor. The scope could not be passed beyond. Review of systems: GEN.: None EYES: None HEENT: As above NECK: None RESPIRATORY: None CARDIOVASCULAR: None GASTROINTESTINAL: None GENITOURINARY: None MUSCULOSKELETAL: None LYMPHATICS: None HEMATOLOGICAL: None PSYCHIATRY: None NEUROLOGICAL: None Past medical history to include: Metastatic adenocarcinoma of the esophagus. CAD with stent, COPD, hypertension, hyperlipidemia, osteoarthritis, right subclavian blood clot. COVID 19 in May 2020. Social history: . 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 No alcohol. Smoker. Family history: Prostate cancer COPD Physical examination: VITAL SIGNS: 98, 92, 18, 107/78, 97% room air GENERAL: BMI 20.4, sitting up in bed, not in distress. Left upper chest port EYES: Pupils equal. Conjunctiva normal. HEENT: External appearance of nose and ears normal, oral cavity grossly normal. NECK: JVD not raised; masses not palpable. HEART: First and second heart sounds are normal; no edema. LUNGS: Respiratory rate normal; decreased breath sounds. ABDOMEN: Soft, nontender, liver spleen not palpable, no masses palpable. PSYCH: Alert and oriented x3; mood and affect normal. NEUROLOGICAL: Cranial nerves grossly intact; no facial asymmetry, power and sensation grossly intact. LYMPHATICS: No lymph nodes palpable in the axilla and neck INVESTIGATIONS, reviewed in the clinical context: WBC 12 hemoglobin 13.2 platelets 477 sodium 135 potassium 4.3 BUN 12 creatinine 0.5 for Coronavirus [PCR]: Not detected EKG tracing personally reviewed by me-normal sinus rhythm, incomplete right bundle-branch block, rate 110 CT angiogram chest: No PE. Bilateral scattered pulmonary nodules now finds him and his changes. Mass like infiltrate left lower lobe persist. Masslike thickening distal esophagus with Hernia and Esophageal Dilatation and Intraluminal Debris. Assessment and plan: -Metastatic esophageal adenocarcinoma. Patient has received chemotherapy radi ation treatment. Patient now has a large obstructing mass as per EGD on December 08. Patient has not even able to swallow saliva. Patient now presents to see if I esophageal stent can be done. Patient obviously not able to take his oral medications. Dr. Gaona consulted -Acute on chronic dysphagia from above. Resume PEG tube feeding. Consult dietitian. Medications through the PEG tube. -CAD with stent Aspirin 81 mg, eliquis 5 mg twice a day, Lipitor 80 mg daily at bedtime, -Chronic insomnia from medical condition Elavil 50 mg daily at bedtime -Right subclavian DVT On eliquis 5 mg twice a day. We'll use Lovenox for now. -COPD in a current smoker Qvar 80 g 2 puffs twice a day -Depression not otherwise specified Cymbalta 30 mg twice a day Patient will remain nothing by mouth. Scopolamine patch and hyoscyamine for secretions. Medications were the PEG tube. For now use Lovenox. Consult Dr. Gaona. Care was discussed with the patient. Questions answered. IV fluids. Consult dietitian. In the meantime starts 2 cans of ensure every 6 hours with water flushes. Past Medical History Past Medical History: Coronary Artery Disease (CAD), Cancer, Chest Pain / Angina, COPD, Hyperlipidemia, Hypertension, Osteoarthritis (OA) Additional Past Medical History / Comment(s): Esophageal CA-NO SURGERY, RADIATIO N AND CHEMO (CHEMO NOT COMPLETE OF TODAY 12/04/20). Dysphagia recently to solids, vitiglio, hx. RT SUBCLAVIAN BLOOD CLOT. HAD COVID IN MAY 2020. History of Any Multi-Drug Resistant Organisms: None Reported Past Surgical History: Appendectomy, Heart Catheterization With Stent Additional Past Surgical History / Comment(s): patient states he had his stomach flipped 180 degrees because of acid reflux", 2 cardiac stents, mediport left chest, EGD Past Anesthesia/Blood Transfusion Reactions: No Reported Reaction Date of Last Stent Placement:: 2016 Past Psychological History: No Psychological Hx Reported Smoking Status: Current every day smoker Past Alcohol Use History: None Reported Additional Past Alcohol Use History / Comment(s): every day smoker Past Drug Use History: None Reported - Past Family History Father Family Medical History: Cancer, COPD Additional Family Medical History / Comment(s): prostate cancer Mother Family Medical History: Chest Pain / Angina, Coronary Artery Disease (CAD), Myocardial Infarction ([place]) Additional Family Medical History / Comment(s): "Mother had multiple heart att acks and open heart surgery" Medications and Allergies Home Medications Medication Instructions Recorded Confirmed Type Atorvastatin [Lipitor] 80 mg PO HS #90 tab 10/13/16 12/17/20 Rx Nitroglycerin Sl Tabs [Nitrostat] 0.4 mg SUBLINGUAL Q5M PRN #25 tab 10/13/16 12/17/20 Rx Apixaban [Eliquis] 5 mg PO BID #60 tab 04/01/18 12/17/20 Rx Montelukast [Singulair] 10 mg PO HS 10/23/19 12/17/20 History Beclomethasone Dip 80 Mcg/Puff 2 puff INHALATION RT-BID 04/05/20 12/17/20 History [Qvar 80 mcg] Prochlorperazine [Compazine] 10 mg PO Q6H PRN 04/05/20 12/17/20 History Amitriptyline HCl [Elavil] 50 mg PO HS 12/09/20 12/17/20 History Aspirin EC [Ecotrin Low Dose] 81 mg PO DAILY 12/09/20 12/17/20 History DULoxetine HCL [Cymbalta] 30 mg PO BID 12/09/20 12/17/20 History Docusate [Colace] 100 mg PO DAILY 12/09/20 12/17/20 History HYDROcodone/APAP 10-325MG [[place] 1 tab PO Q8H PRN 12/09/20 12/17/20 History 10-325] Allergies Allergy/AdvReac Type Severity Reaction Status Date / Time Penicillins Allergy Unknown Verified 12/17/20 12:00 Childhood Physical Exam Vitals: Vital Signs Temp Pulse Pulse Resp BP BP Pulse Ox 12/17/20 17:30 98.3 F 85 17 102/69 95 12/17/20 16:45 99.2 F 92 16 119/93 12/17/20 11:57 98 18 109/73 98 12/17/20 10:57 98 F 92 18 107/78 97 Intake and Output 12/17/20 12/17/20 12/17/20 06:59 14:59 22:59 Other: Weight 70.307 kg 70.307 kg Results CBC & Chem 7: 12/17/20 11:44 12/17/20 11:44 Labs: Abnormal Lab Results - Last 24 Hours (Table) 12/17/20 12/17/20 12/17/20 Range/Units 11:44 11:44 11:44 WBC 12.0 H (3.8-10.6) k/uL RBC 4.18 L (4.30-5.90) m/uL Plt Count 477 H (150-450) k/uL Neutrophils # 9.8 H (1.3-7.7) k/uL Lymphocytes # 0.9 L (1.0-4.8) k/uL D-Dimer 1.24 H (<0.60) mg/L FEU Sodium 135 L (137-145) mmol/L Creatinine 0.54 L (0.66-1.25) mg/dL Glucose 174 H (74-99) mg/dL AST 16 L (17-59) U/L Thrombosis Risk Factor Assmnt - Choose All That Apply Any of the Below Risk Factors Present?: Yes Each Factor Represents 1 point: Age 41-60 years, Medical pt on bed rest Each Risk Factor Represents 3 Points: History of DVT/PE Thrombosis Risk Factor Assessment Total Risk Factor Score: 5 Thrombosis Risk Factor Assessment Level: High Risk
[2020-12-17] MEDS: DULoxetine HCL 30 MG CAPSULE.DR PO SCH (20:10)
[2020-12-17] MEDS ORDERED: ENOXAPARIN 100 MG/ML SYRINGE SQ SCH (21:00)
[2020-12-17] MEDS ORDERED: AMITRIPTYLINE HCL 50 MG TAB PO SCH (21:00)
[2020-12-17] MEDS ORDERED: ATORVASTATIN 80 MG TAB PO SCH (21:00)
[2020-12-17] MEDS ORDERED: MONTELUKAST 10 MG TAB PO SCH (21:00)
[2020-12-17] MEDS: HYOSCYAMINE ORAL DROPS 1.875 MG/15 ML BOTTLE PO PRN (22:17)
[2020-12-18] MEDS: SODIUM CHLORIDE 0.9% 1,000 ML IV SCH (04:22)
[2020-12-18] MEDS: MORPHINE SULFATE 4 MG/ML SYRINGE IVP PRN ×3 (04:22→13:26)
[2020-12-18] MEDS: HYOSCYAMINE ORAL DROPS 1.875 MG/15 ML BOTTLE PO PRN ×2 (04:23→13:26)
[2020-12-18] MEDS: DULoxetine HCL 30 MG CAPSULE.DR PO SCH (09:19)
--- NOTE | 2020-12-18 11:16 | P.GSCN ---
History of Present Illness Consult date: 12/18/20 History of present illness: CHIEF COMPLAINT: Esophageal cancer HISTORY OF PRESENT ILLNESS: This is a 55-year-old male with known history of metastatic adenocarcinoma of the esophagus to the liver that was diagnosed in November 2017. He follows with oncology service. She presents to the hospital with complaints of weakness and difficulty swallowing his own secretions. He had a EGD with Dr. Gaona on 12/08/2020 that showed a large esophageal tumor nearly obstructing the esophagus at 30 cm. Patient does have PEG tube in place for nutrition. He denies any nausea or vomiting. Oncology service has added scopolamine patch and Levsin drops to help with secretions. Patient has noted improvement with these medications. PAST MEDICAL HISTORY: Metastatic adenocarcinoma of the esophagus, Coronary Artery Disease (CAD), Cancer, Chest Pain / Angina, COPD, Hyperlipidemia, Hypertension, Osteoarthritis PAST SURGICAL HISTORY: Appendectomy, heart catheterization with stent, multiple EGDs MEDICATIONS: See list. ALLERGIES: See list. SOCIAL HISTORY: No illicit drug use. REVIEW OF SYSTEMS: CONSTITUTIONAL: Denies fever or chills. HEENT: Denies blurred vision, vision changes, or eye pain. Denies hemoptysis CARDIOVASCULAR: Denies chest pain or pressure. RESPIRATORY: No shortness of breath. GASTROINTESTINAL: Denies any nausea vomiting or bowel movement changes HEMATOLOGIC: Denies bleeding disorders. GENITOURINARY: Denies any blood in urine or increased urinary frequency. SKIN: Denies pruitis. Denies rash. PHYSICAL EXAM: VITAL SIGNS: Reviewed GENERAL: Well-developed in no acute distress. HEENT: No sclera icterus. Extraocular movements grossly intact. Moist buccal mucosa. Head is atraumatic, normocephalic. No nasal drainage. ABDOMEN: Soft. Nondistended. Tenderness with palpation to right lower quadrant. NEUROLOGIC: Alert and oriented. Cranial nerves II through XII grossly intact. LABORATORY DATA: WBC is 12.0 hemoglobin 13.2 platelets 477 d-dimer 1.24 sodium 135 potassium 4.3E 112 creatinine 0.54 IMAGING: Chest CTA no evidence for pulmonary embolism ASSESSMENT: 1. Esophageal cancer with metastatic disease 2. Dysphagia PLAN: -Patient is not a candidate for esophageal stent due to the size and location of the esophageal mass -Continue supportive care -Continue IV fluids Thank you for this consultation Physician Civil Drafter note has been reviewed by physician. Signing provider agrees with the documented findings, assessment, and plan of care. Past Medical History Past Medical History: Coronary Artery Disease (CAD), Cancer, Chest Pain / Angina, COPD, Hyperlipidemia, Hypertension, Osteoarthritis (OA) Additional Past Medical History / Comment(s): Esophageal CA-NO SURGERY, RADIATION AND CHEMO (CHEMO NOT COMPLETE OF TODAY 12/04/20). Dysphagia rec ently to solids, vitiglio, hx. RT SUBCLAVIAN BLOOD CLOT. HAD COVID IN MAY 2020. History of Any Multi-Drug Resistant Organisms: None Reported Past Surgical History: Appendectomy, Heart Catheterization With Stent Additional Past Surgical History / Comment(s): patient states he had his stomach flipped 180 degrees because of acid reflux", 2 cardiac stents, mediport left chest, EGD Past Anesthesia/Blood Transfusion Reactions: No Reported Reaction Date of Last Stent Placement:: 2016 Past Psychological History: No Psychological Hx Reported Smoking Status: Current every day smoker Past Alcohol Use History: None Reported Additional Past Alcohol Use History / Comment(s): every day smoker Past Drug Use History: None Reported - Past Family History Father Family Medical History: Cancer, COPD Additional Family Medical History / Comment(s): prostate cancer Mother Family Medical History: Chest Pain / Angina, Coronary Artery Disease (CAD), Myocardial Infarction ([place]) Additional Family Medical History / Comment(s): "Mother had multiple heart attacks and open heart surgery" Medications and Allergies Home Medications Medication Instructions Recorded Confirmed Type Atorvastatin [Lipitor] 80 mg PO HS #90 tab 10/13/16 12/17/20 Rx Nitroglycerin Sl Tabs [Nitrostat] 0.4 mg SUBLINGUAL Q5M PRN #25 tab 10/13/16 12/17/20 Rx Apixaban [Eliquis] 5 mg PO BID #60 tab 04/01/18 12/17/20 Rx Montelukast [Singulair] 10 mg PO HS 10/23/19 12/17/20 History Beclomethasone Dip 80 Mcg/Puff 2 puff INHALATION RT-BID 04/05/20 12/17/20 History [Qvar 80 mcg] Prochlorperazine [Compazine] 10 mg PO Q6H PRN 04/05/20 12/17/20 History Amitriptyline HCl [Elavil] 50 mg PO HS 12/09/20 12/17/20 History Aspirin EC [Ecotrin Low Dose] 81 mg PO DAILY 12/09/20 12/17/20 History DULoxetine HCL [Cymbalta] 30 mg PO BID 12/09/20 12/17/20 History Docusate [Colace] 100 mg PO DAILY 12/09/20 12/17/20 History HYDROcodone/APAP 10-325MG [[place] 1 tab PO Q8H PRN 12/09/20 12/17/20 History 10-325] Allergies Allergy/AdvReac Type Severity Reaction Status Date / Time Penicillins Allergy Unknown Verified 12/17/20 12:00 Childhood Surgical - Exam Vital Signs Temp Pulse Resp BP Pulse Ox 98 F 92 18 107/78 97 12/17/20 10:57 12/17/20 10:57 12/17/20 10:57 12/17/20 10:57 12/17/20 10:57 Results - Labs 12/17/20 11:44 12/17/20 11:44 Abnormal Lab Results - Last 24 Hours (Table) 12/17/20 12/17/20 12/17/20 Range/Units 11:44 11:44 11:44 WBC 12.0 H (3.8-10.6) k/uL RBC 4.18 L (4.30-5.90) m/uL Plt Count 477 H (150-450) k/uL Neutrophils # 9.8 H (1.3-7.7) k/uL Lymphocytes # 0.9 L (1.0-4.8) k/uL D-Dimer 1.24 H (<0.60) mg/L FEU Sodium 135 L (137-145) mmol/L Creatinine 0.54 L (0.66-1.25) mg/dL Glucose 174 H (74-99) mg/dL AST 16 L (17-59) U/L Diabetes panel 12/17/20 Range/Units 11:44 Sodium 135 L (137-145) mmol/L Potassium 4.3 (3.5-5.1) mmol/L Chloride 101 (98-107) mmol/L Carbon Dioxide 23 (22-30) mmol/L BUN 12 (9-20) mg/dL Creatinine 0.54 L (0.66-1.25) mg/dL Glucose 174 H (74-99) mg/dL Calcium 9.2 (8.4-10.2) mg/dL AST 16 L (17-59) U/L ALT 9 (4-49) U/L Alkaline Phosphatase 83 (38-126) U/L Total Protein 6.9 (6.3-8.2) g/dL Albumin 3.7 (3.5-5.0) g/dL Calcium panel 12/17/20 Range/Units 11:44 Calcium 9.2 (8.4-10.2) mg/dL Albumin 3.7 (3.5-5.0) g/dL Pituitary panel 12/17/20 Range/Units 11:44 Sodium 135 L (137-145) mmol/L Potassium 4.3 (3.5-5.1) mmol/L Chloride 101 (98-107) mmol/L Carbon Dioxide 23 (22-30) mmol/L BUN 12 (9-20) mg/dL Creatinine 0.54 L (0.66-1.25) mg/dL Glucose 174 H (74-99) mg/dL Calcium 9.2 (8.4-10.2) mg/dL Adrenal panel 12/17/20 Range/Units 11:44 Sodium 135 L (137-145) mmol/L Potassium 4.3 (3.5-5.1) mmol/L Chloride 101 (98-107) mmol/L Carbon Dioxide 23 (22-30) mmol/L BUN 12 (9-20) mg/dL Creatinine 0.54 L (0.66-1.25) mg/dL Glucose 174 H (74-99) mg/dL Calcium 9.2 (8.4-10.2) mg/dL Total Bilirubin 0.5 (0.2-1.3) mg/dL AST 16 L (17-59) U/L ALT 9 (4-49) U/L Alkaline Phosphatase 83 (38-126) U/L Total Protein 6.9 (6.3-8.2) g/dL Albumin 3.7 (3.5-5.0) g/dL
[2020-12-18 12:40] VITALS: BP 96/64; PULSE 91; RESP 17; TEMP 98.4
[2020-12-18 13:03] VITALS: BMI 20.4
--- NOTE | 2020-12-18 17:24 | P.PN ---
Subjective Progress Note Date: 12/18/20 Principal diagnosis: Recurrent esophageal cancer, inability to manage secretions In f/u pt report less secretions to deal with using scopolamine and levsin, he has seen Dietitian and is working on managing his PEG tube intake and maintenance of fluid status. He denies fever or cough, abd pain, he is still ambulating Objective - Vital Signs Vital signs: Vital Signs Temp 98.4 F 12/18/20 12:39 Pulse 91 12/18/20 12:39 Resp 17 12/18/20 12:39 BP 96/64 12/18/20 12:39 Pulse Ox 95 12/18/20 12:39 Intake & Output 12/17/20 12/18/20 12/18/20 18:59 06:59 18:59 Intake Total 725 1896 Balance 725 1896 Weight 70.307 kg 70.307 kg Intake: Intake, IV Titration 725 Amount Sodium Chloride 0.9% 1, 725 000 ml @ 75 mls/hr IV . [id number] [facility] Rx#:[id number] Tube Feeding 1895 Other: Voiding Method Toilet Toilet # Voids 1 - Constitutional General appearance: Present: cooperative, no acute distress, thin - EENT Eyes: Present: anicteric sclerae, EOMI ENT: Present: hearing grossly normal, normal oropharynx - Respiratory Respiratory: bilateral: CTA - Cardiovascular Rhythm: regular Heart sounds: normal: S1, S2 - Peripheral edema leg Peripheral Edema: bilateral: None - Gastrointestinal General gastrointestinal: Present: normal bowel sounds, soft - Psychiatric Psychiatric: Present: A&O x's 3, appropriate affect, intact judgment & insight - Labs CBC & Chem 7: 12/17/20 11:44 12/17/20 11:44 Assessment and Plan (1) Esophageal obstruction Narrative/Plan: Decreased secretions on medications, will prescribe. Pending Surgical review-do not suspect that pt is going to be a candidate for stent. Radiation Oncologist reviewed case, there is a very narrow area that could be radiated but, this would be reserved for emergent need. Have consulted Case Mgmt for palliative care at home, edu on mgmt of Kangaroo pump at home, medication administration of meds via PEG. Kangaroo pump needed for cont feed overnight as pt is not able to provide himself with fluid and caloric needs only through bolus feedings during the day. Pt states he thinks he has a bed wedge and does have a recliner he can sleep in to keep his head at 45 degree angle Dietitian for nutrition and hydration recs-pt should not need parenteral hydration with a PEG tube Unfortunately pt recently has had disease progression, enlarging esophageal mass, progressive lung mets. Pending insurance verification to begin palliative chemotherapy. Pt will be scheduled to start treatment as soon as possible- likely Tuesday as his regimen is 3 days. Pt stated that he knows his cancer is not curable and that the treatments left may not be effective. Status: Acute Priority: High Code(s): K22.2 - ESOPHAGEAL OBSTRUCTION SNOMED Code(s): 606946526 (2) Esophageal cancer Status: Chronic Priority: Medium Code(s): C15.9 - MALIGNANT NEOPLASM OF ESOPHAGUS, UNSPECIFIED SNOMED Code(s): 293857802 Time with Patient: Greater than 30
--- NOTE | 2020-12-19 19:14 | P.DS ---
Providers Date of admission: 12/17/20 13:14 Expected date of discharge: 12/18/20 Attending physician: Jose Goodman Consults: 12/17/20 11:43 Consult Physician Routine Consulting Provider: Harshal Price Consult Reason/Comments: inpatient chemotherapy Do you want consulting provider notified?: Yes 12/17/20 14:54 Consult Physician Routine Consulting Provider: Jabari Gaona Consult Reason/Comments: dysphagia Do you want consulting provider notified?: Yes Placement Type Exists?: Yes Primary care physician: Stated None Hospital Course: Chief Complaint: Difficulty swallowing History of presenting complaint This is a pleasant 55-year-old patient who follows with oncologist Dr. Price. Per oncology notes: The patient is a 51-year-old white male well known to our service diagnosed with metastatic adenocarcinoma of the esophagus in 12/15. The patient had metastatic disease at the time of diagnosis including liver involvement. He was treated with modified FOLFOX for 12 cycles with excellent response. He was then placed on oral Xeloda for maintenance. This ultimately had to be discontinued because of increasing skin toxicity. Around the time of stoppage of the Xeloda the patient started having some issues with difficulty in swallowing, subsequently became progressive. Repeat EGD in 10/17 showed progression at the primary site. He did not have any evidence of progression at other sites. The patient was then treated with carboplatin and Taxol but did not respond. Due to progressive difficulty in swallowing, he had repeat EGD in 02/16 which showed near complete obstruction. The patient then had PEG tube placement by Interventional Radiology at [facility] on 02/18/20. He was also started on concurrent chemoradiation with infusional 5-FU. His last radiation treatment and 5FU was in Feb 2020. He was then on FOLFIRI, Sep-Oct, unfortunate disease progression on f/u scans, EGD 12/08 showing near obstructing esophageal mass. Currently pending FOLFOX approval from insurance. Patient has a PEG tube that was placed in February of this year. Received feeding through it to about September. Started eating since then. Now for 2 weeks patient has not been able to swallow at all. He was doing/thickened liquids prior to that. Denies any pain. Appetite is fair. No obvious weight loss. We do not have GI services in the hospital for 2 weeks. He has been brought in to see if surgery can do an esophageal stent. Otherwise patient's comfortable. He is not able to swallow his saliva and has to Q spitting it out. EGD by Dr. Gaona on December 08 showed had 30 cm rock is a large obstructing friable tumor. The scope could not be passed beyond. December 18: Patient will go home today. He will have nocturnal 2 feeding. With a pump. Therefore hospital bed will be required. This was coordinated with the geriatric case manager. Patient will to use levsin secretions. Which is working well. Prescriptions done. Discussion and discharge planning more than 35 minutes Consultation: Dr. Gaona from general surgery Dr. price from oncology Past medical history to include: Metastatic adenocarcinoma of the esophagus. CAD with stent, COPD, hypertension, hyperlipidemia, osteoarthritis, right subclavian blood clot. COVID 19 in May 2020. 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 No alcohol. Smoker. Family history: Prostate cancer COPD Physical examination: VITAL SIGNS: 98.4, 91, 17, 96/64, 95% room air GENERAL: Sitting at the edge of the bed, comfortable Left upper chest port EYES: Pupils equal. Conjunctiva normal. HEENT: External appearance of nose and ears normal, oral cavity grossly normal. NECK: JVD not raised; masses not palpable. HEART: First and second heart sounds are normal; no edema. LUNGS: Respiratory rate normal; decreased breath sounds. ABDOMEN: Soft, nontender, liver spleen not palpable, no masses palpable. PSYCH: Alert and oriented x3; mood and affect normal. INVESTIGATIONS, reviewed in the clinical context: WBC 12 hemoglobin 13.2 platelets 477 sodium 135 potassium 4.3 BUN 12 creatinine 0.5 for Coronavirus [PCR]: Not detected EKG tracing personally reviewed by me-normal sinus rhythm, incomplete right bundle-branch block, rate 110 CT angiogram chest: No PE. Bilateral scattered pulmonary nodules now finds him and his changes. Mass like infiltrate left lower lobe persist. Masslike thickening distal esophagus with Hernia and Esophageal Dilatation and Intraluminal Debris. Assessment and plan: -Metastatic esophageal adenocarcinoma. Patient has received chemotherapy radiation treatment. Patient now has a large obstructing mass as per EGD on December 08. Patient has not even able to swallow saliva. Patient now presents to see if I esophageal stent can be done. Patient obviously not able to take his oral medications. Dr. Bhesania: Mass is too large and friable for a stent to be placed. -Acute on chronic dysphagia from above. PEG tube feeding. -PEG tube feeding to be changed to be given overnight. Callahan feeding did not work out. Hospital bed -CAD with stent Aspirin 81 mg, eliquis 5 mg twice a day, Lipitor 80 mg daily at bedtime, -Chronic insomnia from medical condition Elavil 50 mg daily at bedtime -Right subclavian DVT On eliquis 5 mg twice a day. We'll use Lovenox for now. -COPD in a current smoker Qvar 80 g 2 puffs twice a day -Depression not otherwise specified Cymbalta 30 mg twice a day Disposition: Home. Patient Condition at Discharge: Fair Plan - Discharge Summary Discharge Rx Participant: No New Discharge Prescriptions: New Hyoscyamine Oral Drops [Levsin Drops] 0.125 mg PO Q4HR PRN #30 ml PRN Reason: Secretions Scopolamine 1.5MG/72Hr Patch [TransDerm Scop] 1 patch TRANSDERM Q72H patch Continue Atorvastatin [Lipitor] 80 mg PO HS #90 tab Nitroglycerin Sl Tabs [Nitrostat] 0.4 mg SUBLINGUAL Q5M PRN #25 tab PRN Reason: Chest Pain Apixaban [Eliquis] 5 mg PO BID #60 tab Montelukast [Singulair] 10 mg PO HS Beclomethasone Dip 80 Mcg/Puff [Qvar 80 mcg] 2 puff INHALATION RT-BID Prochlorperazine [Compazine] 10 mg PO Q6H PRN PRN Reason: Nausea HYDROcodone/APAP 10-325MG [[place] 10-325] 1 tab PO Q8H PRN PRN Reason: Pain Amitriptyline HCl [Elavil] 50 mg PO HS DULoxetine HCL [Cymbalta] 30 mg PO BID Aspirin EC [Ecotrin Low Dose] 81 mg PO DAILY Discontinued Docusate [Colace] 100 mg PO DAILY Discharge Medication List Atorvastatin [Lipitor] 80 mg PO HS #90 tab 10/13/16 [Rx] Nitroglycerin Sl Tabs [Nitrostat] 0.4 mg SUBLINGUAL Q5M PRN #25 tab 10/13/16 [Rx] Apixaban [Eliquis] 5 mg PO BID #60 tab 04/01/18 [Rx] Montelukast [Singulair] 10 mg PO HS 10/23/19 [History] Beclomethasone Dip 80 Mcg/Puff [Qvar 80 mcg] 2 puff INHALATION RT-BID 04/05/20 [History] Prochlorperazine [Compazine] 10 mg PO Q6H PRN 04/05/20 [History] Amitriptyline HCl [Elavil] 50 mg PO HS 12/09/20 [History] Aspirin EC [Ecotrin Low Dose] 81 mg PO DAILY 12/09/20 [History] DULoxetine HCL [Cymbalta] 30 mg PO BID 12/09/20 [History] HYDROcodone/APAP 10-325MG [[place] 10-325] 1 tab PO Q8H PRN 12/09/20 [History] Hyoscyamine Oral Drops [Levsin Drops] 0.125 mg PO Q4HR PRN #30 ml 12/18/20 [Rx] Scopolamine 1.5MG/72Hr Patch [TransDerm Scop] 1 patch TRANSDERM Q72H patch 12/18/20 [Rx] Follow up Appointment(s)/Referral(s): Harshal Price MD [STAFF PHYSICIAN] - 01/12/21 10:45 am Ronald Palmer MD [STAFF PHYSICIAN] - 1 Week (The office is closed please call and make follow up appointment.) [facility], [NON-STAFF] - 1 Week [facility], [REFERRING] - As Needed [facility] [NON-STAFF] - As Needed (Supplier of Hospital Bed) Patient Instructions/Handouts: Hyoscyamine (By mouth), How to Use and Care for Your PEG Tube (DC), Tube Feeding (DC) Activity/Diet/Wound Care/Special Instructions: pt to use current scopolamine patch - no more Discharge Disposition: HOME WITH HOME HEALTH SERVICES Care Plan Goals (MU): Nutrition for home: Recommend Glucerna 1.2, 237 mls x 2 at bolus, 4x/day Waterflush total: 740 mls (60 mls before and after bolus feed). 260 mls extra fluids throughout the day If pt gets approved for a pump Glucerna 1.2 Goal rate of 78 mL/hr 120 mL free water flush every 4 hours
== END 2020-12-18 17:05 | disposition home health service (06) ==
LOC: EC 10:52 → INTOOBSV 13:14 → 5NMEDONC 13:14 → UNDODISIN 12-18 17:05
PROVIDERS: ADMIT Hospitalist; ATTEND Hospitalist
DX: C15.9 Malignant neoplasm of esophagus, unspecified (principal); K22.2 Esophageal obstruction; C78.00 Secondary malignant neoplasm of unspecified lung; C78.7 Secondary malignant neoplasm of liver and intrahepatic bile duct; Z93.1 Gastrostomy status; I25.10 Atherosclerotic heart disease of native coronary artery without angina pectoris; M19.90 Unspecified osteoarthritis, unspecified site; E78.5 Hyperlipidemia, unspecified; D72.829 Elevated white blood cell count, unspecified; R79.89 Other specified abnormal findings of blood chemistry; I10 Essential (primary) hypertension; I82.B11 Acute embolism and thrombosis of right subclavian vein; J44.9 Chronic obstructive pulmonary disease, unspecified; R00.0 Tachycardia, unspecified; I45.10 Unspecified right bundle-branch block; G47.01 Insomnia due to medical condition; Z51.5 Encounter for palliative care; K44.9 Diaphragmatic hernia without obstruction or gangrene; K80.20 Calculus of gallbladder without cholecystitis without obstruction; F17.200 Nicotine dependence, unspecified, uncomplicated; F32.9 Major depressive disorder, single episode, unspecified; Z20.822 Contact with and (suspected) exposure to COVID-19; Z79.01 Long term (current) use of anticoagulants; Z79.51 Long term (current) use of inhaled steroids; Z79.82 Long term (current) use of aspirin; Z79.899 Other long term (current) drug therapy; Z88.0 Allergy status to penicillin; Z95.5 Presence of coronary angioplasty implant and graft; Z87.19 Personal history of other diseases of the digestive system; Z86.16 Personal history of COVID-19; Z92.21 Personal history of antineoplastic chemotherapy; Z95.828 Presence of other vascular implants and grafts; Z86.711 Personal history of pulmonary embolism; Z86.718 Personal history of other venous thrombosis and embolism; Z90.49 Acquired absence of other specified parts of digestive tract; Z82.5 Family history of asthma and other chronic lower respiratory diseases; Z80.42 Family history of malignant neoplasm of prostate; Z82.49 Family history of ischemic heart disease and other diseases of the circulatory system; Z71.89 Other specified counseling
CPT/HCPCS: 96376 ×3; 96372 ×2; 96361; 96374; 99285; 36415; 93005; 85379; 80053; 83605; 83735; 85025; 85610; 85730; 87635; 71275; G0378 ×2; J2270 ×2; J1650; J1642; Q9967

== ENCOUNTER 2020-12-24 18:40 | Emergency (ER) | payer BC ==
[2020-12-24] MEDS ORDERED: SODIUM CHLORIDE 0.9% 1,000 ML IV STA (18:52)
[2020-12-24] MEDS ORDERED: MORPHINE SULFATE 4 MG/ML SYRINGE IV STA (18:52)
[2020-12-24] MEDS ORDERED: PANTOPRAZOLE 40 MG/10 ML VIAL IVP STA (18:54)
[2020-12-24 18:59] VITALS: TEMP 98.1
--- NOTE | 2020-12-24 19:03 | ED ---
General Adult HPI - General Chief complaint: GI Bleed Stated complaint: Bleeding Time Seen by Provider: 12/24/20 18:52 Source: patient Mode of arrival: wheelchair Limitations: no limitations - History of Present Illness Initial comments: Dictation was produced using [employer] dictation software. please excuse any grammatical, word or spelling errors. Chief Complaint: 55-year-old male with esophageal mass presents to the emergency Department for hematemesis and blood from feeding tube History of Present Illness: Is 55-year-old male has known history of esophageal mass with metastatic disease. Patient was just set up for chemotherapy with 5- fluorouracil today by oncology. Today at approximately 3 PM he injected food into his feeding tube. Couple hours later he started having some hematemesis and blood coming from his feeding tube. He states that he has some mild epigastric pain. Denies any black stools or diarrhea. No fevers. The ROS documented in this emergency department record has been reviewed and confirmed by me. Those systems with pertinent positive or negative responses have been documented in the HPI. All other systems are other negative and/or noncontributory. PHYSICAL EXAM: General Impression: Alert and oriented x3, not in acute distress HEENT: Normocephalic atraumatic, extra-ocular movements intact, pupils equal and reactive to light bilaterally, mucous membranes moist, no blood in the orophary nx. There is blood in the basin at bedside Cardiovascular: Heart regular rate and rhythm Chest: Able to complete full sentences, no retractions, no tachypnea Abdomen: abdomen soft, mild epigastric palpatory tenderness, non-distended, no organomegaly, blood in the PEG tube being Musculoskeletal: Pulses present and equal in all extremities, no peripheral edema Motor: no focal deficits noted Neurological: CN II-XII grossly intact, no focal motor or sensory deficits noted Skin: Intact with no visualized rashes Psych: Normal affect and mood ED course: 55-year-old male presents emergency department for hematemesis. Some clear bleeding is from the esophageal mass or from an other source. He does have associated epigastric pain. Differential also includes peptic ulcer. Vital signs upon arrival shows heart rate of 126, rest of vital signs within acceptable limits. Labs are unremarkable. Patient has stable findings. Patient observed in emergency department for approximately 2 hours and 40 minutes findings stable medical condition. No lower having episodes of bloody emesis. Case was discussed with Dr. Gan who is covering for Dr. Price. She request that patient be transferred to [facility] for radiation therapy to treat bleeding. [facility] was full and not accepting any patients. [facility] was able to accept the patient. accepted by Dr. Ramirez for ER to ER transfer. - Related Data Home Medications Medication Instructions Recorded Confirmed Montelukast [Singulair] 10 mg PO HS 10/23/19 12/24/20 Beclomethasone Dip 80 Mcg/Puff 2 puff INHALATION RT-BID 04/05/20 12/24/20 [Qvar 80 mcg] Prochlorperazine [Compazine] 10 mg PO Q6H PRN 04/05/20 12/24/20 Amitriptyline HCl [Elavil] 50 mg PO HS 12/09/20 12/24/20 Aspirin EC [Ecotrin Low Dose] 81 mg PO DAILY 12/09/20 12/24/20 DULoxetine HCL [Cymbalta] 30 mg PO BID 12/09/20 12/24/20 HYDROcodone/APAP 10-325MG [[place] 1 tab PO Q8H PRN 12/09/20 12/24/20 10-325] Previous Rx's Medication Instructions Recorded Atorvastatin [Lipitor] 80 mg PO HS #90 tab 10/13/16 Nitroglycerin Sl Tabs [Nitrostat] 0.4 mg SUBLINGUAL Q5M PRN #25 tab 10/13/16 Apixaban [Eliquis] 5 mg PO BID #60 tab 04/01/18 Hyoscyamine Oral Drops [Levsin 0.125 mg PO Q4HR PRN #30 ml 12/18/20 Drops] Scopolamine 1.5MG/72Hr Patch 1 patch TRANSDERM Q72H patch 12/18/20 [TransDerm Scop] Allergies Allergy/AdvReac Type Severity Reaction Status Date / Time Penicillins Allergy Unknown Verified 12/24/20 20:25 Childhood Review of Systems ROS Statement: Those systems with pertinent positive or pertinent negative responses have been documented in the HPI. ROS Other: All systems not noted in ROS Statement are negative. Past Medical History Past Medical History: Coronary Artery Disease (CAD), Cancer, Chest Pain / Angina, COPD, Hyperlipidemia, Hypertension, Osteoarthritis (OA) Additional Past Medical History / Comment(s): Esophageal CA-NO SURGERY, RADIATION AND CHEMO (CHEMO NOT COMPLETE OF TODAY 12/04/20). Dysphagia recently to solids, vitiglio, hx. RT SUBCLAVIAN BLOOD CLOT. HAD COVID IN MAY 2020. History of Any Multi-Drug Resistant Organisms: None Reported Past Surgical History: Appendectomy, Heart Catheterization With Stent Additional Past Surgical History / Comment(s): patient states he had his stomach flipped 180 degrees because of acid reflux", 2 cardiac stents, mediport left chest, EGD Past Anesthesia/Blood Transfusion Reactions: No Reported Reaction Date of Last Stent Placement:: 2016 Past Psychological History: No Psychological Hx Reported Smoking Status: Current every day smoker Past Alcohol Use History: None Reported Additional Past Alcohol Use History / Comment(s): every day smoker Past Drug Use History: None Reported - Past Family History Father Family Medical History: Cancer, COPD Additional Family Medical History / Comment(s): prostate cancer Mother Family Medical History: Chest Pain / Angina, Coronary Artery Disease (CAD), Myocardial Infarction (PA) Additional Family Medical History / Comment(s): "Mother had multiple heart attacks and open heart surgery" General Exam Limitations: no limitations Course Vital Signs 12/24/20 12/24/20 18:51 20:42 Temperature 98.1 F Pulse Rate 126 H 94 Respiratory 18 17 Rate Blood Pressure 117/84 116/82 O2 Sat by Pulse 99 100 Oximetry Medical Decision Making - Lab Data Result diagrams: 12/24/20 19:01 12/24/20 19:00 Lab Results 12/24/20 12/24/20 12/24/20 Range/Units 18:45 19:00 19:00 WBC (3.8-10.6) k/uL RBC (4.30-5.90) m/uL Hgb (13.0-17.5) gm/dL Hct (39.0-53.0) % MCV (80.0-100.0) fL MCH (25.0-35.0) pg MCHC (31.0-37.0) g/dL RDW (11.5-15.5) % Plt Count (150-450) k/uL MPV Neutrophils % % Lymphocytes % % Monocytes % % Eosinophils % % Basophils % % Neutrophils # (1.3-7.7) k/uL Lymphocytes # (1.0-4.8) k/uL Monocytes # (0-1.0) k/uL Eosinophils # (0-0.7) k/uL Basophils # (0-0.2) k/uL Hypochromasia PT 10.3 (9.0-12.0) sec INR 1.0 (<1.2) APTT 23.1 (22.0-30.0) sec Sodium 135 L (137-145) mmol/L Potassium 4.0 (3.5-5.1) mmol/L Chloride 96 L (98-107) mmol/L Carbon Dioxide 20 L (22-30) mmol/L Anion Gap 19 mmol/L BUN 20 (9-20) mg/dL Creatinine 0.48 L (0.66-1.25) mg/dL Est GFR (CKD-EPI)AfAm >90 (>60 ml/min/1.73 sqM) Est GFR (CKD-EPI)NonAf >90 (>60 ml/min/1.73 sqM) Glucose 312 H (74-99) mg/dL Calcium 9.8 (8.4-10.2) mg/dL Magnesium 2.3 (1.6-2.3) mg/dL Total Bilirubin 0.4 (0.2-1.3) mg/dL AST 27 (17-59) U/L ALT 30 (4-49) U/L Alkaline Phosphatase 116 (38-126) U/L Total Protein 7.8 (6.3-8.2) g/dL Albumin 4.1 (3.5-5.0) g/dL Lipase 70 (23-300) U/L Blood Type Blood Type Confirm Blood Type Recheck Bld Type Recheck Status Antibody Screen NEGATIVE Spec Expiration Date 12/24/20 12/24/20 12/24/20 Range/Units 19:00 19:00 19:01 WBC 14.3 H (3.8-10.6) k/uL RBC 4.32 (4.30-5.90) m/uL Hgb 13.3 (13.0-17.5) gm/dL Hct 42.7 (39.0-53.0) % MCV 98.9 (80.0-100.0) fL MCH 30.8 (25.0-35.0) pg MCHC 31.1 (31.0-37.0) g/dL RDW 14.4 (11.5-15.5) % Plt Count 589 H (150-450) k/uL MPV 7.2 Neutrophils % 89 % Lymphocytes % 6 % Monocytes % 4 % Eosinophils % 0 % Basophils % 0 % Neutrophils # 12.8 H (1.3-7.7) k/uL Lymphocytes # 0.8 L (1.0-4.8) k/uL Monocytes # 0.5 (0-1.0) k/uL Eosinophils # 0.0 (0-0.7) k/uL Basophils # 0.0 (0-0.2) k/uL Hypochromasia Slight PT (9.0-12.0) sec INR (<1.2) APTT (22.0-30.0) sec Sodium (137-145) mmol/L Potassium (3.5-5.1) mmol/L Chloride (98-107) mmol/L Carbon Dioxide (22-30) mmol/L Anion Gap mmol/L BUN (9-20) mg/dL Creatinine (0.66-1.25) mg/dL Est GFR (CKD-EPI)AfAm (>60 ml/min/1.73 sqM) Est GFR (CKD-EPI)NonAf (>60 ml/min/1.73 sqM) Glucose (74-99) mg/dL Calcium (8.4-10.2) mg/dL Magnesium (1.6-2.3) mg/dL Total Bilirubin (0.2-1.3) mg/dL AST (17-59) U/L ALT (4-49) U/L Alkaline Phosphatase (38-126) U/L Total Protein (6.3-8.2) g/dL Albumin (3.5-5.0) g/dL Lipase (23-300) U/L Blood Type O Positive Blood Type Confirm O Positive Blood Type Recheck No Previous Record Bld Type Recheck Status CABO Indicated Antibody Screen Spec Expiration Date 12/27/20202299 Disposition Clinical Impression: GI bleed Disposition: OTHER INSTITUTION NOT DEFINED Condition: Fair Referrals: None,Stated [Primary Care Provider] - 1-2 days - Out of Hospital Transfer - Req. Specs Out of Hospital Transfer - Requested Specifics: Other Emergency Center ([facility]
[2020-12-24 19:04] LABS: Basophils % (A) 0 %; Eosinophils % (A) 0 %; HCT 42.7 % (39.0-53.0); HGB 13.3 gm/dL (13.0-17.5); Hypochromasia Slight; Lymphocytes # (A) 0.8 k/uL (1.0-4.8); Lymphocytes % (A) 6 %; MCH 30.8 pg (25.0-35.0); MCHC 31.1 g/dL (31.0-37.0); MCV 98.9 fL (80.0-100.0); Mean Platelet Volume 7.2; Monocytes # (A) 0.5 k/uL (0-1.0); Monocytes % (A) 4 %; Neutrophils # (A) 12.8 k/uL (1.3-7.7); Neutrophils % (A) 89 %; Platelet Count 589 k/uL (150-450); RBC 4.32 m/uL (4.30-5.90); RDW 14.4 % (11.5-15.5); WBC 14.3 k/uL (3.8-10.6)
[2020-12-24 19:18] LABS: AST 27 U/L (17-59); African American GFR (CKD) >90 (>60 ml/min/1.73 sqM); Albumin 4.1 g/dL (3.5-5.0); Alkaline Phosphatase 116 U/L (38-126); Anion Gap 19 mmol/L; Blood Urea Nitrogen 20 mg/dL (9-20); Calcium 9.8 mg/dL (8.4-10.2); Carbon Dioxide 20 mmol/L (22-30); Chloride 96 mmol/L (98-107); Glucose 312 mg/dL (74-99); Lipase 70 U/L (23-300); Magnesium 2.3 mg/dL (1.6-2.3); Non-African American GFR(CKD) >90 (>60 ml/min/1.73 sqM); Sodium 135 mmol/L (137-145); Total Bilirubin 0.4 mg/dL (0.2-1.3); Total Protein 7.8 g/dL (6.3-8.2)
[2020-12-24 19:21] LABS: Partial Thromboplastin Time 23.1 sec (22.0-30.0); Prothrombin Time 10.3 sec (9.0-12.0)
[2020-12-24 19:24] LABS: ALT 30 U/L (4-49)
[2020-12-24] MEDS ORDERED: MORPHINE SULFATE 4 MG/ML SYRINGE IVP STA (20:42)
[2020-12-24 20:43] VITALS: RESP 17
[2020-12-24 22:11] VITALS: BP 122/91; PULSE 89
== END 2020-12-24 22:00 | disposition other institution (70) ==
LOC: EC 18:40
DX: K62.5 Hemorrhage of anus and rectum (principal); I10 Essential (primary) hypertension; E78.5 Hyperlipidemia, unspecified; J44.9 Chronic obstructive pulmonary disease, unspecified; C15.9 Malignant neoplasm of esophagus, unspecified; I25.10 Atherosclerotic heart disease of native coronary artery without angina pectoris; K21.9 Gastro-esophageal reflux disease without esophagitis; M19.90 Unspecified osteoarthritis, unspecified site; F17.200 Nicotine dependence, unspecified, uncomplicated; Z79.01 Long term (current) use of anticoagulants; Z79.51 Long term (current) use of inhaled steroids; Z79.82 Long term (current) use of aspirin; Z79.899 Other long term (current) drug therapy; Z82.49 Family history of ischemic heart disease and other diseases of the circulatory system; Z88.0 Allergy status to penicillin; Z90.49 Acquired absence of other specified parts of digestive tract; Z95.5 Presence of coronary angioplasty implant and graft
CPT/HCPCS: 36415; 93005; 86900; 86901; 80053; 83690; 83735; 85025; 85610; 85730; 86850; 87635; 99285; 96374; 96375; 96376; 96361 ×3; J2270; C9113

== ENCOUNTER → 2021-02-09 | Outpatient (CLI) | payer BC ==
[2021-02-09 13:56] LABS: African American GFR (CKD) >90 (>60 ml/min/1.73 sqM); Blood Urea Nitrogen 11 mg/dL (9-20); Non-African American GFR(CKD) >90 (>60 ml/min/1.73 sqM)
--- NOTE | 2021-02-09 16:35 | CT ---
EXAMINATION TYPE: CT ChestAbdPelvis w con DATE OF EXAM: 02/09/2021 COMPARISON: 12/05/2020, 09/12/2020, 07/08/2020 HISTORY: 55-year-old male Esophageal ca, liver ca TECHNIQUE: Contiguous axial scanning of the chest, abdomen, and pelvis performed with IV Contrast, pa tient injected with 100 mL of Isovue 300. Delayed images through the kidneys were obtained. Coronal/s agittal reconstructions performed. CT DLP: 1308 mGycm Automated exposure control for dose reduction was used. FINDINGS: CHEST: Heart normal size. Pericardial effusion is increasing in thickness now measuring 3.3 cm versus 1.2 cm , previously. Three-vessel coronary artery calcifications are noted. Aorta normal caliber with mild atherosclerotic arch calcifications and conventional arch vessel branc portia anatomy. Left anterior chest wall injection port with catheter tip at the mid SVC. Right hilar metastatic lymph node measuring 3.1 cm. New right paratracheal lymph node measuring 1.6 c m cyst. An esophageal stent is now present extending into the fundus of the stomach across the herniated Niss en fundoplication wrap. Soft tissue thickening at the GE junction is again noted. The stent is patent. Again, poor distincti on with the paraesophageal fat along the left lateral margin, axial image [address] invasion as mentioned previously. New right paraesophageal mass at 2.3 cm. Redemonstrated COPD with mild emphysema. There are new and enlarging bilateral pulmonary nodules, for example, anterior left upper lobe currently measuring 3.1 cm versus 2.0 cm, previously. Additional e xamples include: Right middle lobe pulmonary nodule 2.2 cm versus 1.2 cm, previously. Lateral right lower lung pulmonary nodule measuring 2.5 cm versus 1.3 cm, previously. 3.3 cm medial left lower lobe, axial image 46. No pleural effusion. Reticular changes in the lower lungs redemonstrated, possible sequela of chronic aspiration. ABDOMEN: Approximate 3 subtle hepatic hypodensities are present measuring up to 9 mm, axial image 9, 10, and 2 1 (best seen on the delayed kidney images). These are unchanged from 12/05/2020, possibly sites of pre viously treated hepatic metastases. No new hepatic lesions are seen. Portal venous system is patent. No biliary ductal dilatation. 1.3 cm gallstone. Adrenal glands, spleen, and pancreas within normal limits. A PEG tube is noted however, the balloon of the PEG tube is not well seen. Clinically correlate. No dilated small bowel, free fluid, or free air. No mesenteric or retroperitoneal lymphadenopathy. Moderate stool burden. No pericolic inflammatory change. PELVIS: Prominent distention of the urinary bladder. Prostatomegaly at 5.1 cm wide. Central pelvic phlebolith . No abnormal fluid collection in the pelvis or pelvic lymphadenopathy. Moderate sclerotic calcificat ions right common iliac artery. No abnormal fluid collection in the pelvis or pelvic lymphadenopathy. BONES: Mild degenerative change at the hips. Mild degenerative spurring at the SI joints. No osseous destruc tive process is seen. IMPRESSION: 1. INTERVAL PLACEMENT OF A PATENT METALLIC ESOPHAGEAL STENT. THIS STENT TRAVERSES THE HERNIATED NISSE N FUNDOPLICATION WRAP INTO THE FUNDUS OF THE STOMACH. 2. SIMILAR SOFT TISSUE THICKENING AT THE GE JUNCTION AND POSSIBLE DIRECT EXTENSION ALONG THE LEFT LAT ERAL MARGIN. NEW RIGHT PARAESOPHAGEAL MASS AT THE LEVEL OF THE PRIMARY CARCINOMA MEASURING 2.3 CM COU LD REPRESENT CONTIGUOUS EXTENSION VERSUS NEW PARAESOPHAGEAL LYMPHADENOPATHY. 3. THERE ARE ADDITIONAL FINDINGS OF DISEASE PROGRESSION WITH NUMEROUS NEW AND ENLARGING BILATERAL PUL MONARY NODULES (MEASURING UP TO 3.3 CM) AND NEW RIGHT HILAR (3.1 CM) AND RIGHT PARATRACHEAL LYMPHADEN OPATHY. 4. 3 SUBTLE HEPATIC HYPODENSITIES MEASURING UP TO 9 MM ARE UNCHANGED FROM 12/05/2020, POSSIBLE SITES O F PREVIOUSLY TREATED HEPATIC METASTASES. NO NEW LIVER LESIONS ARE SEEN. 5. THE PEG TUBE BALLOON IS NO LONGER SEEN. CLINICALLY CORRELATE. 4. 1.3 CM GALLSTONE. MODERATE STOOL BURDEN. PROSTATOMEGALY AT 5.1 CM WIDE.
== END | disposition home or self-care (01) ==
LOC: RADCTMAIN 13:00
PROVIDERS: ATTEND Internal Medicine Hematology & Oncology
DX: C15.5 Malignant neoplasm of lower third of esophagus (principal); C78.7 Secondary malignant neoplasm of liver and intrahepatic bile duct; K80.20 Calculus of gallbladder without cholecystitis without obstruction; R91.8 Other nonspecific abnormal finding of lung field; R59.1 Generalized enlarged lymph nodes
CPT/HCPCS: 82565; 84520; 71260; 74177; 36415; Q9967

== ENCOUNTER 2021-03-02 17:41 | Observation (INO) | payer BC ==
[2021-03-02] MEDS ORDERED: HYDROmorphone 1 MG/ML 1 ML SYRINGE IVP STA (19:11)
--- NOTE | 2021-03-02 19:11 | ED ---
SOB HPI - General Chief Complaint: Shortness of Breath Stated Complaint: fluid retention near heart Time Seen by Provider: 03/02/21 18:38 Source: patient, EMS, RN notes reviewed Mode of arrival: EMS Limitations: no limitations - History of Present Illness Initial Comments: 55-year-old male with a history of esophageal cancer heart disease COPD who was sent in by Dr. Meier due to the finding of fluid around his heart and echocardiogram. Patient states she's been having shortness of breath and exertional dyspnea for the past 2-3 weeks also low blood pressure and dizziness lightheadedness. He denies any chest pain at this time at rest he feels no symptoms no fevers chills nausea vomiting sweats no other factors at this time MD Complaint: shortness of breath - Related Data Home Medications Medication Instructions Recorded Confirmed Montelukast [Singulair] 10 mg PO HS 10/23/19 03/02/21 Prochlorperazine [Compazine] 10 mg PO Q6H PRN 04/05/20 03/02/21 Amitriptyline HCl [Elavil] 50 mg PO HS 12/09/20 03/02/21 DULoxetine HCL [Cymbalta] 30 mg PO BID 12/09/20 03/02/21 HYDROcodone/APAP 10-325MG [[place] 1 tab PO Q8H PRN 12/09/20 03/02/21 10-325] Acetaminophen [Tylenol] 650 mg PO Q6H PRN 03/02/21 03/02/21 Albuterol Sulfate [Proair Hfa] 2 puff INHALATION RT-BID PRN 03/02/21 03/02/21 INSULIN ASPART (NovoLOG) [NovoLOG See Protocol SQ AC-TID 03/02/21 03/02/21 (formulary)] Insulin Detemir (Levemir) [Levemir] 12 unit SQ BID 03/02/21 03/02/21 Midodrine [ProAmatine] 5 mg PO Q8H 03/02/21 03/02/21 Omeprazole 40 mg PO DAILY 03/02/21 03/02/21 Sennosides/Docusate Sodium [Senna 2 tab PO HS PRN 03/02/21 03/02/21 Plus 8.6-50 mg Tablet] Previous Rx's Medication Instructions Recorded Atorvastatin [Lipitor] 80 mg PO HS #90 tab 10/13/16 Nitroglycerin Sl Tabs [Nitrostat] 0.4 mg SUBLINGUAL Q5M PRN #25 tab 10/13/16 Apixaban [Eliquis] 5 mg PO BID #60 tab 04/01/18 Allergies Allergy/AdvReac Type Severity Reaction Status Date / Time Penicillins Allergy Unknown Verified 03/02/21 18:51 Childhood Review of Systems ROS Statement: Those systems with pertinent positive or pertinent negative responses have been documented in the HPI. ROS Other: All systems not noted in ROS Statement are negative. Past Medical History Past Medical History: Coronary Artery Disease (CAD), Cancer, Chest Pain / Angina, COPD, Hyperlipidemia, Hypertension, Osteoarthritis (OA) Additional Past Medical History / Comment(s): Esophageal CA-NO SURGERY, RADIATION AND CHEMO (CHEMO NOT COMPLETE OF TODAY 12/04/20). Dysphagia recently to solids, vitiglio, hx. RT SUBCLAVIAN BLOOD CLOT. HAD COVID IN MAY 2020. History of Any Multi-Drug Resistant Organisms: None Reported Past Surgical History: Appendectomy, Heart Catheterization With Stent Additional Past Surgical History / Comment(s): patient states he had his stomach flipped 180 degrees because of acid reflux", 2 cardiac stents, mediport left chest, EGD Past Anesthesia/Blood Transfusion Reactions: No Reported Reaction Date of Last Stent Placement:: 2016 Past Psychological History: No Psychological Hx Reported Smoking Status: Current every day smoker Past Alcohol Use History: None Reported Past Drug Use History: None Reported - Past Family History Father Family Medical History: Cancer, COPD Additional Family Medical History / Comment(s): prostate cancer Mother Family Medical History: Chest Pain / Angina, Coronary Artery Disease (CAD), Myocardial Infarction ([place]) Additional Family Medical History / Comment(s): "Mother had multiple heart attacks and open heart surgery" General Exam - General Exam Comments Initial Comments: This is a well-developed well-nourished awake alert oriented 3 male Limitations: no limitations General appearance: alert Head exam: Present: atraumatic, normocephalic, normal inspection Eye exam: Present: normal appearance, PERRL, EOMI. Absent: scleral icterus, conjunctival injection, periorbital swelling ENT exam: Present: normal exam, mucous membranes moist Neck exam: Present: normal inspection, full ROM, other. Absent: tenderness, meningismus, lymphadenopathy Respiratory exam: Present: decreased breath sounds. Absent: respiratory distress, wheezes, rales, rhonchi, stridor Cardiovascular Exam: Present: regular rate, normal rhythm, normal heart sounds. Absent: systolic murmur, diastolic murmur, rubs, gallop, clicks GI/Abdominal exam: Present: soft, normal bowel sounds. Absent: distended, tenderness, guarding, rebound, rigid Extremities exam: Present: normal inspection, full ROM, normal capillary refill. Absent: tenderness, pedal edema, joint swelling, calf tenderness Back exam: Present: normal inspection Neurological exam: Present: alert, oriented X3, CN II-XII intact Psychiatric exam: Present: normal affect, normal mood Skin exam: Present: warm, dry, intact, normal color. Absent: rash Course Vital Signs 03/02/21 03/02/21 18:48 19:49 Temperature 98.2 F Pulse Rate 92 98 Respiratory 18 20 Rate Blood Pressure 78/60 84/61 O2 Sat by Pulse 93 L 95 Oximetry Medical Decision Making - Medical Decision Making Reevaluation patient finds that the blood pressure is improved. Patient be admitted for further evaluation and consultation by cardiology as well as pulmonary medicine. I did discuss the case with Dr. Goodman - Lab Data Result diagrams: 03/02/21 19:25 03/02/21 19:25 Lab Results 03/02/21 03/02/21 03/02/21 Range/Units 19:25 19:25 19:25 WBC 3.4 L (3.8-10.6) k/uL RBC 3.87 L (4.30-5.90) m/uL Hgb 10.9 L (13.0-17.5) gm/dL Hct 35.1 L (39.0-53.0) % MCV 90.7 (80.0-100.0) fL MCH 28.3 (25.0-35.0) pg MCHC 31.2 (31.0-37.0) g/dL RDW 16.7 H (11.5-15.5) % Plt Count 312 (150-450) k/uL MPV 7.5 Neutrophils % (Manual) 30 % Band Neuts % (Manual) 2 % Lymphocytes % (Manual) 50 % Monocytes % (Manual) 16 % Eosinophils % (Manual) 2 % Neutrophils # (Manual) 1.00 L (1.3-7.7) k/uL Lymphocytes # (Manual) 1.70 (1.0-4.8) k/uL Monocytes # (Manual) 0.54 (0-1.0) k/uL Eosinophils # (Manual) 0.07 (0-0.7) k/uL Nucleated RBCs 0 (0-0) /100 WBC Manual Slide Review Performed Reactive Lymphocytes Present Hypochromasia Slight Anisocytosis Slight PT 11.3 (9.0-12.0) sec INR 1.1 (<1.2) APTT 22.9 (22.0-30.0) sec Sodium 131 L (137-145) mmol/L Potassium 4.2 (3.5-5.1) mmol/L Chloride 98 (98-107) mmol/L Carbon Dioxide 24 (22-30) mmol/L Anion Gap 9 mmol/L BUN 11 (9-20) mg/dL Creatinine 0.50 L (0.66-1.25) mg/dL Est GFR (CKD-EPI)AfAm >90 (>60 ml/min/1.73 sqM) Est GFR (CKD-EPI)NonAf >90 (>60 ml/min/1.73 sqM) Glucose 172 H (74-99) mg/dL Plasma Lactic Acid Raza (0.7-2.0) mmol/L Calcium 8.8 (8.4-10.2) mg/dL Magnesium 2.0 (1.6-2.3) mg/dL Total Bilirubin 0.5 (0.2-1.3) mg/dL AST 15 L (17-59) U/L ALT 8 (4-49) U/L Alkaline Phosphatase 83 (38-126) U/L Troponin I (0.000-0.034) ng/mL NT-Pro-B Natriuret Pep pg/mL Total Protein 7.0 (6.3-8.2) g/dL Albumin 3.2 L (3.5-5.0) g/dL Coronavirus (PCR) (Not Detectd) 03/02/21 03/02/21 03/02/21 Range/Units 19:25 19:25 19:25 WBC (3.8-10.6) k/uL RBC (4.30-5.90) m/uL Hgb (13.0-17.5) gm/dL Hct (39.0-53.0) % MCV (80.0-100.0) fL MCH (25.0-35.0) pg MCHC (31.0-37.0) g/dL RDW (11.5-15.5) % Plt Count (150-450) k/uL MPV Neutrophils % (Manual) % Band Neuts % (Manual) % Lymphocytes % (Manual) % Monocytes % (Manual) % Eosinophils % (Manual) % Neutrophils # (Manual) (1.3-7.7) k/uL Lymphocytes # (Manual) (1.0-4.8) k/uL Monocytes # (Manual) (0-1.0) k/uL Eosinophils # (Manual) (0-0.7) k/uL Nucleated RBCs (0-0) /100 WBC Manual Slide Review Reactive Lymphocytes Hypochromasia Anisocytosis PT (9.0-12.0) sec INR (<1.2) APTT (22.0-30.0) sec Sodium (137-145) mmol/L Potassium (3.5-5.1) mmol/L Chloride (98-107) mmol/L Carbon Dioxide (22-30) mmol/L Anion Gap mmol/L BUN (9-20) mg/dL Creatinine (0.66-1.25) mg/dL Est GFR (CKD-EPI)AfAm (>60 ml/min/1.73 sqM) Est GFR (CKD-EPI)NonAf (>60 ml/min/1.73 sqM) Glucose (74-99) mg/dL Plasma Lactic Acid Raza 1.3 (0.7-2.0) mmol/L Calcium (8.4-10.2) mg/dL Magnesium (1.6-2.3) mg/dL Total Bilirubin (0.2-1.3) mg/dL AST (17-59) U/L ALT (4-49) U/L Alkaline Phosphatase (38-126) U/L Troponin I <0.012 (0.000-0.034) ng/mL NT-Pro-B Natriuret Pep 459 pg/mL Total Protein (6.3-8.2) g/dL Albumin (3.5-5.0) g/dL Coronavirus (PCR) (Not Detectd) 03/02/21 Range/Units 19:25 WBC (3.8-10.6) k/uL RBC (4.30-5.90) m/uL Hgb (13.0-17.5) gm/dL Hct (39.0-53.0) % MCV (80.0-100.0) fL MCH (25.0-35.0) pg MCHC (31.0-37.0) g/dL RDW (11.5-15.5) % Plt Count (150-450) k/uL MPV Neutrophils % (Manual) % Band Neuts % (Manual) % Lymphocytes % (Manual) % Monocytes % (Manual) % Eosinophils % (Manual) % Neutrophils # (Manual) (1.3-7.7) k/uL Lymphocytes # (Manual) (1.0-4.8) k/uL Monocytes # (Manual) (0-1.0) k/uL Eosinophils # (Manual) (0-0.7) k/uL Nucleated RBCs (0-0) /100 WBC Manual Slide Review Reactive Lymphocytes Hypochromasia Anisocytosis PT (9.0-12.0) sec INR (<1.2) APTT (22.0-30.0) sec Sodium (137-145) mmol/L Potassium (3.5-5.1) mmol/L Chloride (98-107) mmol/L Carbon Dioxide (22-30) mmol/L Anion Gap mmol/L BUN (9-20) mg/dL Creatinine (0.66-1.25) mg/dL Est GFR (CKD-EPI)AfAm (>60 ml/min/1.73 sqM) Est GFR (CKD-EPI)NonAf (>60 ml/min/1.73 sqM) Glucose (74-99) mg/dL Plasma Lactic Acid Raza (0.7-2.0) mmol/L Calcium (8.4-10.2) mg/dL Magnesium (1.6-2.3) mg/dL Total Bilirubin (0.2-1.3) mg/dL AST (17-59) U/L ALT (4-49) U/L Alkaline Phosphatase (38-126) U/L Troponin I (0.000-0.034) ng/mL NT-Pro-B Natriuret Pep pg/mL Total Protein (6.3-8.2) g/dL Albumin (3.5-5.0) g/dL Coronavirus (PCR) Not Detected (Not Detectd) - EKG Data -: EKG Interpreted by Me EKG shows normal: sinus rhythm EKG Comments: Social 100. Interval 134 QRS duration 92 QT since QTC 372/479 right word axis no acute ST-T wave changes - Radiology Data Radiology results: report reviewed (Imaging reviewed multiple nodular densities seen chest x-ray or prominent than previous studies with incomplete report), image reviewed Critical Care Time Critical Care Time: Yes Total Critical Care Time: 31 Critical Care Time: Critical care time including initial presentation with history physical labs x- rays multiple re-evaluations the patient response to therapy. Review of old charting discussed with the admitting physician admission orders neck mentation the above Disposition Clinical Impression: Esophageal cancer, Lung metastasis, Hypotensive episode, Dehydration, Failure to thrive in adult Disposition: ADMITTED IP TO THIS HOSP Condition: Fair Referrals: None,Stated [Primary Care Provider] - 1-2 days
[2021-03-02] MEDS ORDERED: ONDANSETRON 4 MG/2 ML VIAL IVP STA (19:25)
[2021-03-02] MEDS ORDERED: SODIUM CHLORIDE 0.9% 1,000 ML IV STA (19:36)
[2021-03-02 19:43] LABS: ALT 8 U/L (4-49); AST 15 U/L (17-59); African American GFR (CKD) >90 (>60 ml/min/1.73 sqM); Albumin 3.2 g/dL (3.5-5.0); Alkaline Phosphatase 83 U/L (38-126); Anion Gap 9 mmol/L; Blood Urea Nitrogen 11 mg/dL (9-20); Calcium 8.8 mg/dL (8.4-10.2); Carbon Dioxide 24 mmol/L (22-30); Chloride 98 mmol/L (98-107); Glucose 172 mg/dL (74-99); INR 1.1 (<1.2); Non-African American GFR(CKD) >90 (>60 ml/min/1.73 sqM); Partial Thromboplastin Time 22.9 sec (22.0-30.0); Potassium 4.2 mmol/L (3.5-5.1); Prothrombin Time 11.3 sec (9.0-12.0); Sodium 131 mmol/L (137-145); Total Bilirubin 0.5 mg/dL (0.2-1.3)
[2021-03-02 19:48] LABS: Anisocytosis Slight; HCT 35.1 % (39.0-53.0); HGB 10.9 gm/dL (13.0-17.5); Hypochromasia Slight; MCH 28.3 pg (25.0-35.0); MCHC 31.2 g/dL (31.0-37.0); MCV 90.7 fL (80.0-100.0); Mean Platelet Volume 7.5; Platelet Count 312 k/uL (150-450); RBC 3.87 m/uL (4.30-5.90); RDW 16.7 % (11.5-15.5); WBC 3.4 k/uL (3.8-10.6)
--- NOTE | 2021-03-02 20:02 | XR ---
EXAMINATION TYPE: XR chest 2V DATE OF EXAM: 03/02/2021 COMPARISON: 12/15/2020 HISTORY: Difficulty breathing TECHNIQUE: 3 view FINDINGS: There are numerous rounded masses throughout the lungs that measure up to 3 cm. There is le ft subclavian catheter with tip in the superior vena cava. Heart size is normal. There is no heart fa ilure. There is stent in the mid thoracic esophagus. There is no pleural effusion. Thoracic spine is intact. IMPRESSION: Numerous pulmonary masses consistent with metastatic disease that are significantly incre ased in size compared to last exam. Normal heart. No pleural fluid. No heart failure seen.
[2021-03-02 20:17] LABS: Nucleated Red Blood Cells 0 /100 WBC (0-0)
[2021-03-02 20:20] LABS: Band Neutrophils % 2 %; Eosinophils # (M) 0.07 k/uL (0-0.7); Monocytes # (M) 0.54 k/uL (0-1.0); Neutrophils % (M) 30 %; Reactive Lymphocytes Present; Total Cells Counted 100
[2021-03-02] MEDS ORDERED: MIDODRINE 5 MG TAB PO STA (21:23)
[2021-03-02] MEDS ORDERED: NALOXONE 0.4 MG/ML 1 ML VIAL IV PRN (21:31)
[2021-03-02] MEDS ORDERED: HYDROcodone/APAP 10-325MG 1 EACH TAB PO PRN (21:34)
[2021-03-02] MEDS ORDERED: ALBUTEROL NEBULIZED 2.5 MG/3 ML INHALATION PRN (21:34)
[2021-03-02] MEDS ORDERED: SENNOSIDES-DOCUSATE SODIUM 1 EACH TAB PO PRN (21:34)
[2021-03-02] MEDS ORDERED: ACETAMINOPHEN TAB 325 MG TAB PO PRN (21:34)
[2021-03-02] MEDS ORDERED: NITROGLYCERIN SL TABS 0.4 MG TAB SUBLINGUAL PRN (21:34)
[2021-03-02] MEDS ORDERED: PROCHLORPERAZINE 10 MG TAB PO PRN (21:34)
[2021-03-03] MEDS: SODIUM CHLORIDE 0.9% 1,000 ML IV SCH ×4 (05:43→12:34)
[2021-03-03 08:26] LABS: Glucose,Whole Blood 199 mg/dL (75-99)
[2021-03-03] MEDS ORDERED: APIXABAN 5 MG TAB PO SCH (09:00)
--- NOTE | 2021-03-03 09:00 | P.CONS ---
History of Present Illness - Reason for Consult Consult date: 03/03/21 eso adenocarcinoma with mets Requesting physician: Lashawn Gallegos - Chief Complaint pericardial effusion, sent in by Cardiology - History of Present Illness The patient is a 55 year-old male well known to our service, diagnosed with metastatic adenocarcinoma of the esophagus in 12/15. The patient had metastatic disease at the time of diagnosis including liver involvement. He was treated with modified FOLFOX for 12 cycles with excellent response. He was then placed on oral Xeloda for maintenance. This ultimately had to be discontinued because of increasing skin toxicity. Around the time pt stopped Xeloda he began experiencing dysphagia, persistent and progressive. Repeat EGD in 10/17 showed progression at the primary site. He did not have any evidence of progression at other sites. The patient was then treated with carboplatin and Taxol but had no response. Due to progressive difficulty in swallowing, he had repeat EGD in 02/16 which showed near complete obstruction. PEG tube placed for nutritional support 02/18/20. He was also started on concurrent chemo/radiation with 5-FU. His last radiation treatment and 5FU was in Feb 2020. He was then on FOLFIRI, Sep-Oct, unfortunate disease progression on f/u scans. He presented with progressive difficulty in swallowing after cycle 3 FOLFIRI, due to which he had an EGD in 12/08/20. It showed definite tumor progression with near occlusion. The scope could not be passed beyond the tumor. CT scans at this time also showed new lung nodules bilaterally. Pt was agreeable to try FOLFOX again as he had never failed that regimen. He started it on 12/24/20. He had 2 hospital admissions after starting treatment, one for increased upper airway secretions, the second for hematemesis which he was transferred to [facility] 12/31/20 he was seen in ofc, he was discharged/left AMA from [facility] yesterday. He had a stent placed by GI and was there for 7 days. He states he "did not get any" of his meds while there, felt that after he had the eso stent placed no one was doing anything for him and he was just sitting there so he left AMA. 02/04/21 seen in ofc as he did not receive chemo/IO yesterday. He said he felt fine Tuesday but then yesterday he felt terrible-generalized c/o, nothing specific, abd cramps. He had cycle 2 of FOLFOX 01/07 and cycle 3 02/17 with keytruda added. He was sent to ER by Cardiology for pericardial effusion work up. He denies SOB, cough. He continues to struggle with oral intake and gets stomach aches and diarrhea with bolus PEG feedings. He states he has not been shown how to use kangaroo pump for continuous feeds. He has been started on midodrine, do se increased to 10mg TID for hypotension, but still has severe dizziness and hypotension, so much so that it keeps from moving around and he sleeps most of the time. Review of Systems 10 point ROS is as stated in HPI Past Medical History Past Medical History: Coronary Artery Disease (CAD), Cancer, Chest Pain / Angina, COPD, Hyperlipidemia, Hypertension, Osteoarthritis (OA) Additional Past Medical History / Comment(s): Esophageal CA-NO SURGERY, RADIATION AND CHEMO (CHEMO NOT COMPLETE OF TODAY 12/04/20). Dysphagia recently to solids, vitiglio, hx. RT SUBCLAVIAN BLOOD CLOT. HAD COVID IN MAY 2020. History of Any Multi-Drug Resistant Organisms: None Reported Past Surgical History: Appendectomy, Heart Catheterization With Stent Additional Past Surgical History / Comment(s): patient states he had his stomach flipped 180 degrees because of acid reflux", 2 cardiac stents, mediport left chest, EGD Past Anesthesia/Blood Transfusion Reactions: No Reported Reaction Date of Last Stent Placement:: 2016 Past Psychological History: No Psychological Hx Reported Smoking Status: Current every day smoker Past Alcohol Use History: None Reported Past Drug Use History: None Reported - Past Family History Father Family Medical History: Cancer, COPD Additional Family Medical History / Comment(s): prostate cancer Mother Family Medical History: Chest Pain / Angina, Coronary Artery Disease (CAD), Myocardial Infarction ([place]) Additional Family Medical History / Comment(s): "Mother had multiple heart attacks and open heart surgery" Medications and Allergies Home Medications Medication Instructions Recorded Confirmed Type Atorvastatin [Lipitor] 80 mg PO HS #90 tab 10/13/16 03/02/21 Rx Nitroglycerin Sl Tabs [Nitrostat] 0.4 mg SUBLINGUAL Q5M PRN #25 tab 10/13/16 03/02/21 Rx Apixaban [Eliquis] 5 mg PO BID #60 tab 04/01/18 03/02/21 Rx Montelukast [Singulair] 10 mg PO HS 10/23/19 03/02/21 History Prochlorperazine [Compazine] 10 mg PO Q6H PRN 04/05/20 03/02/21 History Amitriptyline HCl [Elavil] 50 mg PO HS 12/09/20 03/02/21 History DULoxetine HCL [Cymbalta] 30 mg PO BID 12/09/20 03/02/21 History HYDROcodone/APAP 10-325MG [[place] 1 tab PO Q8H PRN 12/09/20 03/02/21 History 10-325] Acetaminophen [Tylenol] 650 mg PO Q6H PRN 03/02/21 03/02/21 History Albuterol Sulfate [Proair Hfa] 2 puff INHALATION RT-BID PRN 03/02/21 03/02/21 History INSULIN ASPART (NovoLOG) [NovoLOG See Protocol SQ AC-TID 03/02/21 03/02/21 History (formulary)] Insulin Detemir (Levemir) [Levemir] 12 unit SQ BID 03/02/21 03/02/21 History Midodrine [ProAmatine] 5 mg PO Q8H 03/02/21 03/02/21 History Omeprazole 40 mg PO DAILY 03/02/21 03/02/21 History Sennosides/Docusate Sodium [Senna 2 tab PO HS PRN 03/02/21 03/02/21 History Plus 8.6-50 mg Tablet] Allergies Allergy/AdvReac Type Severity Reaction Status Date / Time Penicillins Allergy Unknown Verified 03/02/21 18:51 Childhood Physical Exam Vitals: Vital Signs Temp Pulse Resp BP Pulse Ox 03/03/21 06:00 98 F 90 22 100/73 95 03/03/21 05:00 100 22 106/75 97 03/03/21 03:00 90 20 97/68 96 03/03/21 02:00 98 F 88 22 103/74 97 03/03/21 01:00 97.9 F 89 20 99/70 96 03/02/21 22:00 68 19 91/66 95 03/02/21 19:49 98 20 84/61 95 03/02/21 18:48 98.2 F 92 18 78/60 93 L Intake and Output 03/02/21 03/03/21 03/03/21 22:59 06:59 14:59 Other: Weight 65.771 kg - Constitutional General appearance: average body habitus, cooperative, no acute distress - EENT Eyes: anicteric sclerae, EOMI ENT: hearing grossly normal - Neck Neck: no lymphadenopathy - Respiratory Respiratory: bilateral: CTA - Cardiovascular Rhythm: regular Heart sounds: normal: S1, S2 Abnormal Heart Sounds: no systolic murmur, no diastolic murmur, no rub, no S3 Gallop, no S4 Gallop, no click, no other leg Peripheral Edema: bilateral: None - Gastrointestinal PEG General gastrointestinal: no absent bowel sounds, no decreased bowel sounds, no distended, no hepatomegaly, no hyperactive bowel sounds, normal bowel sounds, no organomegaly, no rigid, no scaphoid, soft, no splenomegaly, no tenderness, no umbilical hernia, no ventral hernia - Integumentary Integumentary: normal - Neurologic Neurologic: CNII-XII intact - Musculoskeletal Musculoskeletal: generalized weakness - Psychiatric Psychiatric: A&O x's 3, intact judgment & insight Results CBC & Chem 7: 03/02/21 19:25 03/02/21 19:25 Labs: Abnormal Lab Results - Last 24 Hours (Table) 03/02/21 03/02/21 03/03/21 Range/Units 19:25 19:25 08:24 WBC 3.4 L (3.8-10.6) k/uL RBC 3.87 L (4.30-5.90) m/uL Hgb 10.9 L (13.0-17.5) gm/dL Hct 35.1 L (39.0-53.0) % RDW 16.7 H (11.5-15.5) % Neutrophils # (Manual) 1.00 L (1.3-7.7) k/uL Sodium 131 L (137-145) mmol/L Creatinine 0.50 L (0.66-1.25) mg/dL Glucose 172 H (74-99) mg/dL POC Glucose (mg/dL) 199 H (75-99) mg/dL AST 15 L (17-59) U/L Albumin 3.2 L (3.5-5.0) g/dL Chest x-ray: report reviewed Assessment and Plan (1) Esophageal cancer Narrative/Plan: Pt is s/p 3 cycles of FOLFIRI and 1 keytruda infusion, due for cycle 3 today and he would get 2nd keytruda next week. CT brain is scheduled for 03/11/21. CXR report reads numerous pulm mets increased in size. Not absolutely certain if this is pseudoprogression in pulm mets from keytruda vs true progression. Pt denies any SOB or difficulty breathing. Will review with Primary Oncologist with further recs to follow. Current Visit: No Status: Chronic Priority: Medium Code(s): C15.9 - MALIGNANT NEOPLASM OF ESOPHAGUS, UNSPECIFIED SNOMED Code(s): 559466162 Plan: Reviewed case briefly with Attending. Hypotension continues to be a major problem for pt. Midodrine was increased recently. Had [facility] staff contact home care and confirmed with them that they will teach pt how to use the kangaroo pump correctly. Try to see if decrease in stomach aces and diarrhea vs bolus feeds.
[2021-03-03] MEDS: PANTOPRAZOLE 40 MG TABLET PO SCH (09:48)
[2021-03-03] MEDS: INSULIN ASPART (NovoLOG) 100 UNIT/ML VIAL SQ SCH ×4 (09:48→23:38)
--- NOTE | 2021-03-03 10:59 | P.CRDCN ---
History of Present Illness Consult date: 03/03/21 History of present illness: HISTORY OF PRESENT ILLNESS: This is a 55-year-old male with a past medical history significant for hyperlipidemia, hypertension, pericardial effusion, esophageal cancer with metastases. Patient follows in the office with Dr. Meier. We have been asked to see the patient in consultation for shortness of breath. Patient examined at the bedside. Patient presented to the hospital with worsening shortness of breath over the past two weeks. Patient denies chest pain or pressure. Patient had an echo performed at the cardiology office in January 2021 revealing moderate circumferential pericardial effusion without evidence of tamponade. Ejection fraction 55%. EKG reveals sinus mechanism with no signs of acute ischemia Chest xray numerous pulmonary masses consistent with metastatic disease are significantly increased in size compared to last exam. Normal heart. No pleural fluid. No heart failure seen. Laboratory data: WBC 3.4. Hemoglobin 10.9. Platelet count 312. Sodium 131. Potassium 4.2. BUN 11. Creatinine 0.50. Troponin negative 1. ProBNP 459. Current home cardiac medications include Eliquis 5 mg twice a day, Lipitor 80 mg at night, Midodrine 5mg q8 hours. Most recent echocardiogram obtained in January 2021 revealing moderate circumferential pericardial effusion without evidence of tamponade. Ejection fraction 55%. Cardiac catheterization history: 2017 with stent placement to the distal RCA and proximal circumflex REVIEW OF SYSTEMS: At the time of my exam: CONSTITUTIONAL: Denies fever or chills. HEENT: Denies blurred vision, vision changes, or eye pain. Denies hemoptysis CARDIOVASCULAR: Denies chest pain. Denies orthopnea. Denies PND. Denies palpitations RESPIRATORY: + shortness of breath. GASTROINTESTINAL: Denies abdominal pain. Denies nausea or vomiting. HEMATOLOGIC: Denies bleeding disorders. GENITOURINARY: Denies any blood in urine. SKIN: Denies pruitis. Denies rash. PHYSICAL EXAM: VITAL SIGNS: Reviewed. GENERAL: Well-developed in no acute distress. HEENT: Head is normocephalic. Pupils are equal, round. Sclerae anicteric. Mucous membranes of the mouth are moist. Neck supple. No JVD or thyromegaly LUNGS: Respirations even and unlabored. Lungs diminished to auscultation bilaterally. HEART: Regular rate and rhythm. S1 and S2 heard. ABDOMEN: Soft. Nondistended. Nontender. EXTREMITIES: Normal range of motion. No clubbing or cyanosis. Peripheral pulses intact. No lower extremity edema NEUROLOGIC: Awake and alert. Oriented x 3. ASSESSMENT: Shortness of breath Esophageal cancer with lung metastasis Known pericardial effusion without tamponade Coronary artery disease with previous PCI Hyperlipidemia Hypertension PLAN: Discontinue Eliquis per Dr. Liu Bedside echo performed during examination showing continued pericardial effusion without tamponade Pulmonary and oncology following Dr. Liu would like Dr. Smart consulted as well Further recommendations pending patient course Nurse practitioner note has been reviewed by physician. Signing provider agrees with the documented findings, assessment, and plan of care. Past Medical History Past Medical History: Coronary Artery Disease (CAD), Cancer, Chest Pain / Angina, COPD, Hyperlipidemia, Hypertension, Osteoarthritis (OA) Additional Past Medical History / Comment(s): Esophageal CA-NO SURGERY, R ADIATION AND CHEMO (CHEMO NOT COMPLETE OF TODAY 12/04/20). Dysphagia recently to solids, vitiglio, hx. RT SUBCLAVIAN BLOOD CLOT. HAD COVID IN MAY 2020. History of Any Multi-Drug Resistant Organisms: None Reported Past Surgical History: Appendectomy, Heart Catheterization With Stent Additional Past Surgical History / Comment(s): patient states he had his stomach flipped 180 degrees because of acid reflux", 2 cardiac stents, mediport left chest, EGD Past Anesthesia/Blood Transfusion Reactions: No Reported Reaction Date of Last Stent Placement:: 2016 Past Psychological History: No Psychological Hx Reported Smoking Status: Current every day smoker Past Alcohol Use History: None Reported Past Drug Use History: None Reported - Past Family History Father Family Medical History: Cancer, COPD Additional Family Medical History / Comment(s): prostate cancer Mother Family Medical History: Chest Pain / Angina, Coronary Artery Disease (CAD), Myocardial Infarction ([place]) Additional Family Medical History / Comment(s): "Mother had multiple heart attacks and open heart surgery" Medications and Allergies Home Medications Medication Instructions Recorded Confirmed Type Atorvastatin [Lipitor] 80 mg PO HS #90 tab 10/13/16 03/02/21 Rx Nitroglycerin Sl Tabs [Nitrostat] 0.4 mg SUBLINGUAL Q5M PRN #25 tab 10/13/16 03/02/21 Rx Apixaban [Eliquis] 5 mg PO BID #60 tab 04/01/18 03/02/21 Rx Montelukast [Singulair] 10 mg PO HS 10/23/19 03/02/21 History Prochlorperazine [Compazine] 10 mg PO Q6H PRN 04/05/20 03/02/21 History Amitriptyline HCl [Elavil] 50 mg PO HS 12/09/20 03/02/21 History DULoxetine HCL [Cymbalta] 30 mg PO BID 12/09/20 03/02/21 History HYDROcodone/APAP 10-325MG [[place] 1 tab PO Q8H PRN 12/09/20 03/02/21 History 10-325] Acetaminophen [Tylenol] 650 mg PO Q6H PRN 03/02/21 03/02/21 History Albuterol Sulfate [Proair Hfa] 2 puff INHALATION RT-BID PRN 03/02/21 03/02/21 History INSULIN ASPART (NovoLOG) [NovoLOG See Protocol SQ AC-TID 03/02/21 03/02/21 History (formulary)] Insulin Detemir (Levemir) [Levemir] 12 unit SQ BID 03/02/21 03/02/21 History Midodrine [ProAmatine] 5 mg PO Q8H 03/02/21 03/02/21 History Omeprazole 40 mg PO DAILY 03/02/21 03/02/21 History Sennosides/Docusate Sodium [Senna 2 tab PO HS PRN 03/02/21 03/02/21 History Plus 8.6-50 mg Tablet] Allergies Allergy/AdvReac Type Severity Reaction Status Date / Time Penicillins Allergy Unknown Verified 03/02/21 18:51 Childhood Physical Exam Vitals: Vital Signs Temp Pulse Resp BP Pulse Ox 03/03/21 06:00 98 F 90 22 100/73 95 03/03/21 05:00 100 22 106/75 97 03/03/21 03:00 90 20 97/68 96 03/03/21 02:00 98 F 88 22 103/74 97 03/03/21 01:00 97.9 F 89 20 99/70 96 03/02/21 22:00 68 19 91/66 95 03/02/21 19:49 98 20 84/61 95 03/02/21 18:48 98.2 F 92 18 78/60 93 L Intake and Output 03/02/21 03/03/21 03/03/21 22:59 06:59 14:59 Other: Weight 65.771 kg Results 03/02/21 19:25 03/02/21 19:25 Cardiac Enzymes 03/02/21 03/02/21 Range/Units 19:25 19:25 AST 15 L (17-59) U/L Troponin I <0.012 (0.000-0.034) ng/mL Coagulation 03/02/21 Range/Units 19:25 PT 11.3 (9.0-12.0) sec APTT 22.9 (22.0-30.0) sec CBC 03/02/21 Range/Units 19:25 WBC 3.4 L (3.8-10.6) k/uL RBC 3.87 L (4.30-5.90) m/uL Hgb 10.9 L (13.0-17.5) gm/dL Hct 35.1 L (39.0-53.0) % Plt Count 312 (150-450) k/uL Comprehensive Metabolic Panel 03/02/21 Range/Units 19:25 Sodium 131 L (137-145) mmol/L Potassium 4.2 (3.5-5.1) mmol/L Chloride 98 (98-107) mmol/L Carbon Dioxide 24 (22-30) mmol/L BUN 11 (9-20) mg/dL Creatinine 0.50 L (0.66-1.25) mg/dL Glucose 172 H (74-99) mg/dL Calcium 8.8 (8.4-10.2) mg/dL AST 15 L (17-59) U/L ALT 8 (4-49) U/L Alkaline Phosphatase 83 (38-126) U/L Total Protein 7.0 (6.3-8.2) g/dL Albumin 3.2 L (3.5-5.0) g/dL Current Medications Generic Name Dose Route Start Last Admin Trade Name Freq PRN Reason Stop Dose Admin Acetaminophen 650 mg 03/02/21 21:34 Acetaminophen Tab 325 Mg Tab PO Q6H PRN Fever and/ or Pain Hydrocodone Bitart/Acetaminophen 1 each 03/02/21 21:34 Hydrocodone/Apap 10-325mg 1 Each Tab PO Q8H PRN Pain Albuterol Sulfate 2.5 mg 03/02/21 21:34 Albuterol Nebulized 2.5 Mg/3 Ml INHALATION RT-BID PRN Shortness Of Breath Amitriptyline HCl 50 mg 03/03/21 21:00 Amitriptyline Hcl 50 Mg Tab PO HS [facility] Atorvastatin Calcium 80 mg 03/03/21 21:00 Atorvastatin 80 Mg Tab PO HS [facility] Duloxetine HCl 30 mg 03/03/21 09:00 Duloxetine Hcl 30 Mg Capsule.Dr PO BID [facility] Hydromorphone HCl 1 mg 03/02/21 21:31 Hydromorphone 1 Mg/Ml 1 Ml Syringe IVP Q3HR PRN Severe Pain Sodium Chloride 1,000 mls @ 130 mls/hr 03/02/21 21:45 03/03/21 07:58 Saline 0.9% IV Not Given .Q7H42M [facility] Insulin Aspart 0 unit 03/03/21 07:30 03/03/21 09:48 Insulin Aspart (Novolog) 100 Unit/Ml Vial SQ 2 unit ACHS [facility] Administration Protocol Insulin Detemir 12 unit 03/03/21 09:00 Insulin Detemir (Levemir) 100 Unit/Ml Syr SQ BID [facility] Midodrine 5 mg 03/03/21 08:00 Midodrine 5 Mg Tab PO Q8HR [facility] Montelukast Sodium 10 mg 03/03/21 21:00 Montelukast 10 Mg Tab PO HS [facility] Naloxone HCl 0.2 mg 03/02/21 21:31 Naloxone 0.4 Mg/Ml 1 Ml Vial IV Q2M PRN Opioid Reversal Nitroglycerin 0.4 mg 03/02/21 21:34 Nitroglycerin Sl Tabs 0.4 Mg Tab SUBLINGUAL Q5M PRN Chest Pain Pantoprazole Sodium 40 mg 03/03/21 09:00 03/03/21 09:48 Pantoprazole 40 Mg Tablet PO 40 mg DAILY [facility] Administration Prochlorperazine Maleate 10 mg 03/02/21 21:34 Prochlorperazine 10 Mg Tab PO Q6H PRN Nausea Senna/Docusate Sodium 2 each 03/02/21 21:34 Sennosides-Docusate Sodium 1 Each Tab PO HS PRN CONSTIPATION WHILE ON NORCO Intake and Output 03/02/21 03/03/21 03/03/21 22:59 06:59 14:59 Other: Weight 65.771 kg 03/02/21 19:25 03/02/21 19:25
--- NOTE | 2021-03-03 11:24 | P.CNPUL ---
History of Present Illness Consult date: 03/03/21 Requesting physician: Jose Goodman Reason for consult: cough Chief complaint: Weakness, dizziness, cough. History of present illness: Pulmonary consult dated 03/03/2021. 55-year-old male with a history of esophageal cancer, with metastasis to the lungs, as well as heart disease, and emphysema. The patient does not have a primary care physician, and currently sees a high school math teacher, a pulmonary physician, and medical oncologist. The patient is currently undergoing chemotherapy for his metastatic esophageal carcinoma. We saw him in the emergency room, in room 17. The patient was currently found to have a pericardial effusion. The patient's on room air. He denies any shortness of breath. He does have a nonproductive cough. He is getting saline at 130 mL an hour. We ordered an echocardiogram, and an oncology consultation. He is cannonball lesions in the lungs, from his esophageal. The patient has a history of coronary artery disease, angina, COPD, hyperlipidemia, hypertension, and osteoarthritis. Treatment for his esophageal cancer is been primarily radiation and chemotherapy. White count 3.4, hemoglobin 10.9, hematocrit 35.1, the count is 312,000. PT INR and PTT are all normal. Sodium 131, potassium 4.2, chlorides 98, CO2 24, anion gap 9, BUN 11, creatinine 0.5. Glucose is 172. AST is 15. Chest x-ray shows numerous pulmonary masses consistent with the patient 's metastatic esophageal cancer. Computed tomography scan dated 02/09/2021 shows a 3.3 cm pericardial effusion, which is larger in size. Review of Systems REVIEW OF SYSTEMS: CONSTITUTIONAL: Dizziness, weakness, lightheadedness. NEUROLOGIC: Dizziness. HEENT: [ Negative.] CARDIAC: [Negative.] PULMONARY: Nonproductive cough. GI: [Negative.] : [Negative.] RHEUMATOLOGIC: [ Negative.] IMMUNOLOGIC: [ Negative.] ENDOCRINE: [Negative. ] DERMATOLOGIC: [Negative.] Past Medical History Past Medical History: Coronary Artery Disease (CAD), Cancer, Chest Pain / Angina, COPD, Hyperlipidemia, Hypertension, Osteoarthritis (OA) Additional Past Medical History / Comment(s): Esophageal CA-NO SURGERY, RAD IATION AND CHEMO (CHEMO NOT COMPLETE OF TODAY 12/04/20). Dysphagia recently to solids, vitiglio, hx. RT SUBCLAVIAN BLOOD CLOT. HAD COVID IN MAY 2020. History of Any Multi-Drug Resistant Organisms: None Reported Past Surgical History: Appendectomy, Heart Catheterization With Stent Additional Past Surgical History / Comment(s): patient states he had his stomach flipped 180 degrees because of acid reflux", 2 cardiac stents, mediport left chest, EGD Past Anesthesia/Blood Transfusion Reactions: No Reported Reaction Date of Last Stent Placement:: 2016 Past Psychological History: No Psychological Hx Reported Smoking Status: Current every day smoker Past Alcohol Use History: None Reported Past Drug Use History: None Reported - Past Family History Father Family Medical History: Cancer, COPD Additional Family Medical History / Comment(s): prostate cancer Mother Family Medical History: Chest Pain / Angina, Coronary Artery Disease (CAD), Myocardial Infarction ([place]) Additional Family Medical History / Comment(s): "Mother had multiple heart attacks and open heart surgery" Medications and Allergies Home Medications Medication Instructions Recorded Confirmed Type Atorvastatin [Lipitor] 80 mg PO HS #90 tab 10/13/16 03/02/21 Rx Nitroglycerin Sl Tabs [Nitrostat] 0.4 mg SUBLINGUAL Q5M PRN #25 tab 10/13/16 03/02/21 Rx Apixaban [Eliquis] 5 mg PO BID #60 tab 04/01/18 03/02/21 Rx Montelukast [Singulair] 10 mg PO HS 10/23/19 03/02/21 History Prochlorperazine [Compazine] 10 mg PO Q6H PRN 04/05/20 03/02/21 History Amitriptyline HCl [Elavil] 50 mg PO HS 12/09/20 03/02/21 History DULoxetine HCL [Cymbalta] 30 mg PO BID 12/09/20 03/02/21 History HYDROcodone/APAP 10-325MG [[place] 1 tab PO Q8H PRN 12/09/20 03/02/21 History 10-325] Acetaminophen [Tylenol] 650 mg PO Q6H PRN 03/02/21 03/02/21 History Albuterol Sulfate [Proair Hfa] 2 puff INHALATION RT-BID PRN 03/02/21 03/02/21 History INSULIN ASPART (NovoLOG) [NovoLOG See Protocol SQ AC-TID 03/02/21 03/02/21 H istory (formulary)] Insulin Detemir (Levemir) [Levemir] 12 unit SQ BID 03/02/21 03/02/21 History Midodrine [ProAmatine] 5 mg PO Q8H 03/02/21 03/02/21 History Omeprazole 40 mg PO DAILY 03/02/21 03/02/21 History Sennosides/Docusate Sodium [Senna 2 tab PO HS PRN 03/02/21 03/02/21 History Plus 8.6-50 mg Tablet] Allergies Allergy/AdvReac Type Severity Reaction Status Date / Time Penicillins Allergy Unknown Verified 03/02/21 18:51 Childhood Physical Exam Osteopathic Statement: *. No significant issues noted on an osteopathic structural exam other than those noted in the History and Physical/Consult. Vitals: Vital Signs Temp Pulse Pulse Resp BP BP Pulse Ox 03/03/21 08:00 106 H 20 98/61 95 03/03/21 06:00 98 F 90 22 100/73 95 03/03/21 05:00 100 22 106/75 97 03/03/21 03:00 90 20 97/68 96 03/03/21 02:00 98 F 88 22 103/74 97 03/03/21 01:00 97.9 F 89 20 99/70 96 03/02/21 22:00 68 19 91/66 95 03/02/21 19:49 98 20 84/61 95 03/02/21 18:48 98.2 F 92 18 78/60 93 L Intake and Output 03/02/21 03/03/21 03/03/21 22:59 06:59 14:59 Intake Total 120 Output Total 450 Balance -330 Intake: Oral 120 Output: Urine 450 Other: Weight 65.771 kg 65.771 kg No acute distress, oriented 3. Not on any supplemental oxygen. Saturations 95-97%. HEENT examination is grossly unremarkable. Mucous membranes are moist. No oral lesions. Neck supple. Full range of motion. No adenopathy thyromegaly or neck vein distention. Cardiovascular examination reveals regular rhythm rate. S1-S2 normal. No S3 or S4. No discernible murmur noted. Heart rate 90 bpm. Lungs reveal mostly clear breath sounds. Minimal rhonchi noted when the patient coughs. No wheezes or crackles. Breath sounds are equal bilaterally. Abdomen soft bowel sounds are heard. No masses or tenderness. Extremities are intact. No cyanosis clubbing or edema. Skin is without rash or lesion. Neurologic examination is brief but nonfocal. Results - Laboratory Findings CBC and BMP: 03/02/21 19:25 03/02/21 19:25 PT/INR, D-dimer PT 11.3 sec (9.0-12.0) 03/02/21 19: INR 1.1 (<1.2) 03/02/21 19:25 Abnormal lab findings: Abnormal Labs 03/02/21 03/02/21 03/03/21 19:25 19:25 08:24 WBC 3.4 L RBC 3.87 L Hgb 10.9 L Hct 35.1 L RDW 16.7 H Neutrophils # (Manual) 1.00 L Sodium 131 L Creatinine 0.50 L Glucose 172 H POC Glucose (mg/dL) 199 H AST 15 L Albumin 3.2 L - Diagnostic Findings Chest x-ray: image reviewed Assessment and Plan Assessment: Metastatic esophageal cancer, treated primarily with chemotherapy and radiation. Multiple pulmonary lesions, consistent with metastatic esophageal cancer. History of coronary artery disease, with previous stent placement. History of angina pectoris. History of hyperlipidemia. History of hypertension. History of COPD, with ongoing tobacco use. History of osteoarthritis. History of diabetes mellitus. Plan: Plan dated 03/03/2021. I told the patient, that there was not much we can offer the patient. He sees another line palletizer for his underlying COPD. Currently, his COPD is not particularly active. His home medications can be resumed. No additional recommendations are made. We did order a oncology consultation, and an echocardiogram. Additional recommendations and suggestions are forthcoming. Prognosis is guarded. Time with Patient: Greater than 30
[2021-03-03 12:26] LABS: Glucose,Whole Blood 223 mg/dL (75-99)
--- NOTE | 2021-03-03 12:28 | ECHOF ---
Referral Reason: MEASUREMENTS -------- HEIGHT: 182.9 cm WEIGHT: 65.8 kg BP: 101/67 IVSd: 0.7 cm (0.6 - 1.1) LVIDd: 3.8 cm (3.9 - 5.3) LVPWd: 1.1 cm (0.6 - 1.1) IVSs: 1.0 cm LVIDs: 2.4 cm LVPWs: 1.3 cm FINDINGS -------- Resting tachycardia (HR>100bpm). This was a technically adequate study. The left ventricular size is normal. Left ventricular wall thickness is normal. Overall left vent ricular systolic function is normal with, an EF between 55 - 60 %. There is a moderate, generalized pericardial effusion present. There is no evidence of cardiac tamp onade. CONCLUSIONS -------- 1. The left ventricular size is normal. 2. Left ventricular wall thickness is normal. 3. Overall left ventricular systolic function is normal with, an EF between 55 - 60 %. 4. There is a moderate, generalized pericardial effusion present. 5. There is no evidence of cardiac tamponade. [employer]TER: Sigrid Cifuentes RDCS
[2021-03-03] MEDS: INSULIN DETEMIR (LEVEMIR) 100 UNIT/ML SYR SQ SCH ×2 (12:34→22:13)
[2021-03-03] MEDS: DULoxetine HCL 30 MG CAPSULE.DR PO SCH ×2 (12:34→22:05)
[2021-03-03] MEDS: MIDODRINE 5 MG TAB PO SCH ×2 (12:34→18:09)
[2021-03-03] MEDS: HYDROmorphone 1 MG/ML 1 ML SYRINGE IVP PRN ×2 (16:10→22:14)
[2021-03-03 17:13] LABS: Glucose,Whole Blood 152 mg/dL (75-99)
--- NOTE | 2021-03-03 17:40 | P.HPIM ---
History of Present Illness H&P Date: 03/03/21 Chief Complaint: Fluid around the heart History of presenting complaint This is a pleasant 55-year-old patient who follows with oncologist Dr. Price. Per oncology notes: The patient is a 51-year-old white male well known to our service diagnosed with metastatic adenocarcinoma of the esophagus in 12/15. The patient had metastatic disease at the time of diagnosis including liver involvement. He was treated with modified FOLFOX for 12 cycles with excellent response. He was then placed on oral Xeloda for maintenance. This ultimately had to be discontinued because of increasing skin toxicity. Around the time of stoppage of the Xeloda the patient started having some issues with difficulty in swallowing, subsequently became progressive. Repeat EGD in 10/17 showed progression at the primary site. He did not have any evidence of progression at other sites. The patient was then treated with carboplatin and Taxol but did not respond. Due to progressive difficulty in swallowing, he had repeat EGD in 02/16 which showed near complete obstruction. The patient then had PEG tube placement by Interventional Radiology at [facility] on 02/18/20. He was also started on concurrent chemoradiation with infusional 5-FU. His last radiation treatment and 5FU was in Feb 2020. He was then on FOLFIRI, Sep-Oct, unfortunate disease progression on f/u scans, EGD 12/08 showing near obstructing esophageal mass. Currently pending FOLFOX approval from insurance. Patient has a PEG tube that was placed in February of this year. Received feeding through it till about September. Started eating since then. EGD by Dr. Gaona on December 08 showed had 30 cm a large obstructing friable tumor. The scope could not be passed beyond. Computed tomography scan showed lung nodules. Patient was started onFOLFOX treatment. He subsequently had a esophageal stent placed. This was at [facility]. He apparently had another visit to [facility] with hematemesis and gone to [facility]. Patient yesterday had gone to his culinary manager Dr. Tinoco. Echo showed some fluid around the heart and he was sent into the ER. Patient denies any obvious chest pain or shortness of breath. He is able to walk up to 10 steps. Gets really dizzy. Is able to eat by mouth. Currently PEG tube is not being used. Denies any fever or chills. Has a bowel movement every other day. Patient was due for another chemotherapy today. Review of systems: GEN.: Decreased appetite, weight loss, gets dizzy with walking EYES: None HEENT: As above NECK: None RESPIRATORY: None CARDIOVASCULAR: None GASTROINTESTINAL: None GENITOURINARY: None MUSCULOSKELETAL: Muscle weakness LYMPHATICS: None HEMATOLOGICAL: None PSYCHIATRY: None NEUROLOGICAL: None Past medical history to include: Metastatic adenocarcinoma of the esophagus. CAD with stent, COPD, hypertension, hyperlipidemia, osteoarthritis, right subclavian blood clot. COVID 19 in May 2020. 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 No alcohol. Smoker. Family history: Prostate cancer COPD Physical examination: VITAL SIGNS: 98.2, 92, 18, 78/60, 93% room air upon presentation GENERAL: BMI 19.7, laying in bed not in distress, Left upper chest port, tired EYES: Pupils equal. Conjunctiva pale HEENT: External appearance of nose and ears normal, oral cavity grossly normal. NECK: JVD not raised; masses not palpable. HEART: First and second heart sounds are normal; no edema. LUNGS: Respiratory rate increased; decreased breath sounds. ABDOMEN: Soft, nontender, liver spleen not palpable, no masses palpable. PSYCH: Alert and oriented x3; mood and affect normal. NEUROLOGICAL: Cranial nerves grossly intact; no facial asymmetry, power and sensation grossly intact. LYMPHATICS: No lymph nodes palpable in the axilla and neck INVESTIGATIONS, reviewed in the clinical context: 2-D echocardiogram: LV function 55-60%. Moderate generalized pericardial effusion. No evidence of tamponade. White count 3.4 hemoglobin 10.9 platelets 312 sodium 131 potassium 4.2 c reatinine 0.5 Troponin I less than 0.012 Coronavirus [PCR]: Not detected EKG tracing personally reviewed by me-normal sinus rhythm. Chest x-ray film personally reviewed by me-hyperinflated lung valencia with lung nodules Assessment and plan: -Pericardial effusion. This was detected in the office by Dr. Tinoco. He sent the patient in for further evaluation. Cardiology consulted. -Hypotension. Causing the patient to be dizzy. Patient is not on any antihypertensive. Add midodrine. ARISTEO stockings -Metastatic esophageal adenocarcinoma. received chemotherapy radiation treatment. Had a large obstructing mass as per EGD on December 08. Received a stent . Patient now getting chemotherapy treatment. Has been tolerating diet by mouth. Patient was due for another chemotherapy today. Oncology consulted - chronic dysphagia from above. PEG tube feeding use previously.. -Moderate pericardial effusion. No tamponade reported Cardiology consulted -PEG tube Currently not being used -CAD with stent eliquis 5 mg twice a day, Lipitor 80 mg daily at bedtime, -Chronic insomnia from medical condition Elavil 50 mg daily at bedtime -Right subclavian DVT On eliquis 5 mg twice a day. -COPD in a smoker Breathing treatments -Depression not otherwise specified Cymbalta 30 mg twice a day Consultation to cardiology, oncology. Resume home medications. Felipe wrap. Midodrine. Follow Accu-Cheks. IV fluids. Fall precautions. Past Medical History Past Medical History: Coronary Artery Disease (CAD), Cancer, Chest Pain / Angina, COPD, Hyperlipidemia, Hypertension, Osteoarthritis (OA) Additional Past Medical History / Comment(s): Esophageal CA-NO SURGERY, RADIATION AND CHEMO (CHEMO NOT COMPLETE OF TODAY 12/04/20). Dysphagia recently to solids, vitiglio, hx. RT SUBCLAVIAN BLOOD CLOT. HAD COVID IN MAY 30. History of Any Multi-Drug Resistant Organisms: None Reported Past Surgical History: Appendectomy, Heart Catheterization With Stent Additional Past Surgical History / Comment(s): patient states he had his stomach flipped 180 degrees because of acid reflux", 2 cardiac stents, mediport left chest, EGD Past Anesthesia/Blood Transfusion Reactions: No Reported Reaction Date of Last Stent Placement:: 2016 Past Psychological History: No Psychological Hx Reported Smoking Status: Current every day smoker Past Alcohol Use History: None Reported Past Drug Use History: None Reported - Past Family History Father Family Medical History: Cancer, COPD Additional Family Medical History / Comment(s): prostate cancer Mother Family Medical History: Chest Pain / Angina, Coronary Artery Disease (CAD), Myocardial Infarction (ID) Additional Family Medical History / Comment(s): "Mother had multiple heart attacks and open heart surgery" Medications and Allergies Home Medications Medication Instructions Recorded Confirmed Type Atorvastatin [Lipitor] 80 mg PO HS #90 tab 10/13/16 03/02/21 Rx Nitroglycerin Sl Tabs [Nitrostat] 0.4 mg SUBLINGUAL Q5M PRN #25 tab 10/13/16 03/02/21 Rx Apixaban [Eliquis] 5 mg PO BID #60 tab 04/01/18 03/02/21 Rx Montelukast [Singulair] 10 mg PO HS 10/23/19 03/02/21 History Prochlorperazine [Compazine] 10 mg PO Q6H PRN 04/05/20 03/02/21 History Amitriptyline HCl [Elavil] 50 mg PO HS 12/09/20 03/02/21 History DULoxetine HCL [Cymbalta] 30 mg PO BID 12/09/20 03/02/21 History HYDROcodone/APAP 10-325MG [[place] 1 tab PO Q8H PRN 12/09/20 03/02/21 History 10-325] Acetaminophen [Tylenol] 650 mg PO Q6H PRN 03/02/21 03/02/21 History Albuterol Sulfate [Proair Hfa] 2 puff INHALATION RT-BID PRN 03/02/21 03/02/21 History INSULIN ASPART (NovoLOG) [NovoLOG See Protocol SQ AC-TID 03/02/21 03/02/21 History (formulary)] Insulin Detemir (Levemir) [Levemir] 12 unit SQ BID 03/02/21 03/02/21 History Midodrine [ProAmatine] 5 mg PO Q8H 03/02/21 03/02/21 History Omeprazole 40 mg PO DAILY 03/02/21 03/02/21 History Sennosides/Docusate Sodium [Senna 2 tab PO HS PRN 03/02/21 03/02/21 History Plus 8.6-50 mg Tablet] Allergies Allergy/AdvReac Type Severity Reaction Status Date / Time Penicillins Allergy Unknown Verified 03/02/21 18:51 Childhood Physical Exam Vitals: Vital Signs Temp Pulse Pulse Resp BP BP Pulse Ox 03/03/21 08:00 106 H 20 98/61 95 03/03/21 06:00 98 F 90 22 100/73 95 03/03/21 05:00 100 22 106/75 97 03/03/21 03:00 90 20 97/68 96 03/03/21 02:00 98 F 88 22 103/74 97 03/03/21 01:00 97.9 F 89 20 99/70 96 03/02/21 22:00 68 19 91/66 95 03/02/21 19:49 98 20 84/61 95 03/02/21 18:48 98.2 F 92 18 78/60 93 L Intake and Output 03/02/21 03/03/21 03/03/21 22:59 06:59 14:59 Intake Total 120 Output Total 450 Balance -330 Intake: Oral 120 Output: Urine 450 Other: Weight 65.771 kg 65.771 kg Results CBC & Chem 7: 03/02/21 19:25 03/02/21 19:25 Labs: Abnormal Lab Results - Last 24 Hours (Table) 03/02/21 03/02/21 03/03/21 Range/Units 19:25 19:25 08:24 WBC 3.4 L (3.8-10.6) k/uL RBC 3.87 L (4.30-5.90) m/uL Hgb 10.9 L (13.0-17.5) gm/dL Hct 35.1 L (39.0-53.0) % RDW 16.7 H (11.5-15.5) % Neutrophils # (Manual) 1.00 L (1.3-7.7) k/uL Sodium 131 L (137-145) mmol/L Creatinine 0.50 L (0.66-1.25) mg/dL Glucose 172 H (74-99) mg/dL POC Glucose (mg/dL) 199 H (75-99) mg/dL AST 15 L (17-59) U/L Albumin 3.2 L (3.5-5.0) g/dL Thrombosis Risk Factor Assmnt - Choose All That Apply Any of the Below Risk Factors Present?: Yes Each Factor Represents 1 point: Age 41-60 years Other Risk Factors: Yes Each Risk Factor Represents 2 Points: Malignancy Each Risk Factor Represents 3 Points: History of DVT/PE Other congenital or acquired thrombophilia - If yes, enter type in comment: No Thrombosis Risk Factor Assessment Total Risk Factor Score: 6 Thrombosis Risk Factor Assessment Level: High Risk
[2021-03-03] MEDS ORDERED: ATORVASTATIN 80 MG TAB PO SCH (21:00)
[2021-03-03] MEDS ORDERED: MONTELUKAST 10 MG TAB PO SCH (21:00)
[2021-03-03] MEDS ORDERED: AMITRIPTYLINE HCL 50 MG TAB PO SCH (21:00)
[2021-03-03 21:34] LABS: Glucose,Whole Blood 118 mg/dL (75-99)
[2021-03-04] MEDS: MIDODRINE 5 MG TAB PO SCH ×2 (00:40→08:51)
[2021-03-04 07:27] LABS: Glucose,Whole Blood 100 mg/dL (75-99)
[2021-03-04] MEDS: INSULIN ASPART (NovoLOG) 100 UNIT/ML VIAL SQ SCH ×2 (07:35→12:06)
[2021-03-04] MEDS: INSULIN DETEMIR (LEVEMIR) 100 UNIT/ML SYR SQ SCH (08:51)
[2021-03-04] MEDS: DULoxetine HCL 30 MG CAPSULE.DR PO SCH (08:51)
[2021-03-04] MEDS: PANTOPRAZOLE 40 MG TABLET PO SCH (08:51)
[2021-03-04] MEDS: HYDROmorphone 1 MG/ML 1 ML SYRINGE IVP PRN ×2 (08:58→12:09)
[2021-03-04] MEDS ORDERED: APIXABAN 5 MG TAB PO SCH (09:30)
--- NOTE | 2021-03-04 10:18 | P.PN ---
Subjective This is a 55-year-old male with a past medical history significant for coronary artery disease s/p PCI in 2017 to the distal RCA and proximal circumflex, hyperlipidemia, hypertension, pericardial effusion, esophageal cancer with metastases, status post esophogeal stent. Patient had a clot in his port and was started on Eliquis per oncology. Patient follows in the office with Dr. Meier. We have been asked to see the patient in consultation for shortness of breath. Patient presented to the hospital with worsening shortness of breath over the past two weeks, as well as lightheadedness. Chest xray revealed numerous pulmonary masses consistent with metastatic disease are significantly increased in size compared to last exam. Normal heart. No pleural fluid. No heart failure seen. Patient had an echo performed at the cardiology office in January 2021 revealing moderate circumferential pericardial effusion without evidence of tamponade. Ejection fraction 55%. Patient examined at the bedside, no acute distress. He states his breathing has much improved. Patient denies chest pain or pressure. His Eliquis was on hold for possible procedure today. Limited echo revealed EF 5560 percent, moderate generalized pericardial effusion no evidence of tamponade. Patient's vital signs are stable, but pressure has improved. Maintaining oxygen saturations on room air. He's currently do not atorvastatin 80 mg nightly, Midodrine 5 mg ev rola 8 hours PHYSICAL EXAM: VITAL SIGNS: Reviewed. GENERAL: Well-developed in no acute distress. HEENT: Neck supple. No JVD LUNGS: Respirations even and unlabored. Lungs diminished to auscultation bilaterally. HEART: Regular rate and rhythm. S1 and S2 heard. ABDOMEN: Soft. Nondistended. Nontender. EXTREMITIES: Normal range of motion. No clubbing or cyanosis. Peripheral pulses intact. No lower extremity edema NEUROLOGIC: Awake and alert. Oriented x 3. ASSESSMENT: Shortness of breath Esophageal cancer with lung metastasis Known pericardial effusion without tamponade Coronary artery disease with previous PCI Hyperlipidemia History of Hypertension, hypotensive inpatient PLAN: We will resume patient's eliquis. Limited echo revealed EF 5560 percent, moderate generalized pericardial effusion no evidence of tamponade. Pulmonary and oncology following From a cardiology perspective, patient is stable, recommend close follow up with Dr. Meier as an outpatient, if patient with worsening symptoms, per icardial tap can be considered in the future. We will follow the patient as needed. Please reconsult if needed. Nurse practitioner note has been reviewed by physician. Signing provider agrees with the documented findings, assessment, and plan of care. Objective - Vital Signs Vital signs: Vital Signs Temp 99.1 F 03/04/21 05:00 Pulse 92 03/04/21 00:00 Resp 29 H 03/04/21 05:00 BP 92/56 03/04/21 05:00 Pulse Ox 93 L 03/04/21 05:00 Intake & Output 03/03/21 03/04/21 03/04/21 18:59 06:59 18:59 Intake Total 480 Output Total 850 Balance -370 Weight 65.771 kg Intake: Oral 480 Output: Urine 850 Other: Voiding Method Urinal # Voids 2 - Labs CBC & Chem 7: 03/02/21 19:25 03/02/21 19:25 Labs: Abnormal Lab Results - Last 24 Hours (Table) 03/03/21 03/03/21 03/03/21 Range/Units 12:24 17:10 21:32 POC Glucose (mg/dL) 223 H 152 H 118 H (75-99) mg/dL 03/04/21 Range/Units 07:19 POC Glucose (mg/dL) 100 H (75-99) mg/dL
[2021-03-04 11:44] LABS: Glucose,Whole Blood 123 mg/dL (75-99)
[2021-03-04 12:21] VITALS: BP 93/59; PULSE 115; RESP 20; TEMP 98.5
[2021-03-04 14:37] VITALS: BMI 19.6
--- NOTE | 2021-03-04 16:42 | P.DS ---
Providers Date of admission: 03/02/21 21:31 Expected date of discharge: 03/04/21 Attending physician: Jose Goodman Consults: 03/02/21 21:32 Consult Physician Routine Consulting Provider: Zachary Meier Consult Reason/Comments: Dyspnea Do you want consulting provider notified?: Yes, Notify in am Consult Physician Routine Consulting Provider: Laina Gray Consult Reason/Comments: Esophageal cancer with metastatic disease to the lungs Do you want consulting provider notified?: Yes, Notify in am 03/03/21 08:12 Consult Physician Routine Consulting Provider: Harshal Price Consult Reason/Comments: esophageal cancer with mets Do you want consulting provider notified?: Yes 03/03/21 10:43 Consult Physician Routine Consulting Provider: Alli Smart Consult Reason/Comments: per Dr. Liu, lung ca Do you want consulting provider notified?: Yes Primary care physician: Stated None Hospital Course: Chief Complaint: Fluid around the heart History of presenting complaint This is a pleasant 55-year-old patient who follows with oncologist Dr. Price. Per oncology notes: The patient is a 51-year-old white male well known to our service diagnosed with metastatic adenocarcinoma of the esophagus in 12/15. The patient had metastatic disease at the time of diagnosis including liver involvement. He was treated with modified FOLFOX for 12 cycles with excellent response. He was then placed on oral Xeloda for maintenance. This ultimately had to be discontinued because of increasing skin toxicity. Around the time of stoppage of the Xeloda the patient started having some issues with difficulty in swallowing, subsequently became progressive. Repeat EGD in 10/17 showed progression at the primary site. He did not have any evidence of progression at other sites. The patient was then treated with carboplatin and Taxol but did not respond. Due to progressive difficulty in swallowing, he had repeat EGD in 02/16 which showed near complete obstruction. The patient then had PEG tube placement by Interventional Radiology at [facility] on 02/18/20. He was also started on concurrent chemoradiation with infusional 5-FU. His last radiation treatment and 5FU was in Feb 2020. He was then on FOLFIRI, Sep-Oct, unfortunate disease progression on f/u scans, EGD 12/08 showing near obstructing esophageal mass. Currently pending FOLFOX approval from insurance. Patient has a PEG tube that was placed in February of this year. Received feeding through it till about September. Started eating since then. EGD by Dr. Gaona on December 08 showed had 30 cm a large obstructing friable tumor. The scope could not be passed beyond. Computed tomography scan showed lung nodules. Patient was started onFOLFOX treatment. He subsequently had a esophageal stent placed. This was at [facility]. He apparently had another visit to [facility] with hematemesis and gone to [facility]. Patient yesterday had gone to his physical meteorologist Dr. Tinoco. Echo showed some fluid around the heart and he was sent into the ER. Patient denies any obvious chest pain or shortness of breath. He is able to walk up to 10 steps. Gets really dizzy. Is able to eat by mouth. Currently PEG tube is not being used. Denies any fever or chills. Has a bowel movement every other day. Patient was due for another chemotherapy today. March 04: Midodrine was added. Blood pressure better. Patient less dizzy. Did walk some. ARISTEO stockings given. He'll follow-up with Dr. lopez for his chemotherapy. No further intervention. Discussed with patient. Consultation: Dr. Bañuelos from pulmonary Dr. Han from oncology Dr. Gao from cardiology Past medical history to include: Metastatic adenocarcinoma of the esophagus. CAD with stent, COPD, hypertension, hyperlipidemia, osteoarthritis, right subclavian blood clot. COVID 19 in May 2020. 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 Smoker. Family history: Prostate cancer COPD Physical examination: VITAL SIGNS: 98.5, 100, 20, 93/59, 90% room air GENERAL: Laying in bed, awake, comfortable Left upper chest port, tired EYES: Pupils equal. Conjunctiva pale HEENT: External appearance of nose and ears normal, oral cavity grossly normal. NECK: JVD not raised; masses not palpable. HEART: First and second heart sounds are normal; no edema. LUNGS: Respiratory rate increased; decreased breath sounds. ABDOMEN: Soft, nontender, liver spleen not palpable, no masses palpable. PSYCH: Alert and oriented x3; mood and affect normal. INVESTIGATIONS, reviewed in the clinical context: 2-D echocardiogram: LV function 55-60%. Moderate generalized pericardial effusion. No evidence of tamponade. White count 3.4 hemoglobin 10.9 platelets 312 sodium 131 potassium 4.2 creatinine 0.5 Troponin I less than 0.012 Coronavirus [PCR]: Not detected EKG tracing personally reviewed by me-normal sinus rhythm. Chest x-ray film personally reviewed by me-hyperinflated lung valencia with lung nodules Assessment and plan: -Moderate Pericardial effusion. This was detected in the office by Dr. Tinoco. He sent the patient in for further evaluation. Seen by cardiology. No further intervention -Hypotension. Causing the patient to be dizzy. Patient is not on any antihypertensive.: Better Midodrine 5 mg 3 times a day. ARISTEO stockings -Metastatic esophageal adenocarcinoma. received chemotherapy radiation treatment. Had a large obstructing mass as per EGD on December 08. Received a stent . Patient now getting chemotherapy treatment. Has been tolerating diet by mouth. Patient was due for another chemotherapy today. Oncology consulted - chronic dysphagia from above. PEG tube feeding use previously.. -Moderate pericardial effusion. No tamponade reported Cardiology consulted -PEG tube Currently not being used -CAD with stent eliquis 5 mg twice a day, Lipitor 80 mg daily at bedtime, -Chronic insomnia from medical condition Elavil 50 mg daily at bedtime -Right subclavian DVT On eliquis 5 mg twice a day. -COPD in a smoker Breathing treatments -Depression not otherwise specified Cymbalta 30 mg twice a day Disposition: Home Plan - Discharge Summary Discharge Rx Participant: No New Discharge Prescriptions: Continue Atorvastatin [Lipitor] 80 mg PO HS #90 tab Nitroglycerin Sl Tabs [Nitrostat] 0.4 mg SUBLINGUAL Q5M PRN #25 tab PRN Reason: Chest Pain Apixaban [Eliquis] 5 mg PO BID #60 tab Montelukast [Singulair] 10 mg PO HS Prochlorperazine [Compazine] 10 mg PO Q6H PRN PRN Reason: Nausea HYDROcodone/APAP 10-325MG [[place] 10-325] 1 tab PO Q8H PRN PRN Reason: Pain Amitriptyline HCl [Elavil] 50 mg PO HS Omeprazole 40 mg PO DAILY Insulin Detemir (Levemir) [Levemir] 12 unit SQ BID Albuterol Sulfate [Proair Hfa] 2 puff INHALATION RT-BID PRN PRN Reason: Shortness Of Breath DULoxetine HCL [Cymbalta] 30 mg PO BID Sennosides/Docusate Sodium [Senna Plus 8.6-50 mg Tablet] 2 tab PO HS PRN PRN Reason: CONSTIPATION WHILE ON NORCO INSULIN ASPART (NovoLOG) [NovoLOG (formulary)] See Protocol SQ AC-TID Acetaminophen [Tylenol] 650 mg PO Q6H PRN PRN Reason: Fever And/ Or Pain Midodrine [ProAmatine] 5 mg PO Q8H #90 tab Discharge Medication List Atorvastatin [Lipitor] 80 mg PO HS #90 tab 10/13/16 [Rx] Nitroglycerin Sl Tabs [Nitrostat] 0.4 mg SUBLINGUAL Q5M PRN #25 tab 10/13/16 [Rx] Apixaban [Eliquis] 5 mg PO BID #60 tab 04/01/18 [Rx] Montelukast [Singulair] 10 mg PO HS 10/23/19 [History] Prochlorperazine [Compazine] 10 mg PO Q6H PRN 04/05/20 [History] Amitriptyline HCl [Elavil] 50 mg PO HS 12/09/20 [History] DULoxetine HCL [Cymbalta] 30 mg PO BID 12/09/20 [History] HYDROcodone/APAP 10-325MG [[place] 10-325] 1 tab PO Q8H PRN 12/09/20 [History] Acetaminophen [Tylenol] 650 mg PO Q6H PRN 03/02/21 [History] Albuterol Sulfate [Proair Hfa] 2 puff INHALATION RT-BID PRN 03/02/21 [History] INSULIN ASPART (NovoLOG) [NovoLOG (formulary)] See Protocol SQ AC-TID 03/02/21 [History] Insulin Detemir (Levemir) [Levemir] 12 unit SQ BID 03/02/21 [History] Omeprazole 40 mg PO DAILY 03/02/21 [History] Sennosides/Docusate Sodium [Senna Plus 8.6-50 mg Tablet] 2 tab PO HS PRN 03/02/21 [History] Midodrine [ProAmatine] 5 mg PO Q8H #90 tab 03/04/21 [Rx] Follow up Appointment(s)/Referral(s): Harshal Price MD [STAFF PHYSICIAN] - 03/10/21 1:00 pm (This is appt for chemo ) None,Stated [Primary Care Provider] - 1-2 days Patient Instructions/Handouts: Midodrine (By mouth), Failure to Thrive (DC), Dehydration (DC), Hypotension (DC) Activity/Diet/Wound Care/Special Instructions: Dr. Price medical specialist contacting home furnishings sales representative to get kangaroo pump set up for feeds since pt does not tolerate bolus feeds MAIN SOURCE OF NUTRITION IS TO BE THE PEG FEED. ORAL INTAKE IS PLEASURE ONLY. 4 oz fluid every 1/2 hour while awake. below knee ARISTEO stockings
== END 2021-03-04 14:34 ==
LOC: EC 17:41 → 3SCARD 21:31 → 5NMEDONC 03-03 15:31
PROVIDERS: ADMIT Hospitalist; ATTEND Hospitalist
DX: I31.3 Pericardial effusion (noninflammatory) (principal); I95.9 Hypotension, unspecified; C15.9 Malignant neoplasm of esophagus, unspecified; J43.9 Emphysema, unspecified; E86.0 Dehydration; R62.7 Adult failure to thrive; C78.00 Secondary malignant neoplasm of unspecified lung; C78.7 Secondary malignant neoplasm of liver and intrahepatic bile duct; I25.119 Atherosclerotic heart disease of native coronary artery with unspecified angina pectoris; G47.01 Insomnia due to medical condition; F51.04 Psychophysiologic insomnia; F32.A Depression, unspecified; I82.B11 Acute embolism and thrombosis of right subclavian vein; E78.5 Hyperlipidemia, unspecified; I10 Essential (primary) hypertension; M19.90 Unspecified osteoarthritis, unspecified site; F17.200 Nicotine dependence, unspecified, uncomplicated; E11.9 Type 2 diabetes mellitus without complications; Z20.822 Contact with and (suspected) exposure to COVID-19; Z92.21 Personal history of antineoplastic chemotherapy; Z92.3 Personal history of irradiation; Z86.711 Personal history of pulmonary embolism; Z86.16 Personal history of COVID-19; Z95.5 Presence of coronary angioplasty implant and graft; Z95.828 Presence of other vascular implants and grafts; Z86.718 Personal history of other venous thrombosis and embolism; Z93.1 Gastrostomy status; Z79.899 Other long term (current) drug therapy; Z79.4 Long term (current) use of insulin; Z79.01 Long term (current) use of anticoagulants; Z88.0 Allergy status to penicillin; Z90.49 Acquired absence of other specified parts of digestive tract; Z80.42 Family history of malignant neoplasm of prostate; Z82.5 Family history of asthma and other chronic lower respiratory diseases; Z82.49 Family history of ischemic heart disease and other diseases of the circulatory system
CPT/HCPCS: 96376 ×2; 96375 ×2; 96361 ×2; 96374; 99291; 36415; 93005; 93308; 83880; 80053; 83605; 83735; 84484; 85025; 85610; 85730; 87635; 71046; G0378 ×4; J2405; J1170 ×3; J1642

== ENCOUNTER → 2021-03-11 | Outpatient (CLI) | payer BC ==
[2021-03-11 11:42] LABS: African American GFR (CKD) >90 (>60 ml/min/1.73 sqM); Blood Urea Nitrogen 13 mg/dL (9-20); Non-African American GFR(CKD) >90 (>60 ml/min/1.73 sqM)
--- NOTE | 2021-03-11 12:22 | CT ---
EXAMINATION TYPE: CT brain w con DATE OF EXAM: 03/11/2021 COMPARISON: None HISTORY: Dizziness, Obsv. for mets. CT DLP: 1054.20 mGycm Automated exposure control for dose reduction was used. CONTRAST: CT scan of the head is performed with IV Contrast, patient injected with 100 mL of Isovue 300. FINDINGS: There are 2 enhancing lesions within the right cerebral hemisphere. This first lesion measures 1.4 cm in the right frontal lobe. Second lesion demonstrates extensive vasogenic edema measures 1.6 cm cyst within the posterior right parietal lobe. Resection ventricular sizes compatible with patient's age. Changes of chronic sinusitis noted. Craniocervical junction maintained. Sella turcica has a normal ap pearance. Orbits are symmetric. Calvarium intact. Report called to referring clinician 12:18 PM 03/11/2021. IMPRESSION: 1. There are 2 enhancing lesions within the right frontal and the second within the right parietal lo be measuring 1.4 and 1.6 cm respectively. No midline shift, however, there is significant vasogenic e oriana with regard to the right parietal junction.
== END | disposition home or self-care (01) ==
LOC: RADCTMAIN 10:55
PROVIDERS: ATTEND Internal Medicine Hematology & Oncology
DX: C15.5 Malignant neoplasm of lower third of esophagus (principal); G93.6 Cerebral edema; G93.89 Other specified disorders of brain
CPT/HCPCS: 82565; 84520; 70460; 36415; Q9967

== ENCOUNTER → 2021-03-18 | Outpatient (CLI) | payer BC ==
[2021-03-18 16:16] LABS: African American GFR (CKD) >90 (>60 ml/min/1.73 sqM); Blood Urea Nitrogen 27 mg/dL (9-20); Non-African American GFR(CKD) >90 (>60 ml/min/1.73 sqM)
--- NOTE | 2021-03-18 17:40 | CT ---
EXAMINATION TYPE: CT angio chest DATE OF EXAM: 03/18/2021 COMPARISON: 02/09/2021 HISTORY: Chest pain, hx esophageal ca CT DLP: 194.80 mGycm Automated exposure control for dose reduction was used. CONTRAST: Performed with IV Contrast, patient injected with 100 mL of Isovue 370. There are 3-D post processed images. There are numerous rounded soft tissue masses throughout the lungs that measure up to 3.2 cm. There i s stent in the esophagus. There is increased soft tissue density around the stent that could relate t o esophageal tumor. There are enlarged bronchial bilateral lymph nodes that measure up to 3 cm. There are paratracheal lymph nodes up to 1.5 cm. Thoracic aorta is intact. There is no aneurysm or dissect ion. There are no filling defects in the pulmonary arteries. There is bullous pulmonary emphysema. The thoracic spine is intact. Sternum is intact. There is no co mpression fracture. There is calcified gallstone. IMPRESSION: No evidence of pulmonary embolism. Numerous pulmonary masses consistent with metastatic disease are increased compared to last exam. Pulmonary emphysema. Mediastinal and bronchial adenopathy increased compared to old exam. Posterior m ediastinal mass consistent with esophageal tumor increased somewhat compared to last exam.
== END | disposition home or self-care (01) ==
LOC: RADCTMAIN 15:22
PROVIDERS: ATTEND Internal Medicine Hematology & Oncology
DX: C15.5 Malignant neoplasm of lower third of esophagus (principal); R91.8 Other nonspecific abnormal finding of lung field; R59.0 Localized enlarged lymph nodes; J43.9 Emphysema, unspecified
CPT/HCPCS: 82565; 84520; 71275; 36415; Q9967

== ENCOUNTER 2021-04-14 14:59 | Emergency (ER) | payer BC ==
[2021-04-14] MEDS ORDERED: SODIUM CHLORIDE 0.9% 500 ML 500 ML IV ONE (15:44)
[2021-04-14] MEDS ORDERED: HYDROmorphone 1 MG/ML 1 ML SYRINGE IVP STA (15:44)
[2021-04-14 15:59] LABS: ALT 10 U/L (4-49); AST 25 U/L (17-59); African American GFR (CKD) >90 (>60 ml/min/1.73 sqM); Albumin 2.7 g/dL (3.5-5.0); Alkaline Phosphatase 94 U/L (38-126); Anion Gap 8 mmol/L; Blood Urea Nitrogen 12 mg/dL (9-20); Calcium 8.4 mg/dL (8.4-10.2); Carbon Dioxide 26 mmol/L (22-30); Chloride 100 mmol/L (98-107); Glucose 234 mg/dL (74-99); Non-African American GFR(CKD) >90 (>60 ml/min/1.73 sqM); Sodium 134 mmol/L (137-145); Total Bilirubin 0.4 mg/dL (0.2-1.3)
[2021-04-14 16:03] LABS: Anisocytosis Slight; HCT 34.2 % (39.0-53.0); HGB 10.5 gm/dL (13.0-17.5); Hypochromasia Marked; MCH 28.3 pg (25.0-35.0); MCHC 30.8 g/dL (31.0-37.0); MCV 92.1 fL (80.0-100.0); Mean Platelet Volume 7.1; Platelet Count 417 k/uL (150-450); RBC 3.71 m/uL (4.30-5.90); RDW 17.6 % (11.5-15.5); WBC 7.6 k/uL (3.8-10.6)
[2021-04-14 16:04] LABS: INR 0.9 (<1.2); Partial Thromboplastin Time 22.4 sec (22.0-30.0); Prothrombin Time 10.4 sec (9.0-12.0)
--- NOTE | 2021-04-14 16:29 | ED ---
General Adult HPI - General Chief complaint: Shortness of Breath Stated complaint: BRYN, stent in esophagus Source: patient, RN notes reviewed, old records reviewed Mode of arrival: wheelchair Limitations: no limitations - History of Present Illness Initial comments: 55-year-old male with history of metastatic esophageal cancer presents with cough, and difficulty swallowing his secretions. He's had a pink frothy cough which began 3 days prior. No fever. No central chest pain. He is currently being fed through PEG tube. There is concern for aspiration. There is no unila teral leg swelling. He was recently evaluated by radiation oncology for brain metastases. He is scheduled for reinitiation of chemotherapy shortly but has not had a treatment in the last 6 weeks. - Related Data Home Medications Medication Instructions Recorded Confirmed Montelukast [Singulair] 10 mg PO HS 10/23/19 04/14/21 Prochlorperazine [Compazine] 10 mg PO Q6H PRN 04/05/20 04/14/21 Amitriptyline HCl [Elavil] 50 mg PO HS 12/09/20 04/14/21 DULoxetine HCL [Cymbalta] 30 mg PO BID 12/09/20 04/14/21 HYDROcodone/APAP 10-325MG [[place] 1 tab PO Q4H PRN 12/09/20 04/14/21 10-325] Acetaminophen [Tylenol] 650 mg PO Q6H PRN 03/02/21 04/14/21 Albuterol Sulfate [Proair Hfa] 2 puff INHALATION RT-BID 03/02/21 04/14/21 INSULIN ASPART (NovoLOG) [NovoLOG See Protocol SQ AC-TID 03/02/21 04/14/21 (formulary)] Insulin Detemir (Levemir) [Levemir] 12 unit SQ BID 03/02/21 04/14/21 Omeprazole 40 mg PO DAILY 03/02/21 04/14/21 Sennosides/Docusate Sodium [Senna 2 tab PO HS PRN 03/02/21 04/14/21 Plus 8.6-50 mg Tablet] Dexamethasone See Taper PO DIRECTED 04/14/21 04/14/21 Docusate [Colace] 100 mg PO DAILY PRN 04/14/21 04/14/21 INSULIN ASPART (NovoLOG) [NovoLOG 4 unit SQ AC-TID 04/14/21 04/14/21 (formulary)] Kools 5 ml PO QID PRN 04/14/21 04/14/21 Solution(Benadryl/Lidocaine/Maalox/Nystatin 1:1) Lidocaine-Prilocaine Cream [Emla 1 applic TOPICAL DAILY PRN 04/14/21 04/14/21 Cream 2.5%/2.5%] Nitroglycerin Sl Tabs [Nitrostat] 0.4 mg SL Q5M PRN 04/14/21 04/14/21 Sucralfate [Carafate] 1 gm PO QID 04/14/21 04/14/21 diphenhydrAMINE HCL [Benadryl] 50 mg PO DAILY 04/14/21 04/14/21 fentaNYL 50MCG/HR PATCH [Duragesic 1 patch TRANSDERM Q72H 04/14/21 04/14/21 50MCG/HR] lidocaine HCL [lidocaine HCL 5 ml PO TID PRN 04/14/21 04/14/21 Viscous] Previous Rx's Medication Instructions Recorded Atorvastatin [Lipitor] 80 mg PO HS #90 tab 10/13/16 Apixaban [Eliquis] 5 mg PO BID #60 tab 04/01/18 Midodrine [ProAmatine] 5 mg PO Q8H #90 tab 03/04/21 Allergies Allergy/AdvReac Type Severity Reaction Status Date / Time Penicillins Allergy Unknown Verified 04/14/21 18:02 Childhood Review of Systems ROS Statement: Those systems with pertinent positive or pertinent negative responses have been documented in the HPI. ROS Other: All systems not noted in ROS Statement are negative. Past Medical History Past Medical History: Coronary Artery Disease (CAD), Cancer, Chest Pain / Angina, COPD, Hyperlipidemia, Hypertension, Osteoarthritis (OA) Additional Past Medical History / Comment(s): Esophageal CA-NO SURGERY, RADIATION AND CHEMO (CHEMO NOT COMPLETE OF TODAY 12/04/20). Dysphagia recently to solids, vitiglio, hx. RT SUBCLAVIAN BLOOD CLOT. HAD COVID IN MAY 2020. History of Any Multi-Drug Resistant Organisms: None Reported Past Surgical History: Appendectomy, Heart Catheterization With Stent Additional Past Surgical History / Comment(s): patient states he had his stomach flipped 180 degrees because of acid reflux", 2 cardiac stents, mediport left chest, EGD Past Anesthesia/Blood Transfusion Reactions: No Reported Reaction Date of Last Stent Placement:: 2016 Past Psychological History: No Psychological Hx Reported Smoking Status: Current every day smoker Past Alcohol Use History: None Reported Past Drug Use History: None Reported - Past Family History Father Family Medical History: Cancer, COPD Additional Family Medical History / Comment(s): prostate cancer Mother Family Medical History: Chest Pain / Angina, Coronary Artery Disease (CAD), Myocardial Infarction (VT) Additional Family Medical History / Comment(s): "Mother had multiple heart attacks and open heart surgery" General Exam Limitations: no limitations General appearance: alert, cachectic Head exam: Present: atraumatic, normocephalic Eye exam: Present: normal appearance, PERRL ENT exam: Present: normal exam Neck exam: Present: normal inspection. Absent: tenderness, meningismus Respiratory exam: Present: respiratory distress, rhonchi Cardiovascular Exam: Present: normal rhythm, tachycardia GI/Abdominal exam: Present: soft. Absent: distended, tenderness Extremities exam: Present: normal inspection, normal capillary refill. Absent: pedal edema Neurological exam: Present: alert, oriented X3, CN II-XII intact. Absent: motor sensory deficit Psychiatric exam: Present: normal affect, normal mood Skin exam: Present: warm, dry, intact, pallor. Absent: cyanosis, diaphoretic Course Vital Signs 04/14/21 04/14/21 04/14/21 15:00 15:15 16:34 Temperature 97.8 F Pulse Rate 112 H 102 H Respiratory 22 20 18 Rate Blood Pressure 82/51 97/66 O2 Sat by Pulse 94 L 95 Oximetry 04/14/21 04/14/21 18:02 18:28 Temperature Pulse Rate 110 H 108 H Respiratory 18 Rate Blood Pressure 99/66 O2 Sat by Pulse 92 L Oximetry EKG Findings - EKG Comments: EKG Findings:: EKG: Sinus tachycardia, rate of 109, AL interval 142, QRS duration 96, QTC 390, no ST segment elevation. Medical Decision Making - Medical Decision Making 55-year-old male with metastatic esophageal cancer presenting with cough, inability to swallow. Workup is initiated patient has mild anemia, normal white blood cell, he has normal electrolytes, albumin 2.7. Negative troponin. EKG is sinus tachycardia. CT of the chest is performed, showing multiple pulmonary masses, esophageal stent has had air-fluid level and I suspect a proximal occlusion. There is no pulmonary embolism. No focal pneumonia. Patient had stent placed at [facility]. I did contact [facility] for transfer discussed the case with the ER physician Dr. Bolanos as well as gastroenterology information writer. Patient will be transferred to their institution for further evaluation and treatment. - Lab Data Result diagrams: 04/14/21 15:37 04/14/21 15:37 Lab Results 04/14/21 04/14/21 04/14/21 Range/Units 15:37 15:37 15:37 WBC 7.6 (3.8-10.6) k/uL RBC 3.71 L (4.30-5.90) m/uL Hgb 10.5 L (13.0-17.5) gm/dL Hct 34.2 L (39.0-53.0) % MCV 92.1 (80.0-100.0) fL MCH 28.3 (25.0-35.0) pg MCHC 30.8 L (31.0-37.0) g/dL RDW 17.6 H (11.5-15.5) % Plt Count 417 (150-450) k/uL MPV 7.1 Neutrophils % (Manual) 69 % Band Neuts % (Manual) 4 % Lymphocytes % (Manual) 13 % Monocytes % (Manual) 14 % Neutrophils # (Manual) 5.50 (1.3-7.7) k/uL Lymphocytes # (Manual) 0.99 L (1.0-4.8) k/uL Monocytes # (Manual) 1.06 H (0-1.0) k/uL Nucleated RBCs 0 (0-0) /100 WBC Manual Slide Review Performed Hypochromasia Marked Anisocytosis Slight PT 10.4 (9.0-12.0) sec INR 0.9 (<1.2) APTT 22.4 (22.0-30.0) sec Sodium 134 L (137-145) mmol/L Potassium 4.0 (3.5-5.1) mmol/L Chloride 100 (98-107) mmol/L Carbon Dioxide 26 (22-30) mmol/L Anion Gap 8 mmol/L BUN 12 (9-20) mg/dL Creatinine 0.37 L (0.66-1.25) mg/dL Est GFR (CKD-EPI)AfAm >90 (>60 ml/min/1.73 sqM) Est GFR (CKD-EPI)NonAf >90 (>60 ml/min/1.73 sqM) Glucose 234 H (74-99) mg/dL Lactic Ac Sepsis Rflx Plasma Lactic Acid Raza (0.7-2.0) mmol/L Calcium 8.4 (8.4-10.2) mg/dL Total Bilirubin 0.4 (0.2-1.3) mg/dL AST 25 (17-59) U/L ALT 10 (4-49) U/L Alkaline Phosphatase 94 (38-126) U/L Troponin I (0.000-0.034) ng/mL NT-Pro-B Natriuret Pep pg/mL Total Protein 6.0 L (6.3-8.2) g/dL Albumin 2.7 L (3.5-5.0) g/dL 04/14/21 04/14/21 04/14/21 Range/Units 15:37 15:37 15:37 WBC (3.8-10.6) k/uL RBC (4.30-5.90) m/uL Hgb (13.0-17.5) gm/dL Hct (39.0-53.0) % MCV (80.0-100.0) fL MCH (25.0-35.0) pg MCHC (31.0-37.0) g/dL RDW (11.5-15.5) % Plt Count (150-450) k/uL MPV Neutrophils % (Manual) % Band Neuts % (Manual) % Lymphocytes % (Manual) % Monocytes % (Manual) % Neutrophils # (Manual) (1.3-7.7) k/uL Lymphocytes # (Manual) (1.0-4.8) k/uL Monocytes # (Manual) (0-1.0) k/uL Nucleated RBCs (0-0) /100 WBC Manual Slide Review Hypochromasia Anisocytosis PT (9.0-12.0) sec INR (<1.2) APTT (22.0-30.0) sec Sodium (137-145) mmol/L Potassium (3.5-5.1) mmol/L Chloride (98-107) mmol/L Carbon Dioxide (22-30) mmol/L Anion Gap mmol/L BUN (9-20) mg/dL Creatinine (0.66-1.25) mg/dL Est GFR (CKD-EPI)AfAm (>60 ml/min/1.73 sqM) Est GFR (CKD-EPI)NonAf (>60 ml/min/1.73 sqM) Glucose (74-99) mg/dL Lactic Ac Sepsis Rflx Plasma Lactic Acid Raza 2.5 H* (0.7-2.0) mmol/L Calcium (8.4-10.2) mg/dL Total Bilirubin (0.2-1.3) mg/dL AST (17-59) U/L ALT (4-49) U/L Alkaline Phosphatase (38-126) U/L Troponin I <0.012 (0.000-0.034) ng/mL NT-Pro-B Natriuret Pep 1270 pg/mL Total Protein (6.3-8.2) g/dL Albumin (3.5-5.0) g/dL 04/14/21 Range/Units 16:02 WBC (3.8-10.6) k/uL RBC (4.30-5.90) m/uL Hgb (13.0-17.5) gm/dL Hct (39.0-53.0) % MCV (80.0-100.0) fL MCH (25.0-35.0) pg MCHC (31.0-37.0) g/dL RDW (11.5-15.5) % Plt Count (150-450) k/uL MPV Neutrophils % (Manual) % Band Neuts % (Manual) % Lymphocytes % (Manual) % Monocytes % (Manual) % Neutrophils # (Manual) (1.3-7.7) k/uL Lymphocytes # (Manual) (1.0-4.8) k/uL Monocytes # (Manual) (0-1.0) k/uL Nucleated RBCs (0-0) /100 WBC Manual Slide Review Hypochromasia Anisocytosis PT (9.0-12.0) sec INR (<1.2) APTT (22.0-30.0) sec Sodium (137-145) mmol/L Potassium (3.5-5.1) mmol/L Chloride (98-107) mmol/L Carbon Dioxide (22-30) mmol/L Anion Gap mmol/L BUN (9-20) mg/dL Creatinine (0.66-1.25) mg/dL Est GFR (CKD-EPI)AfAm (>60 ml/min/1.73 sqM) Est GFR (CKD-EPI)NonAf (>60 ml/min/1.73 sqM) Glucose (74-99) mg/dL Lactic Ac Sepsis Rflx Y Plasma Lactic Acid Raza (0.7-2.0) mmol/L Calcium (8.4-10.2) mg/dL Total Bilirubin (0.2-1.3) mg/dL AST (17-59) U/L ALT (4-49) U/L Alkaline Phosphatase (38-126) U/L Troponin I (0.000-0.034) ng/mL NT-Pro-B Natriuret Pep pg/mL Total Protein (6.3-8.2) g/dL Albumin (3.5-5.0) g/dL Disposition Clinical Impression: Esophageal cancer, Metastatic carcinoma, Metastatic carcinoma to lung Disposition: OTHER INSTITUTION NOT DEFINED Condition: Serious Is patient prescribed a controlled substance at d/c from ED?: No Referrals: None,Stated [Primary Care Provider] - 1-2 days Time of Disposition: 18:37 - Out of Hospital Transfer - Req. Specs Out of Hospital Transfer - Requested Specifics: Other Emergency Center (Transfer to [facility])
[2021-04-14 16:35] VITALS: RESP 18
[2021-04-14 17:22] LABS: Band Neutrophils % 4 %; Lymphocytes # (M) 0.99 k/uL (1.0-4.8); Monocytes # (M) 1.06 k/uL (0-1.0); Neutrophils % (M) 69 %; Nucleated Red Blood Cells 0 /100 WBC (0-0); Total Cells Counted 100
--- NOTE | 2021-04-14 17:38 | CT ---
EXAMINATION TYPE: CT chest angio for PE DATE OF EXAM: 04/14/2021 COMPARISON: 03/18/2021 HISTORY: Difficulty breathig, stent in esophagus CT DLP: 242.3 mGycm Automated exposure control for dose reduction was used. CONTRAST: Performed with IV Contrast, patient injected with 80 mL of Isovue 370. There are Three-D postprocessed images. Images obtained from the thoracic inlet to the diaphragm with IV contrast. There is bullous pulmonary emphysema. There are numerous rounded soft tissue masses throughout both l ungs that measure up to 6 cm. There is also significant mediastinal adenopathy with encasement of the right pulmonary artery and right mainstem bronchus. There is stent in the esophagus. There is signif icant posterior mediastinal mass around the stent. This would be consistent with esophageal tumor. I see no evidence of filling defect in the pulmonary arteries. Heart size is normal. There is no jake cardial effusion. There is small right pleural effusion. The thoracic spine is intact. There is no compression fracture. Sternum is intact. IMPRESSION: No evidence of pulmonary embolism Pulmonary emphysema. .Multiple pulmonary masses slightly increased compared to last exam and consistent with metastatic di sease. There is a small right pleural effusion which is new compared to old exam. Large posterior med iastinal mass consistent with esophageal tumor unchanged.
[2021-04-14] MEDS ORDERED: IPRATROPIUM-ALBUTEROL 3 ML NEB INHALATION STA (17:54)
[2021-04-14] MEDS ORDERED: SODIUM CHLORIDE 0.9% 1,000 ML IV SCH (18:00)
[2021-04-14 19:24] VITALS: BP 96/57; PULSE 111; TEMP 98.1
== END 2021-04-14 19:38 | disposition other institution (70) ==
LOC: EC 14:59
DX: C15.9 Malignant neoplasm of esophagus, unspecified (principal); C78.00 Secondary malignant neoplasm of unspecified lung; I25.10 Atherosclerotic heart disease of native coronary artery without angina pectoris; J44.9 Chronic obstructive pulmonary disease, unspecified; E78.5 Hyperlipidemia, unspecified; I10 Essential (primary) hypertension; M19.90 Unspecified osteoarthritis, unspecified site; F17.200 Nicotine dependence, unspecified, uncomplicated; Z79.4 Long term (current) use of insulin; Z79.01 Long term (current) use of anticoagulants; Z88.0 Allergy status to penicillin; Z90.49 Acquired absence of other specified parts of digestive tract
CPT/HCPCS: 99285; 96374; 36415; 94640; 93005; 83880; 80053; 83605; 84484; 85025; 85610; 85730; 87040; 71275; J1170; Q9967